=== PATIENT | female | born 1945 | race Caucasian/White ===

== ENCOUNTER → 2016-10-03 | Day surgery (SDC) | payer OTHER ==
[~2016-10-03] VITALS: Ht 162.6 cm; Wt 56.2 kg
[~2016-10-03] MED LIST: ALBU17IN INH; ALBU83IN INH; ASPI1TAB PO; ASPI81TA60 PO; AUGM875T27 PO; AVEL1TAB PO; BACITAB3 PO; DOXY10CA PO; DUONEBS NEB; GERITAB9 PO; GUAI20TA PO; LASI20TA PO; LEVO50TA5 PO; LIDOCAINE 1% SDV INJ 30 ML VIAL As Ordered ONE; LIDOCAINE 1% SDV INJ 30 ML VIAL XX ONE; LR 1,000 ML IV SCH; METO-346 PO; METO25TA74 PO; METO25TAB PO; MIDAZOLAM INJ 2 MG/2 ML VIAL (J2250) As Ordered ONE; MUCI600T34 PO; NICO14DI20 TD; NICO14DI3 TD; PERI8.6T PO; PLAV75TA38 PO; POTA99TA PO; PRAV40TA2 PO; PRED10PA PO; PRED10TA PO; VARE1TA PO; VITA100037 PO; ceFAZolin SOD 1 GM in D5W MINI-BAG PLUS 50 ML IV ONE
--- NOTE | 2016-10-03 16:50 | RO ---
DATE OF PROCEDURE: 10/03/2016 PREOPERATIVE DIAGNOSIS: Palpitations. POSTOPERATIVE DIAGNOSIS: Palpitations. FINDINGS: Palpitations. PROCEDURE: Implantation of Medtronic LINQ implantable loop recorder. SURGEON: Easton Howe MD SENIOR MANAGER MMCOE: None. ANESTHESIA: 1% lidocaine local/monitored anesthetic care. SPECIMENS: None. ESTIMATED BLOOD LOSS: Less than 3 mL. No blood products replaced. No drains. No complications. DESCRIPTION OF PROCEDURE: The patient was prepped and draped over the anterior chest and sternum. Lidocaine 1% was used for local anesthetic. An incision approximately three-quarters of a centimeter was made with a #15 blade through the skin, approximately fourth left interspace, about 1-2 cm lateral to the left parasternal border. Next, the insertion tool guide was placed into the incision and advanced into the subcutaneous fat in a caudal-left lateral direction. The insertion tool was rotated 180 degrees. The implantable loop recorder was then advanced into the subcutaneous fat by advancing it forward using the supplied plunger that came with the insertion tool. The plunger was then removed and then the insertion tool was removed. The initial R waves measured were 0.36 mV. The skin was then approximated using #4-0 Monocryl subcutaneous with the suture protruding through the skin beyond the end of the incision on both sides. Just prior to placing the Monocryl suture, I placed a single #2-0 Vicryl deep stitch. Next, two layers of Dermabond was applied over the incision and the Monocryl was placed under tension to approximate the skin edges. Following two layers of Dermabond, the Monocryl stitch was snipped at the level of the skin at both ends. The implantable loop recorder implanted was a Medtronic Reveal LINQ, model #LNQ11 with serial #[id number]. cc: Rodney Justin MD
[2016-10-03 17:00] VITALS: BP 141/81
== END | disposition home or self-care (01) ==
LOC: M SDC 13:26
PROVIDERS: ATTEND Internal Medicine Cardiovascular Disease
DX: R00.2 Palpitations (principal); R94.31 Abnormal electrocardiogram [ECG] [EKG]; I48.0 Paroxysmal atrial fibrillation; I25.10 Atherosclerotic heart disease of native coronary artery without angina pectoris; F17.210 Nicotine dependence, cigarettes, uncomplicated; E03.9 Hypothyroidism, unspecified; J44.9 Chronic obstructive pulmonary disease, unspecified; E78.5 Hyperlipidemia, unspecified; K76.0 Fatty (change of) liver, not elsewhere classified; I10 Essential (primary) hypertension; K59.00 Constipation, unspecified; M06.9 Rheumatoid arthritis, unspecified; F41.9 Anxiety disorder, unspecified; Z91.09 Other allergy status, other than to drugs and biological substances; Z88.8 Allergy status to other drugs, medicaments and biological substances; Z79.899 Other long term (current) drug therapy; Z79.82 Long term (current) use of aspirin; Z86.711 Personal history of pulmonary embolism; Z95.5 Presence of coronary angioplasty implant and graft
CPT/HCPCS: 33282; C1764; J0690; J2250

== ENCOUNTER 2017-07-21 17:31 | Emergency (ER) | payer OTHER ==
[~2017-07-21] VITALS: Ht 162.6 cm; Wt 56.6 kg
[~2017-07-21 17:31] MED LIST changes: -AUGM875T27 PO; +AUGM875T28 PO; -AVEL1TAB PO; +AVEL1TAB3 PO; +BACITAB PO; -BACITAB3 PO; +DOXY100T2 PO; -DOXY10CA PO; -LIDOCAINE 1% SDV INJ 30 ML VIAL As Ordered ONE; -LIDOCAINE 1% SDV INJ 30 ML VIAL XX ONE; -LR 1,000 ML IV SCH; +METO1TAB32 PO; -METO25TA74 PO; -MIDAZOLAM INJ 2 MG/2 ML VIAL (J2250) As Ordered ONE; -MUCI600T34 PO; +MUCI600T37 PO; +PLAV1TAB2 PO; -PLAV75TA38 PO; -VITA100037 PO; +VITA100067 PO; -ceFAZolin SOD 1 GM in D5W MINI-BAG PLUS 50 ML IV ONE
[2017-07-21] MEDS ORDERED: ATOR1TAB19 PO (17:39)
[2017-07-21] MEDS ORDERED: NS 500 ML IV ONE ×3 (18:45→20:30)
[2017-07-21 18:56] LABS: BASO # 0.1 10^3/uL (0.0-0.2); BASO % 0.8 % (0.0-1.0); EOS % 0.3 % (0.0-3.0); IMMATURE GRANULOCYTE % 0.3 % (0-0); LYMPH # 1.2 10^3/uL (1.5-4.5); LYMPH % 18.9 % (24.0-44.0); MEAN CORPUSCULAR HEMOGLOBIN 31.3 pg (27.0-33.0); MEAN CORPUSCULAR HGB CONC 34.5 g/dl (32.0-36.5); MEAN CORPUSCULAR VOLUME 90.7 fl (80.0-96.0); MONO # 0.8 10^3/uL (0.0-0.8); MONO % 12.3 % (0.0-5.0); NEUTROPHILS # 4.4 10^3/uL (1.8-7.7); NEUTROPHILS % 67.4 % (36.0-66.0); PLATELET COUNT, AUTOMATED 297 10^3/uL (150-450); RED CELL DISTRIBUTION WIDTH 13.3 % (11.5-14.5); WHITE BLOOD COUNT 6.5 10^3/uL (4.0-10.0)
[2017-07-21 19:08] LABS: CALCIUM LEVEL 8.8 MG/DL (8.8-10.2); CREATININE FOR GFR 1.29 MG/DL (0.55-1.02); FREE T4 0.98 NG/DL (0.76-1.46); GLOMERULAR FILTRATION RATE 43.1 (>39); MAGNESIUM LEVEL 2.4 MG/DL (1.8-2.4); PHOSPHORUS LEVEL 3.3 MG/DL (2.5-4.9); POTASSIUM SERUM 3.9 MEQ/L (3.5-5.1)
[2017-07-21 19:13] LABS: INR 0.89
--- NOTE | 2017-07-21 19:41 | REP ---
Clinical: Near-syncopal episode . Comparison: 04/09/2016 . Technique: PA and lateral. Findings: The mediastinum and cardiac silhouette are normal. The lung villagomez demonstrate stable chronic interstitial changes without acute consolidation, effusion, or pneumothorax. The skeletal structures are intact and normal. Impression: Chronic stable changes. No acute cardiopulmonary process. Signed by Vikas Ruiz MD 07/21/2017 07:32 P
[2017-07-21 21:55] VITALS: BP 146/69
--- NOTE | 2017-07-23 08:36 | ECGEPIP ---
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
== END 2017-07-21 22:11 | disposition home or self-care (01) ==
LOC: M ED 17:31
DX: R55 Syncope and collapse (principal); I25.10 Atherosclerotic heart disease of native coronary artery without angina pectoris; J44.9 Chronic obstructive pulmonary disease, unspecified; N18.9 Chronic kidney disease, unspecified; K57.90 Diverticulosis of intestine, part unspecified, without perforation or abscess without bleeding; F41.9 Anxiety disorder, unspecified; K76.0 Fatty (change of) liver, not elsewhere classified; K44.9 Diaphragmatic hernia without obstruction or gangrene; M43.10 Spondylolisthesis, site unspecified; Z87.891 Personal history of nicotine dependence; Z95.5 Presence of coronary angioplasty implant and graft; Z79.899 Other long term (current) drug therapy; Z79.82 Long term (current) use of aspirin; Z88.8 Allergy status to other drugs, medicaments and biological substances; J30.81 Allergic rhinitis due to animal (cat) (dog) hair and dander

== ENCOUNTER 2018-01-26 14:17 | Emergency (ER) | payer OTHER ==
[2018-01-26 15:21] LABS: BASO % 0.6 % (0.0-1.0); EOS % 0.2 % (0.0-3.0); HEMATOCRIT 37.1 % (36.0-47.0); HEMOGLOBIN 12.3 g/dl (12.0-15.5); IMMATURE GRANULOCYTE % 0.4 % (0-3.0); LYMPH # 1.2 10^3/uL (1.5-4.5); LYMPH % 22.9 % (24.0-44.0); MEAN CORPUSCULAR HEMOGLOBIN 31.5 pg (27.0-33.0); MEAN CORPUSCULAR HGB CONC 33.2 g/dl (32.0-36.5); MEAN CORPUSCULAR VOLUME 94.9 fl (80.0-96.0); MONO # 0.6 10^3/uL (0.0-0.8); MONO % 11.4 % (0.0-5.0); NEUTROPHILS # 3.4 10^3/uL (1.8-7.7); NEUTROPHILS % 64.5 % (36.0-66.0); PLATELET COUNT, AUTOMATED 256 10^3/uL (150-450); RED BLOOD COUNT 3.91 10^6/uL (4.00-5.40); RED CELL DISTRIBUTION WIDTH 14.1 % (11.5-14.5); WHITE BLOOD COUNT 5.3 10^3/uL (4.0-10.0)
[2018-01-26 15:54] LABS: ALT/SGPT 18 U/L (12-78); ANION GAP 5 MEQ/L (8-16); AST/SGOT 17 U/L (7-37); BILIRUBIN,DIRECT 0.1 MG/DL (0.0-0.2); BLOOD UREA NITROGEN 14 MG/DL (7-18); CALCIUM LEVEL 8.6 MG/DL (8.8-10.2); CARBON DIOXIDE LEVEL 31 MEQ/L (21-32); CHLORIDE LEVEL 108 MEQ/L (98-107); CREATININE FOR GFR 1.13 MG/DL (0.55-1.30); GLOMERULAR FILTRATION RATE 50.1 (>39); GLUCOSE, FASTING 130 MG/DL (70-100); SODIUM LEVEL 144 MEQ/L (136-145); TROPONIN I < 0.02 NG/ML (< 0.10)
[2018-01-26 15:59] LABS: BILIRUBIN,TOTAL 0.3 MG/DL (0.2-1.0); CPK CREATINE PHOSPHOKINASE 112 U/L (26-192); FREE T4 0.94 NG/DL (0.76-1.46); TOTAL PROTEIN 7.1 GM/DL (6.4-8.2)
[2018-01-26 16:16] LABS: ALKALINE PHOSPHATASE 66 U/L (45-117)
[2018-01-26 16:20] LABS: ALBUMIN 3.4 GM/DL (3.2-5.2); ALBUMIN/GLOBULIN RATIO 0.92 (1.00-1.93); CK-MB VALUE MASS 1.1 NG/ML (<3.6); MB/CK RELATIVE INDEX 0.98 (< OR =4)
[2018-01-26] MEDS: NS 1,000 ML IV (16:30)
[2018-01-26 16:31] LABS: LIPASE 183 U/L (73-393)
[2018-01-26] MEDS ORDERED: ISOVUE-370 76% 100ML VIAL (Q9967) As Ordered (16:37)
[2018-01-26 17:06] LABS: KETONE, URINE AUTO RFX NEGATIVE (NEGATIVE); RBC, URINE AUTO RFX 8 /HPF (0-3); SPECIFIC GRAVITY UR AUTO RFX 1.005 (1.002-1.035); SQUAM EPITHELIAL CELL UR AURFX 0 /HPF (0-6)
[2018-01-26 17:44] LABS: LEUKOCYTE ESTERASE UR AUTO RFX 3+ (NEGATIVE); NITRITE, URINE AUTO RFX POSITIVE (NEGATIVE); WBC, URINE AUTO RFX 141 /HPF (0-3)
[2018-01-26] MEDS: CIPROFLOXACIN 500 MG TAB PO (18:36)
== END 2018-01-26 18:42 | disposition home or self-care (01) ==
LOC: M ED 14:17
DX: R55 Syncope and collapse (principal); N39.0 Urinary tract infection, site not specified; I10 Essential (primary) hypertension; J44.9 Chronic obstructive pulmonary disease, unspecified; I25.10 Atherosclerotic heart disease of native coronary artery without angina pectoris; E78.5 Hyperlipidemia, unspecified; Z95.5 Presence of coronary angioplasty implant and graft; Z79.899 Other long term (current) drug therapy; Z79.82 Long term (current) use of aspirin; Z88.8 Allergy status to other drugs, medicaments and biological substances
CPT/HCPCS: Q9967

== ENCOUNTER 2018-03-23 15:50 | Emergency (ER) | payer OTHER ==
[2018-03-23 16:49] LABS: BASO % 0.7 % (0.0-1.0); EOS % 0.3 % (0.0-3.0); HEMATOCRIT 41.8 % (36.0-47.0); HEMOGLOBIN 14.2 g/dl (12.0-15.5); IMMATURE GRANULOCYTE % 0.3 % (0-3.0); LYMPH # 1.1 10^3/uL (1.5-4.5); LYMPH % 18.9 % (24.0-44.0); MEAN CORPUSCULAR HEMOGLOBIN 31.2 pg (27.0-33.0); MEAN CORPUSCULAR VOLUME 91.9 fl (80.0-96.0); MONO # 0.6 10^3/uL (0.0-0.8); MONO % 10.2 % (0.0-5.0); NEUTROPHILS % 69.6 % (36.0-66.0); PLATELET COUNT, AUTOMATED 269 10^3/uL (150-450); RED BLOOD COUNT 4.55 10^6/uL (4.00-5.40); RED CELL DISTRIBUTION WIDTH 13.2 % (11.5-14.5); WHITE BLOOD COUNT 5.8 10^3/uL (4.0-10.0)
[2018-03-23 16:50] LABS: CARBOXYHEMOGLOBIN 8.7 % (0.0-1.5)
[2018-03-23 16:53] LABS: KETONE, URINE AUTO RFX TRACE mg/dL (NEGATIVE); LEUKOCYTE ESTERASE UR AUTO RFX NEGATIVE (NEGATIVE); MUCUS, URINE RFX SMALL (NEGATIVE); NITRITE, URINE AUTO RFX NEGATIVE (NEGATIVE); RBC, URINE AUTO RFX 3 /HPF (0-3); SPECIFIC GRAVITY UR AUTO RFX 1.011 (1.002-1.035); SQUAM EPITHELIAL CELL UR AURFX 2 /HPF (0-6); WBC, URINE AUTO RFX 2 /HPF (0-3)
[2018-03-23] MEDS: NS 500 ML IV (16:55)
[2018-03-23 17:11] LABS: AMMONIA < 10 uMOL/L (<32)
[2018-03-23 17:15] LABS: ALBUMIN 3.7 GM/DL (3.2-5.2); ALBUMIN/GLOBULIN RATIO 0.93 (1.00-1.93); ALKALINE PHOSPHATASE 76 U/L (45-117); ALT/SGPT 19 U/L (12-78); AST/SGOT 18 U/L (7-37); BILIRUBIN,DIRECT 0.2 MG/DL (0.0-0.2); BILIRUBIN,TOTAL 0.6 MG/DL (0.2-1.0); BLOOD UREA NITROGEN 11 MG/DL (7-18); CALCIUM LEVEL 8.8 MG/DL (8.8-10.2); CARBON DIOXIDE LEVEL 33 MEQ/L (21-32); CHLORIDE LEVEL 100 MEQ/L (98-107); CPK CREATINE PHOSPHOKINASE 61 U/L (26-192); CREATININE FOR GFR 1.07 MG/DL (0.55-1.30); GLOMERULAR FILTRATION RATE 53.4 (>39); GLUCOSE, FASTING 116 MG/DL (70-100); TOTAL PROTEIN 7.7 GM/DL (6.4-8.2)
[2018-03-23 17:15] LABS: LACTIC ACID SEPSIS PROTOCOL 1.7 MMOL/L (0.4-2.0)
[2018-03-23 17:18] LABS: CK-MB VALUE MASS < 1.0 NG/ML (<3.6); MB/CK RELATIVE INDEX 1.63 (< OR =4); TROPONIN I < 0.02 NG/ML (< 0.10)
[2018-03-23 17:21] LABS: ANION GAP 8 MEQ/L (8-16); SODIUM LEVEL 141 MEQ/L (136-145)
[2018-03-23 17:23] LABS: POTASSIUM SERUM 2.5 MEQ/L (3.5-5.1)
[2018-03-23 17:33] LABS: MAGNESIUM LEVEL 2.4 MG/DL (1.8-2.4)
[2018-03-23] MEDS: KCL 10MEQ/100ML SWI (KRUN) 10 MEQ in APPROPRIATE DILUENT 1 EA IV (18:05)
[2018-03-23] MEDS: POTASSIUM CHLORIDE 10 MEQ SR TABLET PO (18:05)
== END 2018-03-23 19:56 | disposition home or self-care (01) ==
LOC: M ED 15:50
DX: R53.1 Weakness (principal); E87.6 Hypokalemia; I25.10 Atherosclerotic heart disease of native coronary artery without angina pectoris; I12.9 Hypertensive chronic kidney disease with stage 1 through stage 4 chronic kidney disease, or unspecified chronic kidney disease; E78.9 Disorder of lipoprotein metabolism, unspecified; N18.9 Chronic kidney disease, unspecified; I25.2 Old myocardial infarction; Z86.711 Personal history of pulmonary embolism; F41.9 Anxiety disorder, unspecified; F32.9 Major depressive disorder, single episode, unspecified; K52.9 Noninfective gastroenteritis and colitis, unspecified; K57.92 Diverticulitis of intestine, part unspecified, without perforation or abscess without bleeding; Z95.1 Presence of aortocoronary bypass graft; F17.200 Nicotine dependence, unspecified, uncomplicated; Z88.8 Allergy status to other drugs, medicaments and biological substances; J30.81 Allergic rhinitis due to animal (cat) (dog) hair and dander; Z79.899 Other long term (current) drug therapy; Z79.82 Long term (current) use of aspirin
CPT/HCPCS: 71045

== ENCOUNTER → 2018-06-06 | Outpatient (CLI) | payer OTHER | LOC: M ADAMS 15:02 | DX: R05 Cough (principal) | CPT/HCPCS: 71046 ==

== ENCOUNTER 2018-06-10 11:21 | Inpatient (IN) | payer OTHER ==
[2018-06-10 12:44] LABS: BASO % 0.6 % (0.0-1.0); EOS % 0.6 % (0.0-3.0); HEMATOCRIT 34.5 % (36.0-47.0); HEMOGLOBIN 11.9 g/dl (12.0-15.5); IMMATURE GRANULOCYTE % 0.2 % (0-3.0); LYMPH # 0.9 10^3/uL (1.5-4.5); LYMPH % 15.6 % (24.0-44.0); MEAN CORPUSCULAR HEMOGLOBIN 30.3 pg (27.0-33.0); MEAN CORPUSCULAR HGB CONC 34.5 g/dl (32.0-36.5); MEAN CORPUSCULAR VOLUME 87.8 fl (80.0-96.0); MONO # 0.6 10^3/uL (0.0-0.8); MONO % 11.6 % (0.0-5.0); NEUTROPHILS # 3.9 10^3/uL (1.8-7.7); NEUTROPHILS % 71.4 % (36.0-66.0); PLATELET COUNT, AUTOMATED 297 10^3/uL (150-450); RED BLOOD COUNT 3.93 10^6/uL (4.00-5.40); RED CELL DISTRIBUTION WIDTH 13.4 % (11.5-14.5); WHITE BLOOD COUNT 5.4 10^3/uL (4.0-10.0)
[2018-06-10 12:55] LABS: INR 1.04; PARTIAL THROMBOPLASTIN TIME 26.1 SECONDS (25.4-37.6); PROTHROMBIN TIME 13.7 SECONDS (12.1-14.4)
[2018-06-10 13:09] LABS: LACTIC ACID SEPSIS PROTOCOL 1.6 MMOL/L (0.4-2.0)
[2018-06-10 13:32] LABS: ALBUMIN 3.1 GM/DL (3.2-5.2); ALBUMIN/GLOBULIN RATIO 0.82 (1.00-1.93); ALKALINE PHOSPHATASE 64 U/L (45-117); ALT/SGPT 14 U/L (12-78); AMYLASE 34 U/L (25-115); ANION GAP 10 MEQ/L (8-16); AST/SGOT 39 U/L (7-37); BILIRUBIN,DIRECT 0.2 MG/DL (0.0-0.2); BILIRUBIN,TOTAL 0.5 MG/DL (0.2-1.0); BLOOD UREA NITROGEN 9 MG/DL (7-18); CALCIUM LEVEL 8.4 MG/DL (8.8-10.2); CARBON DIOXIDE LEVEL 38 MEQ/L (21-32); CHLORIDE LEVEL 92 MEQ/L (98-107); GLOMERULAR FILTRATION RATE 57.7 (>39); GLUCOSE, FASTING 100 MG/DL (70-100); LIPASE 137 U/L (73-393); POTASSIUM SERUM 1.9 MEQ/L (3.5-5.1); SODIUM LEVEL 140 MEQ/L (136-145); TOTAL PROTEIN 6.9 GM/DL (6.4-8.2)
[2018-06-10 13:50] LABS: MAGNESIUM LEVEL 2.3 MG/DL (1.8-2.4)
[2018-06-10] MEDS: NS 1,000 ML IV ×2 (14:01→18:48)
[2018-06-10] MEDS: KCL 10MEQ/100ML SWI (KRUN) 10 MEQ in APPROPRIATE DILUENT 1 EA IV (14:11)
[2018-06-10] MEDS: POTASSIUM CHLORIDE 10 MEQ SR TABLET PO ×2 (14:11→21:32)
[2018-06-10 14:19] LABS: AMORPHOUS SEDIMENT RFX SMALL (NEGATIVE); KETONE, URINE AUTO RFX NEGATIVE (NEGATIVE); LEUKOCYTE ESTERASE UR AUTO RFX NEGATIVE (NEGATIVE); NITRITE, URINE AUTO RFX NEGATIVE (NEGATIVE); RBC, URINE AUTO RFX 4 /HPF (0-3); SPECIFIC GRAVITY UR AUTO RFX 1.004 (1.002-1.035); SQUAM EPITHELIAL CELL UR AURFX 2 /HPF (0-6); WBC, URINE AUTO RFX 1 /HPF (0-3)
[2018-06-10] MEDS ORDERED: ONDANSETRON 4MG/2ML VIAL (J2405) IV (15:30)
[2018-06-10 18:49] LABS: ANION GAP 8 MEQ/L (8-16); BLOOD UREA NITROGEN 6 MG/DL (7-18); CALCIUM LEVEL 7.9 MG/DL (8.8-10.2); CARBON DIOXIDE LEVEL 38 MEQ/L (21-32); CHLORIDE LEVEL 100 MEQ/L (98-107); CREATININE FOR GFR 0.83 MG/DL (0.55-1.30); GLOMERULAR FILTRATION RATE > 60.0 (>39); GLUCOSE, FASTING 83 MG/DL (70-100); POTASSIUM SERUM 2.1 MEQ/L (3.5-5.1); SODIUM LEVEL 146 MEQ/L (136-145)
[2018-06-10] MEDS: LACTOBACILLUS ACIDOPHILUS CAP (BACID) PO (18:49)
[2018-06-10] MEDS: ENOXAPARIN 40 MG/0.4 ML SYRINGE (J1650) SC (18:49)
[2018-06-10] MEDS: hydrALAZINE INJ 20 MG/ML VIAL IV (18:55)
[2018-06-10] MEDS: KCL 40MEQ IN D5/0.45NS 1000ML 1,000 ML IV (19:53)
[2018-06-10] MEDS: ALBUTEROL SULFATE 2.5 MG/0.5 ML INH NEB SOLN INH (21:54)
[2018-06-11 00:50] LABS: ANION GAP 8 MEQ/L (8-16); BLOOD UREA NITROGEN 6 MG/DL (7-18); CALCIUM LEVEL 7.5 MG/DL (8.8-10.2); CARBON DIOXIDE LEVEL 36 MEQ/L (21-32); CHLORIDE LEVEL 99 MEQ/L (98-107); CREATININE FOR GFR 0.79 MG/DL (0.55-1.30); GLOMERULAR FILTRATION RATE > 60.0 (>39); GLUCOSE, FASTING 124 MG/DL (70-100); POTASSIUM SERUM 2.1 MEQ/L (3.5-5.1); SODIUM LEVEL 143 MEQ/L (136-145)
[2018-06-11] MEDS: POTASSIUM CHLORIDE 10 MEQ SR TABLET PO ×4 (01:44→16:25)
[2018-06-11] MEDS: hydrALAZINE INJ 20 MG/ML VIAL IV ×2 (01:44→18:13)
[2018-06-11] MEDS: KCL 10MEQ/100ML SWI (KRUN) 10 MEQ in APPROPRIATE DILUENT 1 EA IV ×7 (02:25→13:32)
[2018-06-11] MEDS: ALBUTEROL SULFATE 2.5 MG/0.5 ML INH NEB SOLN INH (03:16)
[2018-06-11 05:40] LABS: BASO % 0.8 % (0.0-1.0); EOS % 0.4 % (0.0-3.0); HEMOGLOBIN 12.1 g/dl (12.0-15.5); IMMATURE GRANULOCYTE % 0.4 % (0-3.0); LYMPH # 0.9 10^3/uL (1.5-4.5); LYMPH % 17.5 % (24.0-44.0); MEAN CORPUSCULAR HEMOGLOBIN 29.7 pg (27.0-33.0); MEAN CORPUSCULAR HGB CONC 33.6 g/dl (32.0-36.5); MEAN CORPUSCULAR VOLUME 88.2 fl (80.0-96.0); MONO # 0.6 10^3/uL (0.0-0.8); MONO % 12.2 % (0.0-5.0); NEUTROPHILS # 3.5 10^3/uL (1.8-7.7); NEUTROPHILS % 68.7 % (36.0-66.0); PLATELET COUNT, AUTOMATED 289 10^3/uL (150-450); RED BLOOD COUNT 4.08 10^6/uL (4.00-5.40); RED CELL DISTRIBUTION WIDTH 13.6 % (11.5-14.5)
[2018-06-11 06:13] LABS: ALBUMIN 2.9 GM/DL (3.2-5.2); ALBUMIN/GLOBULIN RATIO 0.69 (1.00-1.93); ALKALINE PHOSPHATASE 58 U/L (45-117); ALT/SGPT 19 U/L (12-78); ANION GAP 7 MEQ/L (8-16); AST/SGOT 55 U/L (7-37); BILIRUBIN,TOTAL 0.6 MG/DL (0.2-1.0); BLOOD UREA NITROGEN 4 MG/DL (7-18); CALCIUM LEVEL 8.1 MG/DL (8.8-10.2); CARBON DIOXIDE LEVEL 35 MEQ/L (21-32); CHLORIDE LEVEL 102 MEQ/L (98-107); CREATININE FOR GFR 0.74 MG/DL (0.55-1.30); GLOMERULAR FILTRATION RATE > 60.0 (>39); GLUCOSE, FASTING 99 MG/DL (70-100); MAGNESIUM LEVEL 1.9 MG/DL (1.8-2.4); POTASSIUM SERUM 2.4 MEQ/L (3.5-5.1); SODIUM LEVEL 144 MEQ/L (136-145); TOTAL PROTEIN 7.1 GM/DL (6.4-8.2)
[2018-06-11] MEDS ORDERED: KCL 10MEQ/100ML SWI (KRUN) 10 MEQ in APPROPRIATE DILUENT 1 EA IV ×2 (08:00→11:00)
[2018-06-11] MEDS: LACTOBACILLUS ACIDOPHILUS CAP (BACID) PO ×2 (08:50→16:25)
[2018-06-11] MEDS: ENOXAPARIN 40 MG/0.4 ML SYRINGE (J1650) SC (08:50)
[2018-06-11] MEDS: ASPIRIN 81 MG ENTERIC TAB PO (08:50)
[2018-06-11] MEDS: KCL 40MEQ IN D5/0.45NS 1000ML 1,000 ML IV ×2 (08:51→21:58)
[2018-06-11 13:16] LABS: ANION GAP 8 MEQ/L (8-16); BLOOD UREA NITROGEN 5 MG/DL (7-18); CALCIUM LEVEL 7.9 MG/DL (8.8-10.2); CARBON DIOXIDE LEVEL 32 MEQ/L (21-32); CHLORIDE LEVEL 103 MEQ/L (98-107); CREATININE FOR GFR 0.82 MG/DL (0.55-1.30); GLOMERULAR FILTRATION RATE > 60.0 (>39); GLUCOSE, FASTING 145 MG/DL (70-100); POTASSIUM SERUM 2.6 MEQ/L (3.5-5.1); SODIUM LEVEL 143 MEQ/L (136-145)
[2018-06-11 20:44] LABS: ANION GAP 6 MEQ/L (8-16); BLOOD UREA NITROGEN 7 MG/DL (7-18); CALCIUM LEVEL 7.6 MG/DL (8.8-10.2); CARBON DIOXIDE LEVEL 29 MEQ/L (21-32); CHLORIDE LEVEL 107 MEQ/L (98-107); CREATININE FOR GFR 0.83 MG/DL (0.55-1.30); GLOMERULAR FILTRATION RATE > 60.0 (>39); GLUCOSE, FASTING 104 MG/DL (70-100); POTASSIUM SERUM 3.3 MEQ/L (3.5-5.1); SODIUM LEVEL 142 MEQ/L (136-145)
[2018-06-11] MEDS: ACETAMINOPHEN TAB 650MG DOSE (2X325MG) PO (22:14)
[2018-06-12] MEDS: hydrALAZINE INJ 20 MG/ML VIAL IV (00:55)
[2018-06-12 05:59] LABS: BASO % 0.9 % (0.0-1.0); EOS # 0.1 10^3/uL (0.0-0.50); EOS % 2.3 % (0.0-3.0); HEMOGLOBIN 11.8 g/dl (12.0-15.5); IMMATURE GRANULOCYTE % 0.2 % (0-3.0); LYMPH # 1.1 10^3/uL (1.5-4.5); LYMPH % 22.6 % (24.0-44.0); MEAN CORPUSCULAR HEMOGLOBIN 30.3 pg (27.0-33.0); MEAN CORPUSCULAR HGB CONC 33.7 g/dl (32.0-36.5); MEAN CORPUSCULAR VOLUME 89.7 fl (80.0-96.0); MONO # 0.5 10^3/uL (0.0-0.8); MONO % 11.1 % (0.0-5.0); NEUTROPHILS % 62.9 % (36.0-66.0); PLATELET COUNT, AUTOMATED 282 10^3/uL (150-450); RED CELL DISTRIBUTION WIDTH 14.3 % (11.5-14.5); WHITE BLOOD COUNT 4.7 10^3/uL (4.0-10.0)
[2018-06-12 06:21] LABS: ALBUMIN 2.5 GM/DL (3.2-5.2); ALBUMIN/GLOBULIN RATIO 0.64 (1.00-1.93); ALKALINE PHOSPHATASE 58 U/L (45-117); ALT/SGPT 18 U/L (12-78); ANION GAP 7 MEQ/L (8-16); AST/SGOT 61 U/L (7-37); BILIRUBIN,TOTAL 0.5 MG/DL (0.2-1.0); BLOOD UREA NITROGEN 4 MG/DL (7-18); CALCIUM LEVEL 7.9 MG/DL (8.8-10.2); CARBON DIOXIDE LEVEL 29 MEQ/L (21-32); CHLORIDE LEVEL 110 MEQ/L (98-107); CREATININE FOR GFR 0.67 MG/DL (0.55-1.30); GLOMERULAR FILTRATION RATE > 60.0 (>39); GLUCOSE, FASTING 87 MG/DL (70-100); MAGNESIUM LEVEL 1.9 MG/DL (1.8-2.4); SODIUM LEVEL 146 MEQ/L (136-145); TOTAL PROTEIN 6.4 GM/DL (6.4-8.2)
[2018-06-12] MEDS: ASPIRIN 81 MG ENTERIC TAB PO (08:47)
[2018-06-12] MEDS: AZITHROMYCIN 250 MG TAB PO (08:47)
[2018-06-12] MEDS: LACTOBACILLUS ACIDOPHILUS CAP (BACID) PO (08:47)
[2018-06-12] MEDS: POTASSIUM CHLORIDE 10 MEQ SR TABLET PO (08:48)
[2018-06-12] MEDS: ENOXAPARIN 40 MG/0.4 ML SYRINGE (J1650) SC (08:48)
[2018-06-12] MEDS: ALBUTEROL SULFATE 2.5 MG/0.5 ML INH NEB SOLN INH (12:44)
[2018-06-12 13:40] LABS: ANION GAP 6 MEQ/L (8-16); BLOOD UREA NITROGEN 5 MG/DL (7-18); CALCIUM LEVEL 8.6 MG/DL (8.8-10.2); CARBON DIOXIDE LEVEL 32 MEQ/L (21-32); CHLORIDE LEVEL 104 MEQ/L (98-107); CREATININE FOR GFR 0.77 MG/DL (0.55-1.30); GLOMERULAR FILTRATION RATE > 60.0 (>39); GLUCOSE, FASTING 98 MG/DL (70-100); POTASSIUM SERUM 3.4 MEQ/L (3.5-5.1); SODIUM LEVEL 142 MEQ/L (136-145)
[2018-06-12] MEDS: FLUDROCORTISONE ACETATE 0.1 MG TAB PO (15:20)
== END 2018-06-12 15:35 | disposition home or self-care (01) | DRG 372 ==
LOC: M ED 11:21 → M ED INP 15:09 → M PCU 18:12
DX: A04.0 Enteropathogenic Escherichia coli infection (principal); I45.2 Bifascicular block; J44.9 Chronic obstructive pulmonary disease, unspecified; I10 Essential (primary) hypertension; I25.10 Atherosclerotic heart disease of native coronary artery without angina pectoris; E78.5 Hyperlipidemia, unspecified; E87.6 Hypokalemia; F17.200 Nicotine dependence, unspecified, uncomplicated; Z79.82 Long term (current) use of aspirin; Z79.899 Other long term (current) drug therapy; Z88.8 Allergy status to other drugs, medicaments and biological substances; Z86.711 Personal history of pulmonary embolism

== ENCOUNTER 2018-07-02 18:42 | Inpatient (IN) | payer OTHER ==
[2018-07-02 19:14] LABS: BASO % 0.2 % (0.0-1.0); HEMATOCRIT 38.6 % (36.0-47.0); HEMOGLOBIN 13.2 g/dl (12.0-15.5); IMMATURE GRANULOCYTE % 0.5 % (0-3.0); LYMPH # 0.4 10^3/uL (1.5-4.5); LYMPH % 2.3 % (24.0-44.0); MEAN CORPUSCULAR HEMOGLOBIN 30.3 pg (27.0-33.0); MEAN CORPUSCULAR HGB CONC 34.2 g/dl (32.0-36.5); MEAN CORPUSCULAR VOLUME 88.7 fl (80.0-96.0); MONO # 0.2 10^3/uL (0.0-0.8); MONO % 1.1 % (0.0-5.0); NEUTROPHILS # 17.8 10^3/uL (1.8-7.7); NEUTROPHILS % 95.9 % (36.0-66.0); PLATELET COUNT, AUTOMATED 223 10^3/uL (150-450); RED BLOOD COUNT 4.35 10^6/uL (4.00-5.40); RED CELL DISTRIBUTION WIDTH 14.2 % (11.5-14.5); WHITE BLOOD COUNT 18.6 10^3/uL (4.0-10.0)
[2018-07-02] MEDS: ACETAMINOPHEN TAB 650MG DOSE (2X325MG) PO (19:45)
[2018-07-02] MEDS: NS 1,000 ML IV (19:45)
[2018-07-02 19:46] LABS: ALBUMIN 3.2 GM/DL (3.2-5.2); ALBUMIN/GLOBULIN RATIO 0.78 (1.00-1.93); ALKALINE PHOSPHATASE 85 U/L (45-117); ALT/SGPT 12 U/L (12-78); ANION GAP 11 MEQ/L (8-16); AST/SGOT 18 U/L (7-37); BILIRUBIN,DIRECT 0.4 MG/DL (0.0-0.2); BILIRUBIN,TOTAL 1.2 MG/DL (0.2-1.0); BLOOD UREA NITROGEN 24 MG/DL (7-18); CALCIUM LEVEL 8.8 MG/DL (8.8-10.2); CARBON DIOXIDE LEVEL 23 MEQ/L (21-32); CHLORIDE LEVEL 99 MEQ/L (98-107); CK-MB VALUE MASS < 1.0 NG/ML (<3.6); CPK CREATINE PHOSPHOKINASE 126 U/L (26-192); CREATININE FOR GFR 1.55 MG/DL (0.55-1.30); GLOMERULAR FILTRATION RATE 34.8 (>39); GLUCOSE, FASTING 175 MG/DL (70-100); MB/CK RELATIVE INDEX 0.79 (< OR =4); NT-PRO BNP 686 PG/ML (<125); POTASSIUM SERUM 2.9 MEQ/L (3.5-5.1); SODIUM LEVEL 133 MEQ/L (136-145); TOTAL PROTEIN 7.3 GM/DL (6.4-8.2); TROPONIN I < 0.02 NG/ML (< 0.10)
[2018-07-02 19:54] LABS: LIPASE 107 U/L (73-393)
[2018-07-02] MEDS: NS 500 ML IV (20:30)
[2018-07-02 20:32] LABS: LACTIC ACID SEPSIS PROTOCOL 2.2 MMOL/L (0.4-2.0)
[2018-07-02 20:42] LABS: KETONE, URINE AUTO RFX NEGATIVE (NEGATIVE); MUCUS, URINE RFX SMALL (NEGATIVE); RBC, URINE AUTO RFX 12 /HPF (0-3); SPECIFIC GRAVITY UR AUTO RFX 1.009 (1.002-1.035); SQUAM EPITHELIAL CELL UR AURFX 0 /HPF (0-6)
[2018-07-02 20:46] LABS: LEUKOCYTE ESTERASE UR AUTO RFX 3+ (NEGATIVE); NITRITE, URINE AUTO RFX POSITIVE (NEGATIVE); WBC, URINE AUTO RFX TNTC /HPF (0-3)
[2018-07-02] MEDS: cefTRIAXone SOD 1 GM in D5W MINI-BAG PLUS 50 ML IV (22:15)
[2018-07-02] MEDS ORDERED: BISACODYL 10 MG SUPP PR (23:45)
[2018-07-03 00:31] LABS: MAGNESIUM LEVEL 1.7 MG/DL (1.8-2.4)
[2018-07-03] MEDS ORDERED: MAG SULF 1GM/100ML (MAG RUN) 1 GM in APPROPRIATE DILUENT 1 EA IV (01:15)
[2018-07-03] MEDS: DOCUSATE SODIUM 100 MG CAP PO ×3 (02:01→21:41)
[2018-07-03] MEDS: NS 1,000 ML IV (02:01)
[2018-07-03] MEDS: POTASSIUM CHLORIDE 10 MEQ SR TABLET PO (02:02)
[2018-07-03] MEDS: ACETAMINOPHEN TAB 650MG DOSE (2X325MG) PO ×4 (02:02→21:43)
[2018-07-03] MEDS: MAG SULF 1GM/100ML (MAG RUN) 1 GM in APPROPRIATE DILUENT 1 EA IV (02:41)
[2018-07-03] MEDS: FLUDROCORTISONE ACETATE 0.1 MG TAB PO ×3 (02:58→21:41)
[2018-07-03 06:13] LABS: HEMATOCRIT 32.8 % (36.0-47.0); MEAN CORPUSCULAR HEMOGLOBIN 30.4 pg (27.0-33.0); MEAN CORPUSCULAR HGB CONC 32.9 g/dl (32.0-36.5); MEAN CORPUSCULAR VOLUME 92.4 fl (80.0-96.0); PLATELET COUNT, AUTOMATED 193 10^3/uL (150-450); RED BLOOD COUNT 3.55 10^6/uL (4.00-5.40); RED CELL DISTRIBUTION WIDTH 14.3 % (11.5-14.5); WHITE BLOOD COUNT 20.1 10^3/uL (4.0-10.0)
[2018-07-03 06:18] LABS: HEMOGLOBIN 10.8 g/dl (12.0-15.5)
[2018-07-03 06:31] LABS: ANION GAP 9 MEQ/L (8-16); BLOOD UREA NITROGEN 26 MG/DL (7-18); CALCIUM LEVEL 8.3 MG/DL (8.8-10.2); CARBON DIOXIDE LEVEL 23 MEQ/L (21-32); CHLORIDE LEVEL 105 MEQ/L (98-107); GLOMERULAR FILTRATION RATE 33.5 (>39); GLUCOSE, FASTING 182 MG/DL (70-100); MAGNESIUM LEVEL 2.8 MG/DL (1.8-2.4); POTASSIUM SERUM 4.1 MEQ/L (3.5-5.1); SODIUM LEVEL 137 MEQ/L (136-145)
[2018-07-03] MEDS: ASPIRIN 81 MG ENTERIC TAB PO ×2 (08:25→21:41)
[2018-07-03] MEDS: ENOXAPARIN 30 MG/0.3 ML SYR (J1650) SC (08:26)
[2018-07-03] MEDS: KCL 20MEQ in NS 1000ML 1,000 ML IV ×2 (12:03→21:42)
[2018-07-03] MEDS: IPRATROPIUM 0.5MG/ALBUTEROL 2.5MG INH SOL UD 3ML (DUONEB)(J7620) NEB (17:36)
[2018-07-03] MEDS ORDERED: cefTRIAXone SOD 1 GM in D5W MINI-BAG PLUS 50 ML IV (21:00)
[2018-07-03] MEDS: cefTRIAXone SOD 2 GM in D5W MINI-BAG PLUS 50 ML IV (21:41)
[2018-07-04] MEDS: IPRATROPIUM 0.5MG/ALBUTEROL 2.5MG INH SOL UD 3ML (DUONEB)(J7620) NEB ×3 (03:11→22:25)
[2018-07-04 05:59] LABS: HEMATOCRIT 32.9 % (36.0-47.0); HEMOGLOBIN 10.5 g/dl (12.0-15.5); MEAN CORPUSCULAR HEMOGLOBIN 30.1 pg (27.0-33.0); MEAN CORPUSCULAR HGB CONC 31.9 g/dl (32.0-36.5); MEAN CORPUSCULAR VOLUME 94.3 fl (80.0-96.0); PLATELET COUNT, AUTOMATED 215 10^3/uL (150-450); RED BLOOD COUNT 3.49 10^6/uL (4.00-5.40); RED CELL DISTRIBUTION WIDTH 14.9 % (11.5-14.5); WHITE BLOOD COUNT 17.6 10^3/uL (4.0-10.0)
[2018-07-04 06:23] LABS: ANION GAP 7 MEQ/L (8-16); BLOOD UREA NITROGEN 21 MG/DL (7-18); CALCIUM LEVEL 8.2 MG/DL (8.8-10.2); CARBON DIOXIDE LEVEL 22 MEQ/L (21-32); CHLORIDE LEVEL 115 MEQ/L (98-107); CREATININE FOR GFR 1.23 MG/DL (0.55-1.30); GLOMERULAR FILTRATION RATE 45.4 (>39); GLUCOSE, FASTING 117 MG/DL (70-100); POTASSIUM SERUM 3.9 MEQ/L (3.5-5.1); SODIUM LEVEL 144 MEQ/L (136-145)
[2018-07-04] MEDS: ASPIRIN 81 MG ENTERIC TAB PO ×2 (07:52→20:35)
[2018-07-04] MEDS: FLUDROCORTISONE ACETATE 0.1 MG TAB PO ×2 (07:52→20:34)
[2018-07-04] MEDS: DOCUSATE SODIUM 100 MG CAP PO ×2 (07:52→20:35)
[2018-07-04] MEDS: ENOXAPARIN 30 MG/0.3 ML SYR (J1650) SC (07:53)
[2018-07-04] MEDS: KCL 20MEQ in NS 1000ML 1,000 ML IV ×2 (07:54→17:18)
[2018-07-04] MEDS: ACETAMINOPHEN TAB 650MG DOSE (2X325MG) PO ×3 (07:59→17:20)
[2018-07-04] MEDS: cefTRIAXone SOD 2 GM in D5W MINI-BAG PLUS 50 ML IV (20:35)
[2018-07-05] MEDS: IPRATROPIUM 0.5MG/ALBUTEROL 2.5MG INH SOL UD 3ML (DUONEB)(J7620) NEB ×2 (03:38→20:13)
[2018-07-05 05:57] LABS: HEMATOCRIT 31.2 % (36.0-47.0); MEAN CORPUSCULAR HEMOGLOBIN 29.2 pg (27.0-33.0); MEAN CORPUSCULAR HGB CONC 32.1 g/dl (32.0-36.5); MEAN CORPUSCULAR VOLUME 91.2 fl (80.0-96.0); PLATELET COUNT, AUTOMATED 208 10^3/uL (150-450); RED BLOOD COUNT 3.42 10^6/uL (4.00-5.40); WHITE BLOOD COUNT 9.8 10^3/uL (4.0-10.0)
[2018-07-05 06:30] LABS: ANION GAP 8 MEQ/L (8-16); BLOOD UREA NITROGEN 10 MG/DL (7-18); CALCIUM LEVEL 7.8 MG/DL (8.8-10.2); CARBON DIOXIDE LEVEL 24 MEQ/L (21-32); CHLORIDE LEVEL 109 MEQ/L (98-107); CREATININE FOR GFR 0.91 MG/DL (0.55-1.30); GLOMERULAR FILTRATION RATE > 60.0 (>39); GLUCOSE, FASTING 79 MG/DL (70-100); SODIUM LEVEL 141 MEQ/L (136-145)
[2018-07-05] MEDS: POTASSIUM CHLORIDE 10 MEQ SR TABLET PO ×3 (06:50→21:51)
[2018-07-05] MEDS: ACETAMINOPHEN TAB 650MG DOSE (2X325MG) PO ×4 (06:51→21:52)
[2018-07-05] MEDS: ASPIRIN 81 MG ENTERIC TAB PO ×2 (07:46→21:51)
[2018-07-05] MEDS: DOCUSATE SODIUM 100 MG CAP PO ×2 (07:46→21:50)
[2018-07-05] MEDS: FLUDROCORTISONE ACETATE 0.1 MG TAB PO ×2 (07:47→21:51)
[2018-07-05] MEDS: ENOXAPARIN 30 MG/0.3 ML SYR (J1650) SC (07:47)
[2018-07-05 11:28] LABS: BEDSIDE GLUCOSE 97 MG/DL (83-110)
[2018-07-05 16:31] LABS: BEDSIDE GLUCOSE 87 MG/DL (83-110)
[2018-07-05 20:44] LABS: BEDSIDE GLUCOSE 108 MG/DL (83-110)
[2018-07-05] MEDS: CLOTRIMAZOLE 10 MG TROCHE PO (21:51)
[2018-07-05] MEDS: cefTRIAXone SOD 2 GM in D5W MINI-BAG PLUS 50 ML IV (21:53)
[2018-07-06] MEDS: IPRATROPIUM 0.5MG/ALBUTEROL 2.5MG INH SOL UD 3ML (DUONEB)(J7620) NEB ×2 (02:45→17:19)
[2018-07-06] MEDS: CLOTRIMAZOLE 10 MG TROCHE PO ×5 (05:31→21:28)
[2018-07-06 06:20] LABS: HEMATOCRIT 31.7 % (36.0-47.0); HEMOGLOBIN 10.1 g/dl (12.0-15.5); MEAN CORPUSCULAR HEMOGLOBIN 29.4 pg (27.0-33.0); MEAN CORPUSCULAR HGB CONC 31.9 g/dl (32.0-36.5); MEAN CORPUSCULAR VOLUME 92.2 fl (80.0-96.0); PLATELET COUNT, AUTOMATED 205 10^3/uL (150-450); RED BLOOD COUNT 3.44 10^6/uL (4.00-5.40); WHITE BLOOD COUNT 5.5 10^3/uL (4.0-10.0)
[2018-07-06 06:42] LABS: ANION GAP 6 MEQ/L (8-16); BLOOD UREA NITROGEN 10 MG/DL (7-18); CALCIUM LEVEL 8.3 MG/DL (8.8-10.2); CARBON DIOXIDE LEVEL 25 MEQ/L (21-32); CHLORIDE LEVEL 110 MEQ/L (98-107); CREATININE FOR GFR 0.82 MG/DL (0.55-1.30); GLOMERULAR FILTRATION RATE > 60.0 (>39); GLUCOSE, FASTING 68 MG/DL (70-100); MAGNESIUM LEVEL 1.8 MG/DL (1.8-2.4); POTASSIUM SERUM 3.2 MEQ/L (3.5-5.1); SODIUM LEVEL 141 MEQ/L (136-145)
[2018-07-06] MEDS: DOCUSATE SODIUM 100 MG CAP PO ×2 (07:51→21:27)
[2018-07-06] MEDS: ACETAMINOPHEN TAB 650MG DOSE (2X325MG) PO ×2 (09:07→21:29)
[2018-07-06] MEDS: POTASSIUM CHLORIDE 10 MEQ SR TABLET PO ×2 (09:08→21:28)
[2018-07-06] MEDS: ASPIRIN 81 MG ENTERIC TAB PO ×2 (09:08→21:27)
[2018-07-06] MEDS: ENOXAPARIN 30 MG/0.3 ML SYR (J1650) SC (09:09)
[2018-07-06] MEDS: FLUDROCORTISONE ACETATE 0.1 MG TAB PO ×2 (11:26→21:27)
[2018-07-06] MEDS: SPIRONOLACTONE 25 MG TAB PO (17:08)
[2018-07-06] MEDS: cefTRIAXone SOD 2 GM in D5W MINI-BAG PLUS 50 ML IV (21:28)
[2018-07-07] MEDS: CLOTRIMAZOLE 10 MG TROCHE PO ×5 (05:35→21:01)
[2018-07-07 06:00] LABS: HEMATOCRIT 32.2 % (36.0-47.0); HEMOGLOBIN 10.5 g/dl (12.0-15.5); MEAN CORPUSCULAR HEMOGLOBIN 29.5 pg (27.0-33.0); MEAN CORPUSCULAR HGB CONC 32.6 g/dl (32.0-36.5); MEAN CORPUSCULAR VOLUME 90.4 fl (80.0-96.0); PLATELET COUNT, AUTOMATED 224 10^3/uL (150-450); RED BLOOD COUNT 3.56 10^6/uL (4.00-5.40); RED CELL DISTRIBUTION WIDTH 14.6 % (11.5-14.5); WHITE BLOOD COUNT 4.2 10^3/uL (4.0-10.0)
[2018-07-07 06:20] LABS: ANION GAP 6 MEQ/L (8-16); BLOOD UREA NITROGEN 10 MG/DL (7-18); CALCIUM LEVEL 8.4 MG/DL (8.8-10.2); CARBON DIOXIDE LEVEL 30 MEQ/L (21-32); CHLORIDE LEVEL 105 MEQ/L (98-107); CREATININE FOR GFR 0.84 MG/DL (0.55-1.30); GLOMERULAR FILTRATION RATE > 60.0 (>39); GLUCOSE, FASTING 77 MG/DL (70-100); MAGNESIUM LEVEL 1.7 MG/DL (1.8-2.4); POTASSIUM SERUM 3.4 MEQ/L (3.5-5.1); SODIUM LEVEL 141 MEQ/L (136-145)
[2018-07-07] MEDS: IPRATROPIUM 0.5MG/ALBUTEROL 2.5MG INH SOL UD 3ML (DUONEB)(J7620) NEB ×2 (08:17→22:20)
[2018-07-07] MEDS: SPIRONOLACTONE 25 MG TAB PO ×2 (08:56→17:50)
[2018-07-07] MEDS: POTASSIUM CHLORIDE 10 MEQ SR TABLET PO ×2 (08:56→21:01)
[2018-07-07] MEDS: FLUDROCORTISONE ACETATE 0.1 MG TAB PO (08:56)
[2018-07-07] MEDS: ENOXAPARIN 30 MG/0.3 ML SYR (J1650) SC (08:56)
[2018-07-07] MEDS: DOCUSATE SODIUM 100 MG CAP PO ×2 (08:56→21:00)
[2018-07-07] MEDS: ASPIRIN 81 MG ENTERIC TAB PO ×2 (08:56→21:00)
[2018-07-07] MEDS: MAGNESIUM OXIDE 400 MG TAB (MAG-OX) PO (18:36)
[2018-07-07] MEDS: cefTRIAXone SOD 2 GM in D5W MINI-BAG PLUS 50 ML IV (21:01)
[2018-07-07] MEDS: ACETAMINOPHEN TAB 650MG DOSE (2X325MG) PO (21:02)
[2018-07-08] MEDS: CLOTRIMAZOLE 10 MG TROCHE PO ×4 (05:29→17:00)
[2018-07-08] MEDS: IPRATROPIUM 0.5MG/ALBUTEROL 2.5MG INH SOL UD 3ML (DUONEB)(J7620) NEB (05:38)
[2018-07-08 06:08] LABS: HEMATOCRIT 32.8 % (36.0-47.0); HEMOGLOBIN 10.8 g/dl (12.0-15.5); MEAN CORPUSCULAR HEMOGLOBIN 29.3 pg (27.0-33.0); MEAN CORPUSCULAR HGB CONC 32.9 g/dl (32.0-36.5); MEAN CORPUSCULAR VOLUME 89.1 fl (80.0-96.0); PLATELET COUNT, AUTOMATED 270 10^3/uL (150-450); RED BLOOD COUNT 3.68 10^6/uL (4.00-5.40); RED CELL DISTRIBUTION WIDTH 14.4 % (11.5-14.5); WHITE BLOOD COUNT 4.4 10^3/uL (4.0-10.0)
[2018-07-08 06:36] LABS: ANION GAP 4 MEQ/L (8-16); BLOOD UREA NITROGEN 11 MG/DL (7-18); CALCIUM LEVEL 8.6 MG/DL (8.8-10.2); CARBON DIOXIDE LEVEL 32 MEQ/L (21-32); CHLORIDE LEVEL 104 MEQ/L (98-107); CREATININE FOR GFR 0.94 MG/DL (0.55-1.30); GLOMERULAR FILTRATION RATE > 60.0 (>39); GLUCOSE, FASTING 72 MG/DL (70-100); MAGNESIUM LEVEL 1.9 MG/DL (1.8-2.4); NT-PRO BNP 2193 PG/ML (<125); POTASSIUM SERUM 4.1 MEQ/L (3.5-5.1); SODIUM LEVEL 140 MEQ/L (136-145)
[2018-07-08] MEDS: FLUDROCORTISONE ACETATE 0.1 MG TAB PO (08:12)
[2018-07-08] MEDS: ENOXAPARIN 30 MG/0.3 ML SYR (J1650) SC (08:13)
[2018-07-08] MEDS: DOCUSATE SODIUM 100 MG CAP PO (08:13)
[2018-07-08] MEDS: SPIRONOLACTONE 25 MG TAB PO ×2 (08:13→17:00)
[2018-07-08] MEDS: MAGNESIUM OXIDE 400 MG TAB (MAG-OX) PO (08:13)
[2018-07-08] MEDS: ASPIRIN 81 MG ENTERIC TAB PO (08:13)
[2018-07-08] MEDS: POTASSIUM CHLORIDE 10 MEQ SR TABLET PO (08:13)
[2018-07-08] MEDS: CEFDINIR 300 MG CAP (OMNICEF) PO (12:12)
== END 2018-07-08 17:45 | disposition home or self-care (01) | DRG 872 ==
LOC: M MSPAV 07-03 01:25 → M ED 18:42 → M ED INP 23:31
DX: A41.51 Sepsis due to Escherichia coli [E. coli] (principal); E87.1 Hypo-osmolality and hyponatremia; N17.9 Acute kidney failure, unspecified; E87.2 Acidosis; N39.0 Urinary tract infection, site not specified; I50.32 Chronic diastolic (congestive) heart failure; B37.0 Candidal stomatitis; J20.9 Acute bronchitis, unspecified; B97.89 Other viral agents as the cause of diseases classified elsewhere; Z79.899 Other long term (current) drug therapy; Z79.82 Long term (current) use of aspirin; Z88.8 Allergy status to other drugs, medicaments and biological substances; J44.1 Chronic obstructive pulmonary disease with (acute) exacerbation; F17.200 Nicotine dependence, unspecified, uncomplicated; I25.10 Atherosclerotic heart disease of native coronary artery without angina pectoris; Z95.2 Presence of prosthetic heart valve; E78.5 Hyperlipidemia, unspecified; E87.6 Hypokalemia; N18.3 Chronic kidney disease, stage 3 (moderate); E83.42 Hypomagnesemia; E86.0 Dehydration; N20.0 Calculus of kidney; I71.4 Abdominal aortic aneurysm, without rupture; K76.0 Fatty (change of) liver, not elsewhere classified

== ENCOUNTER → 2018-07-22 | Outpatient (REF) | payer OTHER ==
[2018-07-22 13:25] LABS: AMORPHOUS SEDIMENT SMALL (NEGATIVE); APPEARANCE, URINE HAZY (CLEAR); BACTERIA, URINE AUTO 1+ (NEGATIVE); BILIRUBIN, URINE AUTO NEGATIVE (NEGATIVE); BLOOD, URINE BLOOD NEGATIVE (NEGATIVE); COLOR, URINE YELLOW (YELLOW); GLUCOSE, URINE (UA) AUTO NEGATIVE (NEGATIVE); KETONE, URINE AUTO TRACE mg/dL (NEGATIVE); LEUKOCYTE ESTERASE, URINE AUTO NEGATIVE (NEGATIVE); MUCUS, URINE SMALL (NEGATIVE); NITRITE, URINE AUTO NEGATIVE (NEGATIVE); PROTEIN, URINE AUTO NEGATIVE (NEGATIVE); RBC, URINE AUTO 0 /HPF (0-3); SPECIFIC GRAVITY URINE AUTO 1.015 (1.002-1.035); SQUAMOUS EPITHELIAL CELL UR AU 5 /HPF (0-6); UROBILINOGEN, URINE AUTO 0.2 mg/dL (0.0-2.0); WBC, URINE AUTO 5 /HPF (0-3)
[2018-07-22 13:34] LABS: HEMATOCRIT 43.6 % (36.0-47.0); HEMOGLOBIN 13.8 g/dl (12.0-15.5); MEAN CORPUSCULAR HEMOGLOBIN 30.3 pg (27.0-33.0); MEAN CORPUSCULAR HGB CONC 31.7 g/dl (32.0-36.5); MEAN CORPUSCULAR VOLUME 95.6 fl (80.0-96.0); PLATELET COUNT, AUTOMATED 398 10^3/uL (150-450); RED BLOOD COUNT 4.56 10^6/uL (4.00-5.40); RED CELL DISTRIBUTION WIDTH 15.1 % (11.5-14.5)
[2018-07-22 14:07] LABS: ALBUMIN 3.6 GM/DL (3.2-5.2); ALBUMIN/GLOBULIN RATIO 0.84 (1.00-1.93); ALKALINE PHOSPHATASE 92 U/L (45-117); ALT/SGPT 16 U/L (12-78); ANION GAP 7 MEQ/L (8-16); AST/SGOT 17 U/L (7-37); BILIRUBIN,TOTAL 0.4 MG/DL (0.2-1.0); BLOOD UREA NITROGEN 35 MG/DL (7-18); CALCIUM LEVEL 9.5 MG/DL (8.8-10.2); CARBON DIOXIDE LEVEL 24 MEQ/L (21-32); CHLORIDE LEVEL 102 MEQ/L (98-107); CREATININE FOR GFR 1.91 MG/DL (0.55-1.30); GLOMERULAR FILTRATION RATE 27.3 (>39); GLUCOSE, FASTING 122 MG/DL (70-100); MAGNESIUM LEVEL 2.6 MG/DL (1.8-2.4); POTASSIUM SERUM 6.4 MEQ/L (3.5-5.1); SODIUM LEVEL 133 MEQ/L (136-145); TOTAL PROTEIN 7.9 GM/DL (6.4-8.2)
== END ==
LOC: M SFHCADAM 09:26
DX: N10 Acute pyelonephritis (principal)
CPT/HCPCS: 83735

== ENCOUNTER → 2018-07-23 | Outpatient (REF) | payer OTHER ==
[2018-07-23 14:28] LABS: ANION GAP 3 MEQ/L (8-16); BLOOD UREA NITROGEN 40 MG/DL (7-18); CALCIUM LEVEL 9.6 MG/DL (8.8-10.2); CARBON DIOXIDE LEVEL 27 MEQ/L (21-32); CHLORIDE LEVEL 105 MEQ/L (98-107); CREATININE FOR GFR 1.73 MG/DL (0.55-1.30); GLOMERULAR FILTRATION RATE 30.7 (>39); GLUCOSE, FASTING 77 MG/DL (70-100); SODIUM LEVEL 135 MEQ/L (136-145)
[2018-07-23 14:29] LABS: POTASSIUM SERUM 6.3 MEQ/L (3.5-5.1)
== END ==
LOC: M SFHCADAM 09:33
DX: N17.9 Acute kidney failure, unspecified (principal); E87.5 Hyperkalemia; J43.1 Panlobular emphysema
CPT/HCPCS: 80048

== ENCOUNTER → 2018-07-26 | Outpatient (REF) | payer OTHER ==
[2018-07-26 20:10] LABS: ANION GAP 7 MEQ/L (8-16); BLOOD UREA NITROGEN 37 MG/DL (7-18); CALCIUM LEVEL 8.8 MG/DL (8.8-10.2); CARBON DIOXIDE LEVEL 28 MEQ/L (21-32); CHLORIDE LEVEL 104 MEQ/L (98-107); CREATININE FOR GFR 1.28 MG/DL (0.55-1.30); GLOMERULAR FILTRATION RATE 43.4 (>39); GLUCOSE, FASTING 121 MG/DL (70-100); MAGNESIUM LEVEL 2.7 MG/DL (1.8-2.4); SODIUM LEVEL 139 MEQ/L (136-145)
== END ==
LOC: M SFHCADAM 13:47
DX: E87.5 Hyperkalemia (principal); I12.9 Hypertensive chronic kidney disease with stage 1 through stage 4 chronic kidney disease, or unspecified chronic kidney disease
CPT/HCPCS: 83735

== ENCOUNTER → 2018-08-07 | Outpatient (REF) | payer OTHER ==
[~2018-08-07] MED LIST changes: +ALDA25TA2 PO; +AMOX500C PO; +ATOR1TAB19; +ATOR1TAB19 PO; +CEFD300CAP PO; +CIPR-249 PO; +FLUD0.1T PO; +FURO20TA2; +FURO20TA2 PO; +IBUPOTC PO; +K-TA1TAB PO; +KLOR10TA76 PO; +MAG400TA PO; +METO1TAB32; +MUCI600T31 PO; +SENN8.6T9 PO
[2018-08-07 13:23] LABS: HEMATOCRIT 38.2 % (36.0-47.0); HEMOGLOBIN 12.2 g/dl (12.0-15.5); MEAN CORPUSCULAR HEMOGLOBIN 29.9 pg (27.0-33.0); MEAN CORPUSCULAR HGB CONC 31.9 g/dl (32.0-36.5); MEAN CORPUSCULAR VOLUME 93.6 fl (80.0-96.0); PLATELET COUNT, AUTOMATED 270 10^3/uL (150-450); RED BLOOD COUNT 4.08 10^6/uL (4.00-5.40); WHITE BLOOD COUNT 5.4 10^3/uL (4.0-10.0)
[2018-08-07 14:05] LABS: CALCIUM LEVEL 8.6 MG/DL (8.8-10.2); CREATININE FOR GFR 1.18 MG/DL (0.55-1.30); FREE T4 0.9 NG/DL (0.76-1.46); GLOMERULAR FILTRATION RATE 47.7 (>39); MAGNESIUM LEVEL 2.5 MG/DL (1.8-2.4); POTASSIUM SERUM 4.8 MEQ/L (3.5-5.1); THYROID STIMULATING HORMONE 4.6 uIU/ML (0.358-3.740)
== END ==
LOC: M SFHCADAM 09:58
PROVIDERS: ATTEND Family Medicine
DX: E03.9 Hypothyroidism, unspecified (principal); E83.40 Disorders of magnesium metabolism, unspecified; E87.5 Hyperkalemia; I12.9 Hypertensive chronic kidney disease with stage 1 through stage 4 chronic kidney disease, or unspecified chronic kidney disease
CPT/HCPCS: 80048; 83735; 84439; 84443; 85027; G0463

== ENCOUNTER → 2018-09-18 | Outpatient (REF) | payer MEDICARE ==
[~2018-09-18] MED LIST changes: -LASI20TA PO; +LASI20TA3 PO
[2018-09-18 12:57] LABS: HEMATOCRIT 40.1 % (36.0-47.0); HEMOGLOBIN 12.8 g/dl (12.0-15.5); MEAN CORPUSCULAR HEMOGLOBIN 29.4 pg (27.0-33.0); MEAN CORPUSCULAR HGB CONC 31.9 g/dl (32.0-36.5); PLATELET COUNT, AUTOMATED 320 10^3/uL (150-450); RED BLOOD COUNT 4.36 10^6/uL (4.00-5.40); WHITE BLOOD COUNT 5.2 10^3/uL (4.0-10.0)
[2018-09-18 13:33] LABS: ALBUMIN 3.4 GM/DL (3.2-5.2); BILIRUBIN,TOTAL 0.4 MG/DL (0.2-1.0); CALCIUM LEVEL 8.5 MG/DL (8.8-10.2); CREATININE FOR GFR 1.08 MG/DL (0.55-1.30); FREE T4 0.99 NG/DL (0.76-1.46); GLOMERULAR FILTRATION RATE 52.7 (>39); MAGNESIUM LEVEL 2.3 MG/DL (1.8-2.4); POTASSIUM SERUM 2.4 MEQ/L (3.5-5.1); THYROID STIMULATING HORMONE 3.74 uIU/ML (0.358-3.740); TOTAL PROTEIN 7.3 GM/DL (6.4-8.2)
== END ==
LOC: M SFHCADAM 09:58
PROVIDERS: ATTEND Family Medicine
DX: I12.9 Hypertensive chronic kidney disease with stage 1 through stage 4 chronic kidney disease, or unspecified chronic kidney disease (principal); K75.81 Nonalcoholic steatohepatitis (NASH); E03.9 Hypothyroidism, unspecified; I50.9 Heart failure, unspecified; N18.3 Chronic kidney disease, stage 3 (moderate)

== ENCOUNTER → 2018-10-02 | Outpatient (REF) | payer MEDICARE ==
[2018-10-02 15:59] LABS: CALCIUM LEVEL 8.3 MG/DL (8.8-10.2); GLOMERULAR FILTRATION RATE 57.5 (>39); POTASSIUM SERUM 2.3 MEQ/L (3.5-5.1)
== END ==
LOC: M SFHCADAM 13:36
PROVIDERS: ATTEND Family Medicine
DX: I10 Essential (primary) hypertension (principal)
CPT/HCPCS: 80048; G0463

== ENCOUNTER → 2018-10-10 | Outpatient (REF) | payer MEDICARE ==
[2018-10-10 14:03] LABS: BLOOD UREA NITROGEN 10 MG/DL (7-18); CALCIUM LEVEL 8.6 MG/DL (8.8-10.2); CARBON DIOXIDE LEVEL 30 MEQ/L (21-32); CHLORIDE LEVEL 99 MEQ/L (98-107); CREATININE FOR GFR 0.95 MG/DL (0.55-1.30); GLOMERULAR FILTRATION RATE > 60.0 (>39); GLUCOSE, FASTING 109 MG/DL (70-100); POTASSIUM SERUM 3.3 MEQ/L (3.5-5.1); SODIUM LEVEL 138 MEQ/L (136-145)
== END ==
LOC: M SFHCADAM 10:07
PROVIDERS: ATTEND Family Medicine
DX: E87.6 Hypokalemia (principal)

== ENCOUNTER → 2018-10-24 | Outpatient (REF) | payer MEDICARE ==
[2018-10-24 13:18] LABS: CALCIUM LEVEL 9.2 MG/DL (8.8-10.2); CREATININE FOR GFR 1.14 MG/DL (0.55-1.30); GLOMERULAR FILTRATION RATE 49.5 (>39); MAGNESIUM LEVEL 2.4 MG/DL (1.8-2.4); POTASSIUM SERUM 5.9 MEQ/L (3.5-5.1)
== END ==
LOC: M SFHCADAM 10:01
PROVIDERS: ATTEND Family Medicine
DX: E87.6 Hypokalemia (principal)

== ENCOUNTER → 2018-11-06 | Outpatient (REF) | payer MEDICARE ==
[2018-11-06 13:00] LABS: CALCIUM LEVEL 9.1 MG/DL (8.8-10.2); CREATININE FOR GFR 1.05 MG/DL (0.55-1.30); GLOMERULAR FILTRATION RATE 54.4 (>39); POTASSIUM SERUM 5.2 MEQ/L (3.5-5.1)
== END ==
LOC: M LABDRWAD 12:12
PROVIDERS: ATTEND Internal Medicine Cardiovascular Disease
DX: E87.6 Hypokalemia (principal)

== ENCOUNTER 2019-02-19 13:23 | Emergency (ER) | payer MEDICARE ==
[~2019-02-19] VITALS: Ht 165.1 cm; Wt 52.2 kg
[~2019-02-19 13:23] MED LIST changes: -ASPI1TAB PO; +ASPI81TA26 PO; +METO1TAB63 PO; -METO25TAB PO; +PRED-351 PO; -PRED10TA PO; +SENN1TAB36 PO; -SENN8.6T9 PO
[2019-02-19] MEDS ORDERED: MIDO2.5T PO (13:43)
--- NOTE | 2019-02-19 14:59 | REP ---
Clinical: Altered mental status . Comparison: 06/10/2018, 07/02/2018 . Technique: PA and lateral. Findings: The mediastinum and cardiac silhouette are normal. The lung villagomez are clear and without acute consolidation, effusion, or pneumothorax. The skeletal structures are intact and normal. Impression: 1. No acute cardiopulmonary process. Electronically Signed by Vikas Ruiz MD 02/19/2019 02:50 P
[2019-02-19 15:08] LABS: VENOUS BASE EXCESS 3.9 (-2.0-2.0); VENOUS HCO3 30.3 MEQ/L (23.0-27.0); VENOUS O2 SATURATION 62.2 % (60.0-80.0); VENOUS PARTIAL PRESSURE CO2 52.5 mmHg (38.0-50.0); VENOUS PARTIAL PRESSURE O2 31.6 mmHg (30.0-50.0); VENOUS PH 7.379 UNITS (7.330-7.430); VENOUS STANDARD HCO3 27.1 MEQ/L; VENOUS TOTAL CO2 31.9 MEQ/L (24.0-28.0)
[2019-02-19 15:14] LABS: BASO # 0.1 10^3/uL (0.0-0.2); BASO % 1.1 % (0.0-1.0); EOS % 0.4 % (0.0-3.0); HEMATOCRIT 41.5 % (36.0-47.0); HEMOGLOBIN 13.4 g/dl (12.0-15.5); LYMPH # 1.1 10^3/uL (1.5-4.5); LYMPH % 19.7 % (24.0-44.0); MEAN CORPUSCULAR HEMOGLOBIN 30.3 pg (27.0-33.0); MEAN CORPUSCULAR HGB CONC 32.3 g/dl (32.0-36.5); MEAN CORPUSCULAR VOLUME 93.9 fl (80.0-96.0); MONO # 0.6 10^3/uL (0.0-0.8); MONO % 10.2 % (0.0-5.0); NEUTROPHILS # 3.7 10^3/uL (1.8-7.7); NEUTROPHILS % 68.2 % (36.0-66.0); PLATELET COUNT, AUTOMATED 224 10^3/uL (150-450); RED BLOOD COUNT 4.42 10^6/uL (4.00-5.40); WHITE BLOOD COUNT 5.4 10^3/uL (4.0-10.0)
[2019-02-19] MEDS ORDERED: POTASSIUM CHL PWD 20 MEQ PACKET PO ONE (15:15)
[2019-02-19 15:39] LABS: ALBUMIN 3.5 GM/DL (3.2-5.2); ALT/SGPT 13 U/L (12-78); BILIRUBIN,DIRECT 0.1 MG/DL (0.0-0.2); BILIRUBIN,TOTAL 0.4 MG/DL (0.2-1.0); CK-MB VALUE MASS < 1.0 NG/ML (<3.6); CPK CREATINE PHOSPHOKINASE 64 U/L (26-192); MB/CK RELATIVE INDEX 1.56 (< OR =4); TOTAL PROTEIN 7.6 GM/DL (6.4-8.2); TROPONIN I < 0.02 NG/ML (< 0.10)
[2019-02-19] MEDS ORDERED: NS 1,000 ML IV ONE (16:00)
[2019-02-19 20:01] VITALS: BP 168/100
--- NOTE | 2019-02-19 21:45 | ECGEPIP ---
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
== END 2019-02-19 20:28 | disposition home or self-care (01) ==
LOC: M ED 17:54
DX: I95.1 Orthostatic hypotension (principal); E87.6 Hypokalemia; I10 Essential (primary) hypertension; I44.4 Left anterior fascicular block; I25.2 Old myocardial infarction; J44.9 Chronic obstructive pulmonary disease, unspecified; K57.30 Diverticulosis of large intestine without perforation or abscess without bleeding; Z86.718 Personal history of other venous thrombosis and embolism; Z86.711 Personal history of pulmonary embolism; K44.9 Diaphragmatic hernia without obstruction or gangrene; J30.81 Allergic rhinitis due to animal (cat) (dog) hair and dander; J30.89 Other allergic rhinitis; Z95.5 Presence of coronary angioplasty implant and graft; Z95.818 Presence of other cardiac implants and grafts; Z72.0 Tobacco use; Z79.82 Long term (current) use of aspirin; Z79.899 Other long term (current) drug therapy; Z88.8 Allergy status to other drugs, medicaments and biological substances

== ENCOUNTER → 2019-04-14 | Outpatient (REF) | payer MEDICARE ==
[~2019-04-14] MED LIST changes: +MIDO2.5T PO
[2019-04-14 20:23] LABS: CALCIUM LEVEL 8.8 MG/DL (8.8-10.2); CREATININE FOR GFR 1.34 MG/DL (0.55-1.30); POTASSIUM SERUM 3.9 MEQ/L (3.5-5.1)
== END ==
LOC: M LABDRWAD 19:31
PROVIDERS: ATTEND Internal Medicine Cardiovascular Disease
DX: E87.6 Hypokalemia (principal)

== ENCOUNTER → 2019-05-06 | Outpatient (CLI) | payer MEDICARE ==
--- NOTE | 2019-05-06 11:58 | REP ---
CERVICAL SPINE SERIES: Eight views. HISTORY: Right cervical radiculopathy. FINDINGS: Lateral views done in flexion/extension show no subluxation or instability. The swimmer's lateral view shows no malalignment of the cervical thoracic junction although C7 and even C6 are less than optimally visualized in the lateral projection. There is degenerative disc disease at C4-5 with narrowing. AP, and open-mouth odontoid views show osteoarthritic facet hypertrophy in the mid cervical spine bilaterally. The patient is edentulous. Oblique images demonstrate uncovertebral spurring producing neural foraminal encroachment on the left at C4-5 and on the right at C4-5 and to some degree at C3-4. No bony destructive lesion is seen. A right cervical rib is noted. IMPRESSION: Degenerative disc disease at C4-5. Bilateral neural foraminal encroachment as above from uncovertebral spurring. Facet osteoarthritis. Right cervical rib. No acute bony abnormality. Electronically Signed by Jose Mejía MD 05/06/2019 01:05 P
== END ==
LOC: M ADAMS 09:14
PROVIDERS: ATTEND Family Medicine
DX: M50.321 Other cervical disc degeneration at C4-C5 level (principal); M54.12 Radiculopathy, cervical region; I12.9 Hypertensive chronic kidney disease with stage 1 through stage 4 chronic kidney disease, or unspecified chronic kidney disease
CPT/HCPCS: 72050; 80053; 80061; 83735; 84439; 84443; 85027; G0463

== ENCOUNTER → 2019-05-06 | Outpatient (REF) | payer MEDICARE ==
[~2019-05-06] MED LIST changes: +ALBU83IN NEB; +ATOR40TA75 PO; +CLOP75TA2 PO; +LEVA750T7 PO; +POTA10CA32 PO; +PRED20TA PO; +SYNT25TA PO
[2019-05-06 13:24] LABS: HEMATOCRIT 40.9 % (36.0-47.0); HEMOGLOBIN 13.2 g/dl (12.0-15.5); MEAN CORPUSCULAR HEMOGLOBIN 29.9 pg (27.0-33.0); MEAN CORPUSCULAR HGB CONC 32.3 g/dl (32.0-36.5); MEAN CORPUSCULAR VOLUME 92.5 fl (80.0-96.0); PLATELET COUNT, AUTOMATED 249 10^3/uL (150-450); RED BLOOD COUNT 4.42 10^6/uL (4.00-5.40); WHITE BLOOD COUNT 5.6 10^3/uL (4.0-10.0)
[2019-05-06 13:56] LABS: ALBUMIN 3.5 GM/DL (3.2-5.2); BILIRUBIN,TOTAL 0.3 MG/DL (0.2-1.0); CALCIUM LEVEL 9.2 MG/DL (8.8-10.2); CHOLESTEROL RISK RATIO 2.597 (<5); CREATININE FOR GFR 1.31 MG/DL (0.55-1.30); FREE T4 0.96 NG/DL (0.76-1.46); GLOMERULAR FILTRATION RATE 42.1 (>39); MAGNESIUM LEVEL 2.7 MG/DL (1.8-2.4); POTASSIUM SERUM 5.2 MEQ/L (3.5-5.1); THYROID STIMULATING HORMONE 6.09 uIU/ML (0.358-3.740); TOTAL PROTEIN 7.5 GM/DL (6.4-8.2)
== END ==
LOC: M SFHCADAM 09:10
PROVIDERS: ATTEND Family Medicine
DX: I12.9 Hypertensive chronic kidney disease with stage 1 through stage 4 chronic kidney disease, or unspecified chronic kidney disease (principal); E03.9 Hypothyroidism, unspecified; K75.81 Nonalcoholic steatohepatitis (NASH); E87.6 Hypokalemia

== ENCOUNTER 2019-06-02 05:48 | Emergency (ER) | payer MEDICARE ==
[~2019-06-02] VITALS: Ht 165.1 cm; Wt 55.8 kg
[~2019-06-02 05:48] MED LIST changes: -ALBU83IN NEB; -ATOR40TA75 PO; -CLOP75TA2 PO; -LEVA750T7 PO; -POTA10CA32 PO; -PRED20TA PO; -SYNT25TA PO
[2019-06-02 06:30] LABS: BASO # 0.1 10^3/uL (0.0-0.2); BASO % 1.4 % (0.0-1.0); EOS # 0.1 10^3/uL (0.0-0.5); EOS % 3.4 % (0.0-3.0); HEMATOCRIT 39.3 % (36.0-47.0); HEMOGLOBIN 12.6 g/dl (12.0-15.5); LYMPH % 24.6 % (24.0-44.0); MEAN CORPUSCULAR HEMOGLOBIN 30.2 pg (27.0-33.0); MEAN CORPUSCULAR HGB CONC 32.1 g/dl (32.0-36.5); MEAN CORPUSCULAR VOLUME 94.2 fl (80.0-96.0); MONO # 0.5 10^3/uL (0.0-0.8); MONO % 11.4 % (0.0-5.0); NEUTROPHILS # 2.4 10^3/uL (1.5-8.5); PLATELET COUNT, AUTOMATED 215 10^3/uL (150-450); RED BLOOD COUNT 4.17 10^6/uL (4.00-5.40); WHITE BLOOD COUNT 4.1 10^3/uL (4.0-10.0)
[2019-06-02 06:59] LABS: BLOOD UREA NITROGEN 21 MG/DL (7-18); CALCIUM LEVEL 8.5 MG/DL (8.8-10.2); CARBON DIOXIDE LEVEL 29 MEQ/L (21-32); CHLORIDE LEVEL 106 MEQ/L (98-107); CK-MB VALUE MASS 1.2 NG/ML (<3.6); CPK CREATINE PHOSPHOKINASE 105 U/L (26-192); CREATININE FOR GFR 1.11 MG/DL (0.55-1.30); ETHYL ALCOHOL (ETHANOL) < 0.003 % (0.000-0.010); GLUCOSE, FASTING 82 MG/DL (70-100); MB/CK RELATIVE INDEX 1.14 (< OR =4); POTASSIUM SERUM 4.4 MEQ/L (3.5-5.1); SODIUM LEVEL 140 MEQ/L (136-145); TROPONIN I 0.03 NG/ML (< 0.10)
[2019-06-02] MEDS: NITROGLYCERIN 0.4 MG SUBL TABLET SL PRN ×2 (07:14→07:21)
[2019-06-02 07:21] VITALS: BP 138/65
[2019-06-02] MEDS ORDERED: ISOVUE-370 76% 100ML VIAL (Q9967) As Ordered ONE (07:39)
--- NOTE | 2019-06-02 08:54 | REP ---
CT of the abdomen and pelvis with IV contrast, without bowel contrast: The patient has chest pain and history of abdominal aortic aneurysm. Comparison is 07/02/2018. There is an infrarenal abdominal aortic aneurysm measuring up to 3.1 cm in diameter. This is unchanged. There is no periaortic hematoma. There is calcified atheroma throughout the abdominal aorta. 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 It measured 1.6 cm in diameter on the comparison study. There is calcified atheroma throughout the iliac arteries. On the comparison study there were bilateral nonobstructive renal calculi. These are obscured by the IV contrast on the current study. There is no hydronephrosis or perinephric stranding. The renal cortices are unremarkable. The adrenals are unremarkable. The hepatic parenchyma is homogeneous. There is a cholecystectomy. The pancreas and spleen are unremarkable. The bowel and mesentery are unremarkable. Pelvis: There is a hysterectomy. The vaginal cuff and adnexa are unremarkable. The bladder is unremarkable. The pelvic bowel loops are unremarkable. There is no ascites or adenopathy. There is bilateral L5 spondylolysis with grade 1 spondylolisthesis. This is unchanged. Impression: There is an infrarenal abdominal aortic aneurysm measuring 3.1 cm in diameter, unchanged from the prior study. There is no periaortic hematoma. 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 This was 1.6 cm previously. The bilateral renal calculi identified previously are obscured by the IV contrast of the study. There is no hydronephrosis. There is bilateral L5 spondylolysis and grade 1 spondylolisthesis. This is unchanged. Hysterectomy, cholecystectomy. Electronically Signed by Valente Anguiano MD 06/02/2019 08:46 A
--- NOTE | 2019-06-02 09:19 | REP ---
CT of the chest with IV contrast: The patient has a history of chest pain and abdominal aortic aneurysm. Comparison is the chest CT dated 04/10/2016. There is no aneurysm of the thoracic aorta. The ascending aorta is not dilated measuring 31 mm in diameter. There is no periaortic or mediastinal hematoma. There is no thoracic aortic dissection. There are no emboli in the pulmonary trunk or central pulmonary arteries. There are no emboli in the pulmonary lobe or segment branches. There are no infiltrates. There are no pleural effusions. There are no masses or nodules. The main pulmonary artery measures 28 mm transverse diameter and 30 mm AP diameter. This is borderline for pulmonary hypertension. There is no mediastinal, hilar or axillary lymphadenopathy. Cardiac size is normal. There is no pericardial effusion. Impression: There is no thoracic aortic aneurysm or dissection. No periaortic hematoma per There are no pulmonary emboli. The main pulmonary artery diameter is borderline for pulmonary hypertension. Otherwise, negative CT of the chest. Electronically Signed by Valente Anguiano MD 06/02/2019 09:10 A
--- NOTE | 2019-06-02 09:25 | REP ---
Portable chest, 06:23 a.m., single AP view with the patient upright: Comparison is 02/19/2019. The lung villagomez are hyperinflated, as previously, but otherwise clear, unchanged. Cardiac size is normal. The gerson, mediastinum, and skeletal structures are unremarkable. Impression: No acute cardiopulmonary findings. Hyperinflation, unchanged. Electronically Signed by Valente Anguiano MD 06/02/2019 09:16 A
--- NOTE | 2019-06-02 10:47 | ED PDOC ---
Post-Departure Follow-Up dr bruno faxed formal report of ct abd/p for fu Cassia Adams MD Jun 02, 2019 10:47
[2019-06-02 12:48] LABS: CK-MB VALUE MASS 30.6 NG/ML (<3.6); MB/CK RELATIVE INDEX 10.66 (< OR =4); TROPONIN I 5.37 NG/ML (< 0.10)
[2019-06-02] MEDS ORDERED: HEPARIN DRIP 25,000 UNITS in IV 1 EA IV SCH (13:01)
[2019-06-02] MEDS ORDERED: CLOPIDOGREL 300 MG TAB (PLAVIX) PO STA (13:04)
[2019-06-02] MEDS ORDERED: HEPARIN SOD (PORCINE) 5000 UNITS/ML VIAL IV ONE (13:15)
[2019-06-02 13:44] LABS: INR 1.09; PARTIAL THROMBOPLASTIN TIME 24.5 SECONDS (25.0-38.4); PROTHROMBIN TIME 13.8 SECONDS (11.8-14.0)
[2019-06-02 16:00] VITALS: BP 188/86
--- NOTE | 2019-06-03 00:33 | ECGEPIP ---
[facility] - ED Test Date: 2019-06-02 Pat Name: KEVIN MARIN Department: Room: - Gender: Female Rn Clinical Review: ia : 1945 Requested By: DWAINE Terry Order Number: [id number] Reading MD: Easton Tineo Measurements Intervals [place] Rate: 62 P: 52 ND: 144 QRS: -34 QRSD: 90 T: -38 QT: 422 QTc: 431 Interpretive Statements SINUS RHYTHM Left axis deviation Nonspecific T wave abnormality Similar to tracing done 02-19-19 Electronically Signed on 06-03-2019 0:32:42 EDT by Easton Tineo
--- NOTE | 2019-06-03 00:40 | ECGEPIP ---
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
== END 2019-06-02 16:30 | disposition short-term general hospital (02) ==
LOC: M ED 05:48
DX: I21.4 Non-ST elevation (NSTEMI) myocardial infarction (principal); R00.1 Bradycardia, unspecified; R06.02 Shortness of breath; I25.10 Atherosclerotic heart disease of native coronary artery without angina pectoris; J44.9 Chronic obstructive pulmonary disease, unspecified; N18.3 Chronic kidney disease, stage 3 (moderate); I95.1 Orthostatic hypotension; I71.4 Abdominal aortic aneurysm, without rupture; Z98.61 Coronary angioplasty status; Z86.711 Personal history of pulmonary embolism; F17.200 Nicotine dependence, unspecified, uncomplicated; Z79.82 Long term (current) use of aspirin; Z79.899 Other long term (current) drug therapy; Z88.8 Allergy status to other drugs, medicaments and biological substances; J30.89 Other allergic rhinitis
CPT/HCPCS: 71045; 71275; 74177; 80048; 82375; 82550; 82553; 84484; 85025; 85610; 85730; 93005; 93041; 94760; 99285; G0480; Q9967

== ENCOUNTER → 2019-06-06 | Outpatient (CLI) | payer MEDICARE ==
[~2019-06-06] MED LIST changes: +ALBU83IN NEB; +ATOR40TA75 PO; +CLOP75TA2 PO; +LEVA750T7 PO; +POTA10CA32 PO; +PRED20TA PO; +SYNT25TA PO
--- NOTE | 2019-06-06 09:51 | REP ---
Abdominal aortic sonography: History: Abdominal aortic aneurysm without rupture. Comparison CT study of the abdomen is from June 02, 2019. This showed a 3.3 cm infrarenal abdominal aortic aneurysm. There was a 1.8 cm right common iliac artery aneurysm as well. Sonographic findings: The abdominal aorta measures 2.8 x 2.7 cm in AP by transverse dimension respectively at the diaphragmatic hiatus. At the level of the main renal arteries these dimensions are 2.0 x 1.9 cm. The mid aorta dimensions are 1.6 x 2.2 cm. The distal aorta in its aneurysmal segment measures 3.0 cm AP by ultrasound by transverse dimension of 3.2 cm. A 5.1 cm length of aorta is dilated. There is mural thrombus along the anterior wall of the aneurysmal segment. The right and left common iliac arteries measure 1.0 and 0.8 cm in AP dimension respectively. The right common iliac artery aneurysm seen by CT is not observed sonographically, likely obscured by bowel gas. Impression: Infrarenal abdominal aortic aneurysm. Sonographic dimensions today 3.0 x 3.2 cm AP by transverse. Electronically Signed by Jose Mejía MD 06/06/2019 11:24 A
== END ==
LOC: M RAD 08:13
PROVIDERS: ATTEND Family Medicine
DX: I71.4 Abdominal aortic aneurysm, without rupture (principal); F17.218 Nicotine dependence, cigarettes, with other nicotine-induced disorders
CPT/HCPCS: 76706; 90682; 99406; 99496; G0008; G0463

== ENCOUNTER 2019-06-26 08:58 | Emergency (ER) | payer MEDICARE ==
[~2019-06-26] VITALS: Ht 162.6 cm; Wt 57.0 kg
[~2019-06-26 08:58] MED LIST changes: -ALBU83IN NEB; -ATOR40TA75 PO; -CLOP75TA2 PO; -LEVA750T7 PO; -POTA10CA32 PO; -PRED20TA PO; -SYNT25TA PO
[2019-06-26] MEDS ORDERED: methylPREDNISolone INJ 125 MG/2 ML VIAL (J2930) IV ONE (09:15)
[2019-06-26] MEDS ORDERED: POTA10CA32 PO (09:25)
[2019-06-26] MEDS ORDERED: ATOR40TA75 PO (09:26)
[2019-06-26] MEDS ORDERED: FLUD0.1T PO (09:26)
[2019-06-26] MEDS ORDERED: CLOP75TA2 PO (09:26)
[2019-06-26] MEDS ORDERED: SYNT25TA PO (09:26)
[2019-06-26 09:31] LABS: BASO % 0.4 % (0.0-1.0); EOS # 0.1 10^3/uL (0.0-0.5); EOS % 0.8 % (0.0-3.0); HEMATOCRIT 30.8 % (36.0-47.0); LYMPH # 1.1 10^3/uL (1.5-5.0); LYMPH % 14.7 % (24.0-44.0); MEAN CORPUSCULAR HEMOGLOBIN 29.9 pg (27.0-33.0); MEAN CORPUSCULAR HGB CONC 32.5 g/dl (32.0-36.5); MEAN CORPUSCULAR VOLUME 92.2 fl (80.0-96.0); MONO # 0.8 10^3/uL (0.0-0.8); MONO % 10.6 % (0.0-5.0); NEUTROPHILS # 5.2 10^3/uL (1.5-8.5); NEUTROPHILS % 73.1 % (36.0-66.0); PLATELET COUNT, AUTOMATED 268 10^3/uL (150-450); RED BLOOD COUNT 3.34 10^6/uL (4.00-5.40); WHITE BLOOD COUNT 7.1 10^3/uL (4.0-10.0)
[2019-06-26 09:44] LABS: INR 1.1; PROTHROMBIN TIME 13.9 SECONDS (11.8-14.0)
--- NOTE | 2019-06-26 09:52 | REP ---
Portable chest x-ray: Single view. History: Chest pain. Comparison chest x-ray: June 02, 2019. Findings: Oxygen delivery tubing and monitoring electrodes are seen. Coronary artery stent material is visible over the right heart. Lungs are hyperinflated but free of infiltrate. Pleural angles are sharp. Pulmonary vasculature is not increased. No bony abnormality. Impression: Hyperinflation. No focal infiltrate. Changes consistent with COPD. Electronically Signed by Jose Mejía MD 06/26/2019 11:25 A
[2019-06-26] MEDS: IPRATROPIUM 0.5MG/ALBUTEROL 2.5MG INH SOL UD 3ML (DUONEB)(J7620) NEB SCH ×3 (09:55→11:12)
[2019-06-26 10:06] LABS: ALBUMIN 2.8 GM/DL (3.2-5.2); ALT/SGPT 10 U/L (12-78); BILIRUBIN,DIRECT 0.1 MG/DL (0.0-0.2); BILIRUBIN,TOTAL 0.4 MG/DL (0.2-1.0); BLOOD UREA NITROGEN 16 MG/DL (7-18); CALCIUM LEVEL 8.4 MG/DL (8.8-10.2); CARBON DIOXIDE LEVEL 29 MEQ/L (21-32); CHLORIDE LEVEL 105 MEQ/L (98-107); CK-MB VALUE MASS < 1.0 NG/ML (<3.6); CPK CREATINE PHOSPHOKINASE 64 U/L (26-192); GLOMERULAR FILTRATION RATE 51.5 (>39); GLUCOSE, FASTING 122 MG/DL (70-100); LIPASE 107 U/L (73-393); MB/CK RELATIVE INDEX 1.56 (< OR =4); NT-PRO BNP 3239 PG/ML (<450); POTASSIUM SERUM 2.9 MEQ/L (3.5-5.1); SODIUM LEVEL 140 MEQ/L (136-145); TOTAL PROTEIN 6.2 GM/DL (6.4-8.2); TROPONIN I 0.02 NG/ML (< 0.10)
[2019-06-26] MEDS ORDERED: ISOVUE-370 76% 100ML VIAL (Q9967) As Ordered ONE (10:43)
--- NOTE | 2019-06-26 11:18 | REP ---
Clinical: Pleuritic chest pain. Technique: Axial contrast enhanced images from the thoracic inlet to the upper abdomen using 100 ml Isovue 370 intravenous contrast material with multiplanar re-formations. Findings: Satisfactory enhancement of the pulmonary vasculature is achieved and no filling defects are identified to suggest pulmonary embolus. Atherosclerotic changes to the coronary arteries and thoracic aorta noted without aortic aneurysm or dissection. No cardiomegaly or pericardial effusion. Chronic COPD and emphysematous changes are appreciated. There is an ill-defined area of atelectasis/infiltrate involving the medial right upper lobe as well as minimal right basilar atelectasis. Subtle reactive right hilar adenopathy is also identified. No effusion. No pneumothorax. Impression: 1. No evidence for pulmonary embolus. 2. Small ill-defined area of atelectasis/infiltrate involving the medial right upper lobe with mild reactive right hilar adenopathy and trace right basilar atelectasis. Short-term follow-up in 3-6 months recommended to evaluate for resolution Electronically Signed by Vikas Ruiz MD 06/26/2019 11:09 A
[2019-06-26] MEDS ORDERED: cefTRIAXone SOD 2 GM in D5W MINI-BAG PLUS 50 ML IV ONE (11:30)
[2019-06-26] MEDS ORDERED: HALOPERIDOL 5 MG/ML VIAL (J1630) IM STA (12:43)
[2019-06-26] MEDS ORDERED: LEVA750T7 PO (13:31)
[2019-06-26] MEDS ORDERED: PRED20TA PO (13:32)
[2019-06-26] MEDS ORDERED: ALBU83IN NEB (13:35)
[2019-06-26 13:50] VITALS: BP 120/57
--- NOTE | 2019-06-26 21:38 | ECGEPIP ---
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
--- NOTE | 2019-07-02 10:42 | ED PDOC ---
Post-Departure Follow-Up radiology report faxed to Bertha Begum MD Jul 02, 2019 10:42
== END 2019-06-26 13:55 | disposition left against medical advice (07) ==
LOC: EDBD 08:58 → M ED 08:58
DX: J44.1 Chronic obstructive pulmonary disease with (acute) exacerbation (principal); J18.9 Pneumonia, unspecified organism; I45.19 Other right bundle-branch block; Z53.21 Procedure and treatment not carried out due to patient leaving prior to being seen by health care provider; I25.2 Old myocardial infarction; F41.9 Anxiety disorder, unspecified; N18.3 Chronic kidney disease, stage 3 (moderate); Z95.5 Presence of coronary angioplasty implant and graft; F17.200 Nicotine dependence, unspecified, uncomplicated; J30.89 Other allergic rhinitis; Z86.711 Personal history of pulmonary embolism; Z86.79 Personal history of other diseases of the circulatory system; Z79.82 Long term (current) use of aspirin; Z79.899 Other long term (current) drug therapy; Z88.8 Allergy status to other drugs, medicaments and biological substances
CPT/HCPCS: 36600; 71045; 71275; 80048; 80076; 82550; 82553; 82803; 83605; 83690; 83880; 84443; 84484; 85025; 85610; 87040; 87077; 87186; 87205; 93005; 93041; 94640; 96374; 96375; 99284; J0696; J2930; Q9967

== ENCOUNTER → 2019-09-02 | Outpatient (REF) | payer MEDICARE ==
[~2019-09-02] MED LIST changes: +ALBU83IN NEB; +ATOR40TA75 PO; +CLOP75TA2 PO; +LEVA750T7 PO; +POTA10CA32 PO; +PRED20TA PO; +SYNT25TA PO
[2019-09-02 18:33] LABS: ALBUMIN 3.6 GM/DL (3.2-5.2); BILIRUBIN,TOTAL 0.4 MG/DL (0.2-1.0); CREATININE FOR GFR 1.35 MG/DL (0.55-1.30); GLOMERULAR FILTRATION RATE 40.6 (>39); POTASSIUM SERUM 4.7 MEQ/L (3.5-5.1); TOTAL PROTEIN 7.3 GM/DL (6.4-8.2)
[2019-09-02 18:38] LABS: BASO % 0.8 % (0.0-1.0); EOS # 0.1 10^3/uL (0.0-0.5); EOS % 1.9 % (0.0-3.0); HEMATOCRIT 39.4 % (36.0-47.0); LYMPH # 1.4 10^3/uL (1.5-5.0); LYMPH % 27.4 % (24.0-44.0); MEAN CORPUSCULAR HEMOGLOBIN 29.8 pg (27.0-33.0); MEAN CORPUSCULAR HGB CONC 30.5 g/dl (32.0-36.5); MEAN CORPUSCULAR VOLUME 97.8 fl (80.0-96.0); MONO # 0.4 10^3/uL (0.0-0.8); MONO % 8.5 % (0.0-5.0); NEUTROPHILS # 3.2 10^3/uL (1.5-8.5); NEUTROPHILS % 61.2 % (36.0-66.0); PLATELET COUNT, AUTOMATED 237 10^3/uL (150-450); RED BLOOD COUNT 4.03 10^6/uL (4.00-5.40); WHITE BLOOD COUNT 5.2 10^3/uL (4.0-10.0)
== END ==
LOC: M LAB REF 17:36
PROVIDERS: ATTEND Nurse Practitioner Family
DX: J18.9 Pneumonia, unspecified organism (principal)

== ENCOUNTER → 2019-09-02 | Outpatient (CLI) | payer MEDICARE ==
--- NOTE | 2019-09-02 20:01 | REP ---
Clinical: COPD. Technique: PA and lateral views of the chest. Comparison: 06/26/2019. Findings: The mediastinum and cardiac silhouette are within normal limits and stable. Lung villagomez demonstrate chronic changes related to COPD. Very subtle right pleural reaction cannot be excluded. No consolidation. No significant effusion. No pneumothorax. Skeletal structures are intact. Impression: Evidence for COPD and possible small right pleural reaction. Electronically Signed by Vikas Ruiz MD 09/02/2019 07:53 P
== END ==
LOC: M ADAMS 13:03
PROVIDERS: ATTEND Nurse Practitioner Family
DX: J44.1 Chronic obstructive pulmonary disease with (acute) exacerbation (principal); J18.9 Pneumonia, unspecified organism

== ENCOUNTER → 2019-09-17 | Outpatient (CLI) | payer MEDICARE ==
--- NOTE | 2019-09-18 02:07 | REP ---
Clinical: Neck pain. Technique: AP, lateral, flexion/extension, bilateral oblique, swimmers, and open-mouth views of the cervical spine. Comparison: 05/06/2019. Findings: Stable age-related osteopenia and degenerative changes are appreciated. There is endplate sclerosis and disc space narrowing at C4-5 along with subtle anterior early spurring at C5-6 and C6-7. Alignment and lordosis maintained. No acute fracture / compression injury or subluxation. Oblique views demonstrate patent neural foramen. Open mouth view demonstrates normal C1-C2 articulation and odontoid process. Impression: Age-related osteopenia and mild degenerative changes. Electronically Signed by Vikas Ruiz MD 09/18/2019 01:58 A
== END ==
LOC: M ADAMS 11:53
PROVIDERS: ATTEND Family Medicine
DX: M50.321 Other cervical disc degeneration at C4-C5 level (principal); M85.88 Other specified disorders of bone density and structure, other site

== ENCOUNTER → 2019-10-01 | Outpatient (REF) | payer MEDICARE ==
[2019-10-01 16:19] LABS: BASO % 0.8 % (0.0-1.0); EOS # 0.1 10^3/uL (0.0-0.5); EOS % 2.7 % (0.0-3.0); HEMATOCRIT 38.5 % (36.0-47.0); HEMOGLOBIN 11.9 g/dl (12.0-15.5); LYMPH # 1.1 10^3/uL (1.5-5.0); LYMPH % 29.2 % (24.0-44.0); MEAN CORPUSCULAR HEMOGLOBIN 29.8 pg (27.0-33.0); MEAN CORPUSCULAR HGB CONC 30.9 g/dl (32.0-36.5); MEAN CORPUSCULAR VOLUME 96.3 fl (80.0-96.0); MONO # 0.4 10^3/uL (0.0-0.8); MONO % 11.4 % (0.0-5.0); NEUTROPHILS # 2.1 10^3/uL (1.5-8.5); NEUTROPHILS % 55.6 % (36.0-66.0); PLATELET COUNT, AUTOMATED 241 10^3/uL (150-450); WHITE BLOOD COUNT 3.7 10^3/uL (4.0-10.0)
[2019-10-01 16:36] LABS: ALBUMIN 3.4 GM/DL (3.2-5.2); BILIRUBIN,TOTAL 0.4 MG/DL (0.2-1.0); CALCIUM LEVEL 8.6 MG/DL (8.8-10.2); CREATININE FOR GFR 1.29 MG/DL (0.55-1.30); FREE T4 0.94 NG/DL (0.76-1.46); GLOMERULAR FILTRATION RATE 42.8 (>39); MAGNESIUM LEVEL 2.3 MG/DL (1.8-2.4); POTASSIUM SERUM 4.5 MEQ/L (3.5-5.1); THYROID STIMULATING HORMONE 4.76 uIU/ML (0.358-3.740); TOTAL PROTEIN 7.1 GM/DL (6.4-8.2)
== END ==
LOC: M SFHCADAM 13:37
PROVIDERS: ATTEND Family Medicine
DX: R59.0 Localized enlarged lymph nodes (principal); I11.9 Hypertensive heart disease without heart failure; E03.9 Hypothyroidism, unspecified; E83.40 Disorders of magnesium metabolism, unspecified

== ENCOUNTER 2019-10-12 13:59 | Emergency (ER) | payer MEDICARE ==
[~2019-10-12] VITALS: Ht 160 cm; Wt 56.3 kg
[2019-10-12 14:43] LABS: BASO % 0.9 % (0.0-1.0); EOS % 0.4 % (0.0-3.0); HEMATOCRIT 35.1 % (36.0-47.0); HEMOGLOBIN 11.2 g/dl (12.0-15.5); LYMPH # 1.1 10^3/uL (1.5-5.0); LYMPH % 23.5 % (24.0-44.0); MEAN CORPUSCULAR HGB CONC 31.9 g/dl (32.0-36.5); MEAN CORPUSCULAR VOLUME 94.1 fl (80.0-96.0); MONO # 0.6 10^3/uL (0.0-0.8); MONO % 12.1 % (0.0-5.0); NEUTROPHILS # 2.9 10^3/uL (1.5-8.5); NEUTROPHILS % 62.9 % (36.0-66.0); PLATELET COUNT, AUTOMATED 219 10^3/uL (150-450); RED BLOOD COUNT 3.73 10^6/uL (4.00-5.40); WHITE BLOOD COUNT 4.6 10^3/uL (4.0-10.0)
[2019-10-12] MEDS ORDERED: METO1TAB32 PO (14:44)
[2019-10-12] MEDS ORDERED: NITR0.4S14 SL (14:44)
[2019-10-12 14:53] LABS: PROTHROMBIN TIME 12.9 SECONDS (11.8-14.0)
--- NOTE | 2019-10-12 14:59 | REP ---
Clinical: Chest pain. Comparison: 09/02/2019. Findings: Mediastinum and cardiac silhouette are within normal limits and stable. Advanced COPD/emphysematous disease noted. No acute consolidation, effusion, or pneumothorax. Skeletal structures stable. Impression: COPD/emphysematous disease. No focal consolidation or effusion. Electronically Signed by Vikas Ruiz MD 10/12/2019 02:50 P
[2019-10-12] MEDS ORDERED: IPRATROPIUM 0.5MG/ALBUTEROL 2.5MG INH SOL UD 3ML (DUONEB)(J7620) NEB ONE (15:00)
[2019-10-12 15:08] LABS: ALBUMIN 3.3 GM/DL (3.2-5.2); ALT/SGPT 15 U/L (12-78); BILIRUBIN,DIRECT 0.1 MG/DL (0.0-0.2); BILIRUBIN,TOTAL 0.3 MG/DL (0.2-1.0); CK-MB VALUE MASS < 1.0 NG/ML (<3.6); CPK CREATINE PHOSPHOKINASE 92 U/L (26-192); LIPASE 204 U/L (73-393); MB/CK RELATIVE INDEX 1.09 (< OR =4); TOTAL PROTEIN 6.9 GM/DL (6.4-8.2); TROPONIN I < 0.02 NG/ML (< 0.10)
[2019-10-12 15:46] LABS: D-DIMER QUANT 2024.89 ng/ml (<500)
[2019-10-12] MEDS ORDERED: ALBU83IN INH (16:09)
[2019-10-12] MEDS ORDERED: FURO20TA2 PO (16:09)
[2019-10-12] MEDS ORDERED: FLON1SPR NARES (16:09)
[2019-10-12] MEDS ORDERED: ISOVUE-370 76% 100ML VIAL (Q9967) As Ordered ONE (16:29)
--- NOTE | 2019-10-12 16:59 | REP ---
Clinical: Shortness of breath and tachycardia with elevated D-dimer levels. Comparison: 06/26/2019 . Technique: Axial contrast enhanced images from the thoracic inlet to the upper abdomen using 100 ml Isovue 370 intravenous contrast material with multiplanar re-formations. Findings: Satisfactory enhancement of the pulmonary vasculature is achieved and no filling defects are identified to suggest pulmonary embolus. Further evaluation of the mediastinum demonstrates normal thoracic aorta, heart and pericardium. The bilateral lung villagomez demonstrate advanced emphysematous changes and scattered scarring along with mild bronchiectasis. No consolidation, pleural effusion or pneumothorax. No significant adenopathy noted. Surrounding musculoskeletal structures intact Impression: No evidence for pulmonary embolus. Advanced emphysematous changes. No acute mediastinal or pleural parenchymal process. Electronically Signed by Vikas Ruiz MD 10/12/2019 04:49 P
[2019-10-12 17:57] LABS: CK-MB VALUE MASS 1.5 NG/ML (<3.6); CPK CREATINE PHOSPHOKINASE 112 U/L (26-192); MB/CK RELATIVE INDEX 1.34 (< OR =4); TROPONIN I < 0.02 NG/ML (< 0.10)
[2019-10-12] MEDS ORDERED: MUCI600T31 PO (18:33)
[2019-10-12] MEDS ORDERED: TESS100C PO (18:33)
[2019-10-12 18:45] VITALS: O2SAT 97
[2019-10-12 18:50] VITALS: BP 132/87
--- NOTE | 2019-10-13 08:30 | ECGEPIP ---
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
--- NOTE | 2019-10-13 08:31 | ECGEPIP ---
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
--- NOTE | 2019-10-13 08:32 | ECGEPIP ---
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
== END 2019-10-12 18:50 | disposition home or self-care (01) ==
LOC: M ED 13:59 → CANBEDREQ 15:30 → M ED 18:50
DX: J44.9 Chronic obstructive pulmonary disease, unspecified (principal); I44.4 Left anterior fascicular block; R06.02 Shortness of breath; I48.91 Unspecified atrial fibrillation; I50.9 Heart failure, unspecified; I25.2 Old myocardial infarction; I10 Essential (primary) hypertension; E78.5 Hyperlipidemia, unspecified; E03.9 Hypothyroidism, unspecified; Z86.73 Personal history of transient ischemic attack (TIA), and cerebral infarction without residual deficits; Z86.711 Personal history of pulmonary embolism; Z86.718 Personal history of other venous thrombosis and embolism; Z95.5 Presence of coronary angioplasty implant and graft; Z95.818 Presence of other cardiac implants and grafts; F17.200 Nicotine dependence, unspecified, uncomplicated; Z79.82 Long term (current) use of aspirin; Z79.899 Other long term (current) drug therapy; J30.81 Allergic rhinitis due to animal (cat) (dog) hair and dander; Z88.8 Allergy status to other drugs, medicaments and biological substances
CPT/HCPCS: 36415; 71045; 71275; 80047; 80076; 82550; 82553; 83690; 84484; 85025; 85379; 85610; 93005; 93041; 94640; 94760; 99285; Q9967

== ENCOUNTER 2020-02-23 10:39 | Emergency (ER) | payer MEDICARE ==
[~2020-02-23] VITALS: Ht 160 cm; Wt 55.5 kg
[~2020-02-23 10:39] MED LIST changes: +FLON1SPR NARES; +NITR0.4S14 SL; +TESS100C PO
--- NOTE | 2020-02-23 11:15 | REP ---
Portable chest x-ray: Single view. History: Chest pain. Comparison chest x-ray October 12, 2019. Findings: The lungs are hyperinflated consistent with some degree of COPD. Heart is not enlarged. Pulmonary vasculature is not increased. No infiltrate is seen. There is mild linear plate-like atelectasis in the right base. Impression: Hyperinflation consistent with COPD. Mild linear plate-like atelectasis right base. No infiltrate seen. Heart size is normal. Electronically Signed by Jose Mejía MD 02/23/2020 11:07 A
[2020-02-23] MEDS ORDERED: GERITAB9 PO (11:17)
[2020-02-23 11:24] LABS: BASO # 0.1 10^3/uL (0.0-0.2); BASO % 1.1 % (0.0-1.0); EOS # 0.1 10^3/uL (0.0-0.5); EOS % 1.5 % (0.0-3.0); HEMOGLOBIN 12.1 g/dl (12.0-15.5); LYMPH # 0.9 10^3/uL (1.5-5.0); MEAN CORPUSCULAR HEMOGLOBIN 30.1 pg (27.0-33.0); MEAN CORPUSCULAR HGB CONC 31.8 g/dl (32.0-36.5); MEAN CORPUSCULAR VOLUME 94.5 fl (80.0-96.0); MONO # 0.5 10^3/uL (0.0-0.8); MONO % 9.9 % (0.0-5.0); NEUTROPHILS # 3.1 10^3/uL (1.5-8.5); NEUTROPHILS % 67.3 % (36.0-66.0); PLATELET COUNT, AUTOMATED 243 10^3/uL (150-450); RED BLOOD COUNT 4.02 10^6/uL (4.00-5.40); WHITE BLOOD COUNT 4.5 10^3/uL (4.0-10.0)
[2020-02-23 11:34] LABS: INR 0.99; PROTHROMBIN TIME 12.8 SECONDS (11.8-14.0)
[2020-02-23 11:35] LABS: PARTIAL THROMBOPLASTIN TIME 25.8 SECONDS (25.0-38.4)
[2020-02-23 12:00] LABS: ALBUMIN 3.4 GM/DL (3.2-5.2); ALT/SGPT 18 U/L (12-78); BILIRUBIN,DIRECT 0.2 MG/DL (0.0-0.2); BILIRUBIN,TOTAL 0.4 MG/DL (0.2-1.0); BLOOD UREA NITROGEN 28 MG/DL (7-18); CALCIUM LEVEL 8.7 MG/DL (8.8-10.2); CARBON DIOXIDE LEVEL 27 MEQ/L (21-32); CHLORIDE LEVEL 106 MEQ/L (98-107); CK-MB VALUE MASS 1.9 NG/ML (<3.6); CPK CREATINE PHOSPHOKINASE 87 U/L (26-192); CREATININE FOR GFR 1.17 MG/DL (0.55-1.30); GLOMERULAR FILTRATION RATE 47.9 (>39); GLUCOSE, FASTING 96 MG/DL (70-100); LIPASE 221 U/L (73-393); MB/CK RELATIVE INDEX 2.18 (< OR =4); NT-PRO BNP 178 PG/ML (<450); POTASSIUM SERUM 4.5 MEQ/L (3.5-5.1); SODIUM LEVEL 138 MEQ/L (136-145); TOTAL PROTEIN 7.2 GM/DL (6.4-8.2); TROPONIN I < 0.02 NG/ML (< 0.10)
[2020-02-23 15:04] VITALS: BP 168/71
--- NOTE | 2020-02-23 16:53 | ECGEPIP ---
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
[2020-03-06] MEDS ORDERED: MOXI1TAB PO (15:42)
[2020-03-06] MEDS ORDERED: PROAAER10 INH (15:42)
== END 2020-02-23 15:17 | disposition home or self-care (01) ==
LOC: M ED 10:39
DX: R00.2 Palpitations (principal); I44.4 Left anterior fascicular block; I25.10 Atherosclerotic heart disease of native coronary artery without angina pectoris; J44.9 Chronic obstructive pulmonary disease, unspecified; E78.5 Hyperlipidemia, unspecified; Z86.711 Personal history of pulmonary embolism; N18.9 Chronic kidney disease, unspecified; I95.1 Orthostatic hypotension; I71.4 Abdominal aortic aneurysm, without rupture; J30.81 Allergic rhinitis due to animal (cat) (dog) hair and dander; Z95.5 Presence of coronary angioplasty implant and graft; Z72.0 Tobacco use; Z79.82 Long term (current) use of aspirin; Z79.899 Other long term (current) drug therapy; Z88.8 Allergy status to other drugs, medicaments and biological substances

== ENCOUNTER → 2020-05-25 | Outpatient (CLI) | payer MEDICARE ==
[~2020-05-25] MED LIST changes: +MOXI1TAB PO; +PROAAER10 INH
--- NOTE | 2020-06-02 13:37 | REP ---
ULTRASOUND ABDOMINAL AORTA HISTORY: Aneurysm. TECHNIQUE: Real-time sonographic evaluation of the abdominal aorta is performed and compared to prior study of 06/06/2019. FINDINGS: AP diameter of the proximal abdominal aorta is 2.9 cm, at the level of the renal artery is 2.2 cm, and mid aspect 2.0 cm. There is mild aneurysmal dilatation of the distal abdominal aorta 3.4 x 3.5 cm maximally extending for length of 5.8 cm. Prior maximum AP diameter was 3.0 cm. The common iliac arteries are mildly ectatic both measuring 1.3 cm in AP dimension. There is moderate partially calcified plaque seen diffusely in the distal abdominal aorta. IMPRESSION: Mild aneurysmal dilatation of the distal abdominal aorta 3.3 x 3.5 cm. Mild ectasia common iliac arteries both measuring 1.3 cm in AP dimension. MTDD
== END ==
LOC: M RAD 08:13
PROVIDERS: ATTEND Physician Assistant
DX: I71.4 Abdominal aortic aneurysm, without rupture (principal); I72.3 Aneurysm of iliac artery

== ENCOUNTER → 2020-07-02 | Outpatient (REF) | payer MEDICARE ==
[2020-07-02 19:09] LABS: HEMATOCRIT 37.2 % (36.0-47.0); HEMOGLOBIN 11.5 g/dl (12.0-15.5); MEAN CORPUSCULAR HEMOGLOBIN 29.9 pg (27.0-33.0); MEAN CORPUSCULAR HGB CONC 30.9 g/dl (32.0-36.5); MEAN CORPUSCULAR VOLUME 96.9 fl (80.0-96.0); PLATELET COUNT, AUTOMATED 255 10^3/uL (150-450); RED BLOOD COUNT 3.84 10^6/uL (4.00-5.40); WHITE BLOOD COUNT 5.3 10^3/uL (4.0-10.0)
[2020-07-02 19:47] LABS: ALBUMIN 3.4 GM/DL (3.2-5.2); BILIRUBIN,TOTAL 0.2 MG/DL (0.2-1.0); CALCIUM LEVEL 8.8 MG/DL (8.8-10.2); CHOLESTEROL RISK RATIO 1.691 (<5); CREATININE FOR GFR 1.22 MG/DL (0.55-1.30); FREE T4 0.86 NG/DL (0.76-1.46); GLOMERULAR FILTRATION RATE 45.6 (>39); POTASSIUM SERUM 5.2 MEQ/L (3.5-5.1); THYROID STIMULATING HORMONE 3.63 uIU/ML (0.358-3.740); TOTAL PROTEIN 6.9 GM/DL (6.4-8.2)
== END ==
LOC: M SFHCADAM 15:40
PROVIDERS: ATTEND Family Medicine
DX: I11.9 Hypertensive heart disease without heart failure (principal); I71.4 Abdominal aortic aneurysm, without rupture; E03.9 Hypothyroidism, unspecified
CPT/HCPCS: 80053; 80061; 84439; 84443; 85027; G0463

== ENCOUNTER 2020-09-30 12:51 | Inpatient (IN) | payer MEDICARE ==
[~2020-09-30] VITALS: Ht 162.6 cm; Wt 56.5 kg
[2020-09-30] MEDS ORDERED: PROAAER10 INH (14:37)
[2020-09-30 14:51] LABS: BASO % 0.6 % (0.0-1.0); EOS % 0.6 % (0.0-3.0); HEMATOCRIT 36.7 % (36.0-47.0); HEMOGLOBIN 11.9 g/dl (12.0-15.5); LYMPH # 0.7 10^3/uL (1.5-5.0); LYMPH % 9.9 % (24.0-44.0); MEAN CORPUSCULAR HGB CONC 32.4 g/dl (32.0-36.5); MEAN CORPUSCULAR VOLUME 95.6 fl (80.0-96.0); MONO # 0.5 10^3/uL (0.0-0.8); MONO % 7.4 % (0.0-5.0); NEUTROPHILS # 5.5 10^3/uL (1.5-8.5); NEUTROPHILS % 81.1 % (36.0-66.0); PLATELET COUNT, AUTOMATED 233 10^3/uL (150-450); RED BLOOD COUNT 3.84 10^6/uL (4.00-5.40); WHITE BLOOD COUNT 6.8 10^3/uL (4.0-10.0)
--- NOTE | 2020-09-30 15:04 | REP ---
INDICATION: syncope. COMPARISON: 03/06/2020. TECHNIQUE: SINGLE PORTABLE AP VIEW OF THE CHEST WAS PERFORMED. FINDINGS: Bilateral fibrotic changes are stable. No superimposed acute infiltrate is visualized. The heart is normal in size. The mediastinal silhouette is unchanged. IMPRESSION: NO ACUTE PULMONARY DISEASE.Stable chronic changes. <Electronically signed by Valente Carrero > 09/30/20 [id number]
[2020-09-30 15:17] LABS: RSV AMPLIFICATION NEGATIVE (NEGATIVE)
[2020-09-30 15:21] LABS: ALBUMIN 3.5 GM/DL (3.2-5.2); ALT/SGPT 19 U/L (12-78); BILIRUBIN,DIRECT 0.2 MG/DL (0.0-0.2); BILIRUBIN,TOTAL 0.5 MG/DL (0.2-1.0); BLOOD UREA NITROGEN 30 MG/DL (7-18); CALCIUM LEVEL 9.3 MG/DL (8.8-10.2); CARBON DIOXIDE LEVEL 29 MEQ/L (21-32); CHLORIDE LEVEL 105 MEQ/L (98-107); CK-MB VALUE MASS 4.7 NG/ML (<3.6); CPK CREATINE PHOSPHOKINASE 310 U/L (26-192); CREATININE FOR GFR 1.52 MG/DL (0.55-1.30); FREE T4 1.12 NG/DL (0.76-1.46); GLOMERULAR FILTRATION RATE 35.3 (>39); GLUCOSE, FASTING 113 MG/DL (70-100); MAGNESIUM LEVEL 2.5 MG/DL (1.8-2.4); MB/CK RELATIVE INDEX 1.52 (< OR =4); PHOSPHORUS LEVEL 3.6 MG/DL (2.5-4.9); POTASSIUM SERUM 4.1 MEQ/L (3.5-5.1); SODIUM LEVEL 140 MEQ/L (136-145); TOTAL PROTEIN 6.8 GM/DL (6.4-8.2); TROPONIN I < 0.02 NG/ML (< 0.10)
[2020-09-30] MEDS ORDERED: NS 500 ML IV ONE (15:45)
[2020-09-30] MEDS ORDERED: ALBUTEROL SULFATE 2.5 MG/0.5 ML INH NEB SOLN INH PRN (16:30)
[2020-09-30] MEDS ORDERED: NITROGLYCERIN 0.4 MG SUBL TABLET SL PRN (16:30)
[2020-09-30] MEDS ORDERED: ACETAMINOPHEN TAB 650MG DOSE (2X325MG) PO PRN (16:30)
--- OUTSIDE RECORDS SUMMARY | 2020-09-30 16:38 | CCD ---
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 Role Phone Julia Gilmore Unavailable PROBLEMS Type Condition ICD9-CM Code QJO83-[id number] Code Onset Dates Condition S tatus SNOMED Code Notes Problem Other seasonal allergic rhinitis J30.2 Active 744148301 Problem Personal history of pulmonary embolism Z86.711 A ctive 686310045 Problem Chronic cough R05 Active 11740198 Problem Mold contact confirmed Z77.120 Active 267253625 Problem Personal history of noncompliance with medical treatment Z91.19 Active 6979753 Problem CAD (coronary artery disease) I25.10 Active 53 882390 Problem Tear of right supraspinatus tendon, initial encounter S46.811A Active 578485812 Problem Spondylolisthesis, lumbar region M43.16 Active 487176406961844 Problem Orthostatic hypotension I95.1 Active 93408486 Problem Anxiety associated with depression F41.8 Activ e 769694685 Problem Panlobular emphysema J43.1 Active 2444792 Problem Cigarette nicotine dependence without complication F17.210 Active 17536178 Problem ROPER (nonalcoholic steatohepatitis) K75.81 Acti ve 405562791 Problem Other chronic pain G89.29 Active 45594495 Problem Pharyngeal dysphagia R13.13 Active 38112931806 105 Problem AAA (abdominal aortic aneurysm) without rupture I7 1.4 Active 06655650 Problem Esophageal dysphagia R13.10 Active 81454504 Problem Kidney stones N20.0 Active 46258626 Problem Cigarette nicotine dependence with other nicotin e-induced disorder F17.218 Active 06080578 Problem 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 Active 46800375 Problem DDD (degenerative disc disease), lumbosacral M51.37 Active 05894411 Problem Subclinical hypothyroidism E03.9 Active 32204 002 Problem Iliac artery aneurysm I72.3 Active 54012077 Problem Lumbosacral spondylosis without myelopathy M47.817 Active 69194821 Problem Medicare annual wellness visit, subsequent Z00.00 Active 510936564 Problem Stage 3 chronic kidney disease due to benign hypertension I12.9 Active 873961712059724 Problem History of tobacco use Z87.891 Active 588565282 9103 Problem Dyslipidemia E78.5 Active 813975593 Problem Hypertensive heart disease without heart failure I 11.9 Active 77643908 Problem History of non-ST elevation myocardial infarction (NSTEMI) I25.2 Active 824225734 Problem Abdominal aortic aneurysm (AAA) 3.0 cm t o 5.0 cm in diameter in female I71.4 Active 933898727308068 ALLERGIES Allergen (clinical drug ingredient) Drug/Non Drug Allergy do cumented on EMR Reaction Allergy Type Onset Date Status lansoprazole Lansoprazole(NDC Code:[address]-92) Unknown Drug All ergy Active levothyroxine GI--pt stopped after rechallenge Non Drug Al lergy Active fluoxetine dizziness Non Drug Allergy Active esomeprazole Nexium(NDC Code:[address]-89) Unknown Drug Allergy Active Buspar forgetfulness Non Drug Allergy Activ e ENCOUNTERS from 1945 to 2020-07-06 Encounter Location Date Provider Diagnosis [facility] [address] [place] [address] Jun, Reg gwendolyn Mnado IMMUNIZATIONS Vaccine Route Administration Date Status Influenza (18 yrs & older) Flublok IM Intramuscular Jun 06, 2019 Administered Influenza (18 yrs & older) Flublok IM Intramuscular Jun 20, 2018 Administered Influenza (High Dose 65 & up) IM Intramuscular Jun 17, 2015 A dministered Pneumococcal Adult 0.5mL (Pneumovax 23) IM Intramuscular January 02, 2019 Administered Pneumococcal 0.5mL (Prevnar 13) Unknown November 29, 2017 Administered Pneumococcal 0.5mL (Prevnar 13) Unknown Apr 12, 2016 Administered Influenza (6mo & up) Fluzone IM Intramuscular May 18, 2014 Ad ministered SOCIAL HISTORY Tobacco Use: Social History Observation Description Date Details (start date - stop date) Current Smoker Sex Assigned At : Social History Observation Description Sex Assigned At Unknown Audit Question Answer Notes Total Score: 0 Interpretation: Alcohol Education Drug and Alcohol Question Answer Notes Total Score: 0 Interpretation: No problems reported Alcohol Screening: Question Answer Notes Did you have a drink containing alcohol in the past year? No Points 0 Interpretation Negative Tobacco Use: Question Answer Notes Are you a: current smoker How many cigarettes a day do you smoke? - Are you interested in quitting? Thinking about quitting REASON FOR REFERRAL No Information VITAL SIGNS No information MEDICATIONS Medication SIG (Take, Route, Frequency, Duration) Start Date En d Date Status Plavix 75 MG 1 tablet Orally Once a day for 30 day(s) May, Active Aspirin EC 81 MG 1 tablet Orally bid Acti ve Albuterol Sulfate (2.5 MG/3ML) 0.083% 3 ml as needed I nhalation four times daily as needed for 30 days Apr, Active Nitrostat 0.4 MG as directed Sublingual place 1 tab uncder tongue q 5 minuties as needed for chest pain May, Active Fluticasone Propionate 50 MCG/ACT 1 spray in each nost ril Nasally Once a day for 30 day(s) Aug, Active Ventolin HFA 108 (90 Base) MCG/ACT 2 puffs as needed I nhalation four times daily as needed for 30 days Apr, Active Colace 100 MG 1 capsule as needed Orally Once a day for 30 day (s) May, Active Metoprolol Succinate ER 25 MG TAKE ONE HALF TABLET BY MOUTH EVERY DAY Oral for 90 Active Lipitor 40 MG 1 tablet Orally Once a day for 30 day(s) May, Active Furosemide 20 MG TAKE ONE TABLET BY MOUTH EVERY OTHER DAY Oral for 90 Active Potassium Chloride ER 10 MEQ 1 tablets with food Orally daily 2018 Active PROCEDURES No Information RESULTS No Results REASON FOR VISIT allbuterol refill MEDICAL (GENERAL) HISTORY Type Description Date Medical History hemorrhoids Medical History diverticulosis 12/29 colonoscopy with [facility] Medical History pulmonary embolism, in 1990s Medical History COPD Medical History tobacco abuse, started smoking at 16 yo Medical History Lumbar Spondylolisthesis L5 on S1, MRI [address] fatty liver CT A & P 04/05 Medical History Hiatal hernia Medical History CAD: Cardiac cath 07/09 - ent to prox circumflex, drug eluting, nl EF; [facility]St at [facility] 05/14, normal perfusion, nl EF; 06/14 [facility]STSEMI with cath [facility]: [facility] x2 Pl branch RCA and PDA Medical History CKD 3, baseline SCr 1.1 - 1.3 Medical History anxiety Medical History was on thyroid replacement o n the past, "made me sick" so stopped taking; TSH subclinical/sl elev 03/13 with nl Free T4; failed rechallenge with levothyroxn 2018, pt stopped taking it Medical History admitted severe hypokalemia, prob from enteropathogenic e coli 06/13 Medical History orthostatic hypotension, see s [facility]/Antecol, on Flurinef and Midodrine Medical History AAA 32 mm (CT abd /pelvis 06/14); stable on US 05/16 Medical History lumbar spondyloisthesis L5 [address] 06/13; MRI 08/13: grade 2 spondylolisthesis, DDD with L3-4 disc to left Medical History noncompliance with meds, repeated proble m Medical History recurrent hypokalemia Medical History NSTSEMI 06/14--s/p cath [facility]: [facility]ES x2 Pl branch RCA and PDA, EF "low normal" (not specified) Medical History right common iliac artery aneurysm CT Medical History hyperlipidemia--was rx parav astatin after [facility] 2012, pt stopped in 2013 Surgical History cholecystectomy 07/17/2008 Surgical History Cardiac cath with [facility] circumflex 06/2013 Surgical History colonoscopy ([facility]) 2004 Surgical History cardiac cath [facility]: ULISSES x2 Posterolateral branch RCA and PDA 06/14 Hospitalization History [facility] sob, increase HR 05/18/15 Hospitalization History [facility] - A Fib 03/20/16 Hospitalization History [facility] COPD 03/2016 Hospitalization History [facility] 06/20 Hospitalization History urinary tract infection 06/[address] [facility] [place] 06/02/19 Goals Section No Information Health Concerns No Information MEDICAL EQUIPMENT No Information MENTAL STATUS No Information FUNCTIONAL STATUS No Information ASSESSMENTS No Information PLAN OF TREATMENT Medication Medication Name Sig Start Date Stop Date Albuterol Sulfate (2.5 MG/3ML) 0.083% 3 ml as needed I nhalation four times daily as needed for 30 days Apr, Insurance Providers Payer Name Payer Address Payer Phone Insured Name Patient Relati onship to Insured Coverage Start Date Coverage End Date AgentPiggy PLANS [address] [address] [facility] [id number] KEVIN MARIN
--- OUTSIDE RECORDS SUMMARY | 2020-09-30 16:38 | CCD ---
Author Author [facility] Address Unknown Phone Unavailable Care Team Providers Care Reuse Technician Name Role Phone SEARS, A CHATA DO Unavailable Unavailable SEARS, A CHATA DO Unavailable Unavailable SEARS, A CHATA DO Unavailable Unavailable SEARS, A CHATA DO Unavailable Unavailable SEARS, A CHATA DO Unavailable Unavailable SEARS, A CHATA DO Unavailable Unavailable SEARS, A CHATA DO Unavailable Unavailable SEARS, A CHATA DO Unavailable Unavailable SEARS, A CHATA DO Unavailable Unavailable SEARS, A CHATA DO Unavailable Unavailable SEARS, A CHATA DO Unavailable Unavailable SEARS, A CHATA DO Unavailable Unavailable SEARS, A CHATA DO Unavailable Unavailable SEARS, A CHATA DO Unavailable Unavailable SEARS, A CHATA DO Unavailable Unavailable SEARS, A CHATA DO Unavailable Unavailable SEARS, A CHATA DO Unavailable Unavailable SEARS, A CHATA DO Unavailable Unavailable SEARS, A CHATA DO Unavailable Unavailable SEARS, A CHATA DO Unavailable Unavailable SEARS, A CHATA DO Unavailable Unavailable SEARS, A CHATA DO Unavailable Unavailable SEARS, A CHATA DO Unavailable Unavailable SEARS, A CHATA DO Unavailable Unavailable SEARS, A CHATA DO Unavailable Unavailable SEARS, A CHATA DO Unavailable Unavailable SEARS, A CHATA DO Unavailable Unavailable SEARS, A CHATA DO Unavailable Unavailable SEARS, A CHATA DO Unavailable Unavailable SEARS, A CHATA DO Unavailable Unavailable SEARS, A CHATA DO Unavailable Unavailable SEARS, A CHATA DO Unavailable Unavailable SEARS, A CHATA DO Unavailable Unavailable SEARS, A CHATA DO Unavailable Unavailable SEARS, A CHATA DO Unavailable Unavailable SEARS, A CHATA DO Unavailable Unavailable SEARS, A CHATA DO Unavailable Unavailable SEARS, A CHATA DO Unavailable Unavailable SEARS, A CHATA DO Unavailable Unavailable SEARS, A CHATA DO Unavailable Unavailable SEARS, A CHATA DO Unavailable Unavailable SEARS, A CHATA DO Unavailable Unavailable SEARS, A CHATA DO Unavailable Unavailable SEARS, A CHATA DO Unavailable Unavailable SEARS, A CHATA DO Unavailable Unavailable SEARS, A CHATA DO Unavailable Unavailable RING, K VIMAL PA Unavailable Unavailable RING, K VIMAL PA Unavailable Unavailable RING, K VIMAL PA Unavailable Unavailable RING, K VIMAL PA Unavailable Unavailable RING, K VIMAL PA Unavailable Unavailable RING, K VIMAL PA Unavailable Unavailable RING, K VIMAL PA Unavailable Unavailable RING, K VIMAL PA Unavailable Unavailable RING, K VIMAL PA Unavailable Unavailable RING, K VIMAL PA Unavailable Unavailable RING, K VIMAL PA Unavailable Unavailable RING, K VIMAL PA Unavailable Unavailable RING, K VIMAL PA Unavailable Unavailable RING, K VIMAL PA Unavailable Unavailable RING, K VIMAL PA Unavailable Unavailable RING, K VIMAL PA Unavailable Unavailable RING, K VIMAL PA Unavailable Unavailable RING, K VIMAL PA Unavailable Unavailable RING, K VIMAL PA Unavailable Unavailable RING, K VIMAL PA Unavailable Unavailable RING, K VIMAL PA Unavailable Unavailable VIRI DAILEY MD Unavailable Unavailable VIRI DAILEY MD Unavailable Unavailable VIRI DAILEY MD Unavailable Unavailable VIRI DAILEY MD Unavailable Unavailable VIRI DAILEY MD Unavailable Unavailable VIRI DAILEY MD Unavailable Unavailable VIRI DAILEY MD Unavailable Unavailable VIRI DAILEY MD Unavailable Unavailable ASIMVIRI MD Unavailable Unavailable ASIMVIRI MD Unavailable Unavailable ASIMVIRI MD Unavailable Unavailable ASIMVIRI MD Unavailable Unavailable VIRI DAILEY MD Unavailable Unavailable VIRI DAILEY MD Unavailable Unavailable VIIR DAILEY MD Unavailable Unavailable VIRI DAILEY MD Unavailable Unavailable VIRI DAILEY MD Unavailable Unavailable VIRI DAILEY MD Unavailable Unavailable VIRI DAILEY MD Unavailable Unavailable VIRI DAILEY MD Unavailable Unavailable VIRI DAILEY MD Unavailable Unavailable VIRI DAILEY MD Unavailable Unavailable VIRI DAILEY MD Unavailable Unavailable VIRI DAILEY MD Unavailable Unavailable VIRI DAILEY MD Unavailable Unavailable VIRI DAILEY MD Unavailable Unavailable ASIMVIRI MD Unavailable Unavailable ASIMVIRI MD Unavailable Unavailable ASIM, MEREDITH MD Unavailable Unavailable ASIM, MEREDITH MD Unavailable Unavailable ASIM, MEREDITH MD Unavailable Unavailable ASIM, MEREDITH MD Unavailable Unavailable ASIM, MEREDITH MD Unavailable Unavailable ASIM, MEREDITH MD Unavailable Unavailable ASIM, MEREDITH MD Unavailable Unavailable ASIM, MEREDITH MD Unavailable Unavailable ASIM, MEREDITH MD Unavailable Unavailable ASIM, MEREDITH MD Unavailable Unavailable ASIM, MEREDITH MD Unavailable Unavailable ASIM, MEREDITH MD Unavailable Unavailable ASIM, MEREDITH MD Unavailable Unavailable ASIM, MEREDITH MD Unavailable Unavailable ASIM, MEREDITH MD Unavailable Unavailable ASIM, MEREDITH MD Unavailable Unavailable ASIM, MEREDITH MD Unavailable Unavailable ASIM, MEREDITH MD Unavailable Unavailable ASIM, MEREDITH MD Unavailable Unavailable ASIM, MEREDITH MD Unavailable Unavailable ASIM, MEREDITH MD Unavailable Unavailable ASIM, MEREDITH MD Unavailable Unavailable ASIM, MEREDITH MD Unavailable Unavailable ASIM, MEREDITH MD Unavailable Unavailable ASIM, MEREDITH MD Unavailable Unavailable ASIM, MEREDITH MD Unavailable Unavailable Anand, Salome LOG SORTER Unavailable Unavailable Anand, Salome LOG SORTER Unavailable Unavailable Anand, Salome LOG SORTER Unavailable Unavailable Anand, Salome LOG SORTER Unavailable Unavailable Anand, Salome LOG SORTER Unavailable Unavailable Anand, Salome LOG SORTER Unavailable Unavailable Anand, Salome LOG SORTER Unavailable Unavailable Anand, Salome LOG SORTER Unavailable Unavailable Anand, Salome LOG SORTER Unavailable Unavailable Anand, Salome LOG SORTER Unavailable Unavailable Anand, Salome LOG SORTER Unavailable Unavailable Lim, Gertrudis April PA Unavailable Unavailable Lim, Gertrudis April PA Unavailable Unavailable Lim, Gertrudis April PA Unavailable Unavailable Lim, Gertrudis April PA Unavailable Unavailable Lim, Gertrudis April PA Unavailable Unavailable Lim, Gertrudis April PA Unavailable Unavailable Lim, Gertrudis April PA Unavailable Unavailable Lim, Gertrudis April PA Unavailable Unavailable Lim, Gertrudis April PA Unavailable Unavailable Lim, Gertrudis April PA Unavailable Unavailable Re-disclosure Warning The records that you are about to access may contain information from federally-assisted alcohol or drug abuse programs. If such information is present, then the following federally mandated warning applies: This information has been disclosed to you from records protected by federal confidentiality rules (42 CFR part 2). The federal rules prohibit you from making any further disclosure of this information unless further disclosure is expressly permitted by the written consent of the person to whom it pertains or as otherwise permitted by 42 CFR part 2. A general authorization for the release of medical or other information is NOT sufficient for this purpose. The Federal rules restrict any use of the information to criminally investigate or prosecute any alcohol or drug abuse patient.The records that you are about to access may contain highly sensitive health information, the redisclosure of which is protected by Article 27-F of the [facility] Public Health law. If you continue you may have access to information: Regarding HIV / AIDS; Provided by facilities licensed or operated by the [facility] Office of Mental Health; or Provided by the [facility] Office for People With Developmental Disabilities. If such information is present, then the following [facility] mandated warning applies: This information has been disclosed to you from confidential records which are protected by state law. State law prohibits you from making any further disclosure of this information without the specific written consent of the person to whom it pertains, or as otherwise permitted by law. Any unauthorized further disclosure in violation of state law may result in a fine or halfway sentence or both. A general authorization for the release of medical or other information is NOT sufficient authorization for further disc losure. Allergies and Adverse Reactions Type Description Substance Reaction Status Data Source(s ) Drug allergy Nexium Esomeprazole Unknown Active eCW1 ([facility]) Drug allergy Lansoprazole lansoprazole Unknown Active eCW1 ([facility]) Buspar Buspar Buspar forgetfulness Active eCW1 ([facility]) fluoxetine fluoxetine Fluoxetine 20 MG Oral Capsule dizziness Active eCW1 ([facility]) levothyroxine levothyroxine levothyroxine GI--pt stopped after rech allenge Active eCW1 ([facility]) Buspar Buspar Buspar forgetfulness Active eCW1 ([facility]) fluoxetine fluoxetine fluoxetine dizziness Active eCW1 ([facility]) levothyroxine levothyroxine levothyroxine GI--pt stopped after rech allenge Active eCW1 ([facility]) Family History Family Member Name Family Member Gender Family Member Status Date o f Status Description Data Source(s) Unknown Unknown Problem MEDENT ([facility]) Unknown Unknown Problem MEDENT ([facility]) Unknown Female Problem MEDENT ([facility]) Unknown Female Problem MEDENT ([facility]) Encounters Encounter Providers Location Date Indications Data Source(s ) Outpatient Attender: VIRI KU.MARI 0 12:00:00 AM EST - 07/28/2020 11:45:07 AM EST [facility] Unknown [address] [address] [address] 07/08/2020 12:00:00 AM EST eCW1 ([facility]) Unknown [address] [address] [address] 07/06/2020 12:00:00 AM EST eCW1 ([facility]) Outpatient [address] [facility] [address] [address] 07/02/2020 12:00:00 AM EST eCW1 ([facility]) Outpatient Attender: April diaz 05/02/2020 08:45:00 AM EDT MEDENT ([facility]) Unknown [address] [facility] [address] [address] 03/09/2020 12:00:00 AM EDT eCW1 ([facility]) Outpatient Attender: VIRI KU.MARI 03/03/2020 12:00:00 AM EDT [facility] Outpatient Attender: VIRI GRESHAM.GVR 02/02/2020 12:00:00 AM EDT [facility] [address] [facility] [facility] [place] [id number] 12/02/2019 12:00:00 AM EDT eCW1 ([facility]) Unknown [address] [facility] [place] [id number] 12/01/2019 12:00:00 AM EDT eCW1 ([facility]) Unknown [address] [facility] [place] [address] 11/27/2019 12:00:00 AM EDT eCW1 ([facility]) [facility] [address] [facility] [place] [address] 11/26/2019 12:00:00 AM EDT eCW1 ([facility]) Outpatient Referrer: CHATA OTT DO 10/21/2019 09:55:00 AM EST [facility] [place] [address] [place] [address], [place] [address] 10/13/2019 12:00:00 AM EST eCW1 ([facility]) Outpatient Attender: VIMAL Rider [facility] 10/12/2019 11:45:00 AM EST MEDENT ([facility]) Outpatient Referrer: CHATA OTT DO 09/22/2019 01:38:00 PM EST [facility] [place] [address] [place] [address] [place] [address] 09/17/2019 12:00:00 AM EST eCW1 ([facility]) [facility] [address] [place] [address], [place] [address] 09/17/2019 12:00:00 AM EST eCW1 ([facility]) [address] [place] [address] 09/10/2019 12:00:00 AM EST eCW1 ([facility]) Outpatient Attender: Salome Rider [facility] 09/02/2019 10:30:00 AM EST MEDENT ([facility]) Outpatient Attender: VIRI DAILEY MD [email or web address] 08/13/2019 12:00:00 AM EST [facility] Medications Medication Brand Name Start Date Product Form Dose Route Admi nistrative Instructions Pharmacy Instructions Status Indications Reaction Description Data Source(s) clopidogrel 75 MG Oral Tablet clopidogrel (PLAVIX) 75 MG tablet clopidogrel (PLAVIX) 75 MG tablet 07/28/2020 12:00:00 AM EST 75 mg Oral active Take 1 tablet (75 mg total) by mouth daily [facility] Levothyroxine Sodium 0.025 MG Oral Table t levothyroxine (SYNTHROID, LEVOTHROID) 25 MCG tablet levothyroxine (SYNTHROID, LEVOTHROID) 25 MCG tablet 12:00:00 AM EST 12.5 ug Oral active Take 12 .5 mcg by mouth daily [facility] 2.5 mg /3 mL (0.083 %) 07/07/2020 12:00:00 AM EST solu tion for nebulization 300 INHALE 1 VIAL VIA NEBULIZER FOUR TIMES A DAY NEEDED INHALE 1 VIAL VIA NEBULIZER FOUR TIMES A DAY NEEDED SOLD: 07/08/2020 [facility] 2.5 mg /3 mL (0.083 %) 07/07/2020 12:00:00 AM EST solu tion for nebulization 300 INHALE 1 VIAL VIA NEBULIZER FOUR TIMES A DAY NEEDED INHALE 1 VIAL VIA NEBULIZER FOUR TIMES A DAY NEEDED SOLD: 09/08/2020 [facility] 25 mg 05/12/2020 12:00:00 AM EDT tablet extended release 24 hr 45 TAKE ONE- HALF TABLET BY MOUTH EVERY DAY TAKE ONE-HALF TABLET BY MOUTH EVERY DAY SOLD: 05/14/2020 [facility] 25 mg 05/12/2020 12:00:00 AM EDT tablet extended release 24 hr 45 TAKE ONE- HALF TABLET BY MOUTH EVERY DAY TAKE ONE-HALF TABLET BY MOUTH EVERY DAY SOLD: 07/26/2020 [facility] 90 mcg/actuation 05/03/2020 12:00:00 AM EDT HFA aerosol inha ler 18 INHALE 2 PUFFS BY MOUTH EVERY 6 HOURS NEEDED FOR COUGH AND WHEEZE INHALE 2 PUFFS BY MOUTH EVERY 6 HOURS NEEDED FOR COUGH AND WHEEZE SOLD: 05/03/2020 [facility] 60 ACTUAT Albuterol 0.09 MG/ACTUAT Metered Dose Inhaler Albu terol Sulfate HFA 05/02/2020 12:00:00 AM EDT RESPIRATORY active MEDENT ([facility]) 75 mg 04/03/2020 12:00:00 AM EDT tablet 90 TAKE ONE TABLET BY MOUTH EVERY DAY AT NIGHT TAKE ONE TABLET BY MOUTH EVERY DAY AT NIGHT SOLD: 04/05/2020 [facility] 75 mg 04/03/2020 12:00:00 AM EDT tablet 90 TAKE ONE TABLET BY MOUTH EVERY DAY AT NIGHT TAKE ONE TABLET BY MOUTH EVERY DAY AT NIGHT SOLD: 08/23/2020 [facility] 40 mg 04/03/2020 12:00:00 AM EDT tablet 90 TAKE ONE TABLET BY MOUTH EVERY DAY TAKE ONE TABLET BY MOUTH EVERY DAY SOLD: 04/05/2020 [facility] atorvastatin 40 MG Oral Tablet ATORVASTATIN CALCIUM 04/03/2020 1 2:00:00 AM EDT tablet 90 TAKE ONE TABLET BY MOUTH EVERY D AY TAKE ONE TABLET BY MOUTH EVERY DAY SOLD: 07/26/2020 [facility] atorvastatin 40 MG Oral Tablet atorvastatin (LIPITOR) 40 MG tablet atorvastatin (LIPITOR) 40 MG tablet 03/29/2020 12:00:00 AM EDT aborted TAKE ONE TABLET BY MOUTH EVERY DAY [facility] clopidogrel 75 MG Oral Tablet clopidogrel (PLAVIX) 75 MG tablet clopidogrel (PLAVIX) 75 MG tablet 03/29/2020 12:00:00 AM EDT aborted TAKE ONE TABLET BY MOUTH EVERY DAY AT NIGHT [facility] doxycycline hyclate 100 MG Oral Capsule DOXYCYCLINE HYCLATE 03/06/2020 12:00:00 AM EDT capsule 20 TAKE ONE CAPSULE BY MOUTH TW ICE A DAY FOR 10 DAYS TAKE ONE CAPSULE BY MOUTH TWICE A DAY FOR 10 DAYS SOLD: 03/07/2020 [facility] 90 mcg/actuation 03/06/2020 12:00:00 AM EDT HFA aerosol inha ler 8 INHALE TWO PUFFS BY MOUTH EVERY 4 TO 6 HOURS NEEDED FOR WHEEZING INHALE TWO PUFFS BY MOUTH EVERY 4 TO 6 HOURS NEEDED FOR WHEEZING SOLD: 03/07/2020 [facility] Furosemide 20 MG Oral Tablet furosemide (LASIX) 20 MG tablet furosemide (LASIX) 20 MG tablet 03/03/2020 12:00:00 AM EDT 20 mg Oral active Chronic diastolic heart failure Take 1 tablet (20 mg total) by mouth every other day [facility] Chronic diastolic heart failure 20 mg 02/03/2020 12:00:00 AM EDT tablet 45 TAKE ONE TABLET BY MOUTH EVERY OTHER DAY TAKE ONE TABLET BY MOUTH EVERY OTHER DAY SOLD: 04/21/2020 [facility] 20 mg 02/03/2020 12:00:00 AM EDT tablet 45 TAKE ONE TABLET BY MOUTH EVERY OTHER DAY TAKE ONE TABLET BY MOUTH EVERY OTHER DAY SOLD: 02/11/2020 [facility] 20 mg 02/03/2020 12:00:00 AM EDT tablet 45 TAKE ONE TABLET BY MOUTH EVERY OTHER DAY TAKE ONE TABLET BY MOUTH EVERY OTHER DAY SOLD: 07/08/2020 [facility] benzonatate 100 MG Oral Capsule BENZONATATE 12/02/2019 12:00:00 AM EDT capsule 100 TAKE ONE CAPSULE BY MOUTH FOUR TIMES A D AY NEEDED TAKE ONE CAPSULE BY MOUTH FOUR TIMES A DAY NEEDED SOLD: 12/03/2019 [facility] benzonatate 100 MG Oral Capsule BENZONATATE 12/02/2019 12:00:00 AM EDT capsule 100 TAKE ONE CAPSULE BY MOUTH FOUR TIMES A D AY NEEDED TAKE ONE CAPSULE BY MOUTH FOUR TIMES A DAY NEEDED SOLD: 02/11/2020 [facility] benzonatate 100 MG Oral Capsule [Tessalon Perles] Graciela aman Perles 100 MG Tessalon Perles 100 MG 12/02/2019 12:00:00 AM EDT active 1 capsule as needed eCW1 ([facility]) benzonatate 100 MG Oral Capsule [Tessalon Perles] Graciela aman Perles 100 MG Tessalon Perles 100 MG 12/02/2019 12:00:00 AM EDT 1.0 {capsule_as_nee ded} active Tessalon Perles 100 MG eCW1 ([facility]) 24 HR metoprolol succinate 25 MG Extende d Release Oral Tablet metoprolol succinate (TOPROL-XL) 25 MG 24 hr tablet metoprolol succinate (TOPROL-XL) 25 MG 24 hr tablet 11/26/2019 12:00:00 AM EDT 12.5 mg Oral acti ve Take 0.5 tablets (12.5 mg total) by mouth daily [facility] 600 mg 11/26/2019 12:00:00 AM EDT tablet extended release 12hr 20 TAKE ONE TABLET BY MOUTH EVERY 12 HOURS NEEDED FOR 10 DAYS TAKE ONE TABLET BY MOUTH EVERY 12 HOURS NEEDED FOR 10 DAYS SOLD: 11/26/2019 [facility] 875-125 mg 11/26/2019 12:00:00 AM EDT tablet 20 TAKE ONE TABLET BY MOUTH EVERY 12 HOURS FOR 10 DAYS TAKE ONE TABLET BY MOUTH EVERY 12 HOURS FOR 10 DAYS SOLD: 11/26/2019 [facility] 25 mg 11/06/2019 12:00:00 AM EDT tablet extended release 24 hr 15 TAKE ONE- HALF TABLET BY MOUTH EVERY DAY TAKE ONE-HALF TABLET BY MOUTH EVERY DAY SOLD: 11/26/2019 [facility] 25 mg 11/06/2019 12:00:00 AM EDT tablet extended release 24 hr 15 TAKE ONE- HALF TABLET BY MOUTH EVERY DAY TAKE ONE-HALF TABLET BY MOUTH EVERY DAY SOLD: 04/05/2020 [facility] 25 mg 11/06/2019 12:00:00 AM EDT tablet extended release 24 hr 15 TAKE ONE- HALF TABLET BY MOUTH EVERY DAY TAKE ONE-HALF TABLET BY MOUTH EVERY DAY SOLD: 11/11/2019 [facility] benzonatate 100 MG Oral Capsule BENZONATATE 10/13/2019 12:00:00 AM EST capsule 30 TAKE ONE CAPSULE BY MOUTH THREE TIMES A DAY FOR COUGH TAKE ONE CAPSULE BY MOUTH THREE TIMES A DAY FOR COUGH SOLD: 10/14/2019 [facility] 25 mcg 09/17/2019 12:00:00 AM EST tablet 30 TAKE ONE TABLET BY MOUTH EVERY DAY TAKE ONE TABLET BY MOUTH EVERY DAY SOLD: 09/08/2020 [facility] 25 mcg 09/17/2019 12:00:00 AM EST tablet 30 TAKE ONE TABLET BY MOUTH EVERY DAY TAKE ONE TABLET BY MOUTH EVERY DAY SOLD: 10/14/2019 [facility] 25 mcg 09/17/2019 12:00:00 AM EST tablet 30 TAKE ONE TABLET BY MOUTH EVERY DAY TAKE ONE TABLET BY MOUTH EVERY DAY SOLD: 09/29/2019 [facility] 25 mcg 09/17/2019 12:00:00 AM EST tablet 30 TAKE ONE TABLET BY MOUTH EVERY DAY TAKE ONE TABLET BY MOUTH EVERY DAY SOLD: 07/26/2020 [facility] Fluticasone Propionate 50 MCG/ACT Fluticasone Propionate 50 MCG/ACT 09/10/2019 12:00:00 AM EST 1.0 {spray_in_each_nostril} acti ve Fluticasone Propionate 50 MCG/ACT eCW1 ([facility]) Fluticasone Propionate 50 MCG/ACT UNK 09/10/2019 12:00:00 AM EST active 1 spray in each nostril eCW1 ([facility]) 50 mcg/actuation 09/10/2019 12:00:00 AM EST spray,suspension 16 SPRAY ONE SPRAY IN EACH NOSTRIL EVERY DAY SPRAY ONE SPRAY IN EACH NOSTRIL EVERY DAY SOLD: 11/26/2019 [facility] Fluticasone Propionate 50 MCG/ACT Fluticasone Propionate 50 MCG/ACT 09/10/2019 12:00:00 AM EST 1.0 {spray_in_each_nostril} acti ve Fluticasone Propionate 50 MCG/ACT eCW1 ([facility]) 50 mcg/actuation 09/10/2019 12:00:00 AM EST spray,suspension 16 SPRAY ONE SPRAY IN EACH NOSTRIL EVERY DAY SPRAY ONE SPRAY IN EACH NOSTRIL EVERY DAY SOLD: 09/10/2019 [facility] 10 mg 09/10/2019 12:00:00 AM EST raeann 50 DISSOLVE 1 RAEANN IN MOUTH/THROAT 5 TIMES A DAY FOR 10 DAYS DISSOLVE 1 RAEANN IN MOUTH/THROAT 5 TIME S A DAY FOR 10 DAYS SOLD: 09/10/2019 [facility] Fluticasone Propionate 50 MCG/ACT Fluticasone Propionate 50 MCG/ACT 09/10/2019 12:00:00 AM EST active 1 spray in each nostril eCW1 ([facility]) Clotrimazole 10 MG UNK 09/10/2019 12:00:00 AM EST active 1 raeann eCW1 ([facility]) Clotrimazole 10 MG Oral Lozenge Clotrimazole 10 MG 09/10/2019 12:00 :00 AM EST 1.0 {raeann} active Clotrimazole 10 MG eCW1 ([facility]) Fluticasone Propionate 50 MCG/ACT Fluticasone Propionate 50 MCG/ACT 09/10/2019 12:00:00 AM EST 1.0 {spray_in_each_nostril} acti ve Fluticasone Propionate 50 MCG/ACT eCW1 ([facility]) Clotrimazole 10 MG Oral Lozenge Clotrimazole 10 MG 09/10/2019 12:00 :00 AM EST active 1 raeann eCW1 ([facility]) Fluticasone Propionate 50 MCG/ACT Fluticasone Propionate 50 MCG/ACT 09/10/2019 12:00:00 AM EST 1.0 {spray_in_each_nostril} acti ve Fluticasone Propionate 50 MCG/ACT eCW1 ([facility]) 875-125 mg 09/02/2019 12:00:00 AM EST tablet 20 TAKE ONE TABLET BY MOUTH TWICE A DAY FOR 10 DAYS TAKE ONE TABLET BY MOUTH TWICE A DAY FOR 10 DAYS SOLD: 09/02/2019 [facility] 100 mg 09/02/2019 12:00:00 AM EST capsule 20 TAKE ONE CAPSULE BY MOUTH TWICE A DAY FOR 10 DAYS TAKE ONE CAPSULE BY MOUTH TWICE A DAY FOR 10 DAYS SOLD : 09/02/2019 [facility] Doxycycline Monohydrate 100 MG Oral Capsule Doxycycline [place] hydrate 09/02/2019 12:00:00 AM EST ORAL completed MEDENT ([facility]) Amoxicillin 875 MG / Clavulanate 125 MG Oral Tablet Am oxicillin/Clavulanate Potassium 09/02/2019 12:00:00 AM EST ORAL completed MEDENT ([facility]) 40 mg 08/22/2019 12:00:00 AM EST tablet 90 TAKE ONE TABLET BY MOUTH EVERY DAY TAKE ONE TABLET BY MOUTH EVERY DAY SOLD: 08/29/2019 [facility] 75 mg 08/22/2019 12:00:00 AM EST tablet 90 TAKE ONE TABLET BY MOUTH EVERY DAY AT NIGHT TAKE ONE TABLET BY MOUTH EVERY DAY AT NIGHT SOLD: 01/30/2020 [facility] 40 mg 08/22/2019 12:00:00 AM EST tablet 90 TAKE ONE TABLET BY MOUTH EVERY DAY TAKE ONE TABLET BY MOUTH EVERY DAY SOLD: 10/28/2019 [facility] 75 mg 08/22/2019 12:00:00 AM EST tablet 90 TAKE ONE TABLET BY MOUTH EVERY DAY AT NIGHT TAKE ONE TABLET BY MOUTH EVERY DAY AT NIGHT SOLD: 10/28/2019 [facility] 40 mg 08/22/2019 12:00:00 AM EST tablet 90 TAKE ONE TABLET BY MOUTH EVERY DAY TAKE ONE TABLET BY MOUTH EVERY DAY SOLD: 01/30/2020 [facility] 75 mg 08/22/2019 12:00:00 AM EST tablet 90 TAKE ONE TABLET BY MOUTH EVERY DAY AT NIGHT TAKE ONE TABLET BY MOUTH EVERY DAY AT NIGHT SOLD: 08/29/2019 [facility] 25 mg 08/07/2019 12:00:00 AM EST tablet extended release 24 hr 15 TAKE ONE- HALF TABLET BY MOUTH EVERY DAY TAKE ONE-HALF TABLET BY MOUTH EVERY DAY SOLD: 09/29/2019 [facility] 25 mg 08/07/2019 12:00:00 AM EST tablet extended release 24 hr 15 TAKE ONE- HALF TABLET BY MOUTH EVERY DAY TAKE ONE-HALF TABLET BY MOUTH EVERY DAY SOLD: 08/13/2019 [facility] 25 mg 08/07/2019 12:00:00 AM EST tablet extended release 24 hr 15 TAKE ONE- HALF TABLET BY MOUTH EVERY DAY TAKE ONE-HALF TABLET BY MOUTH EVERY DAY SOLD: 08/29/2019 [facility] 40 mg 08/01/2019 12:00:00 AM EST tablet 30 TAKE ONE TABLET BY MOUTH EVERY DAY TAKE ONE TABLET BY MOUTH EVERY DAY SOLD: 08/01/2019 [facility] 75 mg 08/01/2019 12:00:00 AM EST tablet 30 TAKE ONE TABLET BY MOUTH EVERY DAY TAKE ONE TABLET BY MOUTH EVERY DAY SOLD: 08/01/2019 [facility] 20 mg 07/02/2019 12:00:00 AM EST tablet 30 TAKE ONE TABLET BY MOUTH EVERY OTHER DAY TAKE ONE TABLET BY MOUTH EVERY OTHER DAY SOLD: 08/13/2019 [facility] 20 mg 07/02/2019 12:00:00 AM EST tablet 30 TAKE ONE TABLET BY MOUTH EVERY OTHER DAY TAKE ONE TABLET BY MOUTH EVERY OTHER DAY SOLD: 08/29/2019 [facility] 25 mcg 06/06/2019 12:00:00 AM EDT tablet 30 TAKE ONE TABLET BY MOUTH EVERY DAY TAKE ONE TABLET BY MOUTH EVERY DAY SOLD: 04/05/2020 [facility] 90 mcg/actuation 04/29/2019 12:00:00 AM EDT HFA aerosol inha ler 18 INHALE TWO PUFFS BY MOUTH FOUR TIMES A DAY NEEDED INHALE TWO PUFFS BY MOUTH FOUR TIMES A DAY NEEDED SOLD: 12/03/2019 [facility] Drugs 2.5 mg /3 mL (0.083 %) 04/29/2019 12:00:00 AM EDT solu tion for nebulization 300 INHALE THE CONTENTS OF ONE VIAL VIA NEBU LIZER FOUR TIMES A DAY NEEDED INHALE THE CONTENTS OF ONE VIAL VIA NEBULIZER FOUR TIMES A DAY NEEDED SOLD: 09/29/2019 [facility] 2.5 mg /3 mL (0.083 %) 04/29/2019 12:00:00 AM EDT solu tion for nebulization 300 INHALE THE CONTENTS OF ONE VIAL VIA NEBU LIZER FOUR TIMES A DAY NEEDED INHALE THE CONTENTS OF ONE VIAL VIA NEBULIZER FOUR TIMES A DAY NEEDED SOLD: 12/03/2019 [facility] 2.5 mg /3 mL (0.083 %) 04/29/2019 12:00:00 AM EDT solu tion for nebulization 300 INHALE THE CONTENTS OF ONE VIAL VIA NEBU LIZER FOUR TIMES A DAY NEEDED INHALE THE CONTENTS OF ONE VIAL VIA NEBULIZER FOUR TIMES A DAY NEEDED SOLD: 04/05/2020 [facility] Insurance Providers Payer name Policy type / Coverage type Policy ID Covered constitution party ID Covered constitution party's relationship to dalal Policy Dalal Plan Information WELLCARE [id number] SP [id number] WELLCARE O [id number] S [id number] WELLCARE MEDICARE [id number] 24 [id number] WELLCARE MEDICARE [id number] Ana Rosa 08 [id number] WELLCARE [id number] SP [id number] [facility] [id number] Ana Rosa 08 [id number] WELLCARE [id number] SP [id number] MEDICARE COMPLETE [id number] SP [id number] [facility] [id number] ANS-Medicare Part B [id number] ANSI-Medicare Part B [id number] ANS-Medicare Part B [id number] ANS-Medicare Part B [id number] ANS-Medicare Part B [id number] ANSI-Health Maintenance Organization ( O) [id number] ANSI-Medicare Part B [id number] ANSI-Medicare Part B [id number] ANSI-Health Maintenance Organization ( O) [id number] ANSI-Medicare Part B [id number] ANSI-Health Maintenance Organization ( O) [id number] ANSI-Health Maintenance Organization ( O) [id number] ANSI-Medicare Part B [id number] TODAYS OPTIONS [id number] SP [id number] Today's Option Medicare Commercial [id number] Self [id number] View and Chew Health Plans(To) Commercial [id number] Self [id number] Today's Option Medicare Commercial [id number] Self [id number] ANSI-Health Maintenance Organization (HM O) [id number] ANSI-Medicare Part B [id number] ANSI-Medicare Part B [id number] ANSI-Health Maintenance Organization ( O) [id number] ANSI-Health Maintenance Organization ( O) [id number] ANSI-Medicare Part B [id number] [facility]-Health Maintenance Organization ( O) [id number] ANSI-Medicare Part B [id number] ANSI-Medicare Part B [id number] ANSI-Health Maintenance Organization ( O) [id number] ANSI-Health Maintenance Organization ( O) [id number] ANSI-Medicare Part B [id number] ANSI-Medicare Part B [id number] ANSI-Health Maintenance Organization ( O) [id number] TODAYS OPTIONS [id number] [place] [id number] ANSI-Medicare Part B [id number] Today's Options Medicare Commercial [id number] Self [id number] WELLCARE [id number] SP [id number] Wellcare MCR - To Ppo Commercial [id number] Self [id number] Today's Options Ppo Commercial [id number] Self [id number] [facility] [place] Part B [id number] Self [id number] Medicare (Part B) Medicare Primary [id number] Self [id number] ANSI-Medicare Part B [id number] ANSI-Medicare Part B [id number] ANSI-Medicare Part B [id number] ANSI-Medicare Part B [id number] ANSI-Medicare Part B [id number] ANSI-Medicare Part B [id number] ANSI-Medicare Part B [id number] ANSI-Medicare Part B [id number] ANSI-Medicare Part B [id number] ANSI-Medicare Part B [id number] ANSI-Medicare Part B [id number] Today's Options Ppo Commercial [id number] Self [id number] [facility] Part B [id number] Self [id number] Medicare (Part B) Medicare Primary [id number] Self [id number] ANSI-Medicare Part B [id number] ANSI-Medicare Part B [id number] ANSI-Medicare Part B [id number] ANSI-Medicare Part B [id number] ANSI-Medicare Part B [id number] ANSI-Medicare Part B [id number] ANSI-Medicare Part B [id number] Today's Options Ppo Commercial [id number] Self [id number] [facility] Part B [id number] Self [id number] Medicare (Part B) Medicare Primary [id number] Self [id number] ANSI-Medicare Part B [id number] ANSI-Medicare Part B [id number] ANSI-Medicare Part B [id number] Today's Options Ppo Commercial [id number] Self [id number] [facility] [employer] Part B [id number] Self [id number] Medicare (Part B) Medicare Primary [id number] Self [id number] Today's Options Ppo Commercial [id number] Self [id number] [facility] [place] Part B [id number] Self [id number] Medicare (Part B) Medicare Primary [id number] Self [id number] MEDICARE [id number] SP [id number] A Today's Options Ppo Commercial [id number] Self [id number] [facility] [place] Part B [id number] Self [id number] Medicare (Part B) Medicare Primary [id number] Self [id number] Today's Options Ppo Commercial [id number] Self [id number] [facility] [place] Part B [id number] Self [id number] Medicare (Part B) Medicare Primary [id number] Self [id number] Today's Options Ppo Commercial Self [facility] Med[place] Part B Self Medicare (Part B) Medicare Primary Self TODAYS OPTIONS [id number] SP [id number] Todays Options Commercial Self TODAYS OPTIONS/COLOMBIAN O [id number] S [id number] SELF PAY 2 UNAVAILABLE 1 UNAVAILA BLE TODAYS OPT MEDICARE 11 [id number] 1 [id number] MEDICARE 4 [id number] 1 [id number] A MEDICARE 4 [id number] 1 [id number] A [id number] Problems, Conditions, and Diagnoses Code Display Name Description Problem Type Effective Dates Data Source(s) Z00.00 [id number] Medicare annual wellness visit, subsequen t Problem 12/02/2019 12:00:00 AM EDT eCW1 ([facility]) Z00.00 [id number] Medicare annual wellness visit, subsequen t Problem 12/02/2019 12:00:00 AM EDT eCW1 ([facility]) I72.3 [id number] Iliac artery aneurysm Problem 09/17/2019 12: 00:00 AM EST eCW1 ([facility]) I72.3 [id number] Iliac artery aneurysm Problem 09/17/2019 12: 00:00 AM EST eCW1 ([facility]) Z91.14 Patient's other noncompliance with medic ation regimen Patient's other noncompliance with medic Diagnosis 07/28/2020 08:35:46 AM [facility] I71.4 Abdominal aortic aneurysm, without ruptu re Abdominal aortic aneurysm, without ruptu Diagnosis 07/28/2020 08:35:46 AM [facility] F41.8 Other specified anxiety disorders Other specifie d anxiety disorders Diagnosis 07/28/2020 08:35:46 AM [facility] I10 Essential (primary) hypertension Essential (primary) h ypertension Diagnosis 07/28/2020 08:35:46 AM [facility] E03.9 Hypothyroidism, unspecified Hypothyroidism, unspecifie d Diagnosis 07/28/2020 08:35:46 AM [facility] M19.90 Unspecified osteoarthritis, unspecified site Unspecified osteoarthritis, unspecified Diagnosis 07/28/2020 08:35:46 AM [facility] J44.9 Chronic obstructive pulmonary disease, u nspecified Chronic obstructive pulmonary disease, u Diagnosis 07/28/2020 08:35:46 AM [facility] Z72.0 Tobacco use Tobacco use Diagnosis 07/28/2020 08:35:46 AM [facility] 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 Atherosclerotic heart disease of [place] Diagnosis 07/28/2020 08:35:46 AM [facility] I48.0 Paroxysmal atrial fibrillation Paroxysmal atrial fibri llation Diagnosis 07/28/2020 08:35:46 AM [facility] E78.5 Hyperlipidemia, unspecified Hyperlipidemia, unspecifie d Diagnosis 07/28/2020 08:35:46 AM [facility] E87.6 Hypokalemia Hypokalemia Diagnosis 08/13/2019 11:37:54 AM [facility] I95.1 Orthostatic hypotension Orthostatic hypotension Diagno sis 08/13/2019 11:37:54 AM EST [facility] N18.3 Chronic kidney disease, stage 3 (moderat e) Chronic kidney disease, stage 3 (moderat Diagnosis 08/13/2019 11:37:54 AM EST [facility] I26.99 Other pulmonary embolism without acute c or pulmonale Other pulmonary embolism without acute c Diagnosis 08/13/2019 11:37:54 AM EST [facility] Surgeries/Procedures Procedure Description Date Indications Data Source(s) ECG ROUTINE ECG W/LEAST 12 LDS W/I&R 05/02/2020 12:00: 00 AM EDT MEDENT ([facility], [facility]) Annual wellness visit, includes a person alized prevention plan of service (pps), subsequent visit 12/02/2019 12:00:00 AM EDT eCW1 ([facility]) Office Visit, Est Pt., Level 4 PC 12/02/2019 12:00:00 AM EDT eCW1 ([facility]) Office Visit, Est Pt., Level 2 FC 12/02/2019 12:00:00 AM EDT eCW1 ([facility]) ECG ROUTINE ECG W/LEAST 12 LDS W/I&R 10/12/2019 12:00: 00 AM EST MEDENT ([facility], [facility]) Results ID Date Data Source LIPID PANEL (CARDIAC RISK) 07/02/2020 12:00:00 AM EST eCW1 ( [facility]) Name Value Range Interpretation Code Description Data Ayde rce(s) Supporting Document(s) Triglyceride [Mass/volume] in Serum or Plasma by calculation 77 <150 TRIGLYCERIDES LEVEL eCW1 ([facility]) Cholesterol in LDL [Mass/volume] in Serum or Plasma by calculation 41 <100 LDL CHOLESTEROL eCW1 ([facility]) Cholesterol in HDL [Moles/volume] in Serum or Plasma 81 >40 HDL CHOLESTEROL eCW1 ([facility]) Cholesterol [Moles/volume] in Serum or Plasma 137 <200 CHOLESTEROL LEVEL eCW1 ([facility]) 56 NON-HDL-C eCW1 ([facility]) 1.691 <5 CHOLESTEROL RISK RATIO eCW1 ([facility]) ID Date Data Source FREE T4 & TSH PANEL 07/02/2020 12:00:00 AM EST eCW1 ([facility]) Name Value Range Interpretation Code Description Data Ayde rce(s) Supporting Document(s) 3.630 0.358-3.740 THYROID STIMULATING HORM ONE eCW1 ([facility]) 0.86 0.76-1.46 FREE T4 eCW1 ([facility]) ID Date Data Source Comprehensive Metabolic Profile (CMP) 07/02/2020 12:00:00 AM EST eCW1 ([facility]) Name Value Range Interpretation Code Description Data Ayde rce(s) Supporting Document(s) 89 70-100 GLUCOSE, FASTING eCW1 ([facility]) 22 7-18 BLOOD UREA NITROGEN eCW1 ([facility]) 140 136-145 SODIUM LEVEL eCW1 ([facility]) 45.6 >39 GLOMERULAR FILTRATION RATE eCW 1 ([facility]) 1.22 0.55-1.30 CREATININE FOR GFR eCW1 ([facility]) 8.8 8.8-10.2 CALCIUM LEVEL eCW1 ([facility]) 109 98-107 CHLORIDE LEVEL eCW1 ([facility]) 27 21-32 CARBON DIOXIDE LEVEL eCW1 ([facility]) 18 7-37 AST/SGOT eCW1 ([facility]) 5.2 3.5-5.1 POTASSIUM SERUM eCW1 ([facility]) 6.9 6.4-8.2 TOTAL PROTEIN eCW1 ([facility]) 0.2 0.2-1.0 BILIRUBIN,TOTAL eCW1 ([facility]) 15 12-78 ALT/SGPT eCW1 ([facility]) 71 45-117 ALKALINE PHOSPHATASE eCW1 ([facility]) 3.4 3.2-5.2 ALBUMIN eCW1 ([facility]) 1.0 1.2-2.2 ALBUMIN/GLOBULIN RATIO eCW1 ([facility]) ID Date Data Source CBC - Complete Blood Count 07/02/2020 12:00:00 AM EST eCW1 ( [facility]) Name Value Range Interpretation Code Description Data Ayde rce(s) Supporting Document(s) 5.3 4.0-10.0 eCW1 ([facility]) 3.84 4.00-5.40 eCW1 ([facility]) 11.5 12.0-15.5 eCW1 ([facility]) 30.9 32.0-36.5 eCW1 ([facility]) 96.9 80.0-96.0 eCW1 ([facility]) 37.2 36.0-47.0 eCW1 ([facility]) 29.9 27.0-33.0 eCW1 ([facility]) 255 150-450 eCW1 ([facility]) 14.1 11.5-14.5 eCW1 ([facility]) ID Date Data Source [id number] 09/02/2019 01:23:00 PM EST MEDENT ([facility], [facility]) Name Value Range Interpretation Code Description Data Ayde rce(s) Supporting Document(s) Glucose, Fasting 98 mg/dL 70-100 MEDENT ([facility], [facility]) Blood Urea Nitrogen 16 mg/dL 7-18 MEDENT ([facility], [facility]) Creatinine For GFR 1.35 mg/dL 0.55-1.30 MEDENT ([facility], [facility]) Glomerular Filtration Rate 40.6 MED ENT ([facility], [facility]) <content>Units are mL/min/1.73 m2</content>
<content></content>
<content>Chronic Kidney Disease Staging per NKF:</content>
<content></content>
<content>Stage I & II GFR >=60 Normal to Mildly Decreased</content>
<content>Stage III GFR 30- 59 Moderately Decreased</content>
<content>Stage IV GFR 15-29 Severely Decreased</content>
<content>Stage V GFR <15 Very Little GFR Left</content>
<content>ESRD GFR <15 on TERMITE RENEWAL INSPECTOR</content>
<content></content> Sodium Level 141 meq/L 136-145 MEDENT ([facility], [facility]) Potassium Serum 4.7 meq/L 3.5-5.1 MEDENT ([facility], [facility]) Chloride Level 108 meq/L 98-107 MEDENT ([facility], [facility]) Carbon Dioxide Level 25 meq/L 21-32 [facility]) Ast/Sgot 21 U/L 7-37 MEDENT ([facility], [facility]) Anion Gap 8 meq/L 8-16 MEDENT ([facility], [facility]) Calcium Level 9.0 mg/dL 8.8-10.2 MEDENT ([facility], [facility]) Alkaline Phosphatase 86 U/L 45-117 [facility] ( [facility]) Alt/SGPT 14 U/L 12-78 MEDENT ([facility], [facility]) Total Protein 7.3 GM/DL 6.4-8.2 MEDENT ([facility], [facility]) Albumin 3.6 GM/DL 3.2-5.2 MEDENT ([facility], [facility]) Bilirubin,Total 0.4 mg/dL 0.2-1.0 MEDENT ([facility], [facility]) Albumin/Globulin Ratio 0.97 1.00-1.93 MEDENT ([facility], [facility]) ID Date Data Source [id number] 09/02/2019 01:23:00 PM EST MEDENT ([facility], [facility]) Name Value Range Interpretation Code Description Data Ayde rce(s) Supporting Document(s) Red Blood Count 4.03 10 4.00-5.40 MEDENT ([facility], [facility]) White Blood Count 5.2 10 4.0-10.0 MEDENT ([facility]) Hemoglobin 12.0 g/dL 12.0-15.5 MEDENT ([facility], [facility]) Hematocrit 39.4 % 36.0-47.0 MEDENT ([facility], [facility]) Mean Corpuscular Volume 97.8 fl 80.0-96.0 M EDENT ([facility], [facility]) Mean Corpuscular Hemoglobin 29.8 pg 27.0-33.0 MEDENT ([facility], [facility]) Mean Corpuscular HGB Conc 30.5 g/dL 32.0-36.5 MEDENT ([facility], [facility]) Red Cell Distribution Width 15.5 % 11.5-14.5 MEDENT ([facility], [facility]) Platelet Count, Automated 237 10 150-450 MEDENT ([facility], [facility]) Neutrophils % 61.2 % 36.0-66.0 MEDENT ([facility], [facility]) Lymph % 27.4 % 24.0-44.0 MEDENT ([facility] Care, [facility]) Eos % 1.9 % 0.0-3.0 MEDENT ([place] [facility], [facility]) [place] % 8.5 % 0.0-5.0 MEDENT ([facility] gent Care, [facility]) Baso % 0.8 % 0.0-1.0 MEDENT ([facility] Care, [facility]) Immature Granulocyte % 0.2 % 0-3.0 MEDENT ([facility], [facility]) Neutrophils # 3.2 10 1.5-8.5 MEDENT ([facility], [facility]) Nucleated Red Blood Cell % 0.0 % 0-0 MED ENT ([place] [facility], [facility]) Lymph # 1.4 10 1.5-5.0 MEDENT ([facility] [facility], [facility]) [place] # 0.4 10 0.0-0.8 MEDENT ([place] [facility], [facility]) Eos # 0.1 10 0.0-0.5 MEDENT ([facility] gent Care, [facility]) Baso # 0.0 10 0.0-0.2 MEDENT ([facility]) Procedure Social History Code Duration Value Status Description Data Source(s ) Alcohol intake 07/28/2020 12:00:00 AM EST Not Currently completed [facility] Cigarette pack-years 07/28/2020 12:00:00 AM EST UNK completed [facility] Cigarettes smoked current (pack per day) - Reported 07/28/20 20 12:00:00 AM EST UNK completed [facility] Smoking 07/28/2020 12:00:00 AM EST Current every day smoker co mpleted Current every day smoker [facility] Smoking 07/02/2020 12:00:00 AM EST Current Smoker completed Curre nt Smoker eCW1 ([facility]) Smoking 07/02/2020 12:00:00 AM EST Current Smoker completed Curre nt Smoker eCW1 ([facility]) Smoking 07/02/2020 12:00:00 AM EST Current Smoker completed Curre nt Smoker eCW1 ([facility]) Smoking 12/02/2019 12:00:00 AM EDT Current Smoker completed Curre nt Smoker eCW1 ([facility]) Vital Signs ID Date Data Source UNK Name Value Range Interpretation Code Description Data Source(s) Diastolic blood pressure 88 mm[Hg] 88 mm[Hg] eCW1 ([facility]) Systolic blood pressure 148 mm[Hg] 148 mm[Hg] e CW1 ([facility]) Body temperature 97.1 [degF] 97.1 [degF] eCW1 ( [facility]) Respiratory rate 22 /min 22 /min eCW1 ([facility]) Heart rate 108 /min 108 /min eCW1 ([facility]) Body mass index (BMI) [Ratio] 21.63 kg/m2 21.63 kg/m2 [facility] ([facility]) Body height 64 [in_i] 64 [in_i] [facility] ([facility]) Body weight 126 [lb_av] 126 [lb_av] W1 ([facility]) Body weight 56.020 kg 56.020 kg MEDENT ([facility] [place] body weight 120 [lb_av] 120 [lb_av] MEDEN T ([facility]) Body mass index (BMI) [Ratio] 21.2 kg/m2 21.2 k g/m2 MEDENT ([facility]) Body weight 123.50 [lb_av] 123.50 [lb_av] MEDEN T ([facility]) Body height 64 [in_i] 64 [in_i] MEDENT ([facility]) 5'4" Diastolic blood pressure 80 mm[Hg] 80 mm[facility]Hg[facility] Systolic blood pressure 132 mm[Hg] 132 mm[Hg] M EDENT ([facility]) Systolic blood pressure 134 mm[Hg] 134 [facility]Hg[facility] Body mass index (BMI) [Ratio] 20.6 kg/m2 20.6 k g/m2 [facility] Body height 64 [in_i] 64 [in_i] MEDENT ([facility]) 5'4" Body weight 120.00 [lb_av] 120.00 [lb_av] MEDEN T ([facility], [facility]) Body temperature 97.7 [degF] 97.7 [degF] [facility] Oxygen saturation in Arterial blood by [facility]ulse oximetry 97 % 97 % [facility] Respiratory [facility] 16 /min 16 /min [facility] Heart [facility] 96 /min 96 /min [facility]) [facility]astolic blood pressure 92 mm[Hg] 92 mm[Hg] MEDENT ([facility], [facility]) Diastolic blood pressure 70 mm[Hg] 70 mm[Hg] eCW1 ([facility]) Systolic blood pressure 122 mm[Hg] 122 mm[Hg] e CW1 ([facility]) Body temperature 96.5 [degF] 96.5 [degF] eCW1 ( [facility]) Respiratory rate 22 /min 22 /min eCW1 ([facility]) Heart rate 115 /min 115 /min eCW1 ([facility]) Body mass index (BMI) [Ratio] 21.20 kg/m2 21.20 kg/m2 eCW1 ([facility]) Body height 64 [in_us] 64 [in_us] eCW1 ([facility]) Body weight Measured 123.5 [lb_av] 123.5 [lb_av ] eCW1 ([facility]) Body mass index (BMI) [Ratio] 20.6 kg/m2 20.6 k g/m2 MEDENT ([facility], [facility]) Body height 64 [in_i] 64 [in_i] MEDENT ([facility], [facility]) 5'4" Body weight 120.00 [lb_av] 120.00 [lb_av] MEDEN T ([place] [facility], [facility]) Body temperature 97.9 [degF] 97.9 [degF] MEDENT ([place] [facility], [facility]) Oxygen saturation in Arterial blood by Pulse oximetry 93 % 93 % MEDENT ([place] [facility], [facility]) Respiratory rate 22 /min 22 /min MEDENT ( [place] [facility], [facility]) Heart rate 95 /min 95 /min MEDENT ([facility], [facility]) Diastolic blood pressure 90 mm[Hg] 90 mm[Hg] MEDENT ([place] [facility], [facility]) Systolic blood pressure 140 mm[Hg] 140 mm[Hg] M EDENT ([place] [facility], [facility]) Diastolic blood pressure 74 mm[Hg] 74 mm[Hg] eCW1 ([facility]) Systolic blood pressure 138 mm[Hg] 138 mm[Hg] e CW1 ([facility]) Body temperature 98.8 [degF] 98.8 [degF] eCW1 ( [facility]) Respiratory rate 24 /min 24 /min eCW1 ([facility]) Heart rate 98 /min 98 /min eCW1 ([facility]) Body mass index (BMI) [Ratio] 20.25 kg/m2 20.25 kg/m2 eCW1 ([facility]) Body height 64 [in_us] 64 [in_us] eCW1 ([facility]) Body weight Measured 118 [lb_av] 118 [lb_av] eC W1 ([facility]) Respiratory rate 16 /min 16 /min MEDENT ( [facility], [facility]) Heart rate 80 /min 80 /min MEDENT ([facility], [facility]) Diastolic blood pressure 80 mm[Hg] 80 mm[Hg] MEDENT ([facility], [facility]) Systolic blood pressure 137 mm[Hg] 137 mm[Hg] M EDENT ([facility], [facility]) Body mass index (BMI) [Ratio] 20.6 kg/m2 20.6 k g/m2 MEDENT ([facility], [facility]) Body height 64 [in_i] 64 [in_i] MEDENT ([facility], [facility]) 5'4" Body weight 120.00 [lb_av] 120.00 [lb_av] MEDEN T ([facility], [facility]) Body temperature 98.7 [degF] 98.7 [degF] MEDENT ([facility], [facility]) Oxygen saturation in Arterial blood by Pulse oximetry 97 % 97 % [facility] Patient Treatment Plan of Care Planned Activity Planned Date Details Description Data Source (s) clopidogrel 75 MG Oral Tablet 07/28/2020 12:00:00 AM EST [facility] Levothyroxine Sodium 0.025 MG Oral Tablet 07/24/2020 12:00:00 AM ES T [facility] atorvastatin 40 MG Oral Tablet 03/29/2020 12:00:00 AM EDT [facility] clopidogrel 75 MG Oral Tablet 03/29/2020 12:00:00 AM EDT [facility] Furosemide 20 MG Oral Tablet 03/03/2020 12:00:00 AM EDT [facility] benzonatate 100 MG Oral Capsule [Tessalon Perles] 12/02/2019 12: 00:00 AM EDT eCW1 ([facility]) benzonatate 100 MG Oral Capsule [Tessalon Perles] 12/02/2019 12: 00:00 AM EDT eCW1 ([facility]) 24 HR metoprolol succinate 25 MG Extended Release Oral Tablet 11/26/2019 12:00:00 AM EDT [facility] Fluticasone Propionate 50 MCG/ACT 09/10/2019 12:00:00 AM EST eCW1 ([facility]) Clotrimazole 10 MG 09/10/2019 12:00:00 AM EST eCW1 ([facility])
--- OUTSIDE RECORDS SUMMARY | 2020-09-30 16:38 | CCD ---
Author Author [facility] Organization [facility] Address Unknown Phone Unavailable Care Team Providers Care [facility] Specialist Name Role Phone Garcia Gilmore Unavailable PROBLEMS Type Condition ICD9-CM Code [id number] Code Onset Dates Condition S tatus SNOMED Code Notes Problem Other seasonal allergic rhinitis J30.2 Active 137167690 Problem Personal history of pulmonary embolism Z86.711 A ctive 657519967 Problem Chronic cough R05 Active 39322299 Problem Mold contact confirmed Z77.120 Active 816116288 Problem Personal history of noncompliance with medical treatment Z91.19 Active 1769835 Problem CAD (coronary artery disease) I25.10 Active 53 686775 Problem Tear of right supraspinatus tendon, initial encounter S46.811A Active 063107904 Problem Spondylolisthesis, lumbar region M43.16 Active 329494211993169 Problem Orthostatic hypotension I95.1 Active 86167462 Problem Anxiety associated with depression F41.8 Activ e 953947989 Problem Panlobular emphysema J43.1 Active 5790673 Problem Cigarette nicotine dependence without complication F17.210 Active 02037564 Problem ROPER (nonalcoholic steatohepatitis) K75.81 Acti ve 336887067 Problem Other chronic pain G89.29 Active 40787533 Problem Pharyngeal dysphagia R13.13 Active 41270939520 105 Problem AAA (abdominal aortic aneurysm) without rupture I7 1.4 Active 49466610 Problem Esophageal dysphagia R13.10 Active 18524883 Problem Kidney stones N20.0 Active 92546350 Problem Cigarette nicotine dependence with other nicotin e-induced disorder F17.218 Active 85521342 Problem 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 Active 50664750 Problem DDD (degenerative disc disease), lumbosacral M51.37 Active 94972881 Problem Subclinical hypothyroidism E03.9 Active 59450 002 Problem Iliac artery aneurysm I72.3 Active 61110957 Problem Lumbosacral spondylosis without myelopathy M47.817 Active 44719526 Problem Medicare annual wellness visit, subsequent Z00.00 Active 595958435 Problem Stage 3 chronic kidney disease due to benign hypertension I12.9 Active 546886748368422 Problem History of tobacco use Z87.891 Active 522591399 9103 Problem Dyslipidemia E78.5 Active 382532867 Problem Hypertensive heart disease without heart failure I 11.9 Active 35898006 Problem History of non-ST elevation myocardial infarction (NSTEMI) I25.2 Active 997879400 Problem Abdominal aortic aneurysm (AAA) 3.0 cm t o 5.0 cm in diameter in female I71.4 Active 039197141947250 ALLERGIES Allergen (clinical drug ingredient) Drug/Non Drug Allergy do cumented on EMR Reaction Allergy Type Onset Date Status lansoprazole Lansoprazole(NDC Code:[address]-73) Unknown Drug All ergy Active levothyroxine GI--pt stopped after rechallenge Non Drug Al lergy Active fluoxetine dizziness Non Drug Allergy Active esomeprazole Nexium(NDC Code:[address]-29) Unknown Drug Allergy Active Buspar forgetfulness Non Drug Allergy Activ e ENCOUNTERS from 1943 to 2020-07-14 Encounter Location Date Provider Diagnosis [facility] [address] [place] [address] Jun, Garrison Gilmore Panlobular emphysema J43.1 ; CAD (coronary artery disease) I25.10 ; Anxiety associated with depression F41.8 ; Hypertensive heart disease without heart failure I11.9 ; Stage 3 chronic kidney disease due to benign hypertension I12.9 ; Cigarette nicotine dependence without complication F17.210 ; Hilar lymphadenopathy R59.0 ; Abdominal aortic aneurysm (AAA) 3.0 cm to 5.0 cm in diameter in female I71.4 ; Adhesive capsulitis of right shoulder M75.01 ; Adhesive capsulitis of left shoulder M75.02 and Subclinical hypothyroidism E03.9 IMMUNIZATIONS Vaccine Route Administration Date Status Influenza [...] many cigarettes a day do you smoke? 11-20 Are you interested in quitting? Thinking about quitting REASON FOR REFERRAL No Information VITAL SIGNS Weight 126 lbs Jun, Height 64 in Jun, BMI 21.63 kg/m2 Jun, Heart Rate 108 /min Jun, Respiratory Rate 22 /min Jun, Temperature 97.1 degrees Fahrenheit Jun, Oximetry 95 Jun, Blood pressure systolic 148 mm Hg Jun, Blood pressure diastolic 88 mm Hg Jun, MEDICATIONS Medication SIG (Take, Route, Frequency, Duration) Notes Start Da te End Date Status Plavix 75 MG 1 tablet Orally Once a day for 30 day(s) 2018 Active Aspirin EC 81 MG 1 tablet Orally bid Active Albuterol Sulfate (2.5 MG/3ML) 0.083% 3 ml [...] MEQ 1 tablets with food Orally daily Aug, Active PROCEDURES No Information RESULTS REASON FOR VISIT [phone] month MEDICAL (GENERAL) HISTORY Type Description Date Medical History hemorrhoids Medical History diverticulosis 12/29 colonoscopy with [facility] Medical History pulmonary embolism, in Medical History COPD Medical History tobacco abuse, started smoking at 16 yo Medical History Lumbar Spondylolisthesis L5 on S1, MRI [address] fatty liver CT A & P 04/05 Medical History Hiatal hernia Medical History CAD: Cardiac cath 07/09 - st ent to prox circumflex, drug eluting, nl EF; NSt at [facility] 05/14, normal perfusion, nl EF; 06/14 [facility]STSE[facility] with cath [facility]: ULISSES x2 Pl branch RCA and PDA [...] 06/13 Medical History orthostatic hypotension, see s [facility], on Flurinef and Midodrine Medical History AAA [...] colonoscopy ([facility]) 2004 Surgical History cardiac cath [facility]: ULISSES x2 Posterolateral branch RCA and PDA 06/14 Hospitalization History [facility] sob, increase HR 05/18/15 Hospitalization History [facility] - A Fib 03/20/16 Hospitalization History [facility] COPD 03/2016 Hospitalization [facility] 06/20 Hospitalization History urinary tract infection 06/[address] [address] [facility] [place] [facility] Goals Section No Information Health Concerns No Information MEDICAL EQUIPMENT No Information MENTAL STATUS No Information FUNCTIONAL STATUS No Information ASSESSMENTS Encounter Date Diagnosis Assessment Notes Treatment Notes Treatm ent Clinical Notes Jun, Panlobular emphysema (ICD-10 - J43.1) Jun, CAD (coronary artery disease) (ICD-10 - I25.10) Jun, Anxiety associated with depression (ICD-10 - F41 .8) Jun, Hypertensive heart disease without heart failure (ICD-10 - I11.9) Per JNC 8 guidelines, goal BP < 140/90 (150/90 if age >60), is meeting goal on current regimen. Advised heart-healthy diet, sodium restriction Jun, Stage 3 chronic kidney disea se due to benign hypertension (ICD-10 - I12.9) avoid NSAIDs, other nephrotoxic drugs; monitor with periodic lab work; adjust meds for GFR Jun, Cigarette nicotine dependenc e without complication (ICD-10 - F17.210) Jun, Hilar lymphadenopathy (ICD-10 - R59.0) has CT angio 10/16, no parenchymalmassor abnl adenopathy; CT 03/15 was stable Jun, Abdominal aortic aneurysm (A AA) 3.0 cm to 5.0 cm in diameter in female (ICD-10 - I71.4) Jun, Adhesive capsulitis of right shoulder (ICD-10 - M75.01) advised ortho referral, she declined, prefers to see her chiro Jun, Adhesive capsulitis of left shoulder (ICD-10 - M 75.02) advised ortho referral, she declined, prefers to see her chiro Jun, Subclinical hypothyroidism (ICD-10 - E03.9) PLAN OF TREATMENT Medication Medication Name Sig Start Date Stop Date Albuterol Sulfate (2.5 MG/3ML) 0.083% 3 ml as needed I nhalation four times daily as needed for 30 days Apr, Treatment Notes Assessment Notes Clinical Notes Hypertensive heart disease without heart failure Per JNC 8 guidelines, goal BP < 140/90 (150/90 if age >60), is meeting goal on current regimen. Advised heart- healthy diet, sodium restriction Stage 3 chronic kidney disease due to benign hypertension avoid NSAIDs, other nephrotoxic drugs; monitor with periodic lab work; adjust meds for GFR Hilar lymphadenopathy has CT angio 10/16, no parenchymalmassor abnl adenopathy; CT 03/15 was stable Adhesive capsulitis of right shoulder ad vised ortho referral, she declined, prefers to see her chiro Adhesive capsulitis of left shoulder adv ised ortho referral, she declined, prefers to see her chiro Next Appt Details 6 Months MAW Reason: Insurance Providers Payer Name Payer Address Payer Phone Insured Name Patient Relati onship to Insured Coverage Start Date Coverage End Date [facility] [employer] [address] [address] [facility] [phone] KEVIN MARIN self
--- OUTSIDE RECORDS SUMMARY | 2020-09-30 16:38 | CCD ---
Author Author [facility] Organization [facility] Address Unknown Phone Unavailable Care Team Providers Care Meeting Manager Name Role Phone Garcia Gilmore Unavailable PROBLEMS Type Condition ICD9-CM Code [id number] Code Onset Dates Condition S tatus SNOMED Code Notes Problem Other seasonal allergic rhinitis J30.2 Active 114932572 Problem Personal history of pulmonary embolism Z86.711 A ctive 810220765 Problem Chronic cough R05 Active 56119069 Problem Mold contact confirmed Z77.120 Active 012724113 Problem Personal history of noncompliance with medical treatment Z91.19 Active 5762057 Problem CAD (coronary artery disease) I25.10 Active 53 444127 Problem Tear of right supraspinatus tendon, initial encounter S46.811A Active 411493165 Problem Spondylolisthesis, lumbar region M43.16 Active 109859697598678 Problem Orthostatic hypotension I95.1 Active 32535114 Problem Anxiety associated with depression F41.8 Activ e 086424821 Problem Panlobular emphysema J43.1 Active 8259106 Problem Cigarette nicotine dependence without complication F17.210 Active 15001268 Problem ROPER (nonalcoholic steatohepatitis) K75.81 Acti ve 020379696 Problem Other chronic pain G89.29 Active 44213969 Problem Pharyngeal dysphagia R13.13 Active 55015860080 105 Problem AAA (abdominal aortic aneurysm) without rupture I7 1.4 Active 78480413 Problem Esophageal dysphagia R13.10 Active 30998152 Problem Kidney stones N20.0 Active 89705498 Problem Cigarette nicotine dependence with other nicotin e-induced disorder F17.218 Active 85370920 Problem 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 Active 94646676 Problem DDD (degenerative disc disease), lumbosacral M51.37 Active 05657635 Problem Subclinical hypothyroidism E03.9 Active 33171 002 Problem Iliac artery aneurysm I72.3 Active 37376146 Problem Lumbosacral spondylosis without myelopathy M47.817 Active 33140696 Problem Medicare annual wellness visit, subsequent Z00.00 Active 730621293 Problem Stage 3 chronic kidney disease due to benign hypertension I12.9 Active 165365202330886 Problem History of tobacco use Z87.891 Active 036258541 9103 Problem Dyslipidemia E78.5 Active 611623333 Problem Hypertensive heart disease without heart failure I 11.9 Active 03184477 Problem History of non-ST elevation myocardial infarction (NSTEMI) I25.2 Active 583226541 Problem Abdominal aortic aneurysm (AAA) 3.0 cm t o 5.0 cm in diameter in female I71.4 Active 203361731152953 ALLERGIES Allergen (clinical drug ingredient) Drug/Non Drug Allergy do cumented on EMR Reaction Allergy Type Onset Date Status lansoprazole Lansoprazole(NDC Code:[address]-14) Unknown Drug All ergy Active levothyroxine GI--pt stopped after rechallenge Non Drug Al lergy Active fluoxetine dizziness Non Drug Allergy Active esomeprazole Nexium(NDC Code:[address]-86) Unknown Drug Allergy Active Buspar forgetfulness Non Drug Allergy Activ e ENCOUNTERS from 1943 to 2020-07-08 Encounter Location Date Provider Diagnosis [facility] [address] [place] [address] Jun, Garrison Gilmore IMMUNIZATIONS Vaccine Route Administration Date Status Influenza [...] Information RESULTS No Results REASON FOR VISIT call back MEDICAL (GENERAL) HISTORY Type Description Date Medical History hemorrhoids Medical History diverticulosis 12/29 colonoscopy with [facility] Medical History pulmonary embolism, in 1990s Medical History COPD Medical History tobacco abuse, started smoking at 16 yo Medical History Lumbar Spondylolisthesis L5 on S1, MRI [address] fatty liver CT A & P 04/05 Medical History Hiatal hernia Medical History CAD: Cardiac cath 07/09 - ent to prox circumflex, drug eluting, nl EF; NSt at [facility] 05/14, normal perfusion, nl EF; 06/14 NSTSEMI [...] 06/13 Medical History orthostatic hypotension, see [facility], on Flurinef and Midodrine Medical History AAA [...] colonoscopy ([facility]) 2004 Surgical History cardiac cath [facility]: ULISSES x2 Posterolateral branch RCA and PDA 06/14 Hospitalization History [facility] sob, increase HR 05/18/15 Hospitalization History [facility] - A Fib 03/20/16 Hospitalization History [facility] COPD 03/2016 Hospitalization History [facility] 06/20 Hospitalization History urinary tract infection 06/[address] [facility] [place] 06/02/19 Goals Section No Information Health Concerns [...] Insured Coverage Start Date Coverage End Date [employer] PLANS [address] [address] [facility] [address] [phone] KEVIN MARIN
--- NOTE | 2020-09-30 16:39 | HPEPDOC ---
General Date of Admission 09/30/20 Date of Service: Sep 30, 2020 Chief Complaint The patient is a 75-year-old female admitted with a reason for visit of Syncope. Source: Patient Exam Limitations: No limitations Timing/Duration: 4-6 hours, 24 hours Severity: Mild Associated Symptoms: Syncope History of Present Illness Patient is 75 years old female with past history of coronary artery diseases, status post stent placement in May 2020, diverticulitis, pulmonary emboli in s, COPD, smoking abuse presented to the hospital with history of syncope. Patient stated that today she developed palpitations with lightheadedness and she developed mechanical fall from the chair. She denied any seizure-like activities. In ER patient was found to have positive orthostatic vital signs, labs pertinent for creatinine 1.5. Chest x-ray negative for acute pulmonary diseases Home Medications Scheduled Aspirin (Aspirin EC) 81 Mg Tab, 81 MG PO DAILY, (Reported) Atorvastatin Calcium (Atorvastatin Calcium) 40 Mg Tablet, 40 MG PO DAILY, (Reported) Clopidogrel Bisulfate (Clopidogrel) 75 Mg Tablet, 75 MG PO DAILY, (Reported) Furosemide (Furosemide) 20 Mg Tablet, 20 MG PO DAILY, (Reported) Levothyroxine Sodium (Synthroid) 25 Mcg Tablet, 25 MCG PO DAILY, (Reported) Metoprolol Succinate (Metoprolol Succinate) 25 Mg Tab.er.24h, 12.5 TAB PO DAILY, (Reported) Multivit-Min36/Iron/Folic Acid (Geritol Complete Tablet) 1 Each Tablet, 1 TAB PO DAILY, (Reported) Scheduled PRN Albuterol Sulf (Albuterol Sulfate) 2.5 Mg/3 Ml Vial.neb, 2.5 MG INH Q4H PRN for SHORTNESS OF BREATH, (Reported) Albuterol Sulfate (Proair Hfa) 8.5 Gm Hfa.aer.ad, 2 PUFF INH QID PRN for SHORTNESS OF BREATH, (Reported) Nitroglycerin (Nitroglycerin) 0.4 Mg Tab.subl, 0.4 MG SL Q5MP PRN for CHEST PAIN, (Reported) Allergies Coded Allergies: Birds (Verified Allergy, Unknown, 03/06/20) Cat Dander (Verified Allergy, Unknown, shortness of breath, 03/06/20) shortness of breath lansoprazole (Verified Allergy, Unknown, 03/06/20) cortisone (Verified Adverse Reaction, Unknown, SORE TONGUE, GENERAL ILL FEELING, 03/06/20) STEROIDS Past Medical History Medical History PULMONARY EMBOLISM, IN 1990S COPD TOBACCO ABUSE, STARTED SMOKING AT 16 YO LUMBAR SPONDYLOLISTHESIS L5 ON S1, MRI 06/15/[address] A & P 04/05 HIATAL HERNIA CAD: CARDIAC CATH 07/09 CKD 3, BASELINE SCR 1.1 - 1.3 ANXIETY WAS ON THYROID REPLACEMENT ON THE PAST, "MADE ME SICK" SO STOPPED TAKING; TSH SUBCLINICAL/SL ELEV 03/13 WITH NL FREE T4; FAILED RECHALLENGE WITH LEVOTHYROXN 2018, PT STOPPED TAKING IT ADMITTED SEVERE HYPOKALEMIA, PROB FROM ENTEROPATHOGENIC E COLI 06/13 ORTHOSTATIC HYPOTENSION, SEES CANNY/ANTECOL, ON FLURINEF AND MIDODRINE AAA 32 MM (CT ABD /PELVIS 06/14); STABLE ON US 05/16 LUMBAR SPONDYLOISTHESIS L5 [address] 06/13; MRI 08/13: GRADE 2 SPONDYLOLISTHESIS, DDD WITH L3-4 DISC TO LEFT NONCOMPLIANCE WITH MEDS, REPEATED PROBLEM RECURRENT HYPOKALEMIa RIGHT COMMON ILIAC ARTERY ANEURYSM CT 06/14 HYPERLIPIDEMIA--WAS RX PARAVASTATIN AFTER ULISSES 2012, PT STOPPED IN 2013 Surgical History CHOLECYSTECTOMY 07/17/2008 CARDIAC CATH WITH ULISSES CIRCUMFLEX 06/2013 COLONOSCOPY ([facility]) 2004 CARDIAC CATH [facility]: ULISSES X2 POSTEROLATERAL BRANCH RCA AND PDA 06/14 Family History I personally reviewed family history and found not pertinent Social History * Smoker: current smoker Alcohol: Denies Drugs: denies A-FIB/CHADSVASC A-FIB History Current/History of A-Fib/PAF?: No Current PO Anticoag Therapy: No Review of Systems Constitutional: Denies: Chills Eyes: Denies: Pain ENT: Denies: Head Aches Skin: Denies: Rash Pulmonary: Denies: Dyspnea Cardiovascular: Denies: Chest Pain Gastrointestinal: Denies: Nausea Genitourinary: Denies: Dysuria Hematologic: Denies: Bruising Endocrine: Denies: Polydipsia Musculoskeletal: Denies: Neck Pain Neurological: Denies: Weakness Psych: Reports: Mood Normal Physical Examination General Exam: Positive: Alert, Cooperative Eye Exam: Positive: PERRLA ENT Exam: Positive: Atraumatic Neck Exam: Positive: Supple; Negative: JVD Chest Exam: Positive: Clear to auscultation Heart Exam: Positive: Rate Normal Telemetry: Positive: No significant arrhythmia Abdomen Exam: Positive: Normal bowel sounds Extremity Exam: Negative: Clubbing Skin Exam: Positive: Nl turgor and temperature Neuro Exam: Positive: Strength at 5/5 X4 ext Psych Exam: Positive: Mental status NL Vital Signs Vital Signs Date Time Temp Pulse Resp B/P (MAP) Pulse Ox O2 Delivery O2 Flow Rate FiO2 09/30/20 15:30 71 159/101 (120) 96 09/30/20 13:03 22 Room Air 09/30/20 12:55 96.3 Laboratory Data Labs 24H Laboratory Tests 2 09/30/20 13:33: Bedside Glucose (Misc Panel) 108 09/30/20 14:23: Coronavirus (COVID-19)(PCR) NEGATIVE, Influenza Type A (RT-PCR) NEGATIVE, Influenza Type B (RT-PCR) NEGATIVE, Respiratory Syncytial Virus (PCR) NEGATIVE 09/30/20 14:36: Immature Granulocyte % (Auto) 0.4, Neutrophils (%) (Auto) 81.1H, Lymphocytes (%) (Auto) 9.9L, Monocytes (%) (Auto) 7.4H, Eosinophils (%) (Auto) 0.6, Basophils (% ) (Auto) 0.6, Neutrophils # (Auto) 5.5, Lymphocytes # (Auto) 0.7L, Monocytes # (Auto) 0.5, Eosinophils # (Auto) 0.0, Basophils # (Auto) 0.0, Nucleated Red Blood Cells % (auto) 0.0, Anion Gap 6L, Glomerular Filtration Rate 35.3L, Calcium Level 9.3, Phosphorus Level 3.6, Magnesium Level 2.5H, Total Bilirubin 0.5, Direct Bilirubin 0.2, Aspartate Amino Transf (AST/SGOT) 23, Alanine Aminotransferase (ALT/SGPT) 19, Alkaline Phosphatase 63, Total Creatine Kinase 310H, Creatine Kinase MB 4.7H, Creatine Kinase MB Relative Index 1.52, Troponin I < 0.02, Total Protein 6.8, Albumin 3.5, Albumin/Globulin Ratio 1.1L, Thyroid Stimulating Hormone (TSH) 4.020H, Free Thyroxine 1.12 CBC/BMP Laboratory Tests 09/30/20 14:36 Assessment/Plan Patient is 75 years old female with past history of coronary artery diseases, status post stent placement in May 2020, diverticulitis, pulmonary emboli in 90s, COPD, smoking abuse presented to the hospital with history of syncope. Patient stated that today she developed palpitations with lightheadedness and she developed mechanical fall from the chair. She denied any seizure-like activities. In ER patient was found to have positive orthostatic vital signs, labs pertinent for creatinine 1.5. Chest x-ray negative for acute pulmonary diseases Problems (1) Syncope Status: Acute Problem Text: Patient had orthostatic vital signs positive in ER Continue IV fluid There is concern for atrial fibrillation, patient had palpitations before lightheadedness Telemetry Echo Patient will need Holter monitor in the outpatient settings (2) CAD (coronary artery disease) Status: Chronic Problem Text: Continue home cardioprotective medications EKG was done and showed no any acute ischemic changes (3) HTN (hypertension) Status: Chronic Problem Text: Blood pressures under control (4) Hyperlipidemia Status: Chronic Problem Text: Continue statin (5) Nicotine abuse Status: Chronic Problem Text: Nicotine patch offered (6) COPD (chronic obstructive pulmonary disease) Status: Chronic Problem Text: Continue home inhalers (7) HAKEEM (acute kidney injury) Status: Acute Problem Text: Prerenal Secondary to dehydration IV fluid Continue to monitor Plan / VTE VTE Prophylaxis Ordered?: Yes MALDONADO KAUFFMAN DO Sep 30, 2020 16:39
[2020-09-30 17:40] VITALS: BP 135/95
[2020-09-30] MEDS: NS 1,000 ML IV SCH ×2 (17:49→23:05)
--- NOTE | 2020-09-30 21:03 | ECGEPIP ---
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
[2020-09-30 22:00] VITALS: BP 133/94
[2020-10-01 06:00] VITALS: BP 136/84
[2020-10-01] MEDS ORDERED: LEVOTHYROXINE 25MCG TABLET (0.025MG) PO SCH (06:00)
[2020-10-01 06:23] LABS: HEMATOCRIT 35.9 % (36.0-47.0); HEMOGLOBIN 11.5 g/dl (12.0-15.5); MEAN CORPUSCULAR VOLUME 96.8 fl (80.0-96.0); PLATELET COUNT, AUTOMATED 210 10^3/uL (150-450); RED BLOOD COUNT 3.71 10^6/uL (4.00-5.40); WHITE BLOOD COUNT 4.6 10^3/uL (4.0-10.0)
[2020-10-01 06:52] LABS: ALBUMIN 2.9 GM/DL (3.2-5.2); BILIRUBIN,TOTAL 0.6 MG/DL (0.2-1.0); CALCIUM LEVEL 8.5 MG/DL (8.8-10.2); CREATININE FOR GFR 1.16 MG/DL (0.55-1.30); GLOMERULAR FILTRATION RATE 48.2 (>39); MAGNESIUM LEVEL 2.2 MG/DL (1.8-2.4); POTASSIUM SERUM 4.2 MEQ/L (3.5-5.1); TOTAL PROTEIN 6.6 GM/DL (6.4-8.2)
[2020-10-01] MEDS ORDERED: ATORVASTATIN 20 MG TAB PO SCH (09:00)
[2020-10-01] MEDS ORDERED: ENOXAPARIN 30MG/0.3ML SYRINGE (J1650 PER 10MG) SC SCH (09:00)
[2020-10-01] MEDS ORDERED: ASPIRIN 81 MG ENTERIC TAB PO SCH (09:00)
[2020-10-01] MEDS ORDERED: METOPROLOL TART 12.5 MG PER 1/2 TAB PO SCH (09:00)
[2020-10-01] MEDS ORDERED: ENOXAPARIN 40MG/0.4ML SYRINGE (J1650 PER 10MG) SC SCH (09:00)
[2020-10-01] MEDS ORDERED: CLOPIDOGREL 75 MG TAB PO SCH (09:00)
[2020-10-01 09:49] VITALS: BP 138/81
[2020-10-01] MEDS ORDERED: MECL-86 PO (13:05)
[2020-10-01] MEDS ORDERED: MECLIZINE 25 MG TABLET PO ONE (13:15)
--- NOTE | 2020-10-01 13:59 | DS.PDOC ---
Discharge Summary General Date of Admission Sep 30, 2020 at 16:21 Date of Discharge 10/01/20 Discharge Summary PROCEDURES PERFORMED DURING STAY: [None]. ADMITTING DIAGNOSES: Syncope CAD (coronary artery disease) HTN (hypertension) Hyperlipidemia Nicotine abuse COPD (chronic obstructive pulmonary disease) HAKEEM (acute kidney injury) DISCHARGE DIAGNOSES: Syncope CAD (coronary artery disease) HTN (hypertension) Hyperlipidemia Nicotine abuse COPD (chronic obstructive pulmonary disease) HAKEEM (acute kidney injury) COMPLICATIONS/CHIEF COMPLAINT: Syncope. HISTORY OF PRESENT ILLNESS: Patient is 75 years old female with past history of coronary artery diseases, status post stent placement in May 2020, diverticulitis, pulmonary emboli in , COPD, smoking abuse presented to the hospital with history of syncope. Patient stated that today she developed palpitations with lightheadedness and she developed mechanical fall from the chair. She denied any seizure-like activities. In ER patient was found to have positive orthostatic vital signs, labs pertinent for creatinine 1.5. Chest x-ray negative for acute pulmonary diseases HOSPITAL COURSE: During hospital stay following issues addressed (1) Syncope Patient had orthostatic vital signs positive in ER Patient received IV fluid There is concern for atrial fibrillation, patient had palpitations before lightheadedness Telemetry negative for atrial fibrillation for 24 hours Patient will need Holter monitor in the outpatient settings (2) CAD (coronary artery disease) Continue home cardioprotective medications EKG was done and showed no any acute ischemic changes (3) HTN (hypertension) Blood pressures under control (4) Hyperlipidemia Continue statin (5) Nicotine abuse Nicotine patch offered (6) COPD (chronic obstructive pulmonary disease) Continue home inhalers (7) HAKEEM (acute kidney injury) Prerenal Secondary to dehydration IV fluid Continue to monitor DISCHARGE MEDICATIONS: Please see below. ALLERGIES: Please see below. PHYSICAL EXAMINATION ON DISCHARGE: VITAL SIGNS: Please see below. General Exam: Positive: Alert, Cooperative Eye Exam: Positive: PERRLA ENT Exam: Positive: Atraumatic Neck Exam: Positive: Supple; Negative: JVD Chest Exam: Positive: Clear to auscultation Heart Exam: Positive: Rate Normal Telemetry: Positive: No significant arrhythmia Abdomen Exam: Positive: Normal bowel sounds Extremity Exam: Negative: Clubbing Skin Exam: Positive: Nl turgor and temperature Neuro Exam: Positive: Strength at 5/5 X4 ext Psych Exam: Positive: Mental status NL LABORATORY DATA: Please see below. PROGNOSIS: Fair ACTIVITY: [As tolerated]. DIET: Cardiac ITEMS TO FOLLOWUP ON ON OUTPATIENT: Follow-up with product marketing programs manager in the outpatient settings. Patient will need Holter monitor for 30 days DISCHARGE CONDITION: [Stable]. TIME SPENT ON DISCHARGE: Greater than 30minutes. Vital Signs/I&Os Vital Signs Date Time Temp Pulse Resp B/P (MAP) Pulse Ox O2 Delivery O2 Flow Rate FiO2 10/01/20 09:49 100 138/81 10/01/20 09:00 2.0 10/01/20 06:00 97.5 18 98 Room Air I&O- Last 24 Hours up to 6 AM 10/01/20 06:00 Intake Total 2510 ml Output Total 450 ml Balance 2060 ml Laboratory Data Labs 24H Laboratory Tests 2 09/30/20 14:23: Coronavirus (COVID-19)(PCR) NEGATIVE, Influenza Type A (RT-PCR) NEGATIVE, Influenza Type B (RT-PCR) NEGATIVE, Respiratory Syncytial Virus (PCR) NEGATIVE 09/30/20 14:36: Immature Granulocyte % (Auto) 0.4, Neutrophils (%) (Auto) 81.1H, Lymphocytes (%) (Auto) 9.9L, Monocytes (%) (Auto) 7.4H, Eosinophils (%) (Auto) 0.6, Basophils (%) (Auto) 0.6, Neutrophils # (Auto) 5.5, Lymphocytes # (Auto) 0.7L, Monocytes # (Auto) 0.5, Eosinophils # (Auto) 0.0, Basophils # (Auto) 0.0, Nucleated Red Blood Cells % (auto) 0.0, Anion Gap 6L, Glomerular Filtration Rate 35.3L, Calcium Level 9.3, Phosphorus Level 3.6, Magnesium Level 2.5H, Total Bilirubin 0.5, Direct Bilirubin 0.2, Aspartate Amino Transf (AST/SGOT) 23, Alanine Aminotransferase (ALT/SGPT) 19, Alkaline Phosphatase 63, Total Creatine Kinase 310H, Creatine Kinase MB 4.7H, Creatine Kinase MB Relative Index 1.52, Troponin I < 0.02, Total Protein 6.8, Albumin 3.5, Albumin/Globulin Ratio 1.1L, Thyroid Stimulating Hormone (TSH) 4.020H, Free Thyroxine 1.12 09/30/20 17:02: Carboxyhemoglobin 2.9H 10/01/20 05:47: Nucleated Red Blood Cells % (auto) 0.0, Anion Gap 6L, Glomerular Filtration Rate 48.2, Calcium Level 8.5L, Magnesium Level 2.2, Total Bilirubin 0.6, Aspartate Amino Transf (AST/SGOT) 26, Alanine Aminotransferase (ALT/SGPT) 18, Alkaline Phosphatase 57, Total Protein 6.6, Albumin 2.9L, Albumin/Globulin Ratio 0.8L CBC/BMP Laboratory Tests 09/30/20 14:36 10/01/20 05:47 Discharge Medications Scheduled Aspirin (Aspirin EC) 81 Mg Tab, 81 MG PO DAILY, (Reported) Atorvastatin Calcium (Atorvastatin Calcium) 40 Mg Tablet, 40 MG PO DAILY, (Reported) Clopidogrel Bisulfate (Clopidogrel) 75 Mg Tablet, 75 MG PO DAILY, (Reported) Furosemide (Furosemide) 20 Mg Tablet, 20 MG PO DAILY, (Reported) Levothyroxine Sodium (Synthroid) 25 Mcg Tablet, 25 MCG PO DAILY, (Reported) Metoprolol Succinate (Metoprolol Succinate) 25 Mg Tab.er.24h, 12.5 TAB PO DAILY, (Reported) Multivit-Min36/Iron/Folic Acid (Geritol Complete Tablet) 1 Each Tablet, 1 TAB PO DAILY, (Reported) Scheduled PRN Albuterol Sulf (Albuterol Sulfate) 2.5 Mg/3 Ml Vial.neb, 2.5 MG INH Q4H PRN for SHORTNESS OF BREATH, (Reported) Albuterol Sulfate (Proair Hfa) 8.5 Gm Hfa.aer.ad, 2 PUFF INH QID PRN for SHORTNESS OF BREATH, (Reported) Meclizine HCl (Meclizine HCl) 25 Mg Tablet, 25 MG PO TIDP PRN for dizziness Nitroglycerin (Nitroglycerin) 0.4 Mg Tab.subl, 0.4 MG SL Q5MP PRN for CHEST PAIN, (Reported) Allergies Coded Allergies: Birds (Verified Allergy, Unknown, 03/06/20) Cat Dander (Verified Allergy, Unknown, shortness of breath, 03/06/20) shortness of breath lansoprazole (Verified Allergy, Unknown, 03/06/20) cortisone (Verified Adverse Reaction, Unknown, SORE TONGUE, GENERAL ILL F EELING, 03/06/20) STEROIDS MALDONADO KAUFFMAN DO Oct 01, 2020 13:59
[2020-10-01] MEDS ORDERED: MECLIZINE 25 MG TABLET PO SCH (21:00)
== END 2020-10-01 17:35 | disposition home or self-care (01) | DRG 312 ==
LOC: EDBD 12:51 → M ED 12:51 → M ED INP 16:21 → M MSPAV 17:40
PROVIDERS: ADMIT Internal Medicine; ATTEND Internal Medicine
DX: R55 Syncope and collapse (principal); N17.9 Acute kidney failure, unspecified; I95.1 Orthostatic hypotension; I12.9 Hypertensive chronic kidney disease with stage 1 through stage 4 chronic kidney disease, or unspecified chronic kidney disease; E78.5 Hyperlipidemia, unspecified; F17.200 Nicotine dependence, unspecified, uncomplicated; J44.9 Chronic obstructive pulmonary disease, unspecified; E86.0 Dehydration; Z79.82 Long term (current) use of aspirin; Z79.899 Other long term (current) drug therapy; J30.81 Allergic rhinitis due to animal (cat) (dog) hair and dander; Z88.8 Allergy status to other drugs, medicaments and biological substances; Z86.711 Personal history of pulmonary embolism; N18.30 Chronic kidney disease, stage 3 unspecified; K44.9 Diaphragmatic hernia without obstruction or gangrene; Z95.2 Presence of prosthetic heart valve; I25.10 Atherosclerotic heart disease of native coronary artery without angina pectoris; I71.4 Abdominal aortic aneurysm, without rupture; Z91.14 Patient's other noncompliance with medication regimen

== ENCOUNTER 2020-10-05 18:16 | Emergency (ER) | payer MEDICARE ==
[~2020-10-05] VITALS: Ht 162.6 cm; Wt 59.1 kg
[~2020-10-05 18:16] MED LIST changes: -MAG400TA PO; +MAGN400T35 PO; +MECL-86 PO
[2020-10-05 19:13] LABS: BASO % 0.9 % (0.0-1.0); EOS # 0.1 10^3/uL (0.0-0.5); LYMPH % 22.8 % (24.0-44.0); MEAN CORPUSCULAR HGB CONC 32.5 g/dl (32.0-36.5); MEAN CORPUSCULAR VOLUME 95.2 fl (80.0-96.0); MONO # 0.5 10^3/uL (0.0-0.8); MONO % 11.9 % (0.0-5.0); NEUTROPHILS # 2.8 10^3/uL (1.5-8.5); NEUTROPHILS % 62.2 % (36.0-66.0); PLATELET COUNT, AUTOMATED 216 10^3/uL (150-450); WHITE BLOOD COUNT 4.5 10^3/uL (4.0-10.0)
--- NOTE | 2020-10-05 19:21 | REP ---
INDICATION: DYSPNEA/COUGH. COMPARISON: 09/30/2020. TECHNIQUE: SINGLE PORTABLE AP VIEW OF THE CHEST WAS PERFORMED. FINDINGS: There are stable bibasilar fibrotic changes. There is no definite superimposed acute infiltrate. The heart is upper limits of normal in size. The mediastinal silhouette is unchanged. IMPRESSION: NO ACUTE PULMONARY DISEASE.Stable chronic changes. <Electronically signed by Valente Carrero > 10/05/201917
[2020-10-05] MEDS ORDERED: dexameTHASONE 20MG/5ML VIAL (J1100 PER 1MG) IV ONE (19:30)
[2020-10-05 19:47] LABS: ALBUMIN 3.7 GM/DL (3.2-5.2); ALT/SGPT 23 U/L (12-78); BILIRUBIN,DIRECT 0.1 MG/DL (0.0-0.2); BILIRUBIN,TOTAL 0.5 MG/DL (0.2-1.0); BLOOD UREA NITROGEN 25 MG/DL (7-18); CALCIUM LEVEL 8.9 MG/DL (8.8-10.2); CARBON DIOXIDE LEVEL 26 MEQ/L (21-32); CHLORIDE LEVEL 106 MEQ/L (98-107); CK-MB VALUE MASS 5.5 NG/ML (<3.6); CPK CREATINE PHOSPHOKINASE 183 U/L (26-192); GLOMERULAR FILTRATION RATE 42.3 (>39); GLUCOSE, FASTING 99 MG/DL (70-100); MB/CK RELATIVE INDEX 3.01 (< OR =4); SODIUM LEVEL 142 MEQ/L (136-145); TOTAL PROTEIN 7.9 GM/DL (6.4-8.2); TROPONIN I < 0.02 NG/ML (< 0.10)
[2020-10-05] MEDS: COMBIVENT RESPIMAT 100-20MCG INHALER 4GM INH SCH ×3 (19:50→20:45)
--- NOTE | 2020-10-05 20:18 | ECGEPIP ---
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
--- OUTSIDE RECORDS SUMMARY | 2020-10-05 21:08 | CCD ---
Author Author [facility] Address Unknown Phone Unavailable Care Team Providers Care Licensing Engineer Name Role Phone SEARS, A CHATA DO [...] ASIM, MEREDITH MD Unavailable Unavailable Anand, Salome X RAY TECH Unavailable Unavailable Anand, Salome X RAY TECH Unavailable Unavailable Anand, Salome X RAY TECH Unavailable Unavailable Anand, Salome X RAY TECH Unavailable Unavailable Anand, Salome X RAY TECH Unavailable Unavailable Anand, Salome X RAY TECH Unavailable Unavailable Anand, Salome X RAY TECH Unavailable Unavailable Anand, Salome X RAY TECH Unavailable Unavailable Anand, Salome X RAY TECH Unavailable Unavailable Anand, Salome X RAY TECH Unavailable Unavailable Anand, Salome X RAY TECH Unavailable Unavailable Lim, Gertrudis April PA Unavailable [...] is protected by Article 27-F of the [facility] Public Health law. If you continue you may have access to information: Regarding HIV / AIDS; Provided by facilities licensed or operated by the [facility] Office of Mental Health; or Provided by the [facility] Office for People With Developmental Disabilities. If such information is present, then the following [facility] mandated warning applies: This information has [...] law may result in a fine or mcfp sentence or both. A general authorization for the release of medical or other information is NOT sufficient authorization for further disc losure. Allergies and Adverse Reactions Type Description Substance Reaction Status Data Source(s ) Drug allergy Nexium Esomeprazole Unknown Active [facility]1 [facility]) Drug allergy Lansoprazole lansoprazole Unknown Active eCW1 ([facility]) Buspar Buspar Buspar forgetfulness Active eCW1 ([facility]) fluoxetine fluoxetine Fluoxetine 20 MG Oral Capsule dizziness Active eCW1 ([facility]) levothyroxine levothyroxine levothyroxine GI--pt stopped after rech allenge Active eCW1 ([facility]) Buspar Buspar Buspar forgetfulness Active eCW1 ([facility]) fluoxetine fluoxetine fluoxetine dizziness Active eCW1 ([facility]) levothyroxine levothyroxine levothyroxine GI--pt stopped after rech allenge Active eCW1 ([facility]) Family History Family Member Name Family Member Gender Family Member Status Date o f Status Description Data Source(s) Unknown Unknown Problem MEDENT ([facility]) Unknown Unknown Problem MEDENT ([facility]) Unknown Female Problem MEDENT ([facility]) Unknown Female Problem MEDENT ([facility]) Encounters Encounter Providers Location Date Indications Data Source(s ) Outpatient Attender: VIRI KU.MARI 0 12:00:00 AM EST - 07/28/2020 11:45:07 AM EST [facility] Unknown [address] [facility] [address] [address] 07/08/2020 12:00:00 AM EST eCW1 ([facility]) Unknown [address] [facility] [place] [address] 07/06/2020 12:00:00 AM EST eCW1 ([facility]) Outpatient [address] [facility] [address] [address] 07/02/2020 12:00:00 AM EST eCW1 ([facility]) Outpatient Attender: April diaz 05/02/2020 08:45:00 AM EDT MEDENT ([facility]) Unknown [address] [facility] [place] [address] 03/09/2020 12:00:00 AM EDT eCW1 ([facility]) Outpatient Attender: VIRI KU.MARI 03/03/2020 12:00:00 AM EDT [facility] Outpatient Attender: VIRI GRESHAM.GVR 02/02/2020 12:00:00 AM EDT [facility] [address] [facility] [place] [address] 12/02/2019 12:00:00 AM EDT eCW1 ([facility]) Unknown [address] [facility] [place] [address] 12/01/2019 12:00:00 AM EDT eCW1 ([facility]) Unknown [address] [facility] [place] [address] 11/27/2019 12:00:00 AM EDT eCW1 ([facility]) [facility] [place] [address] [facility] [place] [address] 11/26/2019 12:00:00 AM EDT eCW1 ([facility]) Outpatient Referrer: CHATA OTT DO 10/21/2019 09:55:00 AM EST [facility] [place] [address] [place] [address], [place] [address] 10/13/2019 12:00:00 AM EST eCW1 ([facility]) Outpatient Attender: VIMAL Rider [facility] 10/12/2019 11:45:00 AM EST MEDENT ([facility]) Outpatient Referrer: CHATA OTT DO 09/22/2019 01:38:00 PM EST [facility] [place] [address] [place] [address] [address] 09/17/2019 12:00:00 AM EST eCW1 ([facility]) [address] [address] 09/17/2019 12:00:00 AM EST eCW1 ([facility]) [address] [address] 09/10/2019 12:00:00 AM EST eCW1 ([facility]) Outpatient Attender: Salome Rider [facility] 09/02/2019 10:30:00 AM EST MEDENT ([facility]) Outpatient Attender: VIRI DAILEY MD SJP.MARI-SJP.MARI 08/13/2019 12:00:00 AM EST [facility] Medications Medication Brand Name Start Date Product Form Dose Route Admi nistrative Instructions Pharmacy Instructions Status Indications Reaction Description Data Source(s) Meclizine Hydrochloride 25 MG Oral Tablet MECLIZINE HCL 10/04/2020 12:00:00 AM EST tablet 30 TAKE ONE TABLET BY MOUTH THREE TIMES A DAY NEEDED FOR DIZZINESS TAKE ONE TABLET BY MOUTH THREE TIMES A DAY NEEDED F OR DIZZINESS SOLD: 10/04/2020 [facility] clopidogrel 75 MG Oral Tablet clopidogrel (PLAVIX) 75 MG tablet clopidogrel (PLAVIX) 75 MG tablet 07/28/2020 12:00:00 AM EST 75 mg Oral active Take 1 tablet (75 mg total) by mouth daily [facility] Levothyroxine Sodium 0.025 MG Oral Table t levothyroxine (SYNTHROID, LEVOTHROID) 25 MCG tablet levothyroxine (SYNTHROID, LEVOTHROID) 25 MCG tablet 12:00:00 AM EST 12.5 ug Oral active Take 12 .5 mcg by mouth daily [facility] 2.5 mg /3 mL (0.083 %) [...] 05/02/2020 12:00:00 AM EDT RESPIRATORY active MEDENT ([facility]) 75 mg 04/03/2020 12:00:00 AM EDT tablet [...] TABLET BY MOUTH EVERY DAY SOLD: 07/26/2020 [facility] atorvastatin 40 MG Oral Tablet atorvastatin (LIPITOR) 40 MG tablet atorvastatin (LIPITOR) 40 MG tablet 03/29/2020 12:00:00 AM EDT aborted TAKE ONE TABLET BY MOUTH EVERY DAY [facility] clopidogrel 75 MG Oral Tablet clopidogrel (PLAVIX) 75 MG tablet clopidogrel (PLAVIX) 75 MG tablet 03/29/2020 12:00:00 AM EDT aborted TAKE ONE TABLET BY MOUTH EVERY DAY AT NIGHT [facility] doxycycline hyclate 100 MG Oral Capsule [...] mg total) by mouth every other day [facility] Chronic diastolic heart failure 20 mg [...] EDT active 1 capsule as needed eCW1 ([facility]) benzonatate 100 MG Oral Capsule [Tessalon Perles] Graciela aman Perles 100 MG Tessalon Perles 100 MG 12/02/2019 12:00:00 AM EDT 1.0 {capsule_as_nee ded} active Tessalon Perles 100 MG eCW1 ([facility]) 24 HR metoprolol succinate 25 MG Extende d Release Oral Tablet metoprolol succinate (TOPROL-XL) 25 MG 24 hr tablet metoprolol succinate (TOPROL-XL) 25 MG 24 hr tablet 11/26/2019 12:00:00 AM EDT 12.5 mg Oral acti ve Take 0.5 tablets (12.5 mg total) by mouth daily [facility] 600 mg 11/26/2019 12:00:00 AM EDT [...] acti ve Fluticasone Propionate 50 MCG/ACT eCW1 ([facility]) Fluticasone Propionate 50 MCG/ACT UNK 09/10/2019 12:00:00 AM EST active 1 spray in each nostril eCW1 ([facility]) 50 mcg/actuation 09/10/2019 12:00:00 AM EST spray,suspension 16 SPRAY ONE SPRAY IN EACH NOSTRIL EVERY DAY SPRAY ONE SPRAY IN EACH NOSTRIL EVERY DAY SOLD: 11/26/2019 [facility] Fluticasone Propionate 50 MCG/ACT Fluticasone Propionate 50 MCG/ACT 09/10/2019 12:00:00 AM EST 1.0 {spray_in_each_nostril} acti ve Fluticasone Propionate 50 MCG/ACT eCW1 ([facility]) 50 mcg/actuation 09/10/2019 12:00:00 AM EST spray,suspension 16 SPRAY ONE SPRAY IN EACH NOSTRIL EVERY DAY SPRAY ONE SPRAY IN EACH NOSTRIL EVERY DAY SOLD: 09/10/2019 [facility] 10 mg 09/10/2019 12:00:00 AM EST raeann 50 DISSOLVE 1 RAEANN IN MOUTH/THROAT 5 TIMES A DAY FOR 10 DAYS DISSOLVE 1 RAEANN IN MOUTH/THROAT 5 TIME S A DAY FOR 10 DAYS SOLD: 09/10/2019 [facility] Fluticasone Propionate 50 MCG/ACT Fluticasone Propionate 50 MCG/ACT 09/10/2019 12:00:00 AM EST active 1 spray in each nostril eCW1 ([facility]) Clotrimazole 10 MG UNK 09/10/2019 12:00:00 AM EST active 1 raeann eCW1 ([facility]) Clotrimazole 10 MG Oral Lozenge Clotrimazole 10 MG 09/10/2019 12:00 :00 AM EST 1.0 {raeann} active Clotrimazole 10 MG eCW1 ([facility]) Fluticasone Propionate 50 MCG/ACT Fluticasone Propionate 50 MCG/ACT 09/10/2019 12:00:00 AM EST 1.0 {spray_in_each_nostril} acti ve Fluticasone Propionate 50 MCG/ACT eCW1 ([facility]) Clotrimazole 10 MG Oral Lozenge Clotrimazole 10 MG 09/10/2019 12:00 :00 AM EST active 1 raeann eCW1 ([facility]) Fluticasone Propionate 50 MCG/ACT Fluticasone Propionate 50 MCG/ACT 09/10/2019 12:00:00 AM EST 1.0 {spray_in_each_nostril} acti ve Fluticasone Propionate 50 MCG/ACT eCW1 ([facility]) 875-125 mg 09/02/2019 12:00:00 AM EST tablet [...] Doxycycline Monohydrate 100 MG Oral Capsule Doxycycline Bradley hydrate 09/02/2019 12:00:00 AM EST ORAL completed MEDENT ([facility] Amoxicillin 875 MG / Clavulanate 125 MG Oral Tablet Am oxicillin/Clavulanate Potassium 09/02/2019 12:00:00 AM EST ORAL completed MEDENT ([facility] 40 mg 08/22/2019 12:00:00 AM EST tablet [...] MOUTH EVERY DAY SOLD: 08/29/2019 [facility] 20 mg 07/02/2019 12:00:00 AM [...] FOUR TIMES A DAY NEEDED SOLD: 04/05/2020 [facility] Insurance Providers Payer name Policy type / Coverage type Policy ID Covered democrat ID Covered democrat's relationship to dalal Policy Dalal Plan Information WELLCARE [id number] SP [id number] WELLCARE O [id number] S [id number] WELLCARE MEDICARE [id number] WELLCARE MEDICARE [id number] Ana Rosa 08 [id number] WELLCARE [id number] SP [id number] WELLCARE MEDICARE [id number] Ana Rosa 08 [id number] WELLCARE [id number] SP [id number] MEDICARE COMPLETE [id number] SP [id number] ANSI-Medicare Part B [id number] ANSI-Medicare Part B [id number] ANSI-Medicare Part B [id number] ANSI-Medicare Part B [id number] ANSI-Medicare Part B [id number] ANSI-Medicare Part B [id number] ANSI-Health Maintenance Organization (HM O) [id number] ANSI-Medicare Part B [id number] ANSI-Medicare Part B [id number] ANSI-Health Maintenance Organization ( O) [id number] ANSI-Medicare Part B [id number] ANSI-Health Maintenance Organization ( O) [id number] ANSI-Health Maintenance Organization ( O) [id number] ANSI-Medicare Part B [id number] TODAYS OPTIONS [id number] SP [id number] Today's Option Medicare Commercial [id number] Self [id number] [facility] Health Plans(To) Commercial [id number] Self [id number] Today's Option Medicare Commercial [id number] Self [id number] ANSI-Health Maintenance Organization ( O) [id number] ANSI-Medicare Part B [id number] ANSI-Medicare Part B [id number] ANSI-Health Maintenance Organization ( O) [id number] [facility]-Health Maintenance Organization ( O) [id number] ANSI-Medicare Part B [id number] [facility]-Health Maintenance Organization ( O) [id number] ANSI-Medicare Part B [id number] ANSI-Medicare Part B [id number] [facility]-Health Maintenance Organization ( O) [id number] ANSI-Health Maintenance Organization ( O) [id number] ANSI-Medicare Part B [id number] ANSI-Medicare Part B [id number] ANSI-Health Maintenance Organization ( O) [id number] TODAYS [place]IONS [id number] SP [id number] ANSI-Medicare Part B [id number] Today's Options Medicare Commercial [id number] Self [id number] WELLCARE [id number] SP [id number] Wellcare MCR - To Ppo Commercial [id number] Self [id number] Today's Options Ppo Commercial [id number] Self [id number] [facility] [employer] Options [facility] Part B [id number] Self [id number] Medicare (Part B) Medicare Primary [id number] Self [id number] ANSI-Medicare Part B [id number] ANSI-Medicare Part B [id number] ANSI-Medicare Part B [id number] ANSI-Medicare Part B [id number] ANSI-Medicare Part B [id number] ANSI-Medicare Part B [id number] ANSI-Medicare Part B [id number] ANSI-Medicare Part B [id number] ANSI-Medicare Part B [id number] ANSI-Medicare Part B [id number] ANSI-Medicare Part B [id number] Today's Options Ppo Commercial [id number] Self [id number] [facility] Options Medigap Part B [id number] Self [id number] Medicare (Part B) Medicare Primary [id number] Self [id number] ANSI-Medicare Part B [id number] ANSI-Medicare Part B [id number] ANSI-Medicare Part B [id number] ANSI-Medicare Part B [id number] ANSI-Medicare Part B [id number] ANSI-Medicare Part B [id number] ANSI-Medicare Part B [id number] Today's Options Ppo Commercial [id number] Self [id number] [facility] [facility] Options [facility] Part B [id number] Self [id number] Medicare (Part B) Medicare Primary [id number] Self [id number] ANSI-Medicare Part B [id number] ANSI-Medicare Part B [id number] ANSI-Medicare Part B [id number] Today's Options Ppo Commercial [id number] Self [id number] [facility] Options Medigap Part B [id number] Self [id number] Medicare (Part B) Medicare Primary [id number] Self [id number] Today's Options Ppo Commercial [id number] Self [id number] [facility] Options Medigap Part B [id number] Self [id number] Medicare (Part B) Medicare Primary [id number] Self [id number] MEDICARE [id number] SP [id number] A Today's Options Ppo Commercial [id number] Self [id number] [facility] Options Medigap Part B [id number] Self [id number] Medicare (Part B) Medicare Primary [id number] Self [id number] Today's Options Ppo Commercial [id number] Self [id number] [facility] Options Medigap Part B [id number] Self [id number] Medicare (Part B) Medicare Primary [id number] Self [id number] Today's Options Ppo Commercial Self [facility] Options Medigap Part B Self Medicare (Part B) Medicare Primary Self TODAYS OPTIONS [id number] SP [id number] Todays Options Commercial Self TODAYS OPTIONS/ZAMBIAN O [id number] S [id number] SELF PAY 2 UNAVAILABLE 1 UNAVAILA BLE TODAYS OPT MEDICARE 11 [id number] 1 [id number] MEDICARE 4 [id number] 1 [id number] A MEDICARE 4 [id number] 1 [id number] A [id number] Problems, Conditions, and Diagnoses Code Display Name Description Problem Type Effective Dates Data Source(s) Z00.00 [id number] Medicare annual wellness visit, subsequen t Problem 12/02/2019 12:00:00 AM EDT eCW1 ([facility]) Z00.00 850991206 Medicare annual wellness visit, subsequen t Problem 12/02/2019 12:00:00 AM EDT eCW1 ([facility]) I72.3 [id number] Iliac artery aneurysm Problem 09/17/2019 12: 00:00 AM EST eCW1 ([facility]) I72.3 [id number] Iliac artery aneurysm Problem 09/17/2019 12: 00:00 AM EST eCW1 ([facility]) Z91.14 Patient's other noncompliance with medic ation regimen Patient's other noncompliance with medic Diagnosis 07/28/2020 08:35:46 AM [facility] I71.4 Abdominal aortic aneurysm, without ruptu re Abdominal aortic aneurysm, without ruptu Diagnosis 07/28/2020 08:35:46 AM [facility] F41.8 Other specified anxiety disorders Other specifie d anxiety disorders Diagnosis 07/28/2020 08:35:46 AM [facility] I10 Essential (primary) hypertension Essential (primary) h ypertension Diagnosis 07/28/2020 08:35:46 AM [facility] E03.9 Hypothyroidism, unspecified Hypothyroidism, unspecifie d Diagnosis 07/28/2020 08:35:46 AM [facility] M19.90 Unspecified osteoarthritis, unspecified site Unspecified osteoarthritis, unspecified Diagnosis 07/28/2020 08:35:46 AM [facility] J44.9 Chronic obstructive pulmonary disease, u nspecified Chronic obstructive pulmonary disease, u Diagnosis 07/28/2020 08:35:46 AM [facility] Z72.0 Tobacco use Tobacco use Diagnosis 07/28/2020 08:35:46 AM [facility] 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 Atherosclerotic heart disease of [place] Diagnosis 07/28/2020 08:35:46 AM [facility] I48.0 Paroxysmal atrial fibrillation Paroxysmal atrial fibri llation Diagnosis 07/28/2020 08:35:46 AM [facility] E78.5 Hyperlipidemia, unspecified Hyperlipidemia, unspecifie d Diagnosis 07/28/2020 08:35:46 AM [facility] E87.6 Hypokalemia Hypokalemia Diagnosis 08/13/2019 11:37:54 AM [facility] I95.1 Orthostatic hypotension Orthostatic hypotension Diagno sis 08/13/2019 11:37:54 AM [facility] N18.3 Chronic kidney disease, stage 3 (moderat e) Chronic kidney disease, stage 3 (moderat Diagnosis 08/13/2019 11:37:54 AM EST [facility] I26.99 Other pulmonary embolism without acute c or pulmonale Other pulmonary embolism without acute c Diagnosis 08/13/2019 11:37:54 AM EST [facility] Surgeries/Procedures Procedure Description Date Indications Data Source(s) ECG ROUTINE ECG W/LEAST 12 LDS W/I&R 05/02/2020 12:00: 00 AM EDT MEDENT ([facility] Annual wellness visit, includes a person alized prevention plan of service (pps), subsequent visit 12/02/2019 12:00:00 AM EDT eCW1 ([facility]) Office Visit, Est Pt., Level 4 PC 12/02/2019 12:00:00 AM EDT eCW1 ([facility]) Office Visit, Est Pt., Level 2 FC 12/02/2019 12:00:00 AM EDT eCW1 ([facility]) ECG ROUTINE ECG W/LEAST 12 LDS W/I&R 10/12/2019 12:00: 00 AM EST MEDENT ([facility] Results ID Date Data Source [id number] 09/30/2020 02:23:00 PM EST [facility] Name Value Range Interpretation Code Description Data Ayde rce(s) Supporting Document(s) SARS coronavirus 2 RNA [Presence] in Res piratory specimen by SCOTTY with probe detection [facility]GAT[facility] This lab was ordered by [facility] a nd reported by [facility]. ID Date Data Source LIPID PANEL (CARDIAC RISK) 07/02/2020 12:00:00 AM EST eCW1 ( [facility]) Name Value Range Interpretation Code Description Data Ayde rce(s) Supporting Document(s) Triglyceride [Mass/volume] in Serum or Plasma by calculation 77 <150 TRIGLYCERIDES LEVEL eCW1 ([facility]) Cholesterol in LDL [Mass/volume] in Serum or Plasma by calculation 41 <100 LDL CHOLESTEROL eCW1 ([facility]) Cholesterol in HDL [Moles/volume] in Serum or Plasma 81 >40 HDL CHOLESTEROL eCW1 ([facility]) Cholesterol [Moles/volume] in Serum or Plasma 137 <200 CHOLESTEROL LEVEL eCW1 ([facility]) 56 NON-HDL-C eCW1 ([facility]) 1.691 <5 CHOLESTEROL RISK RATIO eCW1 ([facility]) ID Date Data Source FREE T4 & TSH PANEL 07/02/2020 12:00:00 AM EST eCW1 ([facility]) Name Value Range Interpretation Code Description Data Ayde rce(s) Supporting Document(s) 3.630 0.358-3.740 THYROID STIMULATING HORM ONE eCW1 ([facility]) 0.86 0.76-1.46 FREE T4 eCW1 ([facility]) ID Date Data Source Comprehensive Metabolic Profile (CMP) 07/02/2020 12:00:00 AM EST eCW1 ([facility]) Name Value Range Interpretation Code Description Data Ayde rce(s) Supporting Document(s) 89 70-100 GLUCOSE, FASTING eCW1 ([facility]) 22 7-18 BLOOD UREA NITROGEN eCW1 ([facility]) 140 136-145 SODIUM LEVEL eCW1 ([facility]) 45.6 >39 GLOMERULAR FILTRATION RATE eCW 1 ([facility]) 1.22 0.55-1.30 CREATININE FOR GFR eCW1 ([facility]) 8.8 8.8-10.2 CALCIUM LEVEL eCW1 ([facility]) 109 98-107 CHLORIDE LEVEL [facility] [facility] 27 21-32 CARBON DIOXIDE LEVEL eCW1 ([facility]) 18 7-37 AST/SGOT eCW1 ([facility]) 5.2 3.5-5.1 POTASSIUM SERUM eCW1 ([facility]) 6.9 6.4-8.2 TOTAL PROTEIN eCW1 ([facility]) 0.2 0.2-1.0 BILIRUBIN,TOTAL eCW1 ([facility]) 15 12-78 ALT/SGPT eCW1 ([facility]) 71 45-117 ALKALINE PHOSPHATASE eCW1 ([facility]) 3.4 3.2-5.2 ALBUMIN eCW1 ([facility]) 1.0 1.2-2.2 ALBUMIN/GLOBULIN RATIO eCW1 ([facility]) ID Date Data Source CBC - Complete Blood Count 07/02/2020 12:00:00 AM EST eCW1 ( [facility]) Name Value Range Interpretation Code Description Data Ayde rce(s) Supporting Document(s) 5.3 4.0-10.0 eCW1 ([facility]) 3.84 4.00-5.40 eCW1 ([facility]) 11.5 12.0-15.5 eCW1 ([facility]) 30.9 32.0-36.5 eCW1 ([facility]) 96.9 80.0-96.0 eCW1 ([facility]) 37.2 36.0-47.0 eCW1 ([facility]) 29.9 27.0-33.0 eCW1 ([facility]) 255 150-450 eCW1 ([facility]) 14.1 11.5-14.5 eCW1 ([facility]) ID Date Data Source [id number] 09/02/2019 01:23:00 PM EST MEDENT ([facility]) Name Value Range Interpretation Code Description Data Ayde rce(s) Supporting Document(s) Glucose, Fasting 98 mg/dL 70-100 MEDENT ([facility], [facility]) Blood Urea Nitrogen 16 mg/dL 7-18 MEDENT ([facility], [facility]) Creatinine For GFR 1.35 mg/dL 0.55-1.30 MEDENT ([facility], [facility]) Glomerular Filtration Rate 40.6 MED ENT ([facility], [facility]) <content>Units are mL/min/1.73 m2</content>
<content></content>
<content>Chronic Kidney Disease Staging per NKF:</content>
<content></content>
<content>Stage I & II GFR >=60 Normal to Mildly Decreased</content>
<content>Stage III GFR 30- 59 Moderately Decreased</content>
<content>Stage IV GFR 15-29 Severely Decreased</content>
<content>Stage V GFR <15 Very Little GFR Left</content>
<content>ESRD GFR <15 on COMPUTER CONSOLE OPERATOR</content>
<content></content> Sodium Level 141 meq/L 136-145 MEDENT ([facility], [facility]) Potassium Serum 4.7 meq/L 3.5-5.1 MEDENT ([facility], [facility]) Chloride Level 108 meq/L 98-107 MEDENT ([facility], [facility] Carbon Dioxide Level 25 meq/L 21-32 MEDENT ([facility], [facility]) Ast/Sgot 21 U/L 7-37 MEDENT ([facility], [facility]) Anion Gap 8 meq/L 8-16 MEDENT ([facility], [facility]) Calcium Level 9.0 mg/dL 8.8-10.2 MEDENT ([facility], [facility]) Alkaline Phosphatase 86 U/L 45-117 MEDENT ([facility], [facility]) Alt/SGPT 14 U/L 12-78 MEDENT ([facility], [facility]) Total Protein 7.3 GM/DL 6.4-8.2 MEDENT ([facility], [facility]) Albumin 3.6 GM/DL 3.2-5.2 MEDENT ([facility], [facility]) Bilirubin,Total 0.4 mg/dL 0.2-1.0 MEDENT ([facility], [facility]) Albumin/Globulin Ratio 0.97 1.00-1.93 MEDENT ([facility], [facility]) ID Date Data Source [id number] 09/02/2019 01:23:00 PM EST MEDENT ([facility], [facility]) Name Value Range Interpretation Code Description Data Ayde rce(s) Supporting Document(s) Red Blood Count 4.03 10 4.00-5.40 MEDENT ([facility], [facility]) White Blood Count 5.2 10 4.0-10.0 MEDENT [facility]) Hemoglobin 12.0 g/dL 12.0-15.5 MEDENT ([facility], [facility]) Hematocrit 39.4 % 36.0-47.0 MEDENT ([facility], [facility]) Mean Corpuscular Volume 97.8 fl 80.0-96.0 M EDENT ([facility], [facility]) Mean Corpuscular Hemoglobin 29.8 pg 27.0-33.0 MEDENT ([facility], [facility]) Mean Corpuscular HGB Conc 30.5 g/dL 32.0-36.5 MEDENT ([facility], [facility]) Red Cell Distribution Width 15.5 % 11.5-14.5 MEDENT ([facility], [facility]) Platelet Count, Automated 237 10 150-450 MEDENT ([facility], [facility]) Neutrophils % 61.2 % 36.0-66.0 MEDENT ([facility], [facility]) Lymph % 27.4 % 24.0-44.0 MEDENT ([facility], [facility]) Eos % 1.9 % 0.0-3.0 MEDENT ([facility], [facility]) Bradley % 8.5 % 0.0-5.0 MEDENT ([facility], [facility]) Baso % 0.8 % 0.0-1.0 MEDENT ([facility], [facility]) Immature Granulocyte % 0.2 % 0-3.0 MEDENT ([facility], [facility]) Neutrophils # 3.2 10 1.5-8.5 MEDENT ([facility], [facility]) Nucleated Red Blood Cell % 0.0 % 0-0 MED ENT ([facility], [facility]) Lymph # 1.4 10 1.5-5.0 MEDENT ([facility], [facility]) Bradley # 0.4 10 0.0-0.8 MEDENT ([facility], [facility]) Eos # 0.1 10 0.0-0.5 MEDENT ([facility], [facility]) Baso # 0.0 10 0.0-0.2 MEDENT ([facility]) Procedure Social History Code Duration Value Status Description Data Source(s ) Alcohol intake 07/28/2020 12:00:00 AM EST Not Currently completed [facility] Cigarette pack-years 07/28/2020 12:00:00 AM EST UNK completed [facility] Cigarettes smoked current (pack per day) - Reported 07/28/20 20 12:00:00 AM EST UNK completed [facility] Smoking 07/28/2020 12:00:00 AM EST Current every day smoker co mpleted Current every day smoker [facility] Smoking 07/02/2020 12:00:00 AM EST Current Smoker completed Curre nt Smoker eCW1 ([facility]) Smoking 07/02/2020 12:00:00 AM EST Current Smoker completed Curre nt Smoker eCW1 ([facility]) Smoking 07/02/2020 12:00:00 AM EST Current Smoker completed Curre nt Smoker eCW1 ([facility]) Smoking 12/02/2019 12:00:00 AM EDT Current Smoker completed Curre nt Smoker eCW1 ([facility]) Vital Signs ID Date Data Source UNK Name Value Range Interpretation Code Description Data Source(s) Diastolic blood pressure 88 mm[Hg] 88 mm[Hg] eCW1 ([facility]) Systolic blood pressure 148 mm[Hg] 148 mm[Hg] e CW1 ([facility]) Body temperature 97.1 [degF] 97.1 [degF] eCW1 ( [facility]) Respiratory rate 22 /min 22 /min eCW1 ([facility]) Heart rate 108 /min 108 /min eCW1 ([facility]) Body mass index (BMI) [Ratio] 21.63 kg/m2 21.63 kg/m2 eCW1 ([facility]) Body height 64 [in_i] 64 [in_i] eCW1 ([facility]) Body weight 126 [lb_av] 126 [lb_av] eCW1 ([facility]) Body weight 56.020 kg 56.020 kg [facility] ([facility], ) [place] body weight 120 [lb_av] 120 [lb_av] MEDEN T ([facility]) Body mass index (BMI) [Ratio] 21.2 kg/m2 21.2 k g/m2 [facility] ([facility]) Body weight 123.50 [lb_av] 123.50 [lb_av] MEDEN T ([facility]) Body height 64 [in_i] 64 [in_i] [facility] ([facility]) 5'4" Diastolic blood pressure 80 mm[Hg] 80 mm[Hg] [facility] ([facility]) Systolic blood pressure 132 mm[Hg] 132 mm[Hg] M EDENT ([facility]) Systolic blood pressure 134 mm[Hg] 134 mm[Hg] [facility], [facility] Body mass index (BMI) [Ratio] 20.6 kg/m2 20.6 k g/m2 [facility] ([facility]) Body height 64 [in_i] 64 [in_i] [facility] ([facility]) 5'4" Body weight 120.00 [lb_av] 120.00 [lb_av] MEDEN T ([facility], [facility] Body temperature 97.7 [degF] 97.7 [degF] [facility] ([facility], [facility]) Oxygen saturation in Arterial blood by Pulse oximetry 97 % 97 % [facility] ([facility], [facility]) Respiratory rate 16 /min 16 /min [facility] ( [facility], [facility]) Heart rate 96 /min 96 /min [facility] ([facility], [facility]) Diastolic blood pressure 92 mm[Hg] 92 mm[Hg] [facility] ([facility], [facility] Diastolic blood pressure 70 mm[Hg] 70 mm[Hg] eCW1 ([facility]) Systolic blood pressure 122 mm[Hg] 122 mm[Hg] e CW1 ([facility]) Body temperature 96.5 [degF] 96.5 [degF] eCW1 ( [facility]) Respiratory rate 22 /min 22 /min eCW1 ([facility]) Heart rate 115 /min 115 /min eCW1 ([facility]) Body mass index (BMI) [Ratio] 21.20 kg/m2 21.20 kg/m2 eCW1 ([facility]) Body height 64 [in_us] 64 [in_us] eCW1 ([facility]) Body weight Measured 123.5 [lb_av] 123.5 [lb_av ] eCW1 ([facility]) Body mass index (BMI) [Ratio] 20.6 kg/m2 20.6 k g/m2 MEDENT ([facility], [facility]) Body height 64 [in_i] 64 [in_i] MEDENT ([facility], [facility] 5'4" Body weight 120.00 [lb_av] 120.00 [lb_av] MEDEN T ([facility], [facility] Body temperature 97.9 [degF] 97.9 [degF] MEDENT ([facility], [facility]) Oxygen saturation in Arterial blood by Pulse oximetry 93 % 93 % MEDENT ([facility], [facility]) Respiratory rate 22 /min 22 /min MEDENT ( [facility], [facility]) Heart rate 95 /min 95 /min MEDENT ([facility], [facility]) Diastolic blood pressure 90 mm[Hg] 90 mm[Hg] MEDENT ([facility], [facility]) Systolic blood pressure 140 mm[Hg] 140 mm[Hg] M EDENT ([facility], [facility]) Diastolic blood pressure 74 mm[Hg] 74 mm[Hg] eCW1 ([facility]) Systolic blood pressure 138 mm[Hg] 138 mm[Hg] e CW1 ([facility]) Body temperature 98.8 [degF] 98.8 [degF] eCW1 ( [facility]) Respiratory rate 24 /min 24 /min eCW1 ([facility]) Heart rate 98 /min 98 /min eCW1 ([facility]) Body mass index (BMI) [Ratio] 20.25 kg/m2 20.25 kg/m2 eCW1 ([facility]) Body height 64 [in_us] 64 [in_us] eCW1 ([facility]) Body weight Measured 118 [lb_av] 118 [lb_av] eC W1 ([facility]) Respiratory rate 16 /min 16 /min MEDENT ( [facility], [facility] Heart rate 80 /min 80 /min MEDENT ([facility], [facility]) Diastolic blood pressure 80 mm[Hg] 80 mm[Hg] MEDENT ([facility], [facility]) Systolic blood pressure 137 mm[Hg] 137 mm[Hg] M EDENT ([facility], [facility]) Body mass index (BMI) [Ratio] 20.6 kg/m2 20.6 k g/m2 MEDENT ([facility], [facility]) Body height 64 [in_i] 64 [in_i] MEDENT ([facility], [facility]) 5'4" Body weight 120.00 [lb_av] 120.00 [lb_av] MEDEN T ([facility], [facility]) Body temperature 98.7 [degF] 98.7 [degF] MEDENT ([facility], [facility]) Oxygen saturation in Arterial blood by Pulse oximetry 97 % 97 % [facility] ([facility]) Patient Treatment Plan of Care Planned Activity Planned Date Details Description Data Source (s) clopidogrel 75 MG Oral Tablet 07/28/2020 12:00:00 AM EST [facility] Levothyroxine Sodium 0.025 MG Oral Tablet 07/24/2020 12:00:00 AM ES T [facility] atorvastatin 40 MG Oral Tablet 03/29/2020 12:00:00 AM EDT [facility] clopidogrel 75 MG Oral Tablet 03/29/2020 12:00:00 AM EDT [facility] Furosemide 20 MG Oral Tablet 03/03/2020 12:00:00 AM EDT [facility] benzonatate 100 MG Oral Capsule [Tessalon Perles] 12/02/2019 12: 00:00 AM EDT eCW1 ([facility]) benzonatate 100 MG Oral Capsule [Tessalon Perles] 12/02/2019 12: 00:00 AM EDT eCW1 ([facility]) 24 HR metoprolol succinate 25 MG Extended Release Oral Tablet 11/26/2019 12:00:00 AM EDT [facility] Fluticasone Propionate 50 MCG/ACT 09/10/2019 12:00:00 AM EST eCW1 ([facility]) Clotrimazole 10 MG 09/10/2019 12:00:00 AM EST eCW1 ([facility])
--- NOTE | 2020-10-06 00:17 | REPVR ---
PROCEDURE INFORMATION: Exam: CT Head Without Contrast Exam date and time: 10/05/2020 10:36 PM Age: 75 years old Clinical indication: Altered mental status/memory loss; Confusion or disorientation TECHNIQUE: Imaging protocol: Computed tomography of the head without contrast. Radiation optimization: All CT scans at this facility use at least one of these dose optimization techniques: automated exposure control; mA and/or kV adjustment per patient size (includes targeted exams where dose is matched to clinical indication); or iterative reconstruction. COMPARISON: CT Head without contrast 03/23/2018 4:16 PM FINDINGS: Brain: There is no evidence of intracranial bleed. There is patchy low density in the periventricular white matter that has progressed since 2018 and probably the result of chronic ischemic changes and small vessel disease. However if there is concern of a new area of ischemia an MRI scan which would be more sensitive should be performed. Cerebral ventricles: Normal-appearing ventricles. Bones/joints: There is no evidence of fracture. Paranasal sinuses: Clear appearing paranasal sinuses. Mastoid air cells: Clear appearing mastoid air cells. Orbital cavity: The orbits appear symmetric. Soft tissues: Unremarkable. IMPRESSION: Prominent patchy areas of low density in the periventricular white matter have markedly progressed since 2018. This is probably chronic ischemic change and small vessel disease. However, if there is any concern of developing new ischemic change suggest MRI which would be more sensitive. Electronically signed by: Joaquín Pardo On 10/06/2020 00:16:42 AM
[2020-10-06 01:33] VITALS: BP 157/78
--- NOTE | 2020-10-07 22:25 | ED PDOC ---
Post-Departure Follow-Up ct head faxed to dr friedman for fu Cassia Adams MD Oct 07, 2020 22:25
== END 2020-10-06 01:40 | disposition home or self-care (01) ==
LOC: M ED 18:16
DX: J44.9 Chronic obstructive pulmonary disease, unspecified (principal); R41.0 Disorientation, unspecified; I25.10 Atherosclerotic heart disease of native coronary artery without angina pectoris; I10 Essential (primary) hypertension; E78.5 Hyperlipidemia, unspecified; J30.81 Allergic rhinitis due to animal (cat) (dog) hair and dander; F17.200 Nicotine dependence, unspecified, uncomplicated; Z79.82 Long term (current) use of aspirin; Z79.899 Other long term (current) drug therapy; Z88.8 Allergy status to other drugs, medicaments and biological substances
CPT/HCPCS: 36415; 70450; 71045; 80048; 80076; 81001; 82550; 82553; 82803; 84484; 85025; 87086; 87486; 87581; 87633; 87798; 93005; 93041; 96374; 99285; J1100

== ENCOUNTER → 2020-10-19 | Outpatient (CLI) | payer MEDICARE ==
[2020-10-19 14:00] LABS: BASO % 0.7 % (0.0-1.0); EOS # 0.2 10^3/uL (0.0-0.5); EOS % 3.7 % (0.0-3.0); HEMATOCRIT 38.2 % (36.0-47.0); HEMOGLOBIN 11.9 g/dl (12.0-15.5); LYMPH % 21.6 % (24.0-44.0); MEAN CORPUSCULAR HEMOGLOBIN 30.3 pg (27.0-33.0); MEAN CORPUSCULAR HGB CONC 31.2 g/dl (32.0-36.5); MEAN CORPUSCULAR VOLUME 97.2 fl (80.0-96.0); MONO # 0.3 10^3/uL (0.0-0.8); MONO % 6.8 % (2.0-8.0); NEUTROPHILS # 3.1 10^3/uL (1.5-8.5); PLATELET COUNT, AUTOMATED 292 10^3/uL (150-450); RED BLOOD COUNT 3.93 10^6/uL (4.00-5.40); WHITE BLOOD COUNT 4.6 10^3/uL (4.0-10.0)
[2020-10-19 14:20] LABS: HEMOGLOBIN A1c 5.6 %
[2020-10-19 14:32] LABS: ERYTHROCYTE SEDIMENTATION RATE 54 mm/hr (0-30)
[2020-10-19 14:50] LABS: ALBUMIN 3.4 GM/DL (3.2-5.2); ALT/SGPT 22 U/L (12-78); BILIRUBIN,TOTAL 0.4 MG/DL (0.2-1.0); BLOOD UREA NITROGEN 26 MG/DL (7-18); CALCIUM LEVEL 9.2 MG/DL (8.8-10.2); CARBON DIOXIDE LEVEL 28 MEQ/L (21-32); CHLORIDE LEVEL 106 MEQ/L (98-107); CREATININE FOR GFR 1.24 MG/DL (0.55-1.30); FOLATE > 24.0 NG/ML; GLOMERULAR FILTRATION RATE 44.7 (>39); GLUCOSE, FASTING 90 MG/DL (70-100); POTASSIUM SERUM 4.6 MEQ/L (3.5-5.1); SODIUM LEVEL 140 MEQ/L (136-145); TOTAL PROTEIN 6.9 GM/DL (6.4-8.2); VITAMIN B12 LEVEL 625 PG/ML
[2020-10-22 14:21] LABS: ALBUMIN % 51.6 % (55.8-66.1); ALPHA-1-GLOBULIN % 4.7 % (2.9-4.9); ALPHA-2-GLOBULINS % 16.2 % (7.1-11.8); BETA-1-GLOBULINS % 5.9 % (4.7-7.2)
[2020-10-22 14:22] LABS: ALBUMIN 3.56 GM/DL (3.29-5.55); ALPHA-1-GLOBULINS 0.32 GM/DL (0.17-0.41); ALPHA-2-GLOBULINS 1.12 GM/DL (0.42-0.99); BETA-1-GLOBULINS 0.41 GM/DL (0.28-0.60); BETA-2-GLOBULINS 0.34 GM/DL (0.19-0.55); BETA-2-GLOBULINS % 4.9 % (3.2-6.5); GAMMA GLOBULIN % 16.7 % (11.1-18.8); GAMMA GLOBULINS 1.15 GM/DL (0.65-1.58)
== END ==
LOC: M LABDRWAD 10:21
PROVIDERS: ATTEND Psychiatry & Neurology Neurology
DX: G31.84 Mild cognitive impairment of uncertain or unknown etiology (principal)

== ENCOUNTER → 2020-11-02 | Outpatient (CLI) | payer MEDICARE ==
[~2020-11-02] MED LIST changes: +COLA1TAB PO
--- NOTE | 2020-11-02 11:25 | REP ---
INDICATION: MEMORY LOSS, WHITE MATTER DISEASE COMPARISON: Comparison study November 29, 2017.. TECHNIQUE: Real-time ultrasound evaluation and duplex Doppler interrogation of the extracranial carotid vasculature is performed. FINDINGS: Antegrade flow is observed in both vertebral arteries. Right carotid: The right common carotid artery shows diffuse intimal thickening but is otherwise unremarkable. There ismild mixed plaquing in the right carotid bulb and proximal ICA on two-dimensional scanning. Color flow and spectral Doppler interrogation are unremarkable on the right. Velocity chart right carotid: Right CCA PSV: 51.5 cm/S Right ICA PSV: 61.8 cm/S Right ICA EDV: 18.2 cm/S Right ECA PSV: 93.1 cm/S Right ICA/CCA ratio: 1.2 Left carotid: The left common carotid artery shows diffuse intimal thickening but is otherwise unremarkable. There is mild mixed plaquing in the left carotid bulb and proximal ICA on two-dimensional scanning. Color flow and spectral Doppler interrogation are unremarkable on the left. Velocity chart left carotid: Left CCA PSV: 69.6 cm/S Left ICA PSV: 62.2 cm/S Left ICA EDV: 18.1 cm/S Left ECA PSV: 72.9 cm/S Left ICA/CCA ratio: 0.89 IMPRESSION: Less than 50% category narrowing in the right internal carotid artery by Doppler velocity criteria. Less than 50% category narrowing in the left ICA by Doppler velocity criteria. Velocities have not increased significantly on either side since prior study. <Electronically signed by Charles Mejía > 11/02/20 [id number]
== END ==
LOC: M RAD 10:27
PROVIDERS: ATTEND Family Medicine
DX: R41.3 Other amnesia (principal); I99.8 Other disorder of circulatory system; R90.82 White matter disease, unspecified; R09.89 Other specified symptoms and signs involving the circulatory and respiratory systems

== ENCOUNTER 2020-11-03 21:03 | Emergency (ER) | payer MEDICARE ==
[~2020-11-03] VITALS: Ht 162.6 cm; Wt 58.6 kg
[~2020-11-03 21:03] MED LIST changes: -COLA1TAB PO
[2020-11-03] MEDS ORDERED: COLA1TAB PO (21:16)
[2020-11-03 21:36] LABS: BASO % 0.7 % (0.0-1.0); EOS # 0.2 10^3/uL (0.0-0.5); EOS % 2.6 % (0.0-3.0); HEMATOCRIT 34.3 % (36.0-47.0); HEMOGLOBIN 11.1 g/dl (12.0-15.5); LYMPH # 1.1 10^3/uL (1.5-5.0); LYMPH % 18.8 % (24.0-44.0); MEAN CORPUSCULAR HEMOGLOBIN 31.3 pg (27.0-33.0); MEAN CORPUSCULAR HGB CONC 32.4 g/dl (32.0-36.5); MEAN CORPUSCULAR VOLUME 96.6 fl (80.0-96.0); MONO # 0.8 10^3/uL (0.0-0.8); MONO % 12.4 % (2.0-8.0); NEUTROPHILS % 65.2 % (36.0-66.0); PLATELET COUNT, AUTOMATED 243 10^3/uL (150-450); RED BLOOD COUNT 3.55 10^6/uL (4.00-5.40); WHITE BLOOD COUNT 6.1 10^3/uL (4.0-10.0)
[2020-11-03] MEDS ORDERED: COMBIVENT RESPIMAT 100-20MCG INHALER 4GM INH ONE (21:40)
[2020-11-03 22:13] LABS: ALBUMIN 3.3 GM/DL (3.2-5.2); ALT/SGPT 22 U/L (12-78); BILIRUBIN,DIRECT 0.1 MG/DL (0.0-0.2); BILIRUBIN,TOTAL 0.3 MG/DL (0.2-1.0); BLOOD UREA NITROGEN 27 MG/DL (7-18); CALCIUM LEVEL 8.5 MG/DL (8.8-10.2); CARBON DIOXIDE LEVEL 29 MEQ/L (21-32); CHLORIDE LEVEL 106 MEQ/L (98-107); CPK CREATINE PHOSPHOKINASE 120 U/L (26-192); CREATININE FOR GFR 1.24 MG/DL (0.55-1.30); FREE T4 0.89 NG/DL (0.76-1.46); GLOMERULAR FILTRATION RATE 44.7 (>39); GLUCOSE, FASTING 92 MG/DL (70-100); LIPASE 257 U/L (73-393); NT-PRO BNP 236 PG/ML (<450); POTASSIUM SERUM 4.6 MEQ/L (3.5-5.1); SODIUM LEVEL 138 MEQ/L (136-145); TOTAL PROTEIN 6.9 GM/DL (6.4-8.2); TROPONIN I < 0.02 NG/ML (< 0.10)
--- NOTE | 2020-11-03 22:21 | REPVR ---
PROCEDURE INFORMATION: Exam: XR Chest Exam date and time: 11/03/2020 9:50 PM Age: 75 years old Clinical indication: Other: Chst pain; Additional info: Chest pain TECHNIQUE: Imaging protocol: XR of the chest Views: 1 view. COMPARISON: 1. [place] PORTABLE CHEST X-RAY 2020-10-05 18:56 2. [place] Chest, 1 view 2020-09-30 14:30 3. CR PORTABLE CHEST X-RAY 2020-03-06 13:09 FINDINGS: Lungs: COPD with bronchial wall thickening, unchanged. Pleural spaces: Unremarkable. No pleural effusion. No pneumothorax. Heart/Mediastinum: Unremarkable. No cardiomegaly. Bones/joints: Unremarkable. IMPRESSION: COPD with bronchial wall thickening, unchanged. Electronically signed by: Easton Ramirez On 11/03/2020 22:22:04 PM
[2020-11-03] MEDS ORDERED: ISOVUE-370 76% 100ML VIAL As Ordered ONE (22:57)
--- NOTE | 2020-11-04 00:01 | REPVR ---
PROCEDURE INFORMATION: Exam: CT Angiography Chest With Contrast Exam date and time: 11/03/2020 10:32 PM Age: 75 years old Clinical indication: Other: Palpitations; Additional info: SOB TECHNIQUE: Imaging protocol: Computed tomographic angiography of the chest with contrast. 3D rendering (Not supervised by radiologist): MIP and/or 3D reconstructed images were created by the technologist. Radiation optimization: All CT scans at this facility use at least one of these dose optimization techniques: automated exposure control; mA and/or kV adjustment per patient size (includes targeted exams where dose is matched to clinical indication); or iterative reconstruction. Contrast material: ISO; Contrast volume: 75 ml; Contrast route: INTRAVENOUS (IV); COMPARISON: 1. CT ANGIO CHEST 2020-03-06 14:[address] ANGIO CHEST 2019-10-12 16:35 FINDINGS: Pulmonary arteries: No filling defects in the pulmonary arteries to suggest pulmonary emboli. Aorta: Unremarkable. No aortic aneurysm. No aortic dissection. 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 Lungs: Interstitial thickening with bronchial wall thickening with hyperexpanded lungs. Pleural spaces: Unremarkable. No pneumothorax. No pleural effusion. Heart: Unremarkable. No cardiomegaly. No pericardial effusion. Lymph nodes: Unremarkable. No enlarged lymph nodes. Bones/joints: Unremarkable. No acute fracture. Soft tissues: Unremarkable. IMPRESSION: 1. 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 2. No filling defects in the pulmonary arteries to suggest pulmonary emboli. Electronically signed by: Easton Ramirez On 11/04/2020 00:02:08 AM
[2020-11-04 03:31] LABS: CK-MB VALUE MASS 2.4 NG/ML (<3.6); CPK CREATINE PHOSPHOKINASE 123 U/L (26-192); MB/CK RELATIVE INDEX 1.95 (< OR =4); TROPONIN I < 0.02 NG/ML (< 0.10)
--- NOTE | 2020-11-04 03:40 | ECGEPIP ---
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
[2020-11-04 04:06] VITALS: O2SAT 91
[2020-11-04 04:15] VITALS: BP 158/74
--- NOTE | 2020-11-04 17:27 | ECGEPIP ---
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
--- NOTE | 2020-11-05 08:10 | ED PDOC ---
Post-Departure Follow-Up dr bruno faxed formal cta chest for Cassia Ruano MD Nov 05, 2020 08:10
== END 2020-11-04 04:54 | disposition home or self-care (01) ==
LOC: M ED 21:03
DX: R06.02 Shortness of breath (principal); R00.2 Palpitations; I44.4 Left anterior fascicular block; I25.10 Atherosclerotic heart disease of native coronary artery without angina pectoris; I25.2 Old myocardial infarction; J44.9 Chronic obstructive pulmonary disease, unspecified; K57.30 Diverticulosis of large intestine without perforation or abscess without bleeding; E78.5 Hyperlipidemia, unspecified; K76.0 Fatty (change of) liver, not elsewhere classified; F41.9 Anxiety disorder, unspecified; I71.4 Abdominal aortic aneurysm, without rupture; M43.16 Spondylolisthesis, lumbar region; J30.81 Allergic rhinitis due to animal (cat) (dog) hair and dander; F17.200 Nicotine dependence, unspecified, uncomplicated; Z86.711 Personal history of pulmonary embolism; Z95.5 Presence of coronary angioplasty implant and graft; Z79.82 Long term (current) use of aspirin; Z79.899 Other long term (current) drug therapy; Z88.8 Allergy status to other drugs, medicaments and biological substances
CPT/HCPCS: 71045; 71275; 80048; 80076; 82550; 82553; 83690; 83880; 84439; 84443; 84484; 85025; 85379; 93005; 93041; 94640; 94760; 99285; Q9967; U0003

== ENCOUNTER 2020-12-15 13:53 | Observation (INO) | payer MEDICARE ==
[~2020-12-15] VITALS: Ht 160 cm; Wt 58.4 kg
[~2020-12-15 13:53] MED LIST changes: +COLA1TAB PO
[2020-12-15 15:30] LABS: BASO % 0.4 % (0.0-1.0); EOS # 0.1 10^3/uL (0.0-0.5); EOS % 0.9 % (0.0-3.0); HEMATOCRIT 38.5 % (36.0-47.0); HEMOGLOBIN 12.6 g/dl (12.0-15.5); LYMPH # 0.9 10^3/uL (1.5-5.0); LYMPH % 9.3 % (24.0-44.0); MEAN CORPUSCULAR HEMOGLOBIN 31.5 pg (27.0-33.0); MEAN CORPUSCULAR HGB CONC 32.7 g/dl (32.0-36.5); MEAN CORPUSCULAR VOLUME 96.3 fl (80.0-96.0); MONO # 0.6 10^3/uL (0.0-0.8); MONO % 6.3 % (2.0-8.0); NEUTROPHILS # 7.6 10^3/uL (1.5-8.5); NEUTROPHILS % 82.7 % (36.0-66.0); PLATELET COUNT, AUTOMATED 274 10^3/uL (150-450); WHITE BLOOD COUNT 9.2 10^3/uL (4.0-10.0)
--- NOTE | 2020-12-15 15:51 | REP ---
INDICATION: syncope ?seizure. COMPARISON: None. TECHNIQUE: Axial CT images with multiplanar reformations. FINDINGS: No acute bleed or acute large vessel territorial infarct. Ventricles, cisterns and sulci are within normal limits. No mass effect or midline shift. No abnormal fluid collections. There are focal hypodensities at the genu of the internal capsule bilaterally consistent with old lacunar infarcts. There is diffuse volume loss and ill-defined hypodensities of chronic microvascular ischemic disease. Paranasal sinuses and mastoid air cells are clear. IMPRESSION: No acute findings. Old infarcts as described. Age-related volume loss and white matter changes. <Electronically signed by Delvin Santos > 12/15/20 [id number]
[2020-12-15 16:01] LABS: BLOOD UREA NITROGEN 30 MG/DL (7-18); CALCIUM LEVEL 9.1 MG/DL (8.8-10.2); CARBON DIOXIDE LEVEL 26 MEQ/L (21-32); CHLORIDE LEVEL 104 MEQ/L (98-107); CK-MB VALUE MASS 1.7 NG/ML (<3.6); CPK CREATINE PHOSPHOKINASE 74 U/L (26-192); CREATININE FOR GFR 1.26 MG/DL (0.55-1.30); FREE T4 1.09 NG/DL (0.76-1.46); GLOMERULAR FILTRATION RATE 43.8 (>39); GLUCOSE, FASTING 108 MG/DL (70-100); MAGNESIUM LEVEL 2.5 MG/DL (1.8-2.4); POTASSIUM SERUM 4.2 MEQ/L (3.5-5.1); SODIUM LEVEL 139 MEQ/L (136-145); TROPONIN I < 0.02 NG/ML (< 0.10)
[2020-12-15] MEDS: NS 1,000 ML IV SCH ×2 (16:18→20:15)
[2020-12-15] MEDS ORDERED: ALBUTEROL 90 MCG/ACT 8GM HFA INHALER INH PRN (18:10)
[2020-12-15] MEDS ORDERED: NITROGLYCERIN 0.4 MG SUBL TABLET SL PRN (18:10)
[2020-12-15] MEDS ORDERED: ALBUTEROL SULFATE 2.5 MG/0.5 ML INH NEB SOLN INH PRN (18:10)
--- NOTE | 2020-12-15 18:35 | HPEPDOC ---
General Date of Admission Dec 15, 2020 Date of Service: Dec 15, 2020 Chief Complaint The patient is a 75-year-old female admitted with a reason for visit of Syncope. Source: Patient, Family History of Present Illness Mrs. Gil is a 75 year old female with CAD s/p 3 stents and current long time smoker who presents to the ED for syncope. Today, she was smoking on the porch and then came to the dinning room. She was not feeling well and sat down on the chair. She felt palpitation and felt lightheaded. Then the daughter watch her pass out on the chair. She was not arousable. She called 911 who instructed her to lay the patient on the floor. Patient tongue was sticking out, but no tongue biting. After 15-20 mins later, patient was awake. She knew her daughter. Patient was taken to the ED. CT head did not demonstrate any acute findings, just demonstrated old infarcts. EKG demonstrated a qTC of 482. When I spoke with the patient, she felt like she had palpitations, but tele demonstrated NSR at 80. She had some lightheadedness when sitting up. She does feel short of breath but this has been chronic due to her COPD and long time smoking. She also has a chronic cough that is sometimes productive. Patient will be placed in observation for syncope. Home Medications Scheduled Aspirin (Aspirin EC) 81 Mg Tab, 81 MG PO DAILY, (Reported) Atorvastatin Calcium (Atorvastatin Calcium) 40 Mg Tablet, 40 MG PO DAILY, (Reported) Clopidogrel Bisulfate (Clopidogrel) 75 Mg Tablet, 75 MG PO DAILY, (Reported) Furosemide (Furosemide) 20 Mg Tablet, 20 MG PO Q2D, (Reported) Levothyroxine Sodium (Synthroid) 25 Mcg Tablet, 25 MCG PO DAILY, (Reported) Metoprolol Succinate (Metoprolol Succinate) 25 Mg Tab.er.24h, 12.5 TAB PO Q2D, (Reported) Multivit-Min36/Iron/Folic Acid (Geritol Complete Tablet) 1 Each Tablet, 1 TAB PO DAILY, (Reported) Sennosides/Docusate Sodium (Colace 2-in-1 Tablet) 1 Each Tablet, 1 TAB PO DAILY, (Reported) Scheduled PRN Albuterol Sulf (Albuterol Sulfate) 2.5 Mg/3 Ml Vial.neb, 2.5 MG INH Q4H PRN for SHORTNESS OF BREATH, (Reported) Albuterol Sulfate (Proair Hfa) 8.5 Gm Hfa.aer.ad, 2 PUFF INH QID PRN for SHORT NESS OF BREATH, (Reported) Nitroglycerin (Nitroglycerin) 0.4 Mg Tab.subl, 0.4 MG SL Q5MP PRN for CHEST PAIN, (Reported) Allergies Coded Allergies: Cat Dander (Verified Allergy, Severe, shortness of breath, 12/15/20) Birds (Verified Allergy, Unknown, 03/06/20) lansoprazole (Verified Allergy, Unknown, 03/06/20) cortisone (Verified Adverse Reaction, Mild, steroids - SORE TONGUE, GENERAL ILL FEELING, 12/15/20) Past Medical History Medical History 1. Hemorrhoids 2. Diverticulosis 3. Pulmonary embolism in 4. COPD 5. Lumbar spondylolisthesis 6. Fatty liver 7. Hital hernia 8. CAD s/p stent 9. Anxiety 10. 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 Cholecystectomy 2. Cardiac cath with stent x3 3. Colonoscopy in 2004 Family History Father: Unknown medical history Mother: History of unknown cancer, history of CVA Social History * Smoker: current smoker Alcohol: Denies Drugs: denies A-FIB/CHADSVASC A-FIB History Current/History of A-Fib/PAF?: No Review of Systems Constitutional: Denies: Chills, Fever Eyes: Denies: Vision change ENT: Denies: Sore Throat Skin: Denies: Rash Pulmonary: Reports: Dyspnea, Cough (sometimes productive) Cardiovascular: Reports: Palpitations, Lt Headedness; Denies: Chest Pain Gastrointestinal: Reports: Constipation; Denies: Abdominal Pain, Diarrhea Genitourinary: Denies: Dysuria Hematologic: Denies: Bruising Neurological: Denies: Numbness Psych: Reports: Anxiety Physical Examination General Exam: Positive: Alert, Cooperative Eye Exam: Positive: EOMI; Negative: Sclera icteric ENT Exam: Positive: Atraumatic Neck Exam: Positive: Supple Chest Exam: Positive: Clear to auscultation Heart Exam: Positive: Rate Normal, Regular Rhythm Abdomen Exam: Positive: Normal bowel sounds, Soft; Negative: Tenderness Extremity Exam: Positive: Edema (very mild pitting) Neuro Exam: Positive: Normal Speech, Strength at 5/5 X4 ext, Cranial Nerves 3- 12 NL Psych Exam: Positive: Mental status NL, Anxiety Vital Signs Vital Signs Date Time Temp Pulse Resp B/P (MAP) Pulse Ox O2 Delivery O2 Flow Rate FiO2 12/15/20 17:53 85 100 12/15/20 16:53 160/69 (99) 12/15/20 15:38 16 Room Air Laboratory Data Labs 24H Laboratory Tests 2 12/15/20 15:18: Immature Granulocyte % (Auto) 0.4, Neutrophils (%) (Auto) 82.7H, Lymphocytes (%) (Auto) 9.3L, Monocytes (%) (Auto) 6.3, Eosinophils (%) (Auto) 0.9, Basophils (%) (Auto) 0.4, Neutrophils # (Auto) 7.6, Lymphocytes # (Auto) 0.9L, Monocytes # (Auto) 0.6, Eosinophils # (Auto) 0.1, Basophils # (Auto) 0.0, Nucleated Red Blood Cells % (auto) 0.0, Anion Gap 9, Glomerular Filtration Rate 43.8, Calcium Level 9.1, Magnesium Level 2.5H, Total Creatine Kinase 74, Creatine Kinase MB 1.7, Creatine Kinase MB Relative Index 2.30, Troponin I < 0.02, Thyroid Stimulating Hormone (TSH) 4.180H, Free Thyroxine 1.09 12/15/20 15:33: Bedside Glucose (Misc Panel) 84 CBC/BMP Laboratory Tests 12/15/20 15:18 Assessment/Plan Mrs. Gil is a 75 year old female with CAD s/p 3 stents and current long time smoker who presents to the ED for syncope. She has cardiac risk factors including CAD s/p 3 stents, hypertension, and smoking history. She will be mon itored overnight and echocardiogram will be ordered. She had a bilateral carotid ultrasound in 11/02/2020 which was negative for stenosis. Plan / VTE VTE Prophylaxis Ordered?: Yes Plan Plan 1. Syncope -Monitor on telemetry -Order echocardiogram -Orthostatic vitals 2. CAD s/p 3 stents -Continue metoprolol succinate, DAPT, and atorvastatin -No active chest pain 3. Palpitations -No tachyarrhythmia seen on telemetry, but patient reports feeling palpitations -Will request ambulatory monitoring of heart rate 4. Hypothyroidism -Continue levothyroxine 5. DVT ppx -Lovenox JEZ DAVISON DO Dec 15, 2020 18:35
[2020-12-15 19:51] LABS: RSV AMPLIFICATION NEGATIVE (NEGATIVE)
[2020-12-15 22:20] VITALS: BP 168/89
[2020-12-15 23:01] VITALS: BP_SYST 164; BP_SYST 178; BP_SYST 183; BP_DIAS 83; BP_DIAS 91; BP_DIAS 95
--- NOTE | 2020-12-15 23:03 | REPVR ---
PROCEDURE INFORMATION: Exam: MRA Head Without Contrast; Arteriography Exam date and time: 12/15/2020 10:29 PM Age: 75 years old Clinical indication: Pain; Headache; Patient HX: Right mca aneurysm; Additional info: Right mca aneyurism TECHNIQUE: Imaging protocol: Magnetic resonance angiography head without contrast. Exam focused on the arteries. COMPARISON: 1. MRA BRAIN W/O CONTRAST 2016-03-20 09:[address] Head without contrast 2020-12-15 15:09 FINDINGS: ANTERIOR CIRCULATION: Right internal carotid artery: Intracranial segment is patent with no significant stenosis. No aneurysm. 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 Right anterior cerebral artery: No occlusion or significant stenosis. No aneurysm. Left internal carotid artery: Intracranial segment is patent with no significant stenosis. No aneurysm. Left middle cerebral artery: No occlusion or significant stenosis. No aneurysm. Left anterior cerebral artery: No occlusion or significant stenosis. No aneurysm. POSTERIOR CIRCULATION: Right vertebral artery: No occlusion or significant stenosis. No aneurysm. Left vertebral artery: No occlusion or significant stenosis. No aneurysm. Basilar artery: No occlusion or significant stenosis. No aneurysm. Right posterior cerebral artery: No occlusion or significant stenosis. No aneurysm. Left posterior cerebral artery: No occlusion or significant stenosis. No aneurysm. Other vasculature: Fenestrated appearing anterior communicating artery. 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 Recommend neurosurgical follow-up. Electronically signed by: Easton Ramirez On 12/15/2020 23:02:58 PM
[2020-12-15 23:26] VITALS: BP 156/89
[2020-12-16] MEDS ORDERED: ONDANSETRON 4 MG ORAL DISINTEGRATING TAB PO PRN (00:05)
[2020-12-16] MEDS: ACETAMINOPHEN 500 MG TAB PO PRN ×2 (00:15→08:27)
[2020-12-16 02:11] VITALS: O2SAT 99
[2020-12-16 06:00] VITALS: BP 138/61
[2020-12-16] MEDS ORDERED: LEVOTHYROXINE 25MCG TABLET (0.025MG) PO SCH (06:00)
[2020-12-16 06:10] LABS: HEMATOCRIT 33.7 % (36.0-47.0); HEMOGLOBIN 10.8 g/dl (12.0-15.5); MEAN CORPUSCULAR HEMOGLOBIN 31.1 pg (27.0-33.0); MEAN CORPUSCULAR VOLUME 97.1 fl (80.0-96.0); PLATELET COUNT, AUTOMATED 245 10^3/uL (150-450); RED BLOOD COUNT 3.47 10^6/uL (4.00-5.40); WHITE BLOOD COUNT 4.2 10^3/uL (4.0-10.0)
[2020-12-16 06:31] LABS: CALCIUM LEVEL 8.9 MG/DL (8.8-10.2); CREATININE FOR GFR 1.16 MG/DL (0.55-1.30); GLOMERULAR FILTRATION RATE 48.2 (>39); POTASSIUM SERUM 4.7 MEQ/L (3.5-5.1)
[2020-12-16 08:30] VITALS: BP_SYST 104; BP_SYST 139; BP_DIAS 58; BP_DIAS 66; BP_DIAS 69
[2020-12-16] MEDS ORDERED: MULTIVITAMINS/MINERALS THERAP 1 TAB PO SCH (09:00)
[2020-12-16] MEDS ORDERED: CLOPIDOGREL 75 MG TAB PO SCH (09:00)
[2020-12-16] MEDS ORDERED: SENOKOT S TAB PO SCH (09:00)
[2020-12-16] MEDS ORDERED: ENOXAPARIN 30MG/0.3ML SYRINGE (J1650 PER 10MG) SC SCH (09:00)
[2020-12-16] MEDS ORDERED: ATORVASTATIN 20 MG TAB PO SCH (09:00)
[2020-12-16] MEDS ORDERED: ASPIRIN 81MG ENTERIC TABLET PO SCH (09:00)
--- NOTE | 2020-12-16 12:56 | ECGEPIP ---
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
[2020-12-16 14:00] VITALS: BP 121/57
--- NOTE | 2020-12-16 14:00 | IPNPDOC ---
Subjective Date Seen The patient was seen on 12/16/20. Subjective Chief Complaint/HPI Mrs. Gil is a 75 year old female with CAD s/p 3 stents and current long time smoker who presents to the ED for syncope. Today, the palpation sensation and dyspnea improved. She worked with physical therapy and recommending at least one more day prior to discharge. Otherwise, I spoke with cardiology, Dr. Justin, who is familiar with the patient. Patient has a known 2mm x 2mm right MCA last seen in 2016 MRI. Ordered for repeat MRI. It is 1mm larger. It is now 3mm x 3mm. I spoke with neurology, Dr. Hernández. Patient does not need to be transferred, but will need outpatient referral to neurosurgery. Objective Physical Examination General Exam: Positive: Alert, Cooperative Eye Exam: Positive: EOMI; Negative: Sclera icteric ENT Exam: Positive: Atraumatic Neck Exam: Positive: Supple Chest Exam: Positive: Clear to auscultation Heart Exam: Positive: Rate Normal, Regular Rhythm Abdomen Exam: Positive: Normal bowel sounds, Soft; Negative: Tenderness Extremity Exam: Positive: Edema (very mild pitting) Neuro Exam: Positive: Normal Speech, Strength at 5/5 X4 ext, Cranial Nerves 3- 12 NL Psych Exam: Positive: Mental status NL, Mood NL Assessment /Plan Assessment Mrs. Gil is a 75 year old female with CAD s/p 3 stents and current long time smoker who presents to the ED for syncope. She has cardiac risk factors including CAD s/p 3 stents, hypertension, and smoking history. She will be monitored overnight and echocardiogram will be ordered. She had a bilateral carotid ultrasound in 11/02/2020 which was negative for stenosis. Otherwise, patient will need outpatient referral to neurosurgery on a right MCA 3mm x 3mm aneurysm Plan/VTE VTE Prophylaxis Ordered?: Yes Plan 1. Syncope -Monitor on telemetry -Order echocardiogram. Pending results -Orthostatic vitals 2. CAD s/p 3 stents -Continue metoprolol succinate, DAPT, and atorvastatin -No active chest pain 3. Palpitations -No tachyarrhythmia seen on telemetry, but patient reports feeling palpitations -Will request ambulatory monitoring of heart rate 4. Hypothyroidism -Continue levothyroxine 5. Right MCA aneurysm -About 5 years ago, aneurysm was 2mm x 2mm. Now 3mm x 3mm. Spoke to neurology, Dr. Hernández. No need for transfer for neurosurgery, but will need outpatient neurosurgery follow up. 6. DVT ppx -Lovenox Disposition: Pending clearance from physical therapy VS, I&O, 24H, [facility] Vital Signs/I&O Vital Signs Date Time Temp Pulse Resp B/P (MAP) Pulse Ox O2 Delivery O2 Flow Rate FiO2 12/16/20 08:30 68 139/66 (90) 74 104/69 (81) 81 104/58 (73) 12/16/20 06:00 98.0 20 99 Nasal Cannula 2.0 I&O- Last 24 Hours up to 6 AM 12/16/20 06:00 Intake Total 1540 ml Output Total 100 ml Balance 1440 ml Laboratory Data 24H LABS Laboratory Tests 2 12/15/20 15:18: Immature Granulocyte % (Auto) 0.4, Neutrophils (%) (Auto) 82.7H, Lymphocytes (%) (Auto) 9.3L, Monocytes (%) (Auto) 6.3, Eosinophils (%) (Auto) 0.9, Basophils (%) (Auto) 0.4, Neutrophils # (Auto) 7.6, Lymphocytes # (Auto) 0.9L, Monocytes # (Auto) 0.6, Eosinophils # (Auto) 0.1, Basophils # (Auto) 0.0, Nucleated Red Blood Cells % (auto) 0.0, Anion Gap 9, Glomerular Filtration Rate 43.8, Calcium Level 9.1, Magnesium Level 2.5H, Total Creatine Kinase 74, Creatine Kinase MB 1.7, Creatine Kinase MB Relative Index 2.30, Troponin I < 0.02, Thyroid Stimulating Hormone (TSH) 4.180H, Free Thyroxine 1.09 12/15/20 15:33: Bedside Glucose (Misc Panel) 84 12/15/20 18:59: Coronavirus (COVID-19)(PCR) NEGATIVE, Influenza Type A (RT-PCR) NEGATIVE, Influenza Type B (RT-PCR) NEGATIVE, Respiratory Syncytial Virus (PCR) NEGATIVE 12/15/20 20:39: Troponin I < 0.02 12/16/20 05:22: Nucleated Red Blood Cells % (auto) 0.0, Anion Gap 4L, Glomerular Filtration Rate 48.2, Calcium Level 8.9 CBC/BMP Laboratory Tests 12/15/20 15:18 12/16/20 05:22 JEZ DAVISON DO Dec 16, 2020 14:00
--- NOTE | 2020-12-16 22:15 | DS.PDOC ---
Discharge Summary General Date of Admission Dec 15, 2020 at 17:51 Date of Discharge Dec 16, 2020 Discharge Summary PROCEDURES PERFORMED DURING STAY: None ADMITTING DIAGNOSES: 1. Syncope 2. CAD s/p 3 stents 3. Palpitations 4. Hypothyroidism DISCHARGE DIAGNOSES: 1. Syncope 2. CAD s/p 3 stents 3. Palpitations 4. Hypothyroidism 5. Right MCA aneurism COMPLICATIONS/CHIEF COMPLAINT: Syncope. HISTORY OF PRESENT ILLNESS: Mrs. Gil is a 75 year old female with CAD s/p 3 stents and current long time smoker who presents to the ED for syncope. Today, she was smoking on the porch and then came to the dinning room. She was not feeling well and sat down on the chair. She felt palpitation and felt lightheade d. Then the daughter watch her pass out on the chair. She was not arousable. She called 911 who instructed her to lay the patient on the floor. Patient tongue was sticking out, but no tongue biting. After 15-20 mins later, patient was awake. She knew her daughter. Patient was taken to the ED. CT head did not demonstrate any acute findings, just demonstrated old infarcts. EKG demonstrated a qTC of 482. When I spoke with the patient, she felt like she had palpitations, but tele demonstrated NSR at 80. She had some lightheadedness when sitting up. She does feel short of breath but this has been chronic due to her COPD and long time smoking. She also has a chronic cough that is sometimes productive. Patient will be placed in observation for syncope. HOSPITAL COURSE: I spoke with cardiology, Dr. Justin, who is familiar with the patient. Patient has a known 2mm x 2mm right MCA [place] [address] Justin recommended that I order repeat MRI. On repeat imaging the size is now 3mm x 3mm. I spoke with neurology, Dr. Hernández. Patient does not need to be transferred, but will need outpatient referral to neurosurgery. Overnight, there was no events on telemetry. Physical therapy recommended patient stay for one or two more days prior to going home as patient was functioning slightly below baseline. Daughter visited patient in the afternoon. She is providing 24/7 care for the patient and felt that she could help patient with physical therapy. I offered home PT, but she declined that this time. If she needed more help, she would reach out to PCP to order home PT. Patient felt better and felt ready for home. She was discharged home with 24/ care from daughter. Of note, I did discuss the aneurism with the daughter. She tells me patient follows with Dr. Rodarte for the aneurism and that Dr. Rodarte is working on referring patient to a specialist DISCHARGE MEDICATIONS: Please see below. ALLERGIES: Please see below. PHYSICAL EXAMINATION ON DISCHARGE: VITAL SIGNS: Please see below. GENERAL: Comfortable, in no apparent distress HEENT: Head normocephalic, atraumatic NECK: Supple CARDIOVASCULAR EXAMINATION: Regular rate and rhythm RESPIRATORY EXAMINATION: Lungs clear to auscultation bilaterally ABDOMINAL EXAMINATION: Soft, non-tender, normal bowel sounds EXTREMITIES: very mild pitting edema bilaterally NEUROLOGICAL EXAMINATION: CN 3-12 grossly intact PSYCHIATRIC EXAMINATION: Normal mood and affect LABORATORY DATA: Please see below. IMAGING: Radiologist Interpretation MRI Brain Superior posterior projecting right MCA 3x3 mm aneurysm is approximately 1 mm larger than prior in 2016. Recommend neurosurgical follow-up. CT Head No acute findings. Old infarcts as described. Age-related volume loss and white matter changes. PROGNOSIS: Good ACTIVITY: As tolerated. DIET: As tolerated DISCHARGE PLAN: Home DISPOSITION: 01 Home, Self-Care. DISCHARGE INSTRUCTIONS: 1. Follow up with Cardiology tomorrow 2. Follow up with PCP in a week 3. Request patient's PCP or neurologist to refer patient to neurosurgery for right MCA aneurism ITEMS TO FOLLOWUP ON ON OUTPATIENT: 1. Right MCA aneurism DISCHARGE CONDITION: Stable. Total time spent on discharge planning, discharge summary, and medication reconciliation: 50 minutes Vital Signs/I&Os Vital Signs Date Time Temp Pulse Resp B/P (MAP) Pulse Ox O2 Delivery O2 Flow Rate FiO2 12/16/20 14:00 98.4 107 18 121/57 (78) 94 Nasal Cannula 2.0 I&O- Last 24 Hours up to 6 AM 12/16/20 06:00 Intake Total 1540 ml Output Total 100 ml Balance 1440 ml Laboratory Data Labs 24H Laboratory Tests 2 12/16/20 05:22: Nucleated Red Blood Cells % (auto) 0.0, Anion Gap 4L, Glomerular Filtration Rate 48.2, Calcium Level 8.9 CBC/BMP Laboratory Tests 12/16/20 05:22 Discharge Medications Scheduled Aspirin (Aspirin EC) 81 Mg Tab, 81 MG PO DAILY, (Reported) Atorvastatin Calcium (Atorvastatin Calcium) 40 Mg Tablet, 40 MG PO DAILY, (Reported) Clopidogrel Bisulfate (Clopidogrel) 75 Mg Tablet, 75 MG PO DAILY, (Reported) Furosemide (Furosemide) 20 Mg Tablet, 20 MG PO Q2D, (Reported) Levothyroxine Sodium (Synthroid) 25 Mcg Tablet, 25 MCG PO DAILY, (Reported) Metoprolol Succinate (Metoprolol Succinate) 25 Mg Tab.er.24h, 12.5 MG PO Q2D, (Reported) Multivit-Min36/Iron/Folic Acid (Geritol Complete Tablet) 1 Each Tablet, 1 TAB PO DAILY, (Reported) Sennosides/Docusate Sodium (Colace 2-in-1 Tablet) 1 Each Tablet, 1 TAB PO DAILY, (Reported) Scheduled PRN Albuterol Sulf (Albuterol Sulfate) 2.5 Mg/3 Ml Vial.neb, 2.5 MG INH Q4H PRN for SHORTNESS OF BREATH, (Reported) Albuterol Sulfate (Proair Hfa) 8.5 Gm Hfa.aer.ad, 2 PUFF INH QID PRN for SHORTNESS OF BREATH, (Reported) Nitroglycerin (Nitroglycerin) 0.4 Mg Tab.subl, 0.4 MG SL Q5MP PRN for CHEST PAIN, (Reported) Allergies Coded Allergies: Cat Dander (Verified Allergy, Severe, shortness of breath, 12/15/20) Birds (Verified Allergy, Unknown, 03/06/20) lansoprazole (Verified Allergy, Unknown, 03/06/20) cortisone (Verified Adverse Reaction, Mild, steroids - SORE TONGUE, GENERAL ILL FEELING, 12/15/20) JEZ DAVISON DO Dec 16, 2020 22:15
[2020-12-17] MEDS ORDERED: METOPROLOL SUCC *XL* 25MG TAB (TopROL *XL*) PO SCH (09:00)
[2020-12-17] MEDS ORDERED: FUROSEMIDE 20 MG TAB PO SCH (09:00)
== END 2020-12-16 17:20 | disposition home or self-care (01) ==
LOC: EDBD 13:53 → M ED 13:53 → EDSEX 13:53 → M ED INP 17:51 → ENRESERV 20:33 → M MSPAV 22:22
PROVIDERS: ADMIT Internal Medicine; ATTEND Internal Medicine
DX: R55 Syncope and collapse (principal); I25.10 Atherosclerotic heart disease of native coronary artery without angina pectoris; Z98.61 Coronary angioplasty status; R00.2 Palpitations; E03.9 Hypothyroidism, unspecified; J44.9 Chronic obstructive pulmonary disease, unspecified; I67.1 Cerebral aneurysm, nonruptured; F17.218 Nicotine dependence, cigarettes, with other nicotine-induced disorders; Z79.82 Long term (current) use of aspirin; Z79.899 Other long term (current) drug therapy; Z88.8 Allergy status to other drugs, medicaments and biological substances
CPT/HCPCS: 36415; 70450; 70544; 80048; 82550; 82553; 83735; 84439; 84443; 84484; 85025; 85027; 87631; 93005; 93041; 94640; 94760; 96360; 96361; 97116; 97161; 99285; G0378; J1650; Q0162

== ENCOUNTER 2021-01-11 22:51 | Emergency (ER) | payer MEDICARE ==
[~2021-01-11] VITALS: Ht 160 cm; Wt 58.0 kg
[2021-01-12 00:52] LABS: VENOUS BASE EXCESS 0.5 (-2.0-2.0); VENOUS HCO3 27.2 MEQ/L (23.0-27.0); VENOUS O2 SATURATION 66.5 % (60.0-80.0); VENOUS PARTIAL PRESSURE CO2 52.6 mmHg (38.0-50.0); VENOUS PARTIAL PRESSURE O2 36.2 mmHg (30.0-50.0); VENOUS PH 7.331 UNITS (7.330-7.430); VENOUS STANDARD HCO3 24.3 MEQ/L; VENOUS TOTAL CO2 28.8 MEQ/L (24.0-28.0)
[2021-01-12 00:55] LABS: BASO % 0.6 % (0.0-1.0); EOS # 0.2 10^3/uL (0.0-0.5); EOS % 3.4 % (0.0-3.0); LYMPH # 1.1 10^3/uL (1.5-5.0); LYMPH % 20.8 % (24.0-44.0); MEAN CORPUSCULAR HGB CONC 32.4 g/dl (32.0-36.5); MEAN CORPUSCULAR VOLUME 95.8 fl (80.0-96.0); MONO # 0.6 10^3/uL (0.0-0.8); MONO % 11.2 % (2.0-8.0); NEUTROPHILS # 3.4 10^3/uL (1.5-8.5); NEUTROPHILS % 63.8 % (36.0-66.0); PLATELET COUNT, AUTOMATED 216 10^3/uL (150-450); RED BLOOD COUNT 3.55 10^6/uL (4.00-5.40); WHITE BLOOD COUNT 5.3 10^3/uL (4.0-10.0)
[2021-01-12] MEDS: COMBIVENT RESPIMAT 100-20MCG INHALER 4GM INH SCH ×3 (00:56→01:29)
[2021-01-12] MEDS ORDERED: methylPREDNISolone 125MG 2ML VIAL IV ONE (01:00)
[2021-01-12 01:06] LABS: ALBUMIN 3.2 GM/DL (3.2-5.2); ALT/SGPT 15 U/L (12-78); BILIRUBIN,DIRECT < 0.1 MG/DL (0.0-0.2); BILIRUBIN,TOTAL 0.3 MG/DL (0.2-1.0); BLOOD UREA NITROGEN 33 MG/DL (7-18); CALCIUM LEVEL 8.1 MG/DL (8.8-10.2); CARBON DIOXIDE LEVEL 28 MEQ/L (21-32); CHLORIDE LEVEL 106 MEQ/L (98-107); CK-MB VALUE MASS 1.3 NG/ML (<3.6); CPK CREATINE PHOSPHOKINASE 58 U/L (26-192); CREATININE FOR GFR 1.22 MG/DL (0.55-1.30); GLOMERULAR FILTRATION RATE 45.5 (>39); GLUCOSE, FASTING 106 MG/DL (70-100); LIPASE 243 U/L (73-393); MB/CK RELATIVE INDEX 2.24 (< OR =4); SODIUM LEVEL 140 MEQ/L (136-145); TOTAL PROTEIN 6.8 GM/DL (6.4-8.2); TROPONIN I < 0.02 NG/ML (< 0.10)
[2021-01-12 01:23] LABS: INR 0.92; PROTHROMBIN TIME 12.6 SECONDS (12.5-14.3)
[2021-01-12 01:24] LABS: PARTIAL THROMBOPLASTIN TIME 25.5 SECONDS (24.2-38.5)
--- NOTE | 2021-01-12 02:21 | REPVR ---
PROCEDURE INFORMATION: Exam: XR Chest Exam date and time: 01/12/21 (1:37am) Age: 75 years old Clinical indication: Cough and SOB TECHNIQUE: Imaging protocol: Portable CXR Views: 1 view COMPARISON: Portable CXR of 11/03/20 FINDINGS: Comparison is made with a portable CXR done on 11/03/20. Stable heart size. Hyperinflated lungs again seen. No focal infiltrates. No definite pleural effusions. No pneumothorax IMPRESSION: No acute chest pathology. COPD changes again seen. A similar appearance was noted 2 months ago. Electronically signed by: Dia Ayala On 01/12/2021 02:20:59 AM
[2021-01-12 04:00] VITALS: BP 152/67
[2021-01-12] MEDS ORDERED: PRED20TA PO (04:07)
--- NOTE | 2021-01-12 05:04 | ECGEPIP ---
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
== END 2021-01-12 04:33 | disposition home or self-care (01) ==
LOC: M ED 22:51
DX: J44.9 Chronic obstructive pulmonary disease, unspecified (principal); I45.19 Other right bundle-branch block; I44.4 Left anterior fascicular block; I25.10 Atherosclerotic heart disease of native coronary artery without angina pectoris; Z98.61 Coronary angioplasty status; F17.200 Nicotine dependence, unspecified, uncomplicated; R06.02 Shortness of breath; E78.5 Hyperlipidemia, unspecified; Z79.82 Long term (current) use of aspirin; Z79.899 Other long term (current) drug therapy; J30.81 Allergic rhinitis due to animal (cat) (dog) hair and dander; Z88.8 Allergy status to other drugs, medicaments and biological substances
CPT/HCPCS: 71045; 80048; 80076; 82550; 82553; 82803; 83690; 84484; 85025; 85610; 85730; 87798; 93005; 93041; 96374; 99285; J2930

== ENCOUNTER → 2021-01-27 | Outpatient (REF) | payer MEDICARE ==
[~2021-01-27] MED LIST changes: +ADV100INH INH; +BENZ-18 PO; +CETI-24 PO; +MED REC COMMENT; +MIRA1POW3 PO; +MIRA3350 PO; +MONT10TA10 PO; +NICO14PA TD; +PRED10TA2 PO; +SENN1TAB41 PO
[2021-01-27 17:47] LABS: HEMOGLOBIN 12.6 g/dl (12.0-15.5); MEAN CORPUSCULAR HEMOGLOBIN 30.5 pg (27.0-33.0); MEAN CORPUSCULAR HGB CONC 31.5 g/dl (32.0-36.5); MEAN CORPUSCULAR VOLUME 96.9 fl (80.0-96.0); PLATELET COUNT, AUTOMATED 328 10^3/uL (150-450); RED BLOOD COUNT 4.13 10^6/uL (4.00-5.40); WHITE BLOOD COUNT 11.1 10^3/uL (4.0-10.0)
[2021-01-27 18:10] LABS: CALCIUM LEVEL 9.3 MG/DL (8.8-10.2); CREATININE FOR GFR 1.46 MG/DL (0.55-1.30); POTASSIUM SERUM 4.7 MEQ/L (3.5-5.1)
== END ==
LOC: M SFHCADAM 14:12
PROVIDERS: ATTEND Family Medicine
DX: N18.31 Chronic kidney disease, stage 3a (principal); Z79.899 Other long term (current) drug therapy
CPT/HCPCS: 80048; 85027; G0463

== ENCOUNTER 2021-01-29 20:49 | Observation (INO) | payer MEDICARE ==
[~2021-01-29] VITALS: Ht 160 cm; Wt 59.2 kg
[~2021-01-29 20:49] MED LIST changes: -ADV100INH INH; -BENZ-18 PO; -CETI-24 PO; -MED REC COMMENT; -MIRA1POW3 PO; -MIRA3350 PO; -MONT10TA10 PO; -NICO14PA TD; -PRED10TA2 PO; -SENN1TAB41 PO
[2021-01-29 22:05] LABS: BASO % 0.2 % (0.0-1.0); EOS # 0.1 10^3/uL (0.0-0.5); EOS % 0.8 % (0.0-3.0); HEMATOCRIT 35.1 % (36.0-47.0); HEMOGLOBIN 11.5 g/dl (12.0-15.5); LYMPH # 1.1 10^3/uL (1.5-5.0); LYMPH % 10.8 % (24.0-44.0); MEAN CORPUSCULAR HEMOGLOBIN 31.3 pg (27.0-33.0); MEAN CORPUSCULAR HGB CONC 32.8 g/dl (32.0-36.5); MEAN CORPUSCULAR VOLUME 95.4 fl (80.0-96.0); MONO # 0.9 10^3/uL (0.0-0.8); MONO % 8.1 % (2.0-8.0); NEUTROPHILS # 8.4 10^3/uL (1.5-8.5); NEUTROPHILS % 79.6 % (36.0-66.0); PLATELET COUNT, AUTOMATED 264 10^3/uL (150-450); RED BLOOD COUNT 3.68 10^6/uL (4.00-5.40); WHITE BLOOD COUNT 10.6 10^3/uL (4.0-10.0)
[2021-01-29 22:35] LABS: ALT/SGPT 20 U/L (12-78); BILIRUBIN,DIRECT 0.1 MG/DL (0.0-0.2); BILIRUBIN,TOTAL 0.6 MG/DL (0.2-1.0); CK-MB VALUE MASS < 1.0 NG/ML (<3.6); CPK CREATINE PHOSPHOKINASE 40 U/L (26-192); LIPASE 372 U/L (73-393); TOTAL PROTEIN 6.4 GM/DL (6.4-8.2); TROPONIN I < 0.02 NG/ML (< 0.10)
[2021-01-29] MEDS ORDERED: NS 1,000 ML IV ONE ×2 (22:40)
--- NOTE | 2021-01-29 23:55 | REPVR ---
PROCEDURE INFORMATION: Exam: CT Abdomen And Pelvis Without Contrast Exam date and time: 01/29/2021 10:48 PM Age: 75 years old Clinical indication: Abdominal pain; Generalized; Additional info: Abd pain, brian, ? constipation TECHNIQUE: Imaging protocol: Computed tomography of the abdomen and pelvis without contrast. Radiation optimization: All CT scans at this facility use at least one of these dose optimization techniques: automated exposure control; mA and/or kV adjustment per patient size (includes targeted exams where dose is matched to clinical indication); or iterative reconstruction. COMPARISON: CT ABD/PEL W/IV CONTRAST ONLY 06/02/2019 7:51 AM FINDINGS: Lung bases are clear. No pleural or pericardial effusion. Within the limits of an unenhanced examination, the liver, spleen, pancreas and adrenals are grossly normal. Gallbladder is surgically absent. Kidneys are grossly normal. There are no focal renal abnormalities, ureterolithiasis or obstructive uropathy. Calcifications in the renal gerson are felt to be vascular. Advanced atherosclerotic changes within the abdominal aorta and aortic branch vessels. Aneurysmal dilatation of the infrarenal abdominal aorta which measures up to 3.2 cm, similar to previous examination. This tapers normally into the bifurcation. Small and large bowel loops are grossly normal. No evidence of enteric obstruction. There is a normal appendix. Pelvic organs are grossly normal. Uterus is not identified and may be atrophic or surgically absent. No significant free fluid in the abdomen or pelvis. Grade 1 anterolisthesis of L5 relative to S1 due to bilateral pars interarticularis defects at L5. Osseous structures are otherwise unremarkable for age. IMPRESSION: Infrarenal abdominal aortic aneurysm measuring up to 3.2 cm, similar to previous examination. Advanced atherosclerotic disease within the abdominal aorta and aortic branch vessels. No other acute intra-abdominal or pelvic process on this unenhanced examination. No evidence of enteric obstruction, appendicitis or diverticulitis. No evidence of obstructive uropathy. Additional nonemergent findings as described above. Electronically signed by: Nj Streeter On 01/29/2021 23:55:00 PM
[2021-01-30 00:49] LABS: RSV AMPLIFICATION NEGATIVE (NEGATIVE)
[2021-01-30] MEDS ORDERED: MOM 30ML SUSPENSION UDC PO PRN (02:15)
[2021-01-30] MEDS ORDERED: BISACODYL 10 MG SUPP PR PRN (02:15)
[2021-01-30] MEDS ORDERED: NS 1,000 ML IV SCH (02:20)
[2021-01-30] MEDS ORDERED: ADV100INH INH (02:23)
[2021-01-30] MEDS ORDERED: CETI-24 PO (02:23)
[2021-01-30] MEDS ORDERED: MONT10TA10 PO (02:23)
[2021-01-30] MEDS ORDERED: MED REC COMMENT (02:28)
[2021-01-30] MEDS ORDERED: IPRATROPIUM 0.5MG/ALBUTEROL 2.5MG INH SOL UD 3ML (DUONEB) NEB PRN (03:00)
[2021-01-30] MEDS ORDERED: NITROGLYCERIN 0.4 MG SUBL TABLET SL PRN (03:20)
[2021-01-30 03:29] LABS: BLOOD UREA NITROGEN 38 MG/DL (7-18); CALCIUM LEVEL 8.5 MG/DL (8.8-10.2); CARBON DIOXIDE LEVEL 24 MEQ/L (21-32); CHLORIDE LEVEL 108 MEQ/L (98-107); CREATININE FOR GFR 1.42 MG/DL (0.55-1.30); GLOMERULAR FILTRATION RATE 38.2 (>39); GLUCOSE, FASTING 93 MG/DL (70-100); MAGNESIUM LEVEL 2.5 MG/DL (1.8-2.4); POTASSIUM SERUM 4.9 MEQ/L (3.5-5.1); SODIUM LEVEL 138 MEQ/L (136-145)
[2021-01-30 03:42] LABS: NT-PRO BNP 487 PG/ML (<450)
[2021-01-30 04:35] VITALS: BP 145/90
--- NOTE | 2021-01-30 04:40 | HPEPDOC ---
General Date of Admission Jan 29, 2021 at 20:50 Date of Service: Jan 30, 2021 Chief Complaint The patient is a 75-year-old female admitted with a reason for visit of Hakeem,Weakness Generalized. Exam Limitations: Hard of hearing Timing/Duration: Day(s) Associated Symptoms: Cough, Shortness of breath, Weakness History of Present Illness Ms. Gil is a 75 year-old elderly female with significant PMH of hard of hearing, allergic rhinitis, CVA, syncope, s/p head trauma, old MO, CAD with cardiac stent, coronary artery stent 06/2013, loop recorder, HLD, HTN, Atrial Fibrillation, chest pain, Orthostatic hypotension, COPD with Bronchitis on supplemental Oxygen 2 L per n/c, thrombophlebitis, Colitis, hx of PE, hypothyroidism, depression with anxiety, RA, and DDD, presents to [facility] ER with increasing weakness, abdominal pain, nausea, vomiting, diarrhea and shortness of breath that worsen over the last several days. Patient is adamant about leaving the facility, however due to her rapid change in Oxygen saturation of 84% on 2 L per N/C which is her standard level of home Oxygen use. She continues to have moderate abdominal pain with generalized weakness. In reviewing patients laboratory results, she has a total WBC 10.6, hemoglobin 11.5, hematocrit 35.1, absolute neutrophil 79.6, BUN/Seri, creatinine 38/1.42, eGFR 38.2, Magnesium 2.5, BNP 487 (mild fluid overload), lipase normal at 372, LFT's normal. CT ABD/PELV: Calcifications at renal gerson, advanced atherosclerotic abdominal aorta and aortic branch vessels. Aneurysmal dilatation of infrarenal abdominal aorta measuring 3.2cm. No obstructive uropathy. Patient will be admitted to Medical-Surgical unit on telemetry with continuous pulse oximeter on supplemental oxygen with ongoing evaluation, IV hydration for dehydration. Home Medications Scheduled Aspirin (Aspirin EC) 81 Mg Tab, 81 MG PO DAILY, (Reported) Atorvastatin Calcium (Atorvastatin Calcium) 40 Mg Tablet, 40 MG PO DAILY, (Reported) Cetirizine HCl (Cetirizine HCl) 10 Mg Tablet, 10 MG PO DAILY, (Reported) Clopidogrel Bisulfate (Clopidogrel) 75 Mg Tablet, 75 MG PO DAILY, (Reported) Furosemide (Furosemide) 20 Mg Tablet, 20 MG PO Q2D, (Reported) Levothyroxine Sodium (Synthroid) 25 Mcg Tablet, 25 MCG PO DAILY, (Reported) Metoprolol Succinate (Metoprolol Succinate) 25 Mg Tab.er.24h, 12.5 MG PO Q2D, (Reported) LAST RX STATES Q 2 DAYS,BUT LAST OFFICE VISIT STATES DAILY. UNABLE TO VERIFY W/PT Montelukast Sodium (Montelukast Sodium) 10 Mg Tablet, 10 MG PO DAILY, (Reported) Multivit-Min36/Iron/Folic Acid (Geritol Complete Tablet) 1 Each Tablet, 1 TAB PO DAILY, (Reported) Salmeterol/Fluticasone (Advair 100-50 Diskus) 1 Each Blst.w.dev, 1 PUFF INH BID, (Reported) Sennosides/Docusate Sodium (Colace 2-in-1 Tablet) 1 Each Tablet, 1 TAB PO DAILY, (Reported) Scheduled PRN Albuterol Sulf (Albuterol Sulfate) 2.5 Mg/3 Ml Vial.neb, 2.5 MG INH Q4H PRN for SHORTNESS OF BREATH, (Reported) Albuterol Sulfate (Proair Hfa) 8.5 Gm Hfa.aer.ad, 2 PUFF INH QID PRN for SHORTNESS OF BREATH, (Reported) Nitroglycerin (Nitroglycerin) 0.4 Mg Tab.subl, 0.4 MG SL Q5MP PRN for CHEST PAIN, (Reported) Miscellaneous Medications [Med Rec Comment] , (Reported) UNABLE TO VERIFY WITH PT. USED EXTERNAL HISTORY AND LAST CLINIC VISIT 01/27/21 Allergies Coded Allergies: Cat Dander (Verified Allergy, Severe, shortness of breath, 12/15/20) Birds (Verified Allergy, Unknown, 03/06/20) lansoprazole (Verified Allergy, Unknown, 03/06/20) cortisone (Verified Adverse Reaction, Mild, steroids - SORE TONGUE, GENERAL ILL FEELING, 12/15/20) Past Medical History Medical History Concussion, TIA, Syncope, old MO, CHF, CAD with stent, Atrial fibrillation, Hypercholesterolemia, chest pain , palpitations, Essential Hypertension, orthostatic hypotension, nicotine dependence down to a pack a day from 2 packs a day, Thrombophlebitis, COPD on supplemental Oxygen 2 L per N/C, Hx of PE, Bronchitis, Pneumonia, chronic constipation, RA, DDD,-Lumbar, CKD 3, Osteoporosis, Hypothyroidism, Fatty liver, Anxiety, Claustrophobia, Depression, Urinary stress incontinence, Diverticulitis, colitis, hemorrhoids Surgical History Colonoscopy, Partial hysterectomy, Right rotator cuff repair, Left carpal tunnel, Cardiac stent 06/2013; Loop recorder, Coronary stent x 1, Full set of dentures, Gallbladder 2007. Family History Significant Family History: Cancer, COPD, Diabetes Social History * Smoker: current smoker, greater than 1 pack/day, cigarettes Alcohol: Denies Drugs: prescription drugs Psychosocial History: Anxiety, Decreased mood A-FIB/CHADSVASC A-FIB History Current/History of A-Fib/PAF?: Yes Current PO Anticoag Therapy: Yes Age/Risk Factor Scoring CHADSVASC: CHADSVASC Response (Comments) Value Age Risk Factor Age >/= 75 years old 2 Gender Risk Factor Female 1 Hx of CHF Yes 1 Hx of HTN Yes 1 Hx of Stroke/TIA/or VTE Yes 2 Hx of Diabetes No 0 Hx of Vascular Disease Yes 1 Total 8 Treatment Treatment ordered: Other (Plavix) Other anticoagulant ordered: Plavix Reason Anticoagulant not given: Current bleeding Review of Systems Constitutional: Reports: Malaise, Weakness, Fatigue, Lethargy Eyes: Denies: Pain, Vision change, Conjunctivae inflammation, Eyelid inf lammation, Redness, Other ENT: Reports: Head Aches Skin: Reports: Itching, Dry Pulmonary: Reports: Dyspnea, Cough Cardiovascular: Reports: Orthopnea, Lt Headedness Gastrointestinal: Reports: Nausea, Vomiting, Abdominal Pain, Diarrhea, Constipation Genitourinary: Denies: Dysuria, Frequency, Incontinence, Hematuria, Retention, Other Symptoms Endocrine: Denies: Polydipsia, Polyphagia, Polyuria, Heat Intolerance, Cold Intolerance, Other Endocrine Sx Musculoskeletal: Reports: Joint Pain Neurological: Reports: Weakness Psych: Reports: Anxiety, Anger Physical Examination General Exam: Positive: Alert, Cooperative, Mild Distress Eye Exam: Positive: PERRLA, Conjunctiva & lids normal, EOMI ENT Exam: Positive: Atraumatic, Pharynx Normal, Tongue Midline Chest Exam: Positive: Diminished, Other (labored breathing) Heart Exam: Positive: Irregular Rhythm, Normal S1, Normal S2 Telemetry: Positive: Atrial fibrillation Abdomen Exam: Positive: BS Hyperactive, Tenderness Extremity Exam: Positive: Clubbing Skin Exam: Positive: Other skin issue (poor skin turgor, dry skin) Neuro Exam: Positive: Cranial Nerves 3-12 NL Psych Exam: Positive: Anxiety, Oriented x 3 Vital Signs Vital Signs Date Time Temp Pulse Resp B/P (MAP) Pulse Ox O2 Delivery O2 Flow Rate FiO2 01/30/21 00:49 87 96 Room Air 01/29/21 23:45 147/71 (96) 01/29/21 20:50 98.0 16 Laboratory Data Labs 24H Laboratory Tests 2 01/29/21 21:51: Immature Granulocyte % (Auto) 0.5, Neutrophils (%) (Auto) 79.6H, Lymphocytes (%) (Auto) 10.8L, Monocytes (%) (Auto) 8.1H, Eosinophils (%) (Auto) 0.8, Basophils (%) (Auto) 0.2, Neutrophils # (Auto) 8.4, Lymphocytes # (Auto) 1.1L, Monocytes # (Auto) 0.9H, Eosinophils # (Auto) 0.1, Basophils # (Auto) 0.0, Nucleated Red Blood Cells % (auto) 0.0, Total Bilirubin 0.6, Direct Bilirubin 0.1, Aspartate Amino Transf (AST/SGOT) 16, Alanine Aminotransferase (ALT/SGPT) 20, Alkaline Phosphatase 59, Total Creatine Kinase 40, Creatine Kinase MB < 1.0, Creatine Kinase MB Relative Index 2.50, Troponin I < 0.02, Total Protein 6.4, Albumin 3.0L, Albumin/Globulin Ratio 0.9L, Lipase 372 01/29/21 21:52: POC Glucose (Misc Panel) 98, POC Sodium (Misc Panel) 136, POC Potassium (Misc Panel) 4.8, POC Chloride (Misc Panel) 104, POC Total CO2 (Misc Panel) 25.0, POC Blood Urea Nitrogen (Misc Panel 35H, POC Ionized Calcium (Misc Panel) 4.6, POC Creatinine (Misc Panel) 1.6H, POC Hematocrit (Misc Panel) 36.0L 01/30/21 00:00: Coronavirus (COVID-19)(PCR) NEGATIVE, Influenza Type A (RT-PCR) NEGATIVE, Influenza Type B (RT-PCR) NEGATIVE, Respiratory Syncytial Virus (PCR) NEGATIVE CBC/BMP Laboratory Tests 01/29/21 21:51 Problems (1) Acute exacerbation of chronic obstructive pulmonary disease Status: Acute Problem Text: Ms. Louise is a 75 year-old elderly female admitted for HAKEEM secondary to Dehydration due to hypovolemia (n/v), constipation, and generalized weakness. Acute exacerbation of COPD with hypoxia-Acute on Chronic Plan Admit Observation Unit on telemetry with continuous pulse oximetry Chest x-ray in AM Re-check AM labs and replenish electrolytes as needed Monitor vital signs Continue home medications: Advair, Duoneb q 6hrs prn sob, wheezing; chest physiotherapy Cehck ABG as needed Goal O2 saturation 89-93% Generalized Weakness secondary to Dehydration with HAKEEM-Acute IVF NS 100 ml/hr x 1L. AM provider will determine if patient needs additional IV fluid resuscitation Fall precautions Check CMP (HOLD diuretic) Abdominal pain with constipation -Acute on Chronic continue home medications: Miralax daily, bisacodyl suppository prn constipation Monitor I&O Hypertensive heart with CHF-chronic monitor blood pressure Cardiac diet with ow salt Daily weight Continue medications: Furosemide 20 mg daily (HOLD) Atrial Fibrillation-chronic Continue taking: Metoprolol succinate 12.5 mg po S/P OLD MO and CVA-Chronic continue home medications: Atorvastatin , CAD with stent and Coronary stent-Chronic Continue taking Plavix 75, ASA 81 mg po daily Chest pain-Chronic continue Nitro SL prn Hypothyroidism-chronic Check TSH Continue taking Levothyroxine 25 mcg daily Seasonal allergies-Chronic continue Singulair daily, cetirizine PPI: not warranted DVT Prophylaxis: SCDS BLE, heparin 5000 IU TID SQ Discharge: Pending on clinical course (2) Constipation Status: Acute (3) Diarrhea Status: Acute (4) HAKEEM (acute kidney injury) Status: Acute (5) Weakness generalized Status: Acute Response to Treatment: Uncompensated Problem Specific Plan: Monitor Clinically (6) Abdominal pain Status: Acute (7) Afib Status: Chronic Problem Specific Plan: Monitor Clinically (8) Nicotine dependence Status: Chronic (9) HTN (hypertension) Status: Chronic Problem Specific Plan: Monitor Clinically, Repeat Labs (10) 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
[2021-01-30] MEDS ORDERED: LEVOTHYROXINE 25MCG TABLET (0.025MG) PO SCH (06:00)
--- NOTE | 2021-01-30 06:28 | ECGEPIP ---
[facility] - ED Test Date: 2021-01-29 Pat Name: KEVIN MARIN Department: Room: - Gender: Female Formal Waiter/Waitress: todd REEDB: 1945 Requested By: DWAINE Terry Order Number: [id number] Reading MD: Cassia Knox Measurements Intervals [place] Rate: 80 P: 69 AR: 142 QRS: -60 QRSD: 74 T: 16 QT: 386 QTc: 445 Interpretive Statements Normal sinus rhythm with sinus arrhythmia Left anterior fascicular block LAD Nonspecific ST T wave changes Delayed R wave progression cw 01/12/[address] T wave changes Electronically Signed on 01-30-2021 6:28:03 EDT by Cassia Knox
[2021-01-30] MEDS: BISACODYL 10 MG SUPP PR SCH ×2 (07:00→08:59)
--- NOTE | 2021-01-30 07:54 | REP ---
INDICATION: Hypoxia acute COMPARISON: 01/12/2021 TECHNIQUE: Portable AP view of the chest FINDINGS: The mediastinum and cardiac silhouette are stable and within normal limits for portable technique. The lung villagomez are clear without acute consolidation, effusion, or pneumothorax. Skeletal structures are intact. IMPRESSION: No acute cardiopulmonary process appreciated. <Electronically signed by Vikas Ruiz > 01/30/21 [id number]
[2021-01-30 08:00] VITALS: BP 178/79
[2021-01-30] MEDS ORDERED: ADVAIR HFA 45/21MCG INHALER INH SCH (08:00)
[2021-01-30 08:04] LABS: BASO % 0.4 % (0.0-1.0); EOS # 0.1 10^3/uL (0.0-0.5); EOS % 1.1 % (0.0-3.0); HEMATOCRIT 34.7 % (36.0-47.0); HEMOGLOBIN 11.1 g/dl (12.0-15.5); LYMPH # 0.9 10^3/uL (1.5-5.0); LYMPH % 11.6 % (24.0-44.0); MEAN CORPUSCULAR HEMOGLOBIN 30.8 pg (27.0-33.0); MEAN CORPUSCULAR VOLUME 96.4 fl (80.0-96.0); MONO # 0.7 10^3/uL (0.0-0.8); MONO % 8.2 % (2.0-8.0); NEUTROPHILS # 6.3 10^3/uL (1.5-8.5); NEUTROPHILS % 78.5 % (36.0-66.0); PLATELET COUNT, AUTOMATED 249 10^3/uL (150-450)
[2021-01-30 08:25] LABS: CALCIUM LEVEL 8.2 MG/DL (8.8-10.2); CREATININE FOR GFR 1.18 MG/DL (0.55-1.30); GLOMERULAR FILTRATION RATE 47.3 (>39); POTASSIUM SERUM 4.9 MEQ/L (3.5-5.1)
[2021-01-30 08:38] VITALS: BP 178/79
[2021-01-30] MEDS ORDERED: ATORVASTATIN 20 MG TAB PO SCH (09:00)
[2021-01-30] MEDS ORDERED: MIRALAX *UNIT DOSE* 17GM PACKET PO SCH (09:00)
[2021-01-30] MEDS ORDERED: FUROSEMIDE 20 MG TAB PO SCH (09:00)
[2021-01-30] MEDS ORDERED: METOPROLOL SUCC *XL* 12.5MG PER 1/2 TAB (TopROL *XL*) PO SCH (09:00)
[2021-01-30] MEDS ORDERED: MONTELUKAST 10 MG TAB PO SCH (09:00)
[2021-01-30] MEDS ORDERED: CETIRIZINE (ZyrTEC) 10 MG TAB PO SCH (09:00)
[2021-01-30] MEDS ORDERED: SENOKOT S TAB PO SCH ×2 (09:00)
[2021-01-30] MEDS ORDERED: CLOPIDOGREL 75 MG TAB PO SCH (09:00)
[2021-01-30] MEDS ORDERED: ASPIRIN 81MG ENTERIC TABLET PO SCH (09:00)
[2021-01-30] MEDS ORDERED: FUROSEMIDE 40MG/4ML VIAL (J1940) IV ONE (10:20)
[2021-01-30] MEDS ORDERED: MIRA3350 PO (10:23)
[2021-01-30] MEDS ORDERED: COLA1TAB PO (10:23)
--- NOTE | 2021-01-30 11:07 | IPNPDOC ---
Subjective Date Seen The patient was seen on 01/30/21. Subjective Chief Complaint/HPI Feels well this morning. Abdominal pain has resolved after 3 bowel movements. Wants to go home. Objective Physical Examination General Exam: Positive: Alert, Cooperative, Mild Distress Eye Exam: Positive: PERRLA, Conjunctiva & lids normal, EOMI ENT Exam: Positive: Atraumatic, Pharynx Normal, Tongue Midline Chest Exam: Positive: Diminished, Other (labored breathing) Heart Exam: Positive: Irregular Rhythm, Normal S1, Normal S2 Telemetry: Positive: Atrial fibrillation Abdomen Exam: Positive: BS Hyperactive, Tenderness Extremity Exam: Positive: Clubbing Skin Exam: Positive: Other skin issue (poor skin turgor, dry skin) Neuro Exam: Positive: Cranial Nerves 3-12 NL Psych Exam: Positive: Anxiety, Oriented x 3 Assessment /Plan Assessment Ms. Gil is a 75 year-old elderly female with significant PMH of hard of hearing, allergic rhinitis, CVA, Palpitations has a loop recorder, old [place], CAD with cardiac stent, HLD, HTN, Atrial Fibrillation, Orthostatic hypotension, COPD with Bronchitis on supplemental Oxygen 2 L per n/c, hx of Pulmonary Embolism, hypothyroidism, depression with anxiety, DDD, presented to [facility] ER with abdominal pain distension , nausea adn constipation for 2 weeks. She started using miralax and senosides-s 2 days ago with no relief. She started feeling weak with poor appetite so came to the ED. In the ED CT abd and pelvis was negative for any acute events. However she was noted to be desaturating to 84% with her usual 2 liters of oxygen so was felt tht she was having a COPD exacerbation . She was admitted for severe constipation and COPD exacerbation. Constipation causing abdominal pain and cramps, distension now resolved after bowel movement. CT abd and pelvis negative for any acute issues. Has diverticulosis and hemorrhoids. resolved after 3 bowel movements. continue senna, colace an miralax at home. COPD with chronic respiratory failure. not in any exacerbation at [facility] time. continue Advair and albuterol Hypertensive heart with CHF-chronic with preserved EF Continue metoprolol, Lasix every other Atrial Fibrillation-chronic Metoprolol succinate 12.5 mg po CKD stage III Baseline creatinine about 1.4 S/P OLD NV and CVA-Chronic continue home medications: Atorvastatin , aspirin, Plavix CAD with drug eluting stent 2012 and 2 stents in 2019 Continue taking Plavix 75, ASA 81 mg po daily As Chest pain-Chronic continue Nitro SL prn Hypothyroidism-chronic Continue taking Levothyroxine 25 mcg daily Hyperlipidemia on statin Seasonal allergies-Chronic continue Singulair daily, cetirizine History of pulmonary embolism in Lumbar spondylolisthesis L5 on S1 Hiatal hernia History of orthostatic hypotension Used to be on Florinef and midodrine but I don't see that in her list anymore Anxiety No issues at this time. 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 Follows with neuro at [facility] Severe progressive white matter changes and CT of head from 2010 Dispo: Home Plan/VTE VTE Prophylaxis Ordered?: Yes Plan IVF: Initiate Diet: Advance Therapy: PT Respiratory: Increase Oxygen Diagnostics: Check Labs, Repeat Labs in AM VS, I&O, 24H, Fishbone Vital Signs/I&O Vital Signs Date Time Temp Pulse Resp B/P (MAP) Pulse Ox O2 Delivery O2 Flow Rate FiO2 01/30/21 08:38 80 178/79 01/30/21 08:00 97.8 20 96 Nasal Cannula 2.0 I&O- Last 24 Hours up to 6 AM 01/30/21 06:00 Intake Total 0 ml Balance 0 ml Laboratory Data 24H LABS Laboratory Tests 2 01/29/21 21:51: Immature Granulocyte % (Auto) 0.5, Neutrophils (%) (Auto) 79.6H, Lymphocytes (%) (Auto) 10.8L, Monocytes (%) (Auto) 8.1H, Eosinophils (%) (Auto) 0.8, Basophils (%) (Auto) 0.2, Neutrophils # (Auto) 8.4, Lymphocytes # (Auto) 1.1L, Monocytes # (Auto) 0.9H, Eosinophils # (Auto) 0.1, Basophils # (Auto) 0.0, Nucleated Red Blood Cells % (auto) 0.0, Anion Gap 6L, Glomerular Filtration Rate 38.2L, Calcium Level 8.5L, Magnesium Level 2.5H, Total Bilirubin 0.6, Direct Bilirubin 0.1, Aspartate Amino Transf (AST/SGOT) 16, Alanine Aminotransferase (ALT/SGPT) 20, Alkaline Phosphatase 59, Total Creatine Kinase 40, Creatine Kinase MB < 1.0, Creatine Kinase MB Relative Index 2.50, Troponin I < 0.02, KG-Epd-W-Type Natriuretic Peptide 487H, Total Protein 6.4, Albumin 3.0L, Albumin/Globulin Ratio 0.9L, Lipase 372 01/29/21 21:52: POC Glucose (Misc Panel) 98, POC Sodium (Misc Panel) 136, POC Potassium (Misc Panel) 4.8, POC Chloride (Misc Panel) 104, POC Total CO2 (Misc Panel) 25.0, POC Blood Urea Nitrogen (Misc Panel 35H, POC Ionized Calcium (Misc Panel) 4.6, POC Creatinine (Misc Panel) 1.6H, POC Hematocrit (Misc Panel) 36.0L 01/30/21 00:00: Coronavirus (COVID-19)(PCR) NEGATIVE, Influenza Type A (RT-PCR) NEGATIVE, Influenza Type B (RT-PCR) NEGATIVE, Respiratory Syncytial Virus (PCR) NEGATIVE 01/30/21 07:49: Immature Granulocyte % (Auto) 0.2, Neutrophils (%) (Auto) 78.5H, Lymphocytes (%) (Auto) 11.6L, Monocytes (%) (Auto) 8.2H, Eosinophils (%) (Auto) 1.1, Basophils (%) (Auto) 0.4, Neutrophils # (Auto) 6.3, Lymphocytes # (Auto) 0.9L, Monocytes # (Auto) 0.7, Eosinophils # (Auto) 0.1, Basophils # (Auto) 0.0, Nucleated Red Blood Cells % (auto) 0.0, Anion Gap 3L, Glomerular Filtration Rate 47.3, Calcium Level 8.2L CBC/BMP Laboratory Tests 01/29/21 21:51 01/30/21 07:49 ELIANA PURCELL MD Jan 30, 2021 11:07
[2021-01-30 12:00] VITALS: BP 133/67
== END 2021-01-30 12:55 | disposition home or self-care (01) ==
LOC: M ED 20:49 → M ED INP 20:50 → ENRESERVDT 01-30 03:21 → ENRESERVTM 01-30 03:21 → M PCU 01-30 04:32
PROVIDERS: ADMIT Family Medicine; ATTEND Family Medicine
DX: K59.00 Constipation, unspecified (principal); J44.1 Chronic obstructive pulmonary disease with (acute) exacerbation; N18.30 Chronic kidney disease, stage 3 unspecified; I12.9 Hypertensive chronic kidney disease with stage 1 through stage 4 chronic kidney disease, or unspecified chronic kidney disease; E03.9 Hypothyroidism, unspecified; I48.91 Unspecified atrial fibrillation; Z86.73 Personal history of transient ischemic attack (TIA), and cerebral infarction without residual deficits; K44.9 Diaphragmatic hernia without obstruction or gangrene; I25.10 Atherosclerotic heart disease of native coronary artery without angina pectoris; Z86.711 Personal history of pulmonary embolism; Z98.61 Coronary angioplasty status; F41.9 Anxiety disorder, unspecified; F32.9 Major depressive disorder, single episode, unspecified; I71.4 Abdominal aortic aneurysm, without rupture
CPT/HCPCS: 36415; 71045; 74176; 80047; 80048; 80076; 82550; 82553; 83690; 83735; 83880; 84484; 85025; 87631; 93005; 93041; 94640; 96374; 96375; 99285; G0378; J1940

== ENCOUNTER 2021-01-31 21:22 | Inpatient (IN) | payer MEDICARE ==
[~2021-01-31] VITALS: Ht 162.6 cm; Wt 66.5 kg
[~2021-01-31 21:22] MED LIST changes: +ADV100INH INH; +CETI-24 PO; +MED REC COMMENT; +MIRA3350 PO; +MONT10TA10 PO
[2021-01-31 22:18] LABS: VENOUS BASE EXCESS 0.6 (-2.0-2.0); VENOUS HCO3 27.2 MEQ/L (23.0-27.0); VENOUS O2 SATURATION 55.2 % (60.0-80.0); VENOUS PARTIAL PRESSURE CO2 52.1 mmHg (38.0-50.0); VENOUS PARTIAL PRESSURE O2 30.2 mmHg (30.0-50.0); VENOUS PH 7.335 UNITS (7.330-7.430); VENOUS STANDARD HCO3 24.2 MEQ/L; VENOUS TOTAL CO2 28.8 MEQ/L (24.0-28.0)
[2021-01-31 22:25] LABS: BASO % 0.4 % (0.0-1.0); EOS # 0.1 10^3/uL (0.0-0.5); EOS % 1.3 % (0.0-3.0); HEMATOCRIT 35.1 % (36.0-47.0); HEMOGLOBIN 11.4 g/dl (12.0-15.5); LYMPH # 1.1 10^3/uL (1.5-5.0); LYMPH % 14.3 % (24.0-44.0); MEAN CORPUSCULAR HEMOGLOBIN 31.2 pg (27.0-33.0); MEAN CORPUSCULAR HGB CONC 32.5 g/dl (32.0-36.5); MEAN CORPUSCULAR VOLUME 96.2 fl (80.0-96.0); MONO # 0.9 10^3/uL (0.0-0.8); MONO % 11.2 % (2.0-8.0); NEUTROPHILS # 5.6 10^3/uL (1.5-8.5); NEUTROPHILS % 72.4 % (36.0-66.0); PLATELET COUNT, AUTOMATED 248 10^3/uL (150-450); RED BLOOD COUNT 3.65 10^6/uL (4.00-5.40); WHITE BLOOD COUNT 7.7 10^3/uL (4.0-10.0)
[2021-01-31 23:01] LABS: ALBUMIN 2.9 GM/DL (3.2-5.2); ALT/SGPT 21 U/L (12-78); BILIRUBIN,DIRECT 0.1 MG/DL (0.0-0.2); BILIRUBIN,TOTAL 0.5 MG/DL (0.2-1.0); BLOOD UREA NITROGEN 40 MG/DL (7-18); CALCIUM LEVEL 8.6 MG/DL (8.8-10.2); CARBON DIOXIDE LEVEL 28 MEQ/L (21-32); CHLORIDE LEVEL 103 MEQ/L (98-107); CK-MB VALUE MASS 1.1 NG/ML (<3.6); CPK CREATINE PHOSPHOKINASE 66 U/L (26-192); CREATININE FOR GFR 1.74 MG/DL (0.55-1.30); GLOMERULAR FILTRATION RATE 30.2 (>39); GLUCOSE, FASTING 99 MG/DL (70-100); MB/CK RELATIVE INDEX 1.67 (< OR =4); SODIUM LEVEL 138 MEQ/L (136-145); TOTAL PROTEIN 6.2 GM/DL (6.4-8.2); TROPONIN I < 0.02 NG/ML (< 0.10)
[2021-01-31 23:06] LABS: RSV AMPLIFICATION NEGATIVE (NEGATIVE)
--- NOTE | 2021-01-31 23:27 | REPVR ---
PROCEDURE INFORMATION: Exam: XR Chest Exam date and time: 01/31/2021 10:57 PM Age: 75 years old Clinical indication: Shortness of breath TECHNIQUE: Imaging protocol: XR of the chest. Views: 1 view. COMPARISON: CR PORTABLE CHEST X-RAY 01/30/2021 6:35 AM FINDINGS: Lungs: Mild pulmonary hyperinflation with increased lucency of lung. No focal infiltrates. Pleural spaces: Unremarkable. No pleural effusion. No pneumothorax. Heart/Mediastinum: Borderline cardiomegaly. Bones/joints: Unremarkable. IMPRESSION: 1. Evidence of some degree of COPD with probable bullous change. 2. Borderline cardiomegaly. 3. Otherwise negative chest. Electronically signed by: Ryan Thomas On 01/31/2021 23:26:46 PM
[2021-01-31] MEDS ORDERED: NS 500 ML IV ONE (23:35)
[2021-02-01] MEDS ORDERED: MOM 30ML SUSPENSION UDC PO PRN (01:00)
[2021-02-01] MEDS ORDERED: SENN1TAB41 PO (01:09)
[2021-02-01] MEDS ORDERED: MUCI600T31 PO (01:09)
[2021-02-01] MEDS ORDERED: MIRA1POW3 PO (01:09)
--- NOTE | 2021-02-01 02:41 | HPEPDOC ---
General Date of Admission 02/01/21 Date of Service: Feb 01, 2021 Chief Complaint The patient is a 75-year-old female admitted with a reason for visit of Gen weakness. Source: Patient, RN/, Old records Associated Symptoms: Malaise, Weakness, Mechanical fall History of Present Illness Ms. Gil is a 75 year-old elderly female with significant PMH of hard of hearing, allergic rhinitis, CVA, syncope, s/p head trauma, old NC, CAD with cardiac stent, coronary artery stent 06/2013, loop recorder, HLD, HTN, Atrial Fibrillation, chest pain, Orthostatic hypotension, COPD with Bronchitis on supplemental Oxygen 2 L per n/c, thrombophlebitis, Colitis, hx of PE, hypothyroidism, depression with anxiety, RA, and DDD, presents to [facility] ER with increasing weakness, abdominal pain, nausea, vomiting, diarrhea and shortness of breath that worsen over the last several days. Patient is adamant about leaving the facility, however due to her rapid change in Oxygen saturation of 84% on 2 L per N/C which is her standard level of home Oxygen use. She continues to have moderate abdominal pain with generalized weakness. She is under the care of Dr. Justin. In reviewing patients laboratory results, she has a total WBC 10.6, hemoglobin 11.5, hematocrit 35.1, absolute neutrophil 79.6, BUN/Seri, creatinine 38/1.42, eGFR 38.2, Magnesium 2.5, BNP 487 (mild fluid overload), lipase normal at 372, LFT's normal. CT ABD/PELV: Calcifications at renal gerson, advanced a therosclerotic abdominal aorta and aortic branch vessels. Aneurysmal dilatation of infrarenal abdominal aorta measuring 3.2cm. No obstructive uropathy. Patient will be admitted to Medical-Surgical unit on telemetry with continuous pulse oximeter on supplemental oxygen with ongoing evaluation, IV hydration for dehydration. Home Medications Scheduled Aspirin (Aspirin EC) 81 Mg Tab, 81 MG PO DAILY, (Reported) Atorvastatin Calcium (Atorvastatin Calcium) 40 Mg Tablet, 40 MG PO DAILY, (Reported) Cetirizine HCl (Cetirizine HCl) 10 Mg Tablet, 10 MG PO DAILY, (Reported) Clopidogrel Bisulfate (Clopidogrel) 75 Mg Tablet, 75 MG PO DAILY, (Reported) Levothyroxine Sodium (Synthroid) 25 Mcg Tablet, 25 MCG PO DAILY, (Reported) Metoprolol Succinate (Metoprolol Succinate) 25 Mg Tab.er.24h, 12.5 MG PO Q2D, (Reported) Montelukast Sodium (Montelukast Sodium) 10 Mg Tablet, 10 MG PO DAILY, (Reported) Multivit-Min36/Iron/Folic Acid (Geritol Complete Tablet) 1 Each Tablet, 1 TAB PO DAILY, (Reported) Polyethylene Glycol 3350 (Miralax) 17 Gm Powd.pack, 17 GM PO DAILY, (Reported) Salmeterol/Fluticasone (Advair 100-50 Diskus) 1 Each Blst.w.dev, 1 PUFF INH BID, (Reported) Sennosides/Docusate Sodium (Senna-S Tablet) 1 Each Tablet, 1 TAB PO BID, (Reported) Scheduled PRN Albuterol Sulf (Albuterol Sulfate) 2.5 Mg/3 Ml Vial.neb, 2.5 MG INH Q4H PRN for SHORTNESS OF BREATH, (Reported) Albuterol Sulfate (Proair Hfa) 8.5 Gm Hfa.aer.ad, 2 PUFF INH QID PRN for SHORTNESS OF BREATH, (Reported) Furosemide (Furosemide) 20 Mg Tablet, 20 MG PO Q2D PRN for EDEMA, (Reported) Guaifenesin (Mucinex) 600 Mg Tab.er.12h, 600 MG PO BID PRN for CONGESTION, (Reported) Nitroglycerin (Nitroglycerin) 0.4 Mg Tab.subl, 0.4 MG SL NITRO PRN for CHEST PAIN, (Reported) Allergies Coded Allergies: Cat Dander (Verified Allergy, Severe, shortness of breath, 12/15/20) Birds (Verified Allergy, Unknown, 03/06/20) lansoprazole (Verified Allergy, Unknown, 03/06/20) cortisone (Verified Adverse Reaction, Mild, steroids - SORE TONGUE, GENE RAL ILL FEELING, 12/15/20) Past Medical History Medical History Right MCA aneurysm, Concussion, TIA, Syncope, old NC, CHF, CAD with stent, Atrial fibrillation, Hypercholesterolemia, chest pain , palpitations, Essential Hypertension, orthostatic hypotension, nicotine dependence down to a pack a day from 2 packs a day, Thrombophlebitis, COPD on supplemental Oxygen 2 L per N/C, Hx of PE, Bronchitis, Pneumonia, chronic constipation, RA, DDD,-Lumbar, CKD 3, Osteoporosis, Hypothyroidism, Fatty liver, Anxiety, Claustrophobia, Depression, Urinary stress incontinence, Diverticulitis, colitis, hemorrhoids Surgical History Colonoscopy, Partial hysterectomy, Right rotator cuff repair, Left carpal tunnel, Cardiac stent 06/2013; Loop recorder, Coronary stent x 1, Full set of dentures, Gallbladder 2007. Family History Significant Family History: Cancer, COPD, Diabetes Social History * Smoker: current smoker, greater than 1 pack/day, cigarettes Drugs: prescription drugs Psychosocial History: Anxiety, Decreased mood A-FIB/CHADSVASC A-FIB History Current/History of A-Fib/PAF?: Yes Current PO Anticoag Therapy: No Age/Risk Factor Scoring CHADSVASC: CHADSVASC Response (Comments) Value Age Risk Factor Age >/= 75 years old 2 Gender Risk Factor Female 1 Hx of CHF Yes 1 Hx of HTN Yes 1 Hx of Stroke/TIA/or VTE Yes 2 Hx of Diabetes No 0 Hx of Vascular Disease Yes 1 Total 8 Treatment Treatment ordered: Other Other anticoagulant ordered: Heparin Review of Systems Constitutional: Reports: Malaise, Weakness, Fatigue, Weight Loss, Lethargy Eyes: Denies: Pain, Vision change, Conjunctivae inflammation, Eyelid inflammation, Redness, Other ENT: Reports: Head Aches Skin: Reports: Dry Pulmonary: Reports: Dyspnea, Cough Cardiovascular: Reports: Palpitations, Lt Headedness Gastrointestinal: Reports: Nausea, Abdominal Pain Genitourinary: Denies: Dysuria, Frequency, Incontinence, Hematuria, Retention, Other Symptoms Endocrine: Denies: Polydipsia, Polyphagia, Polyuria, Heat Intolerance, Cold Intolerance, Other Endocrine Sx Musculoskeletal: Reports: Joint Pain Neurological: Reports: Weakness Psych: Reports: Depression, Other Psych (labile mood) Physical Examination General Exam: Positive: Alert, Cooperative, No Acute Distress, Other (thin) Eye Exam: Positive: PERRLA, Conjunctiva & lids normal ENT Exam: Positive: Atraumatic, Pharynx Normal, Tongue Midline, Nares Patent Neck Exam: Positive: Supple Chest Exam: Positive: Diminished Heart Exam: Positive: Normal S1, Normal S2 Abdomen Exam: Positive: Normal bowel sounds, Soft Neuro Exam: Positive: Cranial Nerves 3-12 NL Psych Exam: Positive: Mood NL, Oriented x 3 Vital Signs Vital Signs Date Time Temp Pulse Resp B/P (MAP) Pulse Ox O2 Delivery O2 Flow Rate FiO2 02/01/21 00:22 90 16 95 Room Air 01/31/21 23:45 156/86 (109) 01/31/21 21:23 97.5 Laboratory Data Labs 24H Laboratory Tests 2 01/31/21 22:02: Anion Gap 7L, Glomerular Filtration Rate 30.2L, Calcium Level 8.6L, Total B ilirubin 0.5, Direct Bilirubin 0.1, Aspartate Amino Transf (AST/SGOT) 17, Alanine Aminotransferase (ALT/SGPT) 21, Alkaline Phosphatase 56, Total Creatine Kinase 66, Creatine Kinase MB 1.1, Creatine Kinase MB Relative Index 1.67, Troponin I < 0.02, Total Protein 6.2L, Albumin 2.9L, Albumin/Globulin Ratio 0.9L, Thyroid Stimulating Hormone (TSH) 2.730 01/31/21 22:03: Immature Granulocyte % (Auto) 0.4, Neutrophils (%) (Auto) 72.4H, Lymphocytes (%) (Auto) 14.3L, Monocytes (%) (Auto) 11.2H, Eosinophils (%) (Auto) 1.3, Basophils (%) (Auto) 0.4, Neutrophils # (Auto) 5.6, Lymphocytes # (Auto) 1.1L, Monocytes # (Auto) 0.9H, Eosinophils # (Auto) 0.1, Basophils # (Auto) 0.0, Nucleated Red Blood Cells % (auto) 0.0 01/31/21 22:14: Blood Gas Bicarbonate Standard 24.2, Venous Blood pH 7.335, Venous Blood Partial Pressure CO2 52.1H, Venous Blood Partial Pressure O2 30.2, Venous Blood Total Carbon Dioxide 28.8H, Venous Blood HCO3 27.2H, Venous Blood Oxygen Saturation 55.2L, Venous Blood Base Excess 0.6 01/31/21 22:15: Coronavirus (COVID-19)(PCR) NEGATIVE, Influenza Type A (RT-PCR) NEGATIVE, Influenza Type B (RT-PCR) NEGATIVE, Respiratory Syncytial Virus (PCR) NEGATIVE 02/01/21 00:08: Urine Color YELLOW, Urine Appearance HAZY, Urine pH 5.0, Urine Specific Stopover 1.015, Urine Protein NEGATIVE, Urine Glucose (UA) NEGATIVE, Urine Ketones NEGATIVE, Urine Blood 1+H, Urine Nitrite NEGATIVE, Urine Bilirubin NEGATIVE, Urine Urobilinogen 0.2, Urine Leukocyte Esterase TRACEH, Urine WBC (Auto) 1, Urine RBC (Auto) 1, Urine Hyaline Casts (Auto) 4, Urine Bacteria (Auto) 1+H, Urine Squamous Epithelial Cells 3, Urine Sperm (Auto) CBC/BMP Laboratory Tests 01/31/21 22:02 01/31/21 22:03 Microbiology Microbiology 02/01/21 Urine Culture, Received Pending Problems (1) Weakness generalized Status: Acute Response to Treatment: Worse Problem Specific Plan: Monitor Clinically, Repeat Labs Problem Text: Ms. Gil is a 75 year-old elderly female admitted for worsening HAKEEM secondary and generalized weakness with s/p fall in home. Exacerbated Generalized Weakness Plan Admit Observation Unit on telemetry with continuous pulse oximetry Chest x-ray in AM Re-check AM labs and replenish electrolytes as needed Monitor vital signs Continue home medications: Advair, Duoneb q 6hrs prn sob, wheezing; chest physiotherapy Check ABG as needed Goal O2 saturation 89-93% IVF NS 100 ml/hr x 1L. AM provider will determine if patient needs additional IV fluid resuscitation Fall precautions Check CMP (HOLD diuretic) S/P Fall at home with Physical deconditioning-Acute on Chronic PT to evaluate gait and home safety Bedrest with activity as tolerated with nurse to assist to increased weakness SW: patient would benefit from LTAC placement or Rehab Right MCA-Acute on Chronic 2mm x 2mm right MCA last seen in 2015 MRI. Per hospital admission note from December 16, 2020.Dr. Justin recommended that I order repeat MRI. On repeat imaging the size is now 3mm x 3mm. Neurology, Dr. Hernández. Patient does not need to be transferred,but will need outpatient referral to neurosurgery Hypertensive heart with CHF-chronic Monitor blood pressure Cardiac diet with low salt Daily weight Continue medications: Furosemide 20 mg daily (HOLD) Atrial Fibrillation-chronic Continue taking: Metoprolol succinate 12.5 mg po S/P OLD NC, CVA and CAD with stent and Coronary stent,-Chronic continue home medications: Atorvastatin Continue taking Plavix 75, ASA 81 mg po daily Chest pain-Chronic Continue Nitro SL prn, on telemetry Hypothyroidism-chronic Continue taking Levothyroxine 25 mcg daily Seasonal allergies-Chronic Continue Singular daily, cetirizine PPI: not warranted DVT Prophylaxis: SCDS BLE, heparin 5000 IU TID SQ Discharge: Pending on clinical course (2) Acute renal failure Status: Acute Response to Treatment: Worse Problem Specific Plan: Monitor Clinically, Repeat Labs (3) Aneurysm of middle cerebral artery Status: Acute Response to Treatment: Progressing (4) Fall in home Status: Acute Response to Treatment: Worse Discussed With: Patient Problem Specific Plan: Monitor Clinically (5) Physical deconditioning Status: Chronic (6) CAD (coronary artery disease) Status: Chronic Problem Specific Plan: Monitor Clinically (7) Severe pulmonary arterial systolic hypertension Status: Chronic Problem Specific Plan: Monitor Clinically (8) HTN (hypertension) Status: Chronic Problem Specific Plan: Monitor Clinically, Repeat Labs (9) Afib Status: Chronic Problem Specific Plan: Monitor Clinically (10) Congestive heart failure with left ventricular diastolic dysfunction Status: Chronic Problem Specific Plan: Monitor Clinically (11) Nicotine dependence Status: Chronic Problem Specific Plan: Monitor Clinically (12) COPD (chronic obstructive pulmonary disease) Status: Chronic (13) Nicotine abuse Status: Chronic Plan / VTE VTE Prophylaxis Ordered?: Yes Plan Activity: Bedrest Therapy: PT, OT, Home Safety Eval Pt and Family Services: Other PFS (LTAC or subacute) Respiratory: Increase Oxygen Diagnostics: Check Labs, Repeat Labs in AM Anticipated Discharge: Sub Acute Rehab, [facility] GATITO ZHAO Feb 01, 2021 00:57
--- NOTE | 2021-02-01 05:41 | ECGEPIP ---
[facility] - ED Test Date: 2021-01-31 Pat Name: KEVIN MARIN Department: Room: - Gender: Female [employer]er [employer]: HC : 1945 Requested By: EASTON Ross Order Number: [id number] Reading MD: Easton Tineo Measurements Intervals [place] Rate: 81 P: 86 NM: 156 QRS: -55 QRSD: 78 T: 34 QT: 390 QTc: 453 Interpretive Statements Normal sinus rhythm Left anterior fascicular block Nonspecific ST-T wave abnormalities Delayed anterior R wave progression Similar to tracing done 01-29-21 but with extensive artifact Electronically Signed on 02-01-2021 5:41:04 EDT by Easton Tineo
[2021-02-01] MEDS ORDERED: IPRATROPIUM 0.5MG/ALBUTEROL 2.5MG INH SOL UD 3ML (DUONEB) NEB PRN (05:50)
[2021-02-01] MEDS: HEPARIN SOD (PORCINE) 5000UNITS/ML 1ML VIAL/SYRINGE SC SCH ×4 (06:00→21:31)
[2021-02-01] MEDS: guaiFENesin ER 600 MG TAB PO SCH ×2 (06:14→21:30)
[2021-02-01 11:24] VITALS: BP 113/65
[2021-02-01] MEDS: DOCUSATE SODIUM 100MG CAPSULE PO SCH ×2 (11:32→21:30)
[2021-02-01] MEDS ORDERED: methylPREDNISolone 125MG 2ML VIAL IV ONE (12:10)
[2021-02-01] MEDS ORDERED: LEVALBUTEROL 1.25 MG/0.5 ML CONCENTRATE NEB INH PRN (12:10)
[2021-02-01 12:35] LABS: BASO % 0.3 % (0.0-1.0); EOS # 0.1 10^3/uL (0.0-0.5); HEMATOCRIT 33.7 % (36.0-47.0); HEMOGLOBIN 10.7 g/dl (12.0-15.5); LYMPH # 0.7 10^3/uL (1.5-5.0); LYMPH % 9.8 % (24.0-44.0); MEAN CORPUSCULAR HEMOGLOBIN 30.7 pg (27.0-33.0); MEAN CORPUSCULAR HGB CONC 31.8 g/dl (32.0-36.5); MEAN CORPUSCULAR VOLUME 96.6 fl (80.0-96.0); MONO # 0.7 10^3/uL (0.0-0.8); MONO % 9.3 % (2.0-8.0); NEUTROPHILS # 5.8 10^3/uL (1.5-8.5); NEUTROPHILS % 79.2 % (36.0-66.0); PLATELET COUNT, AUTOMATED 232 10^3/uL (150-450); RED BLOOD COUNT 3.49 10^6/uL (4.00-5.40); WHITE BLOOD COUNT 7.3 10^3/uL (4.0-10.0)
[2021-02-01 12:55] LABS: ABG BASE EXCESS 1.7 (-2.0-2.0); ABG HCO3 26.5 MEQ/L (22.0-26.0); ABG O2 SATURATION 98.9 % (95.0-99.0); ABG PARTIAL PRESSURE CO2 42.3 mmHg (35.0-45.0); ABG PARTIAL PRESSURE O2 223.3 mmHg (75.0-100.0); ABG STANDARD HCO3 26.1 MEQ/L (22.0-26.0); ABG TOTAL CO2 27.8 MEQ/L (23.0-31.0); ABG pH (ARTERIAL) 7.415 UNITS (7.350-7.450)
[2021-02-01 13:08] LABS: ALBUMIN 2.8 GM/DL (3.2-5.2); ALT/SGPT 18 U/L (12-78); BILIRUBIN,TOTAL 0.8 MG/DL (0.2-1.0); BLOOD UREA NITROGEN 31 MG/DL (7-18); CALCIUM LEVEL 8.5 MG/DL (8.8-10.2); CARBON DIOXIDE LEVEL 29 MEQ/L (21-32); CHLORIDE LEVEL 106 MEQ/L (98-107); CK-MB VALUE MASS 1.6 NG/ML (<3.6); CPK CREATINE PHOSPHOKINASE 101 U/L (26-192); CREATININE FOR GFR 1.26 MG/DL (0.55-1.30); GLOMERULAR FILTRATION RATE 43.8 (>39); GLUCOSE, FASTING 98 MG/DL (70-100); MB/CK RELATIVE INDEX 1.58 (< OR =4); NT-PRO BNP 297 PG/ML (<450); POTASSIUM SERUM 4.2 MEQ/L (3.5-5.1); SODIUM LEVEL 140 MEQ/L (136-145); TROPONIN I < 0.02 NG/ML (< 0.10)
[2021-02-01 14:00] VITALS: BP 115/81
[2021-02-01] MEDS: LEVALBUTEROL 1.25 MG/0.5 ML CONCENTRATE NEB INH SCH ×2 (15:12→20:06)
[2021-02-01] MEDS: methylPREDNISolone 125MG 2ML VIAL IV SCH ×2 (17:45→23:19)
[2021-02-01 21:00] VITALS: O2SAT 97
[2021-02-01] MEDS: ACETAMINOPHEN TAB 650MG DOSE (2X325MG) PO PRN (21:31)
[2021-02-01 22:00] VITALS: BP 125/60
[2021-02-02] MEDS: LEVALBUTEROL 1.25 MG/0.5 ML CONCENTRATE NEB INH SCH ×7 (00:06→23:15)
[2021-02-02 05:57] LABS: ABG HCO3 18.4 MEQ/L (22.0-26.0); ABG O2 SATURATION 96.3 % (95.0-99.0); ABG PARTIAL PRESSURE CO2 32.6 mmHg (35.0-45.0); ABG PARTIAL PRESSURE O2 87.3 mmHg (75.0-100.0); ABG STANDARD HCO3 19.5 MEQ/L (22.0-26.0); ABG TOTAL CO2 19.4 MEQ/L (23.0-31.0)
[2021-02-02 06:00] VITALS: BP 133/61
[2021-02-02] MEDS: HEPARIN SOD (PORCINE) 5000UNITS/ML 1ML VIAL/SYRINGE SC SCH ×3 (06:00→21:15)
[2021-02-02] MEDS: methylPREDNISolone 125MG 2ML VIAL IV SCH ×3 (06:01→17:00)
--- NOTE | 2021-02-02 08:49 | REP ---
INDICATION: sob r/o pe. COMPARISON: 10/29/2008 TECHNIQUE: After the intravenous administration of 5.5 mCi of technetium 99 M MAA a perfusion lung study was performed. After the and elation of 1 mCi of technetium 99 M DTPA aerosol a ventilation lung study was performed. FINDINGS: Once again, there is clumping of the radiotracer in the tracheobronchial system. Once again, there are multiple areas of matching ventilation perfusion defects no definitive ventilation/perfusion mismatch defects can be identified on this limited exam. IMPRESSION: Indeterminate for pulmonary embolism. CT angiography of the chest with attention to the pulmonary arteries is recommended. <Electronically signed by Toño Estrada > 02/02/21 [id number]
[2021-02-02] MEDS: guaiFENesin ER 600 MG TAB PO SCH (08:54)
[2021-02-02] MEDS: DOCUSATE SODIUM 100MG CAPSULE PO SCH ×2 (08:55→21:15)
[2021-02-02] MEDS ORDERED: METOPROLOL SUCC *XL* 12.5MG PER 1/2 TAB (TopROL *XL*) PO SCH (09:00)
[2021-02-02] MEDS ORDERED: ISOVUE-370 76% 100ML VIAL As Ordered ONE (10:01)
--- NOTE | 2021-02-02 10:36 | REP ---
INDICATION: sob r/o ope COMPARISON: Multiple the latest 11/03/2020 TECHNIQUE: CT angiography of the chest attention pulmonary arteries after the intravenous administration of 75 cc Isovue 370 FINDINGS: There is excellent visualization of the pulmonary arterial vasculature. No focal filling defects have developed that would be considered consistent with acute pulmonary emboli. There is no change in the appearance of the thoracic aorta. There is no mediastinal or hilar adenopathy. There are no pleural or pericardial effusions. There is no change in the imaged upper abdomen or imaged osseous structures. Evaluation of the lung villagomez shows no evidence of significant change from the prior exam. The lung villagomez are hyperexpanded. There is cylindrical bronchiectasis which is unchanged. IMPRESSION: There is no evidence of a pulmonary embolism. There is no evidence of acute disease or significant change compared to the prior exam with findings as described above. <Electronically signed by Toño Estrada > 02/02/21 [id number]
[2021-02-02 11:30] VITALS: O2SAT 97
[2021-02-02 14:00] VITALS: BP 118/82
[2021-02-02] MEDS ORDERED: guaiFENesin ER 600 MG TAB PO PRN (14:40)
--- NOTE | 2021-02-02 14:55 | REPVR ---
PROCEDURE INFORMATION: Exam: MRA Head Without Contrast; Arteriography Exam date and time: 02/02/2021 1:28 PM Age: 75 years old Clinical indication: Condition or disease; Aneurysm, cerebral TECHNIQUE: Imaging protocol: Magnetic resonance angiography head without contrast. Exam focused on the arteries. COMPARISON: MRA BRAIN W/O CONTRAST 12/15/2020 9:54 PM FINDINGS: ANTERIOR CIRCULATION: Right internal carotid artery: Intracranial segment is patent with no significant stenosis. No aneurysm. Right middle cerebral artery: There is 2.7 mm laterally projecting right middle cerebral artery trifurcation aneurysm which is stable. No stenosis or occlusion. Right anterior cerebral artery: A1 segment of right anterior cerebral artery is small and A2 segment is therefore predominately supplied from contralateral side via anterior communicating artery. No stenosis or occlusion. Left internal carotid artery: Intracranial segment is patent with no significant stenosis. No aneurysm. Left middle cerebral artery: No occlusion or significant stenosis. No aneurysm. Left anterior cerebral artery: No occlusion or significant stenosis. No aneurysm. POSTERIOR CIRCULATION: Right vertebral artery: No occlusion or significant stenosis. No aneurysm. Left vertebral artery: No occlusion or significant stenosis. No aneurysm. Basilar artery: No occlusion or significant stenosis. No aneurysm. Patent superior cerebellar arteries and anterior inferior cerebellar arteries. Right posterior cerebral artery: No occlusion or significant stenosis. No aneurysm. Left posterior cerebral artery: No occlusion or significant stenosis. No aneurysm. IMPRESSION: Stable small right MCA aneurysm. Electronically signed by: Junie Alanis On 02/02/2021 14:55:24 PM
--- NOTE | 2021-02-02 16:52 | IPN ---
PROGRESS NOTE DATE: 02/02/2021 SUBJECTIVE: The patient still complains of dyspnea at rest. No chest pain, pressure or tightness; slightly improved from yesterday. No cough, fever, chills, nausea, or vomiting. Complains of generalized weakness. Requires assistance with sitting up and standing. Telemetry sinus rhythm. OBJECTIVE: VITAL SIGNS: Temperature 97.8, pulse 86, respiratory rate 18, blood pressure 133/61, 96% on 2 liters nasal cannula. GENERAL: The patient is awake, alert, and oriented to person, place, and time. Answering questions appropriately. No use of respiratory accessory muscles. No tripod positioning. The patient does have conversational dyspnea only able to speak about seven words and has to take her time to breath. HEENT: No JVD, thyromegaly, pallor, icterus, jaundice, or cervical lymphadenopathy. LUNGS: Diminished with bilateral wheezing. Air entry is improved from yesterday. Prolonged expiration. HEART: S1, S2. Sinus rhythm. ABDOMEN: Soft, nontender, and nondistended. EXTREMITIES: No cyanosis, clubbing, or pitting edema. DIAGNOSTIC STUDIES: CBC and metabolic panel have been reviewed. Magnesium is 2.6. Troponin less than 0.02. V/Q scan indeterminate for pulmonary embolus (PE). CT angio recommended. CT angio with no PE. ASSESSMENT AND PLAN: This is a 75-year-old female with history of cerebrovascular accident (CVA), syncope, coronary artery disease (CAD), stent, loop recorder, atrial fibrillation, right middle cerebral artery (MCA) aneurysm, orthostasis, hypertension, chronic kidney disease (CKD) stage III who presents with complaint of malaise and mechanical fall at home and hypoxia with worsening shortness of breath. The patient was found to have acute chronic obstructive pulmonary disease (COPD) exacerbation with significant wheezing. Current issues: 1. COPD exacerbation. 2. Chronic hypoxic respiratory failure on 2 liters of oxygen. 3. Mechanical fall and generalized weakness. 4. Right MCA brain aneurysm. 5. History of CVA. 6. Atrial fibrillation. 7. History of CAD. 8. Allergic rhinitis. 9. Chronic constipation. The patient is resumed back on home dose of aspirin and Plavix. MRI of the brain obtained to further evaluate the patient's aneurysm. Shortness of breath has been evaluated negative for PE being treated for COPD exacerbation with improvement, but still decompensated and will need continued dose of current Solu-Medrol. Acute rehabilitation unit (ARU) has been consulted for recurrent falls. CLAIRE
[2021-02-02] MEDS: ASPIRIN 81MG ENTERIC TABLET PO SCH (16:58)
[2021-02-02] MEDS: MAALOX 30 ML SUSP *UDC PO PRN (16:58)
[2021-02-02] MEDS: MONTELUKAST 10 MG TAB PO SCH (16:58)
[2021-02-02] MEDS: CLOPIDOGREL 75 MG TAB PO SCH (16:58)
[2021-02-02] MEDS: CETIRIZINE (ZyrTEC) 10 MG TAB PO SCH (16:59)
[2021-02-02] MEDS: ATORVASTATIN 20 MG TAB PO SCH (16:59)
[2021-02-02] MEDS: LEVOTHYROXINE 25MCG TABLET (0.025MG) PO SCH (16:59)
[2021-02-02 17:00] VITALS: BP 118/82
[2021-02-02] MEDS: SENOKOT S TAB PO SCH (21:15)
[2021-02-02 22:00] VITALS: BP 121/63
[2021-02-02 23:47] VITALS: O2SAT 97
[2021-02-03] MEDS: methylPREDNISolone 125MG 2ML VIAL IV SCH ×2 (00:43→06:20)
[2021-02-03] MEDS: LEVALBUTEROL 1.25 MG/0.5 ML CONCENTRATE NEB INH SCH ×6 (03:36→23:26)
--- NOTE | 2021-02-03 05:43 | ECGEPIP ---
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
[2021-02-03 06:00] VITALS: BP 125/60
[2021-02-03] MEDS: HEPARIN SOD (PORCINE) 5000UNITS/ML 1ML VIAL/SYRINGE SC SCH ×3 (06:00→21:07)
[2021-02-03] MEDS: LEVOTHYROXINE 25MCG TABLET (0.025MG) PO SCH (06:20)
[2021-02-03] MEDS: ACETAMINOPHEN TAB 650MG DOSE (2X325MG) PO PRN (06:25)
[2021-02-03 08:58] LABS: BASO % 0.1 % (0.0-1.0); HEMATOCRIT 31.2 % (36.0-47.0); LYMPH # 0.2 10^3/uL (1.5-5.0); LYMPH % 1.2 % (24.0-44.0); MEAN CORPUSCULAR HEMOGLOBIN 31.3 pg (27.0-33.0); MEAN CORPUSCULAR HGB CONC 32.1 g/dl (32.0-36.5); MEAN CORPUSCULAR VOLUME 97.5 fl (80.0-96.0); MONO # 0.4 10^3/uL (0.0-0.8); MONO % 1.8 % (2.0-8.0); NEUTROPHILS # 18.8 10^3/uL (1.5-8.5); PLATELET COUNT, AUTOMATED 243 10^3/uL (150-450); WHITE BLOOD COUNT 19.6 10^3/uL (4.0-10.0)
[2021-02-03 09:18] LABS: CALCIUM LEVEL 8.4 MG/DL (8.8-10.2); CREATININE FOR GFR 1.4 MG/DL (0.55-1.30); GLOMERULAR FILTRATION RATE 38.8 (>39); POTASSIUM SERUM 4.7 MEQ/L (3.5-5.1)
[2021-02-03] MEDS: SENOKOT S TAB PO SCH ×2 (09:43→21:07)
[2021-02-03] MEDS: ATORVASTATIN 20 MG TAB PO SCH (09:43)
[2021-02-03] MEDS: ASPIRIN 81MG ENTERIC TABLET PO SCH (09:43)
[2021-02-03] MEDS: CETIRIZINE (ZyrTEC) 10 MG TAB PO SCH (09:44)
[2021-02-03] MEDS: CLOPIDOGREL 75 MG TAB PO SCH (09:44)
[2021-02-03] MEDS: DOCUSATE SODIUM 100MG CAPSULE PO SCH ×2 (09:44→21:07)
[2021-02-03] MEDS: MONTELUKAST 10 MG TAB PO SCH (09:44)
[2021-02-03 12:34] VITALS: O2SAT 94
[2021-02-03 13:06] VITALS: BP_SYST 115; BP_SYST 121; BP_DIAS 57; BP_DIAS 60
[2021-02-03 14:00] VITALS: BP 100/78
--- NOTE | 2021-02-03 16:03 | IPN ---
"PROGRESS NOTE DATE: 02/03/2021 SUBJECTIVE: Patient is still requiring one person assistance. She complains of weakness. Breathing is improved, currently on Solu-Medrol 80 mg intravenous (IV) every 6 hours. Occasional lightheadedness without any dizziness. No syncopal episode.| PHYSICAL EXAMINATION: VITAL SIGNS: Temperature 97.3, pulse 81, respiratory rate 18, blood pressure 125/60, 98% on 2 liters nasal cannula. GENERAL: Patient is awake, alert and oriented to person, place and time, answering questions appropriately. No use of respiratory accessory muscles or conversational dyspnea. ABDOMEN: Soft, nontender, nondistended. Positive bowel sounds all four quadrants. No rebound or guarding. EXTREMITIES: No cyanosis, clubbing or pitting edema. LABORATORY DATA: Laboratory data, imaging studies and microbiology have been reviewed. ASSESSMENT: This is a 75-year-old female with a history of a right middle cerebral artery (MCA) aneurysm who follows with Dr. Justin and Dr. Gilmore as outpatient, referred to neurosurgical services in [place], hard of hearing, allergic rhinitis, cerebrovascular accident (CVA), syncope, head trauma, old myocardial infarction, coronary artery disease (CAD) with stent, loop recorder, hypertension, hyperlipidemia, atrial fibrillation, chronic obstructive pulmonary disease (COPD), orthostatic hypotension, bronchitis, 2 liters of home oxygen with thrombophlebitis and colitis, history of pulmonary embolism (PE) and hypothyroidism, depression with anxiety, rheumatoid arthritis (RA) and degenerative joint disease, admitted due to generalized weakness, mechanical fall at home, was found to have acute COPD exacerbation. CURRENT ISSUES: 1. Acute chronic obstructive pulmonary disease (COPD) exacerbation, currently on IV Solu-Medrol with steroid-induced leukocytosis. The patient's Solu-Medrol will be decreased to IV every 12 hours and transitioned to oral prednisone once she is back to her baseline. 2. Recurrent falls. Physical deconditioning. Physical therapy (PT) and occupational therapy (OT) have been consulted. Possible long-term rehabilitation placement. 3. History of right middle cerebral artery (MCA) aneurysm. Repeat MRI is unchanged. Outpatient followup with neurology. 4. Hypertensive heart disease with congestive heart failure, diastolic dysfunction, chronic. She appears to be euvolemic and continued on her home medications. 5. History of atrial fibrillation in the past, stable. Controlled currently. 6. Abnormal electrocardiogram (EKG) with left anterior fascicular block. 7. History of coronary artery disease (CAD). Resumed on all her home medications. DISPOSITION: Patient will need placement after medically stable. [facility]"
[2021-02-03] MEDS: methylPREDNISolone 40MG 1ML VIAL IV SCH (18:03)
[2021-02-03 22:00] VITALS: BP 138/68
[2021-02-03 22:57] VITALS: O2SAT 94
[2021-02-04] MEDS: LEVALBUTEROL 1.25 MG/0.5 ML CONCENTRATE NEB INH SCH ×6 (03:05→23:19)
[2021-02-04 06:00] VITALS: BP 135/80
[2021-02-04] MEDS: HEPARIN SOD (PORCINE) 5000UNITS/ML 1ML VIAL/SYRINGE SC SCH ×3 (06:06→21:17)
[2021-02-04] MEDS: methylPREDNISolone 40MG 1ML VIAL IV SCH (06:06)
[2021-02-04] MEDS: LEVOTHYROXINE 25MCG TABLET (0.025MG) PO SCH (06:06)
[2021-02-04] MEDS: DOCUSATE SODIUM 100MG CAPSULE PO SCH ×2 (08:28→20:26)
[2021-02-04] MEDS: SENOKOT S TAB PO SCH ×2 (08:28→20:26)
[2021-02-04] MEDS: MONTELUKAST 10 MG TAB PO SCH (08:28)
[2021-02-04] MEDS: CETIRIZINE (ZyrTEC) 10 MG TAB PO SCH (08:28)
[2021-02-04] MEDS: ASPIRIN 81MG ENTERIC TABLET PO SCH (08:28)
[2021-02-04] MEDS: ATORVASTATIN 20 MG TAB PO SCH (08:28)
[2021-02-04] MEDS: CLOPIDOGREL 75 MG TAB PO SCH (08:28)
[2021-02-04 09:13] LABS: BASO % 0.1 % (0.0-1.0); HEMATOCRIT 32.6 % (36.0-47.0); HEMOGLOBIN 10.4 g/dl (12.0-15.5); LYMPH # 0.7 10^3/uL (1.5-5.0); LYMPH % 5.7 % (24.0-44.0); MEAN CORPUSCULAR HEMOGLOBIN 31.4 pg (27.0-33.0); MEAN CORPUSCULAR HGB CONC 31.9 g/dl (32.0-36.5); MEAN CORPUSCULAR VOLUME 98.5 fl (80.0-96.0); MONO # 0.5 10^3/uL (0.0-0.8); NEUTROPHILS # 10.8 10^3/uL (1.5-8.5); NEUTROPHILS % 89.7 % (36.0-66.0); PLATELET COUNT, AUTOMATED 239 10^3/uL (150-450); RED BLOOD COUNT 3.31 10^6/uL (4.00-5.40)
[2021-02-04 09:36] LABS: ERYTHROCYTE SEDIMENTATION RATE 37 mm/hr (0-30)
[2021-02-04 09:44] LABS: CALCIUM LEVEL 8.4 MG/DL (8.8-10.2); CREATININE FOR GFR 1.38 MG/DL (0.55-1.30); GLOMERULAR FILTRATION RATE 39.5 (>39)
[2021-02-04 11:22] LABS: HEMOGLOBIN A1c 5.8 %
[2021-02-04 14:00] VITALS: BP 130/89
--- NOTE | 2021-02-04 14:30 | IPNPDOC ---
Date Seen The patient was seen on 02/04/21. Progress Note SUBJECTIVE: feels better with her breathing ,but still w occasional cough. no fever or chills. c/o weakness still needing assistance w ambulation. OBJECTIVE: PE: VITALS SEE BELOW: GENERAL: Patient is awake, alert and oriented to person, place and time, answering questions appropriately. No use of respiratory accessory muscles or conversational dyspnea. laying at 30 degrees on left side. no distress. LUNGS; diminished no rales. decreased faint wheezes, improved air entry. HEART: s1S2 irregularly irregular not tachycardic ABDOMEN: Soft, nontender, nondistended. Positive bowel sounds all four quadrants. No rebound or guarding. EXTREMITIES: No cyanosis, clubbing or pitting edema. LABORATORY DATA: Laboratory data, imaging studies and microbiology have been reviewed. ASSESSMENT: This is a 75-year-old female with a history of a right middle cerebral artery (MCA) aneurysm who follows with Dr. Justin and Dr. Gilmore as outpatient, referred to neurosurgical services [place], hard of hearing, allergic rhinitis, cerebrovascular accident (CVA), syncope, head trauma, old myocardial infarction, coronary artery disease (CAD) with stent, loop recorder, hypertension, hyperlipidemia, atrial fibrillation, chronic obstructive pulmonary disease (COPD), orthostatic hypotension, bronchitis, 2 liters of home oxygen with thrombophlebitis and colitis, history of pulmonary embolism (PE) and hypothyroidism, depression with anxiety, rheumatoid arthritis (RA) and degenerative joint disease, admitted due to generalized weakness, mechanical fall at home, was found to have acute COPD exacerbation. CURRENT ISSUES: 1. Acute chronic obstructive pulmonary disease (COPD) exacerbation, improved significantly. taper to po prednisone. continue nebs supplemental o2 88-92% saturation. 2. Recurrent falls. Physical deconditioning. Physical therapy (PT) and occupational therapy (OT) have been consulted. Possible long-term rehabilitation placement. 3. History of right middle cerebral artery (MCA) aneurysm. Repeat MRI is unchanged. Outpatient followup with neurology. 4. Hypertensive heart disease with congestive heart failure, diastolic dysfunction, chronic. She appears to be euvolemic and continued on her home medications. 5. History of atrial fibrillation in the past, stable. Controlled currently. 6. Abnormal electrocardiogram (EKG) with left anterior fascicular block. 7. History of coronary artery disease (CAD). Resumed on all her home medications. DISPOSITION: Patient will need placement after medically stable. VS, I&O, 24H, Fishbone Vital Signs/I&O Vital Signs Date Time Temp Pulse Resp B/P (MAP) Pulse Ox O2 Delivery O2 Flow Rate FiO2 02/04/21 09:11 2.0 02/04/21 06:00 97.2 66 20 135/80 (98) 98 Nasal Cannula I&O- Last 24 Hours up to 6 AM 02/04/21 06:00 Intake Total 1182 ml Output Total 450 ml Balance 732 ml Laboratory Data 24H LABS Laboratory Tests 2 02/04/21 08:57: Immature Granulocyte % (Auto) 0.5, Neutrophils (%) (Auto) 89.7H, Lymphocytes (%) (Auto) 5.7L, Monocytes (%) (Auto) 4.0, Eosinophils (%) (Auto) 0.0, Basophils (%) (Auto) 0.1, Neutrophils # (Auto) 10.8H, Lymphocytes # (Auto) 0.7L, Monocytes # (Auto) 0.5, Eosinophils # (Auto) 0.0, Basophils # (Auto) 0.0, Nucleated Red Blood Cells % (auto) 0.0, Erythrocyte Sedimentation Rate 37H, Anion Gap 5L, Glomerular Filtration Rate 39.5, Estimated Mean Plasma Glucose 120H, Hemoglobin A1c 5.8, Calcium Level 8.4L, C-Reactive Protein, Quantitative 0.54H, Procalcitonin 0.05 CBC/BMP Laboratory Tests 02/04/21 08:57 Microbiology Microbiology 02/01/21 Urine Culture - Final, Complete JOHN SAMPSON MD Feb 04, 2021 14:30
[2021-02-04] MEDS: predniSONE 20 MG TAB PO SCH ×2 (16:44→20:26)
[2021-02-04 22:00] VITALS: BP 134/86
[2021-02-05 02:25] VITALS: O2SAT 98
[2021-02-05] MEDS: LEVALBUTEROL 1.25 MG/0.5 ML CONCENTRATE NEB INH SCH ×6 (03:29→23:07)
[2021-02-05] MEDS: LEVOTHYROXINE 25MCG TABLET (0.025MG) PO SCH (05:38)
[2021-02-05] MEDS: HEPARIN SOD (PORCINE) 5000UNITS/ML 1ML VIAL/SYRINGE SC SCH ×3 (05:38→19:54)
[2021-02-05 06:00] VITALS: BP 141/69
[2021-02-05] MEDS ORDERED: MOM 30ML SUSPENSION UDC PO PRN (08:45)
[2021-02-05] MEDS: MIRALAX *UNIT DOSE* 17GM PACKET PO SCH ×2 (08:55→20:02)
[2021-02-05] MEDS: ATORVASTATIN 20 MG TAB PO SCH (08:56)
[2021-02-05] MEDS: SENOKOT S TAB PO SCH ×2 (08:56→20:02)
[2021-02-05] MEDS: ASPIRIN 81MG ENTERIC TABLET PO SCH (08:56)
[2021-02-05] MEDS: CETIRIZINE (ZyrTEC) 10 MG TAB PO SCH (08:57)
[2021-02-05] MEDS: CLOPIDOGREL 75 MG TAB PO SCH (08:57)
[2021-02-05] MEDS: MONTELUKAST 10 MG TAB PO SCH (08:57)
[2021-02-05] MEDS: predniSONE 20 MG TAB PO SCH ×3 (08:58→20:02)
--- NOTE | 2021-02-05 12:38 | IPN ---
PROGRESS NOTE DATE: 02/05/2021 SUBJECTIVE: The patient is requiring two person assistance with standing up and ambulation. She complains of generalized weakness. Denies any cough, fever, or chills. Shortness of breath is improved. [place] worse when she walks from bed to the bathroom. OBJECTIVE: VITAL SIGNS: Temperature 98, pulse 76, respiratory rate 20, blood pressure 141/69, 100% on 2 liters nasal cannula. GENERAL: The patient appears frail, awake, alert, and oriented. Answering questions appropriately. No respiratory distress and able to speak in full sentences. LUNGS: Diminished. Improved air entry. HEART: S1, S2. Irregular. ABDOMEN: Soft, nontender, and nondistended with positive bowel sounds x4 quadrants. No rebound or guarding. EXTREMITIES: No edema. DIAGNOSTIC STUDIES: Laboratory data, imaging studies, and microbiology please see the chart. This has been reviewed. ASSESSMENT: A 75-year-old female with history of right middle cerebral artery (MCA) aneurysm follows with Dr. Justin and Dr. Gilmore as an outpatient. Referred to neurosurgical services in [place]. Cerebrovascular accident (CVA) , syncope, head trauma, coronary artery disease (CAD) stent, myocardial infarction (NH), loop recorder, hypertension, hyperlipidemia, atrial fibrillation (AFib), chronic obstructive pulmonary disease (COPD), orthostatic hypotension on 2 liters home oxygen with thrombophlebitis and colitis, pulmonary embolus (PE), hypothyroidism, depression, anxiety, rheumatoid arthritis, and degenerative joint disease (DJD) admitted due to weakness and mechanical fall found to have acute COPD exacerbation. IMPRESSION: 1. Acute COPD exacerbation, improving well on prednisone. She is hydrating well as well. Titrating oxygen to 88% to 92%. 2. Recurrent falls with fall at home. PT, OT, and acute rehabilitation unit (ARU). Possible retirement rehab placement subacute. ARU consulted. Activity as tolerated. Assisted ambulation. The patient is at increased risk of falls. 3. History of right MCA aneurysm. MRI is unchanged on repeat imaging this admission. Outpatient follow-up with neurosurgical services in [place]. 4. Hypertensive heart disease with congestive heart failure (CHF), diastolic dysfunction, chronically euvolemic. Strict I and O (intake and output), daily weights, and fluid restriction. 5. History of AFib currently controlled. Abnormal EKG with left anterior fascicular block, history of CAD, NH, and stent. The patient has been resumed on all her home medications. Currently on aspirin, Plavix, and Lipitor. CLAIRE
[2021-02-05 14:00] VITALS: BP 129/80
[2021-02-05] MEDS: ACETAMINOPHEN TAB 650MG DOSE (2X325MG) PO PRN (20:07)
[2021-02-05 22:00] VITALS: BP 158/70
[2021-02-06] MEDS: LEVALBUTEROL 1.25 MG/0.5 ML CONCENTRATE NEB INH SCH ×5 (03:37→20:14)
[2021-02-06] MEDS: HEPARIN SOD (PORCINE) 5000UNITS/ML 1ML VIAL/SYRINGE SC SCH ×3 (05:19→21:05)
[2021-02-06] MEDS: LEVOTHYROXINE 25MCG TABLET (0.025MG) PO SCH (05:24)
[2021-02-06 06:00] VITALS: BP 141/77
[2021-02-06] MEDS: MIRALAX *UNIT DOSE* 17GM PACKET PO SCH ×2 (08:01→21:26)
[2021-02-06] MEDS: predniSONE 20 MG TAB PO SCH ×3 (08:02→21:27)
[2021-02-06] MEDS: ASPIRIN 81MG ENTERIC TABLET PO SCH (08:02)
[2021-02-06] MEDS: ATORVASTATIN 20 MG TAB PO SCH (08:03)
[2021-02-06] MEDS: CETIRIZINE (ZyrTEC) 10 MG TAB PO SCH (08:03)
[2021-02-06] MEDS: CLOPIDOGREL 75 MG TAB PO SCH (08:03)
[2021-02-06] MEDS: MONTELUKAST 10 MG TAB PO SCH (08:03)
[2021-02-06] MEDS: SENOKOT S TAB PO SCH ×2 (08:04→21:27)
--- NOTE | 2021-02-06 12:54 | IPN ---
PROGRESS NOTE DATE: 02/06/2021 SUBJECTIVE: The patient denies any shortness of breath, chest pain, pressure or tightness, lightheadedness or dizziness. She denies nausea, vomiting, diarrhea, abdominal pain, complains of generalized weakness, requiring 1-2 person assistance with standing up and ambulating. OBJECTIVE: PHYSICAL EXAMINATION: VITAL SIGNS: Temperature 98.2, pulse 77, respiratory rate 20, blood pressure 141/77, oxygen saturation 98% on 2 liters nasal cannula. GENERAL APPEARANCE: The patient is awake, alert, oriented to herself, place and time, answering questions appropriately. No respiratory distress, use of respiratory accessory muscles. NECK: No JVD or thyromegaly or cervical lymphadenopathy. LUNGS: Diminished but clear to auscultation. No wheezing or rales. HEART: S1, S2 irregular. ABDOMEN: Soft, nontender, nondistended. Positive bowel sounds. EXTREMITIES: No clubbing, cyanosis, or pitting edema. LABORATORY STUDIES: Reviewed. IMAGING: Reviewed. MICROBIOLOGY: Reviewed. See the chart. ASSESSMENT AND PLAN: A 75-year-old with history of right middle cerebral artery aneurysm who follows with Dr. Hawkins, Dr. Gilmore, referred to Neurosurgery in [place], CVA, head trauma, coronary artery disease, stent, M.I., loop recorder, hypertension, hyperlipidemia, chronic atrial fibrillation, chronic obstructive pulmonary disease, orthostatic hypotension, chronic hypoxic respiratory failure, on 2 liters of home oxygen, thrombophlebitis, P.E., hypothyroidism, depression, anxiety, rheumatoid arthritis, admitted due OT mechanical fall, generalized weakness, unable to ambulate independently and perform ADL's, found to have acute COPD exacerbation. IMPRESSION: 1. Acute chronic obstructive pulmonary disease exacerbation resolving. 2. Recurrent falls - mechanical fall at home due to chronic debility. 3. History of P.E. 4. Chronic hypoxic respiratory failure on 2 liters of oxygen. 5. History of right MCA aneurysm. 6. Hypertensive heart disease. 7. Chronic atrial fibrillation. 8. History of coronary artery disease, M.I. and stents. PLAN: 1. The patient is resumed on all her home medications she is doing well on tapered dose of Prednisone. 2. She is currently medically stable for discharge to rehab - The patient requires one to two person assistance at this time. 3. ARU has been consulted. 4. She is resumed on all her home medications including Aspirin, Lipitor, Synthroid, bronchodilators, Acetaminophen as needed and bowel regimen. MTDD
[2021-02-06 14:00] VITALS: BP 128/62
[2021-02-06] MEDS: NS 1,000 ML IV SCH (15:43)
[2021-02-06 19:42] LABS: CALCIUM LEVEL 8.5 MG/DL (8.8-10.2); CREATININE FOR GFR 1.57 MG/DL (0.55-1.30); POTASSIUM SERUM 5.2 MEQ/L (3.5-5.1)
[2021-02-06 22:00] VITALS: BP 106/73
[2021-02-06] MEDS ORDERED: BENZONATATE 100 MG CAP PO PRN (22:35)
[2021-02-07] MEDS: LEVALBUTEROL 1.25 MG/0.5 ML CONCENTRATE NEB INH SCH ×6 (00:15→20:59)
[2021-02-07] MEDS: NS 1,000 ML IV SCH ×3 (00:38→21:56)
[2021-02-07] MEDS: HEPARIN SOD (PORCINE) 5000UNITS/ML 1ML VIAL/SYRINGE SC SCH ×3 (05:03→21:56)
[2021-02-07] MEDS: LEVOTHYROXINE 25MCG TABLET (0.025MG) PO SCH (05:29)
[2021-02-07 06:00] VITALS: BP 123/82
[2021-02-07] MEDS ORDERED: CALCIUM GLUCONATE 1,000 MG in D5W MINI-BAG PLUS 100 ML IV ONE (08:00)
[2021-02-07] MEDS: MONTELUKAST 10 MG TAB PO SCH (08:24)
[2021-02-07] MEDS: ASPIRIN 81MG ENTERIC TABLET PO SCH (08:24)
[2021-02-07] MEDS: CETIRIZINE (ZyrTEC) 10 MG TAB PO SCH (08:24)
[2021-02-07] MEDS: ATORVASTATIN 20 MG TAB PO SCH (08:24)
[2021-02-07] MEDS: SENOKOT S TAB PO SCH ×2 (08:24→21:55)
[2021-02-07] MEDS: predniSONE 20 MG TAB PO SCH ×3 (08:24→21:55)
[2021-02-07] MEDS: MIRALAX *UNIT DOSE* 17GM PACKET PO SCH ×2 (08:24→21:56)
[2021-02-07] MEDS: CLOPIDOGREL 75 MG TAB PO SCH (08:24)
[2021-02-07] MEDS ORDERED: ONDANSETRON 4MG/2ML VIAL IV PRN (08:30)
[2021-02-07 08:57] LABS: HEMATOCRIT 33.7 % (36.0-47.0); HEMOGLOBIN 10.6 g/dl (12.0-15.5); MEAN CORPUSCULAR HGB CONC 31.5 g/dl (32.0-36.5); MEAN CORPUSCULAR VOLUME 98.5 fl (80.0-96.0); PLATELET COUNT, AUTOMATED 266 10^3/uL (150-450); RED BLOOD COUNT 3.42 10^6/uL (4.00-5.40); WHITE BLOOD COUNT 10.2 10^3/uL (4.0-10.0)
[2021-02-07] MEDS ORDERED: SOD POLYSTYRENE SULFONATE SUSP 15 GM/60 ML UD PO ONE (09:00)
[2021-02-07 09:28] LABS: CALCIUM LEVEL 8.2 MG/DL (8.8-10.2); CREATININE FOR GFR 1.37 MG/DL (0.55-1.30); GLOMERULAR FILTRATION RATE 39.8 (>39); POTASSIUM SERUM 5.6 MEQ/L (3.5-5.1)
[2021-02-07 12:06] LABS: CALCIUM LEVEL 8.2 MG/DL (8.8-10.2); CREATININE FOR GFR 1.24 MG/DL (0.55-1.30); GLOMERULAR FILTRATION RATE 44.7 (>39); POTASSIUM SERUM 5.1 MEQ/L (3.5-5.1)
[2021-02-07] MEDS: MAALOX 30 ML SUSP *UDC PO PRN (12:51)
[2021-02-07 14:00] VITALS: BP 124/81
--- NOTE | 2021-02-07 15:30 | IPN ---
PROGRESS NOTE DATE: 02/07/2021 SUBJECTIVE: Patient was seen and examined at the bedside. Chart has been reviewed. She complains of bilateral lower quadrant abdominal discomfort, complains of constipation, not had a bowel movement. Shortness of breath is improved. She says that she is not feeling today without nausea, vomiting, fever, chills, cough or shortness of breath. OBJECTIVE: Vital signs: Temperature 98.1, pulse 76, respiratory rate 20, blood pressure 123/82, 100% on 2 liters nasal cannula. General: Awake, alert, oriented to person, place and time, answering questions appropriately. No conversational dyspnea, able to complete her sentences. No tripod positioning or pursed lips expiration. HEENT: Moist mucous membranes. Neck: No JVD, thyromegaly or cervical lymphadenopathy. Lungs: Diminished, faint expiratory wheezing, air entry is significantly improved with good air movement. No rales noted. Heart: S1 and S2 sinus rhythm. Abdomen: Soft, slight tender bilateral lower quadrants. No CVA tenderness. No suprapubic tenderness. No guarding or rebound. No hepatosplenomegaly. No abdominal bruit. Extremities: No pitting edema. LABORATORY DATA: White count 10.2, hemoglobin 10.6, hematocrit 33.7, platelet count 266. Sodium 132, potassium 5.6, chloride 104, bicarbonate 22, BUN 36, creatinine 1.37, glucose 168. CURRENT MEDICATIONS: 1. Normal saline 100 mL per hour. 2. Zofran. 3. Tessalon Perles. 4. MiraLax. 5. Senokot. 6. Milk of Magnesia. 7. Prednisone. 8. Mucinex. 9. Montelukast. 10. Plavix. 11. Cetirizine. 12. Atorvastatin. 13. Aspirin. 14. Synthroid. 15. Xopenex. 16. Heparin subcu. 17. DuoNeb. 18. Mylanta. 19. Acetaminophen. ASSESSMENT: This is a 75-year-old female with a history of right middle cerebral artery aneurysm follows with Dr. Justin and Dr. Gilmore, referred to neurosurgical services in [place], CVA, head trauma, CAD stent, [place], loop recorder, hypertension, chronic afib, hyperlipidemia, COPD, orthostatic hypotension, chronic hypoxic respiratory failure on 2 liters of home oxygen, thrombophlebitis, PE, hypothyroidism, depression, anxiety, rheumatoid arthritis admitted on 02/01/2021 when she presented with a mechanical fall at home, complained of moderate abdominal pain and generalized weakness. Patient was found to be hypoxic with O2 saturation of 84% on 2 liters nasal cannula and was admitted for acute COPD exacerbation, found to have acute kidney injury with creatinine of 1.42. ACTIVE ISSUES/PLAN: As follows: 1. Acute COPD exacerbation: Patient had been on I.V. Solu-Medrol, Xopenex, nebulizer treatments, supplemental oxygen with significant improvement currently stable on prednisone. May start to taper down if continues to do well, maintain saturations 88-92% oxygen. 2. Chronic hypoxic respiratory failure: On supplemental oxygen to keep oxygen level at 88-92%. Had recent acute exacerbation of COPD on tapering dose of prednisone. 3. Acute kidney injury due to decrease in oral intake: Currently with a creatinine of 1.37. She has a history of chronic kidney disease stage 3 now at baseline creatinine, but with hyperkalemia which she is treated for with Kayexalate and repeat metabolic panel this evening. Patient's baseline creatinine is 1.1-1.3 stage 3 renal failure. 4. Hyperkalemia most likely due to renal failure: Patient has been given Kayexalate, calcium gluconate. 5. Steroid induced hyperglycemia: Currently on sliding scale. 6. Chronic orthostatic hypertension: Previously stable, but with the recurrent falls at home in the past few days. 7. Chronic atrial fibrillation and CVA: On aspirin and Plavix. Not on oral anticoagulation. 8. Hypothyroidism: Stable on Synthroid. 9. Hypertension: On chronic metoprolol for atrial fibrillation used for rate control. 10. Allergic rhinitis: On chronic montelukast. 11. Constipation: On a bowel regimen. 12. Dyslipidemia: On chronic atorvastatin. 13. History of CAD with coronary stent: On chronic aspirin, Lipitor and Plavix, metoprolol. 14. Disposition: Await improvement in patient's hyperkalemia. Patient is not appropriate for acute rehab, but may be changed to subacute rehab once potassium is normal. She will need placement because she lives alone and not appropriate for acute rehab per ARU. CLAIRE
[2021-02-07 19:44] LABS: CALCIUM LEVEL 7.9 MG/DL (8.8-10.2); CREATININE FOR GFR 1.25 MG/DL (0.55-1.30); GLOMERULAR FILTRATION RATE 44.2 (>39); POTASSIUM SERUM 4.9 MEQ/L (3.5-5.1)
[2021-02-07 22:00] VITALS: BP 159/79
[2021-02-08] MEDS: LEVALBUTEROL 1.25 MG/0.5 ML CONCENTRATE NEB INH SCH ×7 (04:00→23:31)
[2021-02-08] MEDS: HEPARIN SOD (PORCINE) 5000UNITS/ML 1ML VIAL/SYRINGE SC SCH ×3 (05:34→21:37)
[2021-02-08] MEDS: LEVOTHYROXINE 25MCG TABLET (0.025MG) PO SCH (05:34)
[2021-02-08 06:00] VITALS: BP 163/77
[2021-02-08 06:10] LABS: HEMATOCRIT 33.2 % (36.0-47.0); HEMOGLOBIN 10.5 g/dl (12.0-15.5); MEAN CORPUSCULAR HEMOGLOBIN 30.9 pg (27.0-33.0); MEAN CORPUSCULAR HGB CONC 31.6 g/dl (32.0-36.5); MEAN CORPUSCULAR VOLUME 97.6 fl (80.0-96.0); PLATELET COUNT, AUTOMATED 252 10^3/uL (150-450); WHITE BLOOD COUNT 8.2 10^3/uL (4.0-10.0)
[2021-02-08 06:26] LABS: CREATININE FOR GFR 1.05 MG/DL (0.55-1.30); GLOMERULAR FILTRATION RATE 54.1 (>39); POTASSIUM SERUM 4.5 MEQ/L (3.5-5.1)
[2021-02-08 06:27] LABS: CALCIUM LEVEL 7.5 MG/DL (8.8-10.2)
[2021-02-08] MEDS: NS 1,000 ML IV SCH (08:30)
[2021-02-08] MEDS: MIRALAX *UNIT DOSE* 17GM PACKET PO SCH ×2 (08:30→21:36)
[2021-02-08] MEDS: SENOKOT S TAB PO SCH ×2 (08:30→21:36)
[2021-02-08] MEDS: predniSONE 20 MG TAB PO SCH ×3 (08:30→21:36)
[2021-02-08] MEDS: CLOPIDOGREL 75 MG TAB PO SCH (08:30)
[2021-02-08] MEDS: ATORVASTATIN 20 MG TAB PO SCH (08:31)
[2021-02-08] MEDS: ASPIRIN 81MG ENTERIC TABLET PO SCH (08:31)
[2021-02-08] MEDS: CETIRIZINE (ZyrTEC) 10 MG TAB PO SCH (08:31)
[2021-02-08] MEDS: NICOTINE 14 MG/24 HR TRANSDERMAL TD SCH (08:31)
[2021-02-08] MEDS: MONTELUKAST 10 MG TAB PO SCH (08:31)
[2021-02-08 09:49] LABS: ALBUMIN 2.9 GM/DL (3.2-5.2); TROPONIN I 0.02 NG/ML (< 0.10)
--- NOTE | 2021-02-08 10:09 | ECGEPIP ---
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
[2021-02-08] MEDS ORDERED: PILL CUTTER 1 EACH XX PRN (10:40)
--- NOTE | 2021-02-08 11:11 | REP ---
INDICATION: chest pain COMPARISON: 01/31/2021 TECHNIQUE: PA and lateral. FINDINGS: The mediastinum and cardiac silhouette are stable. The lung villagomez demonstrate chronic changes. Subtle bibasilar atelectasis and blunting to the costophrenic angles may represent new findings and small pleural reactions.. IMPRESSION: Cannot exclude small pleural reactions and basilar atelectasis as compared to prior examination. <Electronically signed by Vikas uRiz > 02/08/21 [id number]
[2021-02-08] MEDS: SUCRALFATE SUSP 1GM/10ML UD PO SCH ×3 (13:05→21:36)
[2021-02-08] MEDS: FAMOTIDINE 20 MG TAB PO SCH ×2 (13:05→21:36)
[2021-02-08 14:00] VITALS: BP_SYST 133; BP_SYST 143; BP_DIAS 68; BP_DIAS 87
--- NOTE | 2021-02-08 19:27 | IPNPDOC ---
Subjective Date Seen The patient was seen on 02/08/21. Subjective Chief Complaint/HPI Mrs. Gil is a 75 year old female with CAD s/p stent, atrial fibrillation, and right MCA brain aneurysm who is here for generalized weakness, COPD exacerbation, and HAKEEM. This morning, she reported chest pain that felt similar to when she had her last heart attack. Troponin x2 were obtained which are negative. EKG demonstrated sinus rhythm with left fascicular block similar to previous EKG. Ordered for Carafate and famotidine Objective Physical Examination General Exam: Positive: Alert, Cooperative, Other (thin) Eye Exam: Negative: Sclera icteric ENT Exam: Positive: Atraumatic Neck Exam: Positive: Supple Chest Exam: Positive: Diminished Heart Exam: Positive: Rate Normal, Regular Rhythm Abdomen Exam: Positive: Normal bowel sounds, Soft Neuro Exam: Positive: Cranial Nerves 3-12 NL Psych Exam: Positive: Mood NL, Oriented x 3 Assessment /Plan Assessment Mrs. Gil is a 75 year old female with CAD s/p stent, atrial fibrillation, and right MCA brain aneurysm who is here for generalized weakness, COPD exacerbation, and HAKEEM. Her COPD exacerbation resolved and her prednisone is being tapered down. HAKEEM resolved. Patient complained of chest pain similar to her [place], but troponin and EKG were negative. Will order famotidine and Carafate to see if it will help with the chest pain. Plan/VTE VTE Prophylaxis Ordered?: Yes Plan 1. Acute COPD exacerbation -Resolved -Tapering prednisone -Continue with inhalers 2. HAKEEM -Secondary to poor oral intake -Resolved, patient's creatinine now at baseline -Supportive care 3. Hyperkalemia 2/2 HAKEEM -Resolved 4. Steroid induced hyperglycemia -Start steroid taper -Sliding scale insulin 5. Atrial fibrillation -Currently on aspirin and clopidogrel -Continue metoprolol 6. CVA -Continue aspirin and clopidogrel -Continue atorvastatin 7. Hypothyroidism -Continue levothyroxine 8. Hypertension -Continue metoprolol 9. CAD s/p stent -Troponin negative x2 on 02/08/21 -EKG did not demonstrate any new changes -Continue aspirin, clopidogrel, metoprolol, and atorvastatin 10. DVT ppx -Heparin subQ Disposition: Patient may need rehab VS, I&O, 24H, Fishbone Vital Signs/I&O Vital Signs Date Time Temp Pulse Resp B/P (MAP) Pulse Ox O2 Delivery O2 Flow Rate FiO2 02/08/21 14:00 97.5 71 19 133/68 (89) 94 Nasal Cannula 2.0 I&O- Last 24 Hours up to 6 AM 02/08/21 06:00 Intake Total 4150 ml Output Total 300 ml Balance 3850 ml Laboratory Data 24H LABS Laboratory Tests 2 02/08/21 05:32: Nucleated Red Blood Cells % (auto) 0.0, Anion Gap 5L, Glomerular Filtration Rate 54.1, Calcium Level 7.5L 02/08/21 09:04: Troponin I 0.02, Albumin 2.9L 02/08/21 14:43: Troponin I < 0.02 CBC/BMP Laboratory Tests 02/08/21 05:32 Microbiology Microbiology 02/01/21 Urine Culture - Final, Complete JEZ DAVISON DO Feb 08, 2021 19:27
[2021-02-08 22:00] VITALS: BP 146/74
[2021-02-09] MEDS: HEPARIN SOD (PORCINE) 5000UNITS/ML 1ML VIAL/SYRINGE SC SCH ×3 (05:23→22:04)
[2021-02-09] MEDS: LEVOTHYROXINE 25MCG TABLET (0.025MG) PO SCH (05:23)
[2021-02-09 06:00] VITALS: BP 150/80
[2021-02-09 06:03] LABS: HEMOGLOBIN 10.9 g/dl (12.0-15.5); MEAN CORPUSCULAR HEMOGLOBIN 31.2 pg (27.0-33.0); MEAN CORPUSCULAR HGB CONC 32.1 g/dl (32.0-36.5); MEAN CORPUSCULAR VOLUME 97.4 fl (80.0-96.0); PLATELET COUNT, AUTOMATED 257 10^3/uL (150-450); RED BLOOD COUNT 3.49 10^6/uL (4.00-5.40); WHITE BLOOD COUNT 7.2 10^3/uL (4.0-10.0)
[2021-02-09 06:27] LABS: CALCIUM LEVEL 7.4 MG/DL (8.8-10.2); CREATININE FOR GFR 1.03 MG/DL (0.55-1.30); GLOMERULAR FILTRATION RATE 55.3 (>39); POTASSIUM SERUM 4.6 MEQ/L (3.5-5.1)
[2021-02-09] MEDS: LEVALBUTEROL 1.25 MG/0.5 ML CONCENTRATE NEB INH SCH ×5 (08:00→23:50)
[2021-02-09] MEDS: ASPIRIN 81MG ENTERIC TABLET PO SCH (09:27)
[2021-02-09] MEDS: SENOKOT S TAB PO SCH ×2 (09:27→22:03)
[2021-02-09] MEDS: FAMOTIDINE 20 MG TAB PO SCH ×2 (09:28→22:04)
[2021-02-09] MEDS: MONTELUKAST 10 MG TAB PO SCH (09:28)
[2021-02-09] MEDS: NICOTINE 14 MG/24 HR TRANSDERMAL TD SCH (09:28)
[2021-02-09] MEDS: CETIRIZINE (ZyrTEC) 10 MG TAB PO SCH (09:29)
[2021-02-09] MEDS: predniSONE 20 MG TAB PO SCH ×3 (09:29→22:05)
[2021-02-09] MEDS: CLOPIDOGREL 75 MG TAB PO SCH (09:29)
[2021-02-09] MEDS: ATORVASTATIN 20 MG TAB PO SCH (09:29)
[2021-02-09] MEDS: SUCRALFATE SUSP 1GM/10ML UD PO SCH ×4 (09:30→22:02)
[2021-02-09] MEDS: MIRALAX *UNIT DOSE* 17GM PACKET PO SCH ×2 (09:30→22:04)
[2021-02-09 14:00] VITALS: BP 142/74
--- NOTE | 2021-02-09 15:09 | IPNPDOC ---
Subjective Date Seen The patient was seen on 02/09/21. Subjective Chief Complaint/HPI Mrs. Gil is a 75 year old female with CAD s/p stent, atrial fibrillation, and right MCA brain aneurysm who is here for generalized weakness, COPD exacerbation, and HAKEEM. This morning, she was feeling better. Chest pain resolved. Denies any shortness of breath. Objective Physical Examination General Exam: Positive: Alert, Cooperative Eye Exam: Negative: Sclera icteric ENT Exam: Positive: Atraumatic Neck Exam: Positive: Supple Chest Exam: Positive: Diminished Heart Exam: Positive: Rate Normal, Regular Rhythm Abdomen Exam: Positive: Normal bowel sounds, Soft Neuro Exam: Positive: Cranial Nerves 3-12 NL Psych Exam: Positive: Mood NL, Oriented x 3 Assessment /Plan Assessment Mrs. Gil is a 75 year old female with CAD s/p stent, atrial fibrillation, and right MCA brain aneurysm who is here for generalized weakness, COPD exacerbation, and HAKEEM. Her COPD exacerbation resolved and her prednisone is being tapered down. HAKEEM resolved. Patient's ACS work up was negative. Continue famotidine and Carafate. Plan/VTE VTE Prophylaxis Ordered?: Yes Plan 1. Acute COPD exacerbation -Resolved -Tapering prednisone -Continue with inhalers 2. HAKEEM -Secondary to poor oral intake -Resolved, patient's creatinine now at baseline -Supportive care 3. Hyperkalemia 2/2 HAKEEM -Resolved 4. Steroid induced hyperglycemia -Start steroid taper -Sliding scale insulin 5. Atrial fibrillation -Currently on aspirin and clopidogrel -Continue metoprolol 6. CVA -Continue aspirin and clopidogrel -Continue atorvastatin 7. Hypothyroidism -Continue levothyroxine 8. Hypertension -Continue metoprolol 9. CAD s/p stent -Troponin negative x2 on 02/08/21 -EKG did not demonstrate any new changes -Continue aspirin, clopidogrel, metoprolol, and atorvastatin 10. DVT ppx -Heparin subQ Disposition: Pending placement VS, I&O, 24H, Fishbone Vital Signs/I&O Vital Signs Date Time Temp Pulse Resp B/P (MAP) Pulse Ox O2 Delivery O2 Flow Rate FiO2 02/09/21 14:00 97.6 83 18 142/74 (96) 98 Nasal Cannula 2.0 I&O- Last 24 Hours up to 6 AM 02/09/21 05:59 Intake Total 2130 ml Output Total 0 ml Balance 2130 ml Laboratory Data 24H LABS Laboratory Tests 2 02/09/21 05:45: Anion Gap 6L, Glomerular Filtration Rate 55.3, Calcium Level 7.4L 02/09/21 05:51: Nucleated Red Blood Cells % (auto) 0.0 CBC/BMP Laboratory Tests 02/09/21 05:45 02/09/21 05:51 Microbiology Microbiology 02/01/21 Urine Culture - Final, Complete JEZ DAVISON DO Feb 09, 2021 15:09
[2021-02-09 22:00] VITALS: BP 163/82
[2021-02-10 01:52] VITALS: O2SAT 98
[2021-02-10] MEDS: LEVALBUTEROL 1.25 MG/0.5 ML CONCENTRATE NEB INH SCH ×6 (04:12→23:25)
[2021-02-10] MEDS: HEPARIN SOD (PORCINE) 5000UNITS/ML 1ML VIAL/SYRINGE SC SCH ×3 (05:35→21:08)
[2021-02-10] MEDS: LEVOTHYROXINE 25MCG TABLET (0.025MG) PO SCH (05:35)
[2021-02-10] MEDS: ACETAMINOPHEN TAB 650MG DOSE (2X325MG) PO PRN (05:41)
[2021-02-10 06:00] VITALS: BP 142/68
[2021-02-10 06:16] LABS: HEMATOCRIT 34.7 % (36.0-47.0); MEAN CORPUSCULAR HEMOGLOBIN 30.7 pg (27.0-33.0); MEAN CORPUSCULAR HGB CONC 31.7 g/dl (32.0-36.5); MEAN CORPUSCULAR VOLUME 96.9 fl (80.0-96.0); PLATELET COUNT, AUTOMATED 283 10^3/uL (150-450); RED BLOOD COUNT 3.58 10^6/uL (4.00-5.40); WHITE BLOOD COUNT 6.8 10^3/uL (4.0-10.0)
[2021-02-10 06:45] LABS: CALCIUM LEVEL 7.7 MG/DL (8.8-10.2); CREATININE FOR GFR 1.17 MG/DL (0.55-1.30); GLOMERULAR FILTRATION RATE 47.7 (>39); POTASSIUM SERUM 4.2 MEQ/L (3.5-5.1)
[2021-02-10] MEDS: SUCRALFATE SUSP 1GM/10ML UD PO SCH ×4 (09:27→21:08)
[2021-02-10] MEDS: NICOTINE 14 MG/24 HR TRANSDERMAL TD SCH (09:28)
[2021-02-10] MEDS: MIRALAX *UNIT DOSE* 17GM PACKET PO SCH ×2 (09:28→21:08)
[2021-02-10] MEDS: ASPIRIN 81MG ENTERIC TABLET PO SCH (09:29)
[2021-02-10] MEDS: CETIRIZINE (ZyrTEC) 10 MG TAB PO SCH (09:29)
[2021-02-10] MEDS: predniSONE 20 MG TAB PO SCH (09:29)
[2021-02-10] MEDS: MONTELUKAST 10 MG TAB PO SCH (09:29)
[2021-02-10] MEDS: SENOKOT S TAB PO SCH ×2 (09:30→21:08)
[2021-02-10] MEDS: CLOPIDOGREL 75 MG TAB PO SCH (09:30)
[2021-02-10] MEDS: ATORVASTATIN 20 MG TAB PO SCH (09:30)
[2021-02-10] MEDS: FAMOTIDINE 20 MG TAB PO SCH ×2 (09:30→21:08)
[2021-02-10 14:00] VITALS: BP 151/74
--- NOTE | 2021-02-10 18:36 | IPNPDOC ---
Subjective Date Seen The patient was seen on 02/10/21. Subjective Chief Complaint/HPI Mrs. Gil is a 75 year old female with CAD s/p stent, atrial fibrillation, and right MCA brain aneurysm who is here for generalized weakness, COPD exacerbation, and HAKEEM. This morning, she denied any chest pain or dyspnea. Patient is medically stabilized. Will make patient ALC today. Objective Physical Examination General Exam: Positive: Alert, Cooperative Eye Exam: Negative: Sclera icteric ENT Exam: Positive: Atraumatic Neck Exam: Positive: Supple Chest Exam: Positive: Diminished Heart Exam: Positive: Rate Normal, Regular Rhythm Abdomen Exam: Positive: Normal bowel sounds, Soft Neuro Exam: Positive: Cranial Nerves 3-12 NL Psych Exam: Positive: Mood NL, Oriented x 3 Assessment /Plan Assessment Mrs. Gil is a 75 year old female with CAD s/p stent, atrial fibrillation, and right MCA brain aneurysm who is here for generalized weakness, COPD exacerbation, and HAKEEM. Her COPD exacerbation resolved and her prednisone is being tapered down. HAKEEM resolved. Patient's ACS work up was negative. Continue famotidine and Carafate. Plan/VTE VTE Prophylaxis Ordered?: Yes Plan 1. Acute COPD exacerbation -Resolved -Tapering prednisone -Continue with inhalers 2. HAKEEM -Secondary to poor oral intake -Resolved, patient's creatinine now at baseline -Supportive care 3. Hyperkalemia 2/2 HAKEEM -Resolved 4. Steroid induced hyperglycemia -Start steroid taper -Sliding scale insulin 5. Atrial fibrillation -Currently on aspirin and clopidogrel -Continue metoprolol 6. CVA -Continue aspirin and clopidogrel -Continue atorvastatin 7. Hypothyroidism -Continue levothyroxine 8. Hypertension -Continue metoprolol 9. CAD s/p stent -Troponin negative x2 on 02/08/21 -EKG did not demonstrate any new changes -Continue aspirin, clopidogrel, metoprolol, and atorvastatin 10. DVT ppx -Heparin subQ Disposition: Pending placement. Patient made ALC today VS, I&O, 24H, Fishbone Vital Signs/I&O Vital Signs Date Time Temp Pulse Resp B/P (MAP) Pulse Ox O2 Delivery O2 Flow Rate FiO2 02/10/21 14:00 97.4 91 16 151/74 (99) 95 Nasal Cannula 2.0 I&O- Last 24 Hours up to 6 AM 02/10/21 06:00 Intake Total 990 ml Balance 990 ml Laboratory Data 24H LABS Laboratory Tests 2 6/17/21 05:43: Nucleated Red Blood Cells % (auto) 0.0, Anion Gap 7L, Glomerular Filtration Rate 47.7, Calcium Level 7.7L CBC/BMP Laboratory Tests 02/10/21 05:43 Microbiology Microbiology 02/01/21 Urine Culture - Final, Complete JEZ DAVISON DO Feb 10, 2021 18:36
[2021-02-10 22:00] VITALS: BP 162/74
[2021-02-11] MEDS: LEVALBUTEROL 1.25 MG/0.5 ML CONCENTRATE NEB INH SCH ×3 (03:45→12:00)
[2021-02-11] MEDS: HEPARIN SOD (PORCINE) 5000UNITS/ML 1ML VIAL/SYRINGE SC SCH (05:52)
[2021-02-11] MEDS: LEVOTHYROXINE 25MCG TABLET (0.025MG) PO SCH (05:52)
[2021-02-11 05:57] LABS: HEMATOCRIT 33.7 % (36.0-47.0); HEMOGLOBIN 10.9 g/dl (12.0-15.5); MEAN CORPUSCULAR HGB CONC 32.3 g/dl (32.0-36.5); MEAN CORPUSCULAR VOLUME 95.7 fl (80.0-96.0); PLATELET COUNT, AUTOMATED 266 10^3/uL (150-450); RED BLOOD COUNT 3.52 10^6/uL (4.00-5.40); WHITE BLOOD COUNT 8.4 10^3/uL (4.0-10.0)
[2021-02-11 06:00] VITALS: BP 187/77
[2021-02-11 06:19] LABS: CALCIUM LEVEL 7.7 MG/DL (8.8-10.2); CREATININE FOR GFR 1.22 MG/DL (0.55-1.30); GLOMERULAR FILTRATION RATE 45.5 (>39); POTASSIUM SERUM 4.6 MEQ/L (3.5-5.1)
[2021-02-11] MEDS: ATORVASTATIN 20 MG TAB PO SCH (08:15)
[2021-02-11] MEDS: MIRALAX *UNIT DOSE* 17GM PACKET PO SCH (08:15)
[2021-02-11] MEDS: CETIRIZINE (ZyrTEC) 10 MG TAB PO SCH (08:15)
[2021-02-11] MEDS: ASPIRIN 81MG ENTERIC TABLET PO SCH (08:15)
[2021-02-11] MEDS: predniSONE 20 MG TAB PO SCH (08:15)
[2021-02-11] MEDS: CLOPIDOGREL 75 MG TAB PO SCH (08:15)
[2021-02-11] MEDS: SENOKOT S TAB PO SCH (08:15)
[2021-02-11] MEDS: SUCRALFATE SUSP 1GM/10ML UD PO SCH ×2 (08:15→12:24)
[2021-02-11] MEDS: NICOTINE 14 MG/24 HR TRANSDERMAL TD SCH (08:16)
[2021-02-11] MEDS: MONTELUKAST 10 MG TAB PO SCH (08:16)
[2021-02-11] MEDS: FAMOTIDINE 20 MG TAB PO SCH (08:16)
[2021-02-11] MEDS ORDERED: FUROSEMIDE 20 MG TAB PO SCH (09:00)
[2021-02-11] MEDS ORDERED: NICO14PA TD (11:08)
[2021-02-11] MEDS ORDERED: FURO20TA2 PO (11:08)
[2021-02-11] MEDS ORDERED: BENZ-18 PO (11:08)
[2021-02-11] MEDS ORDERED: PRED10TA2 PO (11:08)
--- NOTE | 2021-02-11 22:47 | DS.PDOC ---
Discharge Summary General Date of Admission Feb 01, 2021 at 07:47 Date of Discharge Feb 11, 2021 Discharge Summary PROCEDURES PERFORMED DURING STAY: None ADMITTING DIAGNOSES: 1. COPD exacerbation 2. Chronic hypoxic respiratory failure on 2L of oxygen 3. Mechanical fall and generalized weakness 4. Right MCA brain aneurysm 5. History of CVA 6. Atrial fibrillation 7. History of CAD 8. Allergic rhinitis 9. Chronic constipation DISCHARGE DIAGNOSES: 1. COPD exacerbation 2. Chronic hypoxic respiratory failure on 2L of oxygen 3. Mechanical fall and generalized weakness 4. Right MCA brain aneurysm 5. History of CVA 6. Atrial fibrillation 7. History of CAD 8. Allergic rhinitis 9. Chronic constipation 10. HAKEEM COMPLICATIONS/CHIEF COMPLAINT: Acute Renal Failure, Generalized Weakness. HISTORY OF PRESENT ILLNESS: Copied from admitting provider's H&P " Ms. 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 Patient is adamant about leaving the facility, however due to her rapid change in Oxygen saturation of 84% on 2 L per N/C which is her standard level of home Oxygen use. She continues to have moderate abdominal pain with generalized weakness. She is under the care of Dr. Justin. In reviewing patients laboratory results, she has a total WBC 10.6, hemoglobin 11.5, hematocrit 35.1, absolute neutrophil 79.6, BUN/Seri, creatinine 38/1.42, eGFR 38.2, Magnesium 2.5, BNP 487 (mild fluid overload), lipase normal at 372, LFT's normal. CT ABD/PELV: Calcifications at renal gerson, advanced atherosclerotic abdominal aorta and aortic branch vessels. Aneurysmal dilatation of infrarenal abdominal aorta measuring 3.2cm. No obstructive uropathy. Patient will be admitted to Medical-Surgical unit on telemetry with continuous pulse oximeter on supplemental oxygen with ongoing evaluation, IV hydration for dehydration. " HOSPITAL COURSE: Patient was given steroids to control COPD exacerbation and IVF for HAKEEM. Patient's respiratory status and renal function improved. Physical therapy worked with patient due to her frequent falls and patient would need rehab. Initially, patient was hesitant to going to rehab, but towards the end of her hospitalization, she started to realize that she would need rehab to become physical stronger. This morning, she denied any chest pain or worsening dyspnea. Patient agreed to go to [facility]. DISCHARGE MEDICATIONS: Please see below. ALLERGIES: Please see below. PHYSICAL EXAMINATION ON DISCHARGE: VITAL SIGNS: Please see below. GENERAL: Comfortable, in no apparent distress HEENT: Head normocephalic, atraumatic NECK: Supple CARDIOVASCULAR EXAMINATION: Regular rate and rhythm RESPIRATORY EXAMINATION: Diminished, but clear without wheezes ABDOMINAL EXAMINATION: Soft, non-tender, normal bowel sounds NEUROLOGICAL EXAMINATION: CN 3-12 grossly intact PSYCHIATRIC EXAMINATION: Normal mood and affect LABORATORY DATA: Please see below. IMAGING: Radiologist interpretation MRA Brain Stable small right MCA aneurysm. CTA chest There is no evidence of a pulmonary embolism. There is no evidence of acute disease or significant change compared to the prior exam with findings as described above. PROGNOSIS: Good ACTIVITY: As tolerated. DIET: 2gm sodium DISCHARGE PLAN: [facility] DISPOSITION: [facility] Keep Home. DISCHARGE INSTRUCTIONS: 1. Follow up with PCP within a week 2. Take steroid taper to completion DISCHARGE CONDITION: Stable Total time spent on discharge planning, discharge summary, and medication reconciliation: 45 minutes Vital Signs/I&Os Vital Signs Date Time Temp Pulse Resp B/P (MAP) Pulse Ox O2 Delivery O2 Flow Rate FiO2 02/11/21 09:00 2.0 02/11/21 06:00 96.7 61 16 187/77 (113) 99 Nasal Cannula I&O- Last 24 Hours up to 6 AM 02/11/21 06:00 Intake Total 1755 ml Output Total 200 ml Balance 1555 ml Laboratory Data Labs 24H Laboratory Tests 2 02/11/21 05:28: Nucleated Red Blood Cells % (auto) 0.0, Anion Gap 2L, Glomerular Filtration Rate 45.5, Calcium Level 7.7L 02/11/21 12:22: Coronavirus (COVID-19)(PCR) NEGATIVE CBC/BMP Laboratory Tests 02/11/21 05:28 Microbiology Microbiology 02/01/21 Urine Culture - Final, Complete Discharge Medications Scheduled Aspirin (Aspirin EC) 81 Mg Tab, 81 MG PO DAILY, (Reported) Atorvastatin Calcium (Atorvastatin Calcium) 40 Mg Tablet, 40 MG PO DAILY, (Rep orted) Cetirizine HCl (Cetirizine HCl) 10 Mg Tablet, 10 MG PO DAILY, (Reported) Clopidogrel Bisulfate (Clopidogrel) 75 Mg Tablet, 75 MG PO DAILY, (Reported) Furosemide (Furosemide) 20 Mg Tablet, 20 MG PO DAILY Levothyroxine Sodium (Synthroid) 25 Mcg Tablet, 25 MCG PO DAILY, (Reported) Metoprolol Succinate (Metoprolol Succinate) 25 Mg Tab.er.24h, 12.5 MG PO Q2D, (Reported) Montelukast Sodium (Montelukast Sodium) 10 Mg Tablet, 10 MG PO DAILY, (Reported) Multivit-Min36/Iron/Folic Acid (Geritol Complete Tablet) 1 Each Tablet, 1 TAB PO DAILY, (Reported) Nicotine (Nicotine Patch) 14 Mg Patch.td24, 1 PATCH TD DAILY Polyethylene Glycol 3350 (Miralax) 17 Gm Powd.pack, 17 GM PO DAILY, (Reported) Prednisone (Prednisone) 10 Mg Tablet, 10 MG PO TAPER Take 6tabs for 1day, then 5tabs for 1day, then 4tabs for 1day, then 3tabs for 1day, then 2tabs for 1day, then 1tab for 1day Salmeterol/Fluticasone (Advair 100-50 Diskus) 1 Each Blst.w.dev, 1 PUFF INH BID, (Reported) Sennosides/Docusate Sodium (Senna-S Tablet) 1 Each Tablet, 1 TAB PO BID, (Reported) Scheduled PRN Albuterol Sulf (Albuterol Sulfate) 2.5 Mg/3 Ml Vial.neb, 2.5 MG INH Q4H PRN for SHORTNESS OF BREATH, (Reported) Albuterol Sulfate (Proair Hfa) 8.5 Gm Hfa.aer.ad, 2 PUFF INH QID PRN for SHORTNESS OF BREATH, (Reported) Benzonatate (Benzonatate) 100 Mg Capsule, 100 MG PO Q8HP PRN for COUGH Guaifenesin (Mucinex) 600 Mg Tab.er.12h, 600 MG PO BID PRN for CONGESTION, (Reported) Nitroglycerin (Nitroglycerin) 0.4 Mg Tab.subl, 0.4 MG SL NITRO PRN for CHEST PAIN, (Reported) Allergies Coded Allergies: Cat Dander (Verified Allergy, Severe, shortness of breath, 12/15/20) Birds (Verified Allergy, Unknown, 03/06/20) lansoprazole (Verified Allergy, Unknown, 03/06/20) cortisone (Verified Adverse Reaction, Mild, steroids - SORE TONGUE, GENERAL ILL FEELING, 12/15/20) JEZ DAVISON DO Feb 11, 2021 22:33
== END 2021-02-11 13:56 | DRG 191 ==
LOC: M ED 21:22 → M MSPAV 02-01 01:12 → ENRESERV 02-01 10:26 → M ED 02-01 10:55 → M MSPAV 02-01 11:07 → OBSVTOIN 02-02 07:47
PROVIDERS: ADMIT Family Medicine; ATTEND Internal Medicine
DX: J44.1 Chronic obstructive pulmonary disease with (acute) exacerbation (principal); I13.0 Hypertensive heart and chronic kidney disease with heart failure and stage 1 through stage 4 chronic kidney disease, or unspecified chronic kidney disease; I50.32 Chronic diastolic (congestive) heart failure; I48.20 Chronic atrial fibrillation, unspecified; N17.9 Acute kidney failure, unspecified; J96.11 Chronic respiratory failure with hypoxia; R53.1 Weakness; J30.9 Allergic rhinitis, unspecified; Z86.73 Personal history of transient ischemic attack (TIA), and cerebral infarction without residual deficits; I25.2 Old myocardial infarction; Z95.5 Presence of coronary angioplasty implant and graft; E78.5 Hyperlipidemia, unspecified; R07.89 Other chest pain; I95.1 Orthostatic hypotension; Z99.81 Dependence on supplemental oxygen; I80.9 Phlebitis and thrombophlebitis of unspecified site; Z86.711 Personal history of pulmonary embolism; E03.9 Hypothyroidism, unspecified; F32.9 Major depressive disorder, single episode, unspecified; F41.9 Anxiety disorder, unspecified; M06.9 Rheumatoid arthritis, unspecified; Z79.01 Long term (current) use of anticoagulants; Z79.82 Long term (current) use of aspirin; Z79.899 Other long term (current) drug therapy; Z88.8 Allergy status to other drugs, medicaments and biological substances; Z91.048 Other nonmedicinal substance allergy status; F17.210 Nicotine dependence, cigarettes, uncomplicated; Z20.822 Contact with and (suspected) exposure to COVID-19; I67.1 Cerebral aneurysm, nonruptured; R29.6 Repeated falls; I25.10 Atherosclerotic heart disease of native coronary artery without angina pectoris; I27.20 Pulmonary hypertension, unspecified; K59.09 Other constipation; N18.30 Chronic kidney disease, stage 3 unspecified; E87.5 Hyperkalemia; R73.9 Hyperglycemia, unspecified

== ENCOUNTER 2021-02-15 17:02 | Inpatient (IN) | payer MEDICARE ==
[~2021-02-15] VITALS: Ht 160 cm; Wt 56.8 kg
[~2021-02-15 17:02] MED LIST changes: +BENZ-18 PO; +MIRA1POW3 PO; +NICO14PA TD; +PRED10TA2 PO; +SENN1TAB41 PO
[2021-02-15] MEDS ORDERED: TUMS500C PO (18:12)
[2021-02-15] MEDS ORDERED: VITA200010 PO (18:12)
[2021-02-15] MEDS ORDERED: THERTAB21 PO (18:12)
[2021-02-15] MEDS ORDERED: PRED10TA2 PO (18:12)
[2021-02-15] MEDS ORDERED: APAP325T4 PO (18:12)
[2021-02-15] MEDS ORDERED: ENEMENE PR (18:12)
[2021-02-15] MEDS ORDERED: BISA10SU4 PR (18:12)
[2021-02-15] MEDS ORDERED: MOM30SS PO (18:12)
[2021-02-15] MEDS ORDERED: NICO14DI6 TD (18:12)
[2021-02-15] MEDS ORDERED: TESS100C PO (18:12)
[2021-02-15] MEDS ORDERED: LORA-622 PO (18:12)
[2021-02-15] MEDS ORDERED: FURO40TA2 PO (18:12)
[2021-02-15 20:55] LABS: BASO % 0.2 % (0.0-1.0); HEMATOCRIT 31.2 % (36.0-47.0); HEMOGLOBIN 10.2 g/dl (12.0-15.5); LYMPH # 0.3 10^3/uL (1.5-5.0); MEAN CORPUSCULAR HEMOGLOBIN 31.4 pg (27.0-33.0); MEAN CORPUSCULAR HGB CONC 32.7 g/dl (32.0-36.5); MONO # 0.5 10^3/uL (0.0-0.8); MONO % 4.8 % (2.0-8.0); NEUTROPHILS % 89.5 % (36.0-66.0); PLATELET COUNT, AUTOMATED 229 10^3/uL (150-450); RED BLOOD COUNT 3.25 10^6/uL (4.00-5.40); WHITE BLOOD COUNT 11.2 10^3/uL (4.0-10.0)
[2021-02-15] MEDS: CALCIUM CARBONATE 500 MG CHEW U/D PO SCH (21:00)
--- NOTE | 2021-02-15 21:03 | REPVR ---
PROCEDURE INFORMATION: Exam: CT Head Without Contrast Exam date and time: 02/15/2021 8:54 PM Age: 75 years old Clinical indication: Altered mental status/memory loss; Additional info: AMS TECHNIQUE: Imaging protocol: Computed tomography of the head without contrast. Radiation optimization: All CT scans at this facility use at least one of these dose optimization techniques: automated exposure control; mA and/or kV adjustment per patient size (includes targeted exams where dose is matched to clinical indication); or iterative reconstruction. COMPARISON: 1. CT Head without contrast 12/15/2020 3:09 PM 2. MRA BRAIN W/O CONTRAST 02/02/2021 1:10 PM FINDINGS: Brain: There is moderate age related parenchymal volume loss. White matter changes are demonstrated in the subcortical, centrum semiovale and periventricular white matter consistent with chronic age related small vessel ischemic changes. Mild diffuse cerebellar atrophy. Basal ganglia chronic infarcts demonstrated bilaterally. Cerebral ventricles: The degree of ventricular dilatation is normal for age and/or degree of atrophy present. Paranasal sinuses: Visualized sinuses are unremarkable. No fluid levels. Mastoid air cells: Visualized mastoid air cells are well aerated. Vasculature: Atherosclerotic calcifications are demonstrated in the intracranial carotid arteries bilaterally as well as in the vertebral basilar system. Bones/joints: Unremarkable. No acute fracture. Soft tissues: Unremarkable. IMPRESSION: 1. There is moderate age related parenchymal volume loss. White matter changes are demonstrated in the subcortical, centrum semiovale and periventricular white matter consistent with chronic age related small vessel ischemic changes. 2. The degree of ventricular dilatation is normal for age and/or degree of atrophy present. 3. Mild diffuse cerebellar atrophy. 4. No acute findings. Electronically signed by: Truman Sherman On 02/15/2021 21:03:02 PM
[2021-02-15 21:26] LABS: ALBUMIN 2.6 GM/DL (3.2-5.2); ALT/SGPT 52 U/L (12-78); BILIRUBIN,TOTAL 0.3 MG/DL (0.2-1.0); BLOOD UREA NITROGEN 41 MG/DL (7-18); CALCIUM LEVEL 8.4 MG/DL (8.8-10.2); CARBON DIOXIDE LEVEL 33 MEQ/L (21-32); CHLORIDE LEVEL 100 MEQ/L (98-107); CK-MB VALUE MASS 1.9 NG/ML (<3.6); CPK CREATINE PHOSPHOKINASE 44 U/L (26-192); CREATININE FOR GFR 1.33 MG/DL (0.55-1.30); GLOMERULAR FILTRATION RATE 41.2 (>39); GLUCOSE, FASTING 133 MG/DL (70-100); MAGNESIUM LEVEL 2.3 MG/DL (1.8-2.4); MB/CK RELATIVE INDEX 4.32 (< OR =4); NT-PRO BNP 442 PG/ML (<450); POTASSIUM SERUM 4.4 MEQ/L (3.5-5.1); SODIUM LEVEL 136 MEQ/L (136-145); TOTAL PROTEIN 5.1 GM/DL (6.4-8.2); TROPONIN I < 0.02 NG/ML (< 0.10)
[2021-02-15] MEDS ORDERED: LABETALOL 100MG/20ML VIAL IV STA (21:40)
--- NOTE | 2021-02-15 21:52 | HPEPDOC ---
[facility] Medical History & Physical Date of Admission Feb 15, 2021 Date of Service: Feb 15, 2021 History and Physical CHIEF COMPLAINT: lower extremity edema HISTORY OF PRESENT ILLNESS: 75 yo F with a PMHx of CVA, CAD, HLD, HTN, afib, COPD on 2L per NC, hx of PE, hypothyroidism, was brought to ER with worsening lower extremity edema, shortness of breath and chest discomfort. Patient was recently admitted to [facility] for COPD exacerbation and acute renal failure, with subsequent placement to [facility] home for subacute rehab on February 11. At the time of my exam, patient appears highly somnolent and is unable to provide clear history. Initial troponin was < 0.02. BNP 442. LA 1.1. Ammonia <10. Cr 1.33. CXR did not show acute abnormality. Found to have significant bilateral lower extremity edema and hypertensive urgency. High suspicion for diastolic CHF exacerbation. Given AMS, CT of head was performed which showed no acute abnormality. PAST MEDICAL HISTORY: Right MCA aneurysm TIA ACS, CAD with stenting Diastolic CHF Atrial fibrillation Hypercholesterolemia, Essential Hypertension orthostatic hypotension, nicotine dependence COPD on supplemental Oxygen 2 L per N/C, Hx of PE, Bronchitis RA, DDD,-Lumbar CKD 3 Osteoporosis Hypothyroidism Fatty liver Anxiety Claustrophobia Depression Urinary stress incontinence Diverticulitis hemorrhoids. 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 REVIEW OF SYSTEMS: 10 point ROS completed, relevant findings are noted in HPI. HOME MEDICATIONS: Please see below. PHYSICAL EXAMINATION: VITAL SIGNS: please see below General: NAD, comfortable HEENT: PERRLA, EOMI, sclerae clear Neck: supple, normal ROM, no JVD Respiratory: lungs CTAB, no wheeze, no rales, no crackles CVS: RRR, normal S1, S2, no murmurs Abdo: soft, no masses, no hepatosplenomegaly, BS+, no rebound tenderness Extremities: no edema, pulses 2+ MSK: no joint deformities, normal ROM Neuro: no focal neuro deficits, moving all 4 extremities, CN2-12 intact. Strength 5/5 in all 4 extremities. No nystagmus. Psych: calm, cooperative, AAO x 3 LABORATORY DATA: See below. IMAGING: CXR (02/15/21): FINDINGS: The technique utilized in obtaining the radiograph has magnified the cardiac silhouette and attenuated the interstitial markings. The cardiomediastinal silhouette is within normal limits. There is no significant change in the appearance of the lung villagomez. There is interstitial fibrotic change with basilar predominance which appears stable. No acute patchy parenchymal o pacities or pleural effusions have developed. There is no significant change in appearance of the osseous structures. IMPRESSION: Stable appearing chronic changes CT head wo contrast (02/15/21): 1. There is moderate age related parenchymal volume loss. White matter changes are demonstrated in the subcortical, centrum semiovale and periventricular white matter consistent with chronic age related small vessel ischemic changes. 2. The degree of ventricular dilatation is normal for age and/or degree of atrophy present. 3. Mild diffuse cerebellar atrophy. 4. No acute findings. MICROBIOLOGY: Please see below. ASSESSMENT: 75 yo F with a PMHx of CVA, CAD, HLD, HTN, afib, COPD on 2L per NC, hx of PE, hypothyroidism, was brought to ER with worsening lower extremity edema, shortness of breath and chest discomfort. Given SOB, cough, hypertensive urgency and bilateral lower extremity edema, high suspicion for CHF exacerbation. admitted for IV diuresis. . PLAN: #SOB and chest pain likely 2/2 diastolic CHF exacerbation - reviewed echo from 10/17, showing normal global LV systolic and diastolic function - BNP 400 - will repeat ECHO to re-eval LV function - per report, patient's lasix dose was increased on 02/15/21 to 40 mg daily - will start IV diuresis with lasix 40 mg IV BID - 2G sodium restricted diet - monitor Is and Os. Daily weights. daily weights - wear compression stockings #HAKEEM in setting of fluid overload - Cr 1.33, baseline ~0.9 - on loop diuretics at home - start IV diuresis, check renal US #Hypertensive urgency likely 2/2 fluid overload #Hypertensive encephalopathy - CT head shows chronic small vessel disease, no acute findings. -Continue metoprolol - start IV diuresis with lasix 40 mg IV BID - s/p labetalol 20 mg IV, hydralazine 10 mg IV once - BP improved - obtain renal US #Chronic hypoxic O2 dependent respiratory failure on 2L NC at home #COPD on 2L via NC at home - resume inhalers - c/w 2L via NC, currently at baseline. # Atrial fibrillation -Currently on aspirin and clopidogrel, but not on AC. -Continue metoprolol - I have reviewed primary care records that are available, and I do not find evidence for anticoagulation or reasons for holding it. - I would advise day service to d/w patient's primary medical equipment sales Dr. Justin. # Hx of CVA -Continue aspirin and clopidogrel -Continue atorvastatin # Hypothyroidism -Continue levothyroxine # CAD s/p stent -Troponin negative x2 -EKG did not demonstrate any new changes -Continue aspirin, clopidogrel, metoprolol, and atorvastatin # DVT ppx -Heparin subQ Dispo: pending clinical improvement. Vital Signs Vital Signs Date Time Temp Pulse Resp B/P (MAP) Pulse Ox O2 Delivery O2 Flow Rate FiO2 02/15/21 21:06 189/84 (119) 02/15/21 21:02 82 99 02/15/21 17:24 Nasal Cannula 2.0 02/15/21 17:17 97.8 20 Laboratory Data Labs 24H Laboratory Tests 2 02/15/21 17:53: Troponin I < 0.02 02/15/21 20:47: Troponin I < 0.02, Immature Granulocyte % (Auto) 2.5, Neutrophils (%) (Auto) 89.5H, Lymphocytes (%) (Auto) 3.0L, Monocytes (%) (Auto) 4.8, Eosinophils (%) (Auto) 0.0, Basophils (%) (Auto) 0.2, Neutrophils # (Auto) 10.0H, Lymphocytes # (Auto) 0.3L, Monocytes # (Auto) 0.5, Eosinophils # (Auto) 0.0, Basophils # (Auto) 0.0, Nucleated Red Blood Cells % (auto) 0.0, Anion Gap 3L, Glomerular Filtration Rate 41.2, Lactic Acid Level 1.1, Calcium Level 8.4L, Magnesium Level 2.3, Total Bilirubin 0.3, Aspartate Amino Transf (AST/SGOT) 27, Alanine Aminotransferase (ALT/SGPT) 52, Alkaline Phosphatase 43L, Ammonia < 10, Total Creatine Kinase 44, Creatine Kinase MB 1.9, Creatine Kinase MB Relative Index 4.32H, VH-Hps-B-Type Natriuretic Peptide 442, Total Protein 5.1L, Albumin 2.6L, Albumin/Globulin Ratio 1.0L 02/15/21 20:48: POC pH (Misc Panel) 7.433, POC Base Excess (Misc Panel) 8.0H, POC Saturated Percent O2 (Misc) 98, POC pO2 (Misc Panel) 108.0H, POC pCO2 (Misc Panel) 47.7H, POC HCO3 (Misc Panel) 31.9H, POC Total CO2 (Misc Panel) 33.0H CBC/BMP Laboratory Tests 02/15/21 20:47 Microbiology Microbiology 02/15/21 Blood Culture, Received Pending 02/15/21 Respiratory Virus Panel (PCR) (MARVIN) - Final, Complete Home Medications Scheduled Aspirin (Aspirin EC) 81 Mg Tab, 81 MG PO DAILY Atorvastatin Calcium (Atorvastatin Calcium) 40 Mg Tablet, 40 MG PO DAILY Bacillus Coagulans (Bacid with Lactospore) 1 Each Capsule, 1 CAP PO [facility] Calcium Carbonate (Tums) 200 Mg Tab.chew, 500 MG PO BID Cefdinir (Cefdinir) 300 Mg Capsule, 300 MG PO BID Cholecalciferol (Vitamin D3) (Vitamin D3) 50 Mcg Tablet, 50 MCG PO DAILY TO BE GIVEN AT NOON Clopidogrel Bisulfate (Clopidogrel) 75 Mg Tablet, 75 MG PO DAILY Doxycycline Monohydrate (Doxycycline) 100 Mg Capsule, 100 MG PO BID Furosemide (Furosemide) 40 Mg Tablet, 40 MG PO DAILY Levothyroxine Sodium (Synthroid) 25 Mcg Tablet, 25 MCG PO DAILY Loratadine (Loratadine) 10 Mg Tablet, 10 MG PO DAILY Metoprolol Succinate (Metoprolol Succinate) 25 Mg Tab.er.24h, 12.5 MG PO Q2D Montelukast Sodium (Montelukast Sodium) 10 Mg Tablet, 10 MG PO DAILY Multivit,Calc,Mins/Iron/Folic (Thera-M Tablet) 1 Each Tablet, 1 TAB PO DAILY Nicotine (Nicotine Patch) 14 Mg Patch.td24, 14 MG TD DAILY DECREASE TO 7MG PATCH ON 02/19/21 Polyethylene Glycol 3350 (Miralax) 17 Gm Powd.pack, 17 GM PO DAILY Prednisone (Prednisone) 10 Mg Tablet, 20 MG PO ASDIRECTED RECEIVED 30MG ON 02/15/21, DUE FOR 20MG X 1 DOSE ON 02/16/21 AND 10MG X 1 DOSE ON 02/17/21 THEN STOP Salmeterol/Fluticasone (Advair 100-50 Diskus) 1 Each Blst.w.dev, 1 PUFF INH BID Sennosides/Docusate Sodium (Senna-S Tablet) 1 Each Tablet, 1 TAB PO BID Scheduled PRN Acetaminophen (Acetaminophen) 325 Mg Tablet, 650 MG PO Q4H PRN for PAIN LEVEL 1- 4 Albuterol Sulf (Albuterol Sulfate) 2.5 Mg/3 Ml Vial.neb, 2.5 MG INH Q4H PRN for SHORTNESS OF BREATH Albuterol Sulfate (Proair Hfa) 8.5 Gm Hfa.aer.ad, 2 PUFF INH Q4H PRN for SHORTNESS OF BREATH Benzonatate (Tessalon Perle) 100 Mg Capsule, 100 MG PO Q8H PRN for COUGH FOR 14 DAYS STARTING 02/11/21 Bisacodyl (Bisacodyl) 10 Mg Supp.rect, 10 MG MN DAILY PRN for CONSTIPATION Milk Of Magnesia (Milk of Magnesia) 2,400 Mg/10 Ml Oral.susp, 10 ML PO DAILY PRN for CONSTIPATION Nitroglycerin (Nitroglycerin) 0.4 Mg Tab.subl, 0.4 MG SL NITRO PRN for CHEST PAIN Sodium Phosphate,[place]-Dibasic (Enema) 133 Ml Enema, 1 BJ MN DAILY PRN for CONSTIPATION Allergies Coded Allergies: Cat Dander (Verified Allergy, Severe, shortness of breath, 12/15/20) Birds (Verified Allergy, Unknown, 03/06/20) lansoprazole (Verified Allergy, Unknown, 03/06/20) cortisone (Verified Adverse Reaction, Mild, steroids - SORE TONGUE, GENERAL ILL FEELING, 12/15/20) A-FIB/CHADSVASC A-FIB History Current/History of A-Fib/PAF?: Yes Current PO Anticoag Therapy: No JESS HUTCHISON MD Feb 15, 2021 21:52
[2021-02-15] MEDS ORDERED: MAALOX 30 ML SUSP *UDC PO PRN (21:55)
[2021-02-15] MEDS ORDERED: MOM 30ML SUSPENSION UDC PO PRN (21:55)
[2021-02-15] MEDS ORDERED: FUROSEMIDE 40MG/4ML VIAL (J1940) IV ONE (23:00)
[2021-02-15] MEDS: DOCUSATE SODIUM 100MG CAPSULE PO SCH (23:01)
[2021-02-15] MEDS ORDERED: hydrALAZINE 20MG/ML 1ML VIAL (J0360 PER 20MG) IV STA (23:31)
[2021-02-15] MEDS ORDERED: ALBUTEROL 90 MCG/ACT 8GM HFA INHALER INH PRN (23:35)
[2021-02-15] MEDS ORDERED: BENZONATATE 100 MG CAP PO PRN (23:35)
[2021-02-15] MEDS ORDERED: NITROGLYCERIN 0.4 MG SUBL TABLET SL PRN (23:35)
[2021-02-16 01:10] VITALS: BP 150/70
[2021-02-16] MEDS ORDERED: SLF 3 ML SYR IV PRN (01:20)
[2021-02-16 02:15] LABS: CPK CREATINE PHOSPHOKINASE 49 U/L (26-192); MB/CK RELATIVE INDEX 6.12 (< OR =4)
[2021-02-16] MEDS ORDERED: IPRATROPIUM 0.5MG/ALBUTEROL 2.5MG INH SOL UD 3ML (DUONEB) NEB ONE (02:25)
[2021-02-16] MEDS: ALBUTEROL SULFATE 2.5 MG/0.5 ML INH NEB SOLN INH PRN ×2 (02:29→07:25)
[2021-02-16 02:49] LABS: TROPONIN I < 0.02 NG/ML (< 0.10)
[2021-02-16 04:00] VITALS: BP 129/68
[2021-02-16] MEDS: HEPARIN SOD (PORCINE) 5000UNITS/ML 1ML VIAL/SYRINGE SC SCH ×3 (04:46→21:08)
[2021-02-16] MEDS: LEVOTHYROXINE 25MCG TABLET (0.025MG) PO SCH (04:46)
[2021-02-16] MEDS: SLF 3 ML SYR IV SCH ×3 (04:47→22:00)
[2021-02-16] MEDS ORDERED: LORazepam 2 MG/ML VIAL IV STA (06:38)
[2021-02-16] MEDS: ADVAIR HFA 45/21MCG INHALER INH SCH ×2 (07:26→20:00)
--- NOTE | 2021-02-16 07:58 | REP ---
INDICATION: sob. COMPARISON: Comparison study February 15, 2021. TECHNIQUE: Portable upright AP chest radiograph. FINDINGS: Mild cardiomegaly is observed. Pulmonary vasculature is not increased. There is platelike atelectasis or versus linear fibrosis in the left base unchanged. No esdras pleural effusion or pulmonary edema seen. No focal infiltrate is seen.. IMPRESSION: Platelike atelectasis versus linear fibrosis left base. Mild cardiomegaly. Otherwise no acute disease.. <Electronically signed by Charles Mejía > 02/16/21 [id number]
[2021-02-16 08:00] VITALS: BP 132/76
[2021-02-16] MEDS ORDERED: FUROSEMIDE 40MG/4ML VIAL (J1940) IV SCH (09:00)
[2021-02-16] MEDS ORDERED: predniSONE 20 MG TAB PO ONE (09:00)
--- NOTE | 2021-02-16 09:37 | REP ---
INDICATION: r.o DVT COMPARISON: None. TECHNIQUE: Real time compression and duplex Doppler interrogation of the bilateral lower extremity deep venous system is performed. Compression ultrasound is performed of the bilateral peroneal and posterior tibial veins. FINDINGS: Bilaterally, the common femoral, superficial femoral and popliteal veins are fully compressible with transducer pressure and demonstrate normal spontaneous and phasic flow, without evidence of deep venous thrombosis. There is limited visualization of the bilateral peroneal and posterior tibial veins due to soft tissue edema. IMPRESSION: No evidence of deep venous thrombosis of the bilateral lower extremity femoral popliteal venous system. <Electronically signed by Valente Carrero > 02/16/21 0955
--- NOTE | 2021-02-16 09:39 | REP ---
INDICATION: diminished pulses, please measure QUINCY also COMPARISON: None. TECHNIQUE: Bilateral lower extremity arterial ultrasound with Doppler FINDINGS: All numeric values represent peak systolic velocity in cm/S EC On the right: The ankle brachial index is 0.96. CABIN EQUIPMENT SUPERVISOR: 135 biphasic Profunda: 127 biphasic SFA proximal: 126 biphasic SFA mid: 131 biphasic SFA distal: 144 biphasic Popliteal: 40 biphasic KAIA proximal: 78 biphasic Tibioperoneal trunk: 66 biphasic ENGINEER SOILS proximal: 68 biphasic ENGINEER SOILS distal: 53 biphasic KAIA distal: 37 biphasic On the left: The ankle brachial index is 1.09 CABIN EQUIPMENT SUPERVISOR: 112 biphasic Profunda: 69 biphasic SFA proximal: 76 biphasic SFA mid: 122 biphasic SFA distal: 115 biphasic Popliteal: 69 biphasic KAIA proximal: 69 biphasic Tibioperoneal trunk: 49 biphasic ENGINEER SOILS proximal: 42 biphasic ENGINEER SOILS distal: 38 biphasic KAIA distal: 21 biphasic Mild plaque was seen throughout bilaterally with no evidence of a significant stenosis IMPRESSION: As above <Electronically signed by Toño Estrada > 02/16/21 [id number]
--- NOTE | 2021-02-16 09:42 | REP ---
INDICATION: hypertensive urgency, assess for renal artery stenosis pleas; hypertensive urgency, r/o PATRICIA. COMPARISON: 04/28/2014. TECHNIQUE: Real-time sonographic evaluation of the kidneys is performed. Duplex Doppler evaluation of renal arteries attempted. FINDINGS: Renal cortical echogenicity pattern is normal bilaterally and contours are smooth. There is no evidence of hydronephrosis, cyst, mass, or calculus in either kidney. The right kidney measures 8.7 x 4.0 x 4.1 cm. Left renal dimensions are 10.3 x 5.0 x 4.4 cm. The urinary bladder is unremarkable. The main renal arteries could not be visualized due to overlying bowel gas. The intrarenal arteries could not be adequately interrogated due to bowel gas and patient motion. IMPRESSION: Negative renal ultrasound. The renal arteries could not be visualized due to overlying bowel gas and the intrarenal arteries could not be interrogated due to bowel gas and patient motion. <Electronically signed by Valente Carrero > 02/16/21 0938
[2021-02-16 09:49] LABS: ABG BASE EXCESS 9.1 (-2.0-2.0); ABG HCO3 33.9 MEQ/L (22.0-26.0); ABG O2 SATURATION 96.1 % (95.0-99.0); ABG PARTIAL PRESSURE CO2 47.3 mmHg (35.0-45.0); ABG PARTIAL PRESSURE O2 82.1 mmHg (75.0-100.0); ABG STANDARD HCO3 32.9 MEQ/L (22.0-26.0); ABG TOTAL CO2 35.3 MEQ/L (23.0-31.0); ABG pH (ARTERIAL) 7.473 UNITS (7.350-7.450)
[2021-02-16 11:24] LABS: BASO % 0.2 % (0.0-1.0); EOS # 0.1 10^3/uL (0.0-0.5); EOS % 1.3 % (0.0-3.0); HEMATOCRIT 33.3 % (36.0-47.0); HEMOGLOBIN 10.6 g/dl (12.0-15.5); LYMPH % 10.2 % (24.0-44.0); MEAN CORPUSCULAR HEMOGLOBIN 30.6 pg (27.0-33.0); MEAN CORPUSCULAR HGB CONC 31.8 g/dl (32.0-36.5); MEAN CORPUSCULAR VOLUME 96.2 fl (80.0-96.0); MONO # 0.9 10^3/uL (0.0-0.8); MONO % 9.1 % (2.0-8.0); NEUTROPHILS # 7.9 10^3/uL (1.5-8.5); NEUTROPHILS % 76.9 % (36.0-66.0); PLATELET COUNT, AUTOMATED 224 10^3/uL (150-450); RED BLOOD COUNT 3.46 10^6/uL (4.00-5.40); WHITE BLOOD COUNT 10.2 10^3/uL (4.0-10.0)
--- NOTE | 2021-02-16 11:33 | IPN ---
PROGRESS NOTE DATE: 02/16/2021 SUBJECTIVE: This morning the patient was given Ativan 0.5 due to increased agitation. The patient is lethargic this morning, not answering questions, unable to provide review of systems. OBJECTIVE: VITAL SIGNS: Temperature 96.7, pulse 65 sinus rhythm, respiratory rate 24, blood pressure 129/68, 97% on 2 liters nasal cannula. GENERAL: Generally the patient is lethargic, unable to answer questions. She currently has a nebulizer on. No use of respiratory accessory muscles. Dry mucous membranes. No JVD. No thyromegaly or cervical lymphadenopathy. LUNGS: Diminished, no rales, no wheezing. Coarse breath sounds. Fine crackles. HEART: S1, S2, sinus rhythm. ABDOMEN: Soft, nontender, nondistended. EXTREMITIES: Swollen dorsum of the feet with 1+ edema. LABORATORY DATA: CBC, metabolic panel, liver function tests. BNP was 442, troponin less than 0.02, ammonia less than 10. Creatinine 1.33 IMAGING STUDIES: 1. CT head: No acute abnormality. 2. Chest x-ray: Linear fibrosis and atelectasis, no acute disease, mild cardiomegaly. ASSESSMENT AND PLAN: This is a 75-year-old female with a history of COPD on 2 liters home oxygen dependent with chronic hypoxic respiratory failure, diastolic heart failure, chronic atrial fibrillation, chronic orthostatic hypotension, history of pulmonary embolism, indeterminate on CT chest on 02/02/2021, bronchitis, chronic kidney disease stage III, hypothyroidism, depression, urine incontinence, TIA, right MCA aneurysm, coronary artery disease with stenting, hypercholesterolemia, nicotine dependence, rheumatoid arthritis, degenerative disk disease of the lumbar spine and osteoporosis, hypothyroidism, and fatty liver admitted due to increasing lower extremity edema. Patient was somnolent on admission. Ammonia was 33. Chest x-ray has no abnormality but with lower extremity edema and hypertensive urgency with systolic blood pressure increasing to 205/98. The patient was admitted for possible CHF exacerbation. IMPRESSION: 1. Hypertensive urgency, currently stable at 129/68. The patient was given IV Lasix twice a day yesterday. Due to increased agitation she was given one dose of Ativan this morning, 0.5, now with acute encephalopathy. 2. Acute encephalopathy secondary to Ativan this morning, rule out acute respiratory acidosis due to increased risk of CO2 retention with history of COPD, home oxygen dependent. 3. Shortness of breath presumed to be CHF diastolic dysfunction exacerbation but BNP is low and chest x-ray had no pulmonary edema. The patient does have lower extremity edema but we are also concerned about pulmonary embolism and since she has not been on any anticoagulant, she was started on subcu Heparin last evening but we will check a VQ scan today. She had an indeterminate GUNNAR study on 02/02/2021. Continue with DVT prophylaxis, Plavix and Aspirin. 4. History of CVA. Repeat CT of the head is negative for acute intracranial abnormality. She is currently on Aspirin and Plavix. 5. Nicotine dependence on nicotine patch. 6. Hypertension on metoprolol 12.5 every 2 days. 7. Atrial fibrillation, chronic. Not on anticoagulation, only on Aspirin and Plavix. 8. Chronic kidney disease stage III. Baseline creatinine 1.2 to 1.3.
[2021-02-16 11:59] LABS: BLOOD UREA NITROGEN 35 MG/DL (7-18); CALCIUM LEVEL 8.1 MG/DL (8.8-10.2); CARBON DIOXIDE LEVEL 34 MEQ/L (21-32); CHLORIDE LEVEL 97 MEQ/L (98-107); CK-MB VALUE MASS 2.5 NG/ML (<3.6); CPK CREATINE PHOSPHOKINASE 48 U/L (26-192); CREATININE FOR GFR 1.24 MG/DL (0.55-1.30); GLOMERULAR FILTRATION RATE 44.7 (>39); GLUCOSE, FASTING 75 MG/DL (70-100); MB/CK RELATIVE INDEX 5.21 (< OR =4); NT-PRO BNP 409 PG/ML (<450); POTASSIUM SERUM 3.8 MEQ/L (3.5-5.1); SODIUM LEVEL 136 MEQ/L (136-145); TROPONIN I < 0.02 NG/ML (< 0.10)
[2021-02-16] MEDS: NICOTINE 14 MG/24 HR TRANSDERMAL TD SCH (13:14)
[2021-02-16] MEDS: ASPIRIN 81MG ENTERIC TABLET PO SCH (13:15)
[2021-02-16] MEDS: METOPROLOL SUCC *XL* 12.5MG PER 1/2 TAB (TopROL *XL*) PO SCH (13:15)
[2021-02-16] MEDS: MULTIVITAMINS/MINERALS THERAP 1 TAB PO SCH (13:16)
[2021-02-16] MEDS: FUROSEMIDE 40 MG TAB PO SCH (13:16)
[2021-02-16] MEDS: CLOPIDOGREL 75 MG TAB PO SCH (13:16)
[2021-02-16] MEDS: ATORVASTATIN 20 MG TAB PO SCH (13:16)
[2021-02-16] MEDS: LORATADINE 10 MG TAB PO SCH (13:17)
[2021-02-16] MEDS: DOCUSATE SODIUM 100MG CAPSULE PO SCH ×2 (13:17→21:07)
[2021-02-16] MEDS: MONTELUKAST 10 MG TAB PO SCH (13:17)
[2021-02-16] MEDS: CALCIUM CARBONATE 500 MG CHEW U/D PO SCH ×2 (13:17→21:07)
[2021-02-16] MEDS: MIRALAX *UNIT DOSE* 17GM PACKET PO SCH (13:18)
--- NOTE | 2021-02-16 15:27 | REP ---
INDICATION: sob r/o pe. COMPARISON: 02/02/2021. TECHNIQUE/RADIOTRACER AND DOSE: Following the intravenous administration of 5.5 mCi technetium 99 M tagged MAA and the inhalation of 1.0 mCi technetium 99 M DTPA aerosol, multiple images of the lungs are obtained in various projections. FINDINGS: Once again there is extensive clumping of radiotracer centrally in the airways. There are multiple bilateral perfusion defects unchanged when compared to the prior study. Corresponding ventilation defects are generally similar in size or larger than the perfusion defects. IMPRESSION: Essentially no change compared to the prior study of 02/02/2021. The study is indeterminate for pulmonary embolism. CT angiography of the chest is recommended. <Electronically signed by Valente Carrero > 02/16/21 [id number]
[2021-02-16 22:00] VITALS: BP 114/71
--- NOTE | 2021-02-17 05:58 | ECGEPIP ---
[facility] - ED Test Date: 2021-02-15 Pat Name: KEVIN MARIN Department: Room: - Gender: Female Quality Reviewer: : 1945 Requested By: Dontrell Em Order Number: [id number] Reading MD: Dontrell Granados Measurements Intervals [place] Rate: 88 P: 78 ME: 134 QRS: -63 QRSD: 76 T: 70 QT: 360 QTc: 435 Interpretive Statements Normal sinus rhythm Left anterior fascicular block INCOMPLETE RIGHT BUNDLE BRANCH BLOCK SIMILAR TO PRIOR ON SAME DATE Electronically Signed on 02-17-2021 5:58:13 EDT by Dontrell Granados
[2021-02-17 06:00] VITALS: BP 143/99
[2021-02-17] MEDS: SLF 3 ML SYR IV SCH ×3 (06:00→22:49)
[2021-02-17] MEDS: LEVOTHYROXINE 25MCG TABLET (0.025MG) PO SCH (06:11)
[2021-02-17] MEDS: ADVAIR HFA 45/21MCG INHALER INH SCH ×2 (07:39→20:20)
[2021-02-17] MEDS: MIRALAX *UNIT DOSE* 17GM PACKET PO SCH (09:00)
[2021-02-17] MEDS ORDERED: predniSONE 10 MG TAB PO ONE (09:00)
[2021-02-17] MEDS: MULTIVITAMINS/MINERALS THERAP 1 TAB PO SCH (09:28)
[2021-02-17] MEDS: ATORVASTATIN 20 MG TAB PO SCH (09:28)
[2021-02-17] MEDS: CALCIUM CARBONATE 500 MG CHEW U/D PO SCH ×2 (09:28→22:49)
[2021-02-17] MEDS: FUROSEMIDE 40 MG TAB PO SCH (09:28)
[2021-02-17] MEDS: DOCUSATE SODIUM 100MG CAPSULE PO SCH ×2 (09:28→22:49)
[2021-02-17] MEDS: MONTELUKAST 10 MG TAB PO SCH (09:28)
[2021-02-17] MEDS: CLOPIDOGREL 75 MG TAB PO SCH (09:28)
[2021-02-17] MEDS: ASPIRIN 81MG ENTERIC TABLET PO SCH (09:28)
[2021-02-17] MEDS: LORATADINE 10 MG TAB PO SCH (09:29)
[2021-02-17] MEDS: NICOTINE 14 MG/24 HR TRANSDERMAL TD SCH (09:29)
--- NOTE | 2021-02-17 10:25 | REP ---
INDICATION: SOB. COMPARISON: Comparison exam is from February 16, 2021. TECHNIQUE: Portable upright AP chest radiograph. FINDINGS: There increased markings in the left lung base. Previous study show platelike atelectasis here. Today's study shows a larger area of increased density consistent with developing infiltrate. There is minimal platelike atelectasis in the right base. Oxygen delivery tubing is seen. Heart is not enlarged. Pulmonary vasculature is not increased.. IMPRESSION: Increased density in the left base consistent with developing infiltrate. More prominent than on prior study.. <Electronically signed by Charles Mejía > 02/17/21 1021
--- NOTE | 2021-02-17 11:28 | IPNPDOC ---
Date Seen The patient was seen on 02/17/21. Progress Note SUBJECTIVE: c/o fatigue slight cough scant white sputum no fever or chills no chest pain pressure tightness lightheadedness or dizziness OBJECTIVE: VITAL SIGNS: See below GENERAL: Generally the patient is lethargic, unable to answer questions. She currently has a nebulizer on. No use of respiratory accessory muscles. Dry mucous membranes. No JVD. No thyromegaly or cervical lymphadenopathy. LUNGS: Diminished, no rales, no wheezing. Coarse breath sounds. Fine crackles. HEART: S1, S2, sinus rhythm. ABDOMEN: Soft, nontender, nondistended. EXTREMITIES: Swollen dorsum of the feet with 1+ edema. LABORATORY DATA: CBC, metabolic panel, liver function tests. See below IMAGING STUDIES: 1. CT head: No acute abnormality. 2. Chest x-ray: Linear fibrosis and atelectasis, no acute disease, mild cardiomegaly. ASSESSMENT AND PLAN: This is a 75-year-old female with a history of COPD on 2 liters home oxygen dependent with chronic hypoxic respiratory failure, diastolic heart failure, chronic atrial fibrillation, chronic orthostatic hypotension, history of pulmonary embolism, indeterminate on CT chest on 02/02/2021, bronchitis, chronic kidney disease stage III, hypothyroidism, depression, urine incontinence, TIA, right MCA aneurysm, coronary artery disease with stenting, hypercholesterolemia, nicotine dependence, rheumatoid arthritis, degenerative disk disease of the lumbar spine and osteoporosis, hypothyroidism, and fatty liver admitted due to increasing lower extremity edema. Patient was somnolent on admission. Ammonia was 33. Chest x-ray has no abnormality but with lower extremity edema and hypertensive urgency with systolic blood pressure increasing to 205/98. The patient was admitted for possible CHF exacerbation. IMPRESSION: Hypertensive urgency Acute encephalopathy due to Ativan given for agitation A. 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 Her COPD and heart failure are both compensated she is resumed on her home bronchodilators and diuretics respectively ARU screen VS, I&O, 24H, [place] Vital Signs/I&O Vital Signs Date Time Temp Pulse Resp B/P (MAP) Pulse Ox O2 Delivery O2 Flow Rate FiO2 02/17/21 06:00 97.8 80 18 143/99 (114) 98 Nasal Cannula 2.0 I&O- Last 24 Hours up to 6 AM 02/17/21 06:00 Intake Total 360 ml Output Total 700 ml Balance -340 ml Laboratory Data 24H LABS Laboratory Tests 2 02/16/21 15:22: Lab Scanned Report Miscellaneous Lab Microbiology Microbiology 02/15/21 Blood Culture - Preliminary, Resulted No growth after 24 hours . All specim... 02/15/21 Blood Culture - Preliminary, Resulted No growth after 24 hours . All specim... 02/15/21 Respiratory Virus Panel (PCR) (MARVIN) - Final, Complete JOHN SAMPSON MD Feb 17, 2021 11:00
[2021-02-17 14:00] VITALS: BP 124/61
[2021-02-17] MEDS: cefTRIAXone SOD 2 GM in D5W MINI-BAG PLUS 50 ML IV SCH (15:13)
[2021-02-17] MEDS: DOXYCYCLINE HYCLATE 100 MG in D5W MINI-BAG PLUS 100 ML IV SCH (15:14)
[2021-02-17] MEDS: LACTOBACILLUS ACIDOPHILUS CAP (BACID) PO SCH (18:01)
[2021-02-17 21:40] VITALS: BP 118/53
[2021-02-18] MEDS: DOXYCYCLINE HYCLATE 100 MG in D5W MINI-BAG PLUS 100 ML IV SCH ×2 (00:25→13:36)
[2021-02-18] MEDS: RAMELTEON 8 MG TAB (ROZEREM) PO PRN ×2 (00:25→22:16)
[2021-02-18] MEDS: ALBUTEROL SULFATE 2.5 MG/0.5 ML INH NEB SOLN INH PRN (01:47)
[2021-02-18] MEDS ORDERED: ONDANSETRON 4MG/2ML VIAL IV PRN (02:20)
[2021-02-18] MEDS: LEVOTHYROXINE 25MCG TABLET (0.025MG) PO SCH (05:07)
[2021-02-18] MEDS: ACETAMINOPHEN TAB 650MG DOSE (2X325MG) PO PRN ×3 (05:08→22:17)
[2021-02-18] MEDS: SLF 3 ML SYR IV SCH ×3 (05:26→22:17)
[2021-02-18 06:00] VITALS: BP 135/86
[2021-02-18] MEDS: ADVAIR HFA 45/21MCG INHALER INH SCH ×2 (07:18→19:34)
[2021-02-18] MEDS: MIRALAX *UNIT DOSE* 17GM PACKET PO SCH (09:00)
[2021-02-18] MEDS: LACTOBACILLUS ACIDOPHILUS CAP (BACID) PO SCH ×2 (09:28→17:09)
[2021-02-18] MEDS: NICOTINE 14 MG/24 HR TRANSDERMAL TD SCH (09:28)
[2021-02-18] MEDS: FUROSEMIDE 40 MG TAB PO SCH (09:29)
[2021-02-18] MEDS: ATORVASTATIN 20 MG TAB PO SCH (09:29)
[2021-02-18] MEDS: CALCIUM CARBONATE 500 MG CHEW U/D PO SCH ×2 (09:29→22:16)
[2021-02-18] MEDS: DOCUSATE SODIUM 100MG CAPSULE PO SCH ×2 (09:29→22:16)
[2021-02-18] MEDS: MULTIVITAMINS/MINERALS THERAP 1 TAB PO SCH (09:29)
[2021-02-18] MEDS: METOPROLOL SUCC *XL* 12.5MG PER 1/2 TAB (TopROL *XL*) PO SCH (09:29)
[2021-02-18] MEDS: MONTELUKAST 10 MG TAB PO SCH (09:29)
[2021-02-18] MEDS: CLOPIDOGREL 75 MG TAB PO SCH (09:30)
[2021-02-18] MEDS: ASPIRIN 81MG ENTERIC TABLET PO SCH (09:30)
[2021-02-18] MEDS: LORATADINE 10 MG TAB PO SCH (09:30)
--- NOTE | 2021-02-18 09:33 | ECGEPIP ---
[facility] Test Date: 2021-02-18 Pat Name: KEVIN MARIN Department: Room: [place] [address] Gender: Female Carcass Trimmer: MS : 1945 Requested By: JEROMY Terry Order Number: [id number] Reading MD: Nj Barlow Measurements Intervals [place] Rate: 76 P: 78 MD: 176 QRS: -40 QRSD: 76 T: 35 QT: 398 QTc: 447 Interpretive Statements somatic artifact Normal sinus rhythm Left atrial conduction disturbance? Borderline first-degree AV block Left axis deviation. RSR prime V1 through V3 Slightly longer MD interval but otherwise unchanged from 02/15/21 Electronically Signed on 02-18-2021 9:33:19 EDT by Nj Barlow
[2021-02-18] MEDS ORDERED: MIRALAX *UNIT DOSE* 17GM PACKET PO PRN (11:05)
[2021-02-18] MEDS ORDERED: MAGNESIUM CITRATE 300 ML BTL PO ONE (12:00)
[2021-02-18 12:35] LABS: EOS # 0.1 10^3/uL (0.0-0.5); HEMOGLOBIN 9.9 g/dl (12.0-15.5); LYMPH # 0.6 10^3/uL (1.5-5.0); LYMPH % 7.3 % (24.0-44.0); MEAN CORPUSCULAR HEMOGLOBIN 31.5 pg (27.0-33.0); MEAN CORPUSCULAR VOLUME 95.5 fl (80.0-96.0); MONO # 0.7 10^3/uL (0.0-0.8); MONO % 8.5 % (2.0-8.0); NEUTROPHILS # 6.3 10^3/uL (1.5-8.5); NEUTROPHILS % 82.4 % (36.0-66.0); PLATELET COUNT, AUTOMATED 208 10^3/uL (150-450); RED BLOOD COUNT 3.14 10^6/uL (4.00-5.40); WHITE BLOOD COUNT 7.6 10^3/uL (4.0-10.0)
[2021-02-18 13:03] LABS: CALCIUM LEVEL 8.3 MG/DL (8.8-10.2); CREATININE FOR GFR 1.29 MG/DL (0.55-1.30); GLOMERULAR FILTRATION RATE 42.7 (>39); MAGNESIUM LEVEL 2.4 MG/DL (1.8-2.4); POTASSIUM SERUM 3.5 MEQ/L (3.5-5.1)
[2021-02-18] MEDS: cefTRIAXone SOD 2 GM in D5W MINI-BAG PLUS 50 ML IV SCH (13:36)
[2021-02-18 14:00] VITALS: BP 117/63
--- NOTE | 2021-02-18 14:22 | IPN ---
PROGRESS NOTE DATE: 02/18/2021 SUBJECTIVE: She still complains of shortness of breath but at baseline, slight cough productive of white sputum without fever or chills. She complains of significant abdominal discomfort this morning, wants to have a bowel movement but has not had any. PHYSICAL EXAMINATION: VITAL SIGNS: Temperature 98.3, pulse 82, respiratory rate 20, blood pressure 135/86, 99% on 1 liter nasal cannula. GENERAL: Patient is in no distress. HEENT: No JVD. No thyromegaly. LUNGS: Diminished, but clear to auscultation. No wheezing or rales. HEART:S1 S2 irregularly irregular not tachycardic ABDOMEN: Soft, distended. Hyperactive bowel sounds. EXTREMITIES: No cyanosis or clubbing. LABORATORY DATA/IMAGING STUDIES/MICROBIOLOGY: Have been reviewed. ASSESSMENT AND PLAN: This is a 75-year-old female who lives alone, was recently at [facility] when she presented with shortness of breath and found to have atrial fibrillation with RVR along with possible CHF exacerbation, however, patient on her home dose of diuretics, had no changes on chest x-ray, with BNP of 409. Patient was found to have an infiltrate and is currently being treated for pneumonia. IMPRESSION: 1. Community acquired pneumonia present on hospital admission. 2. Hypertensive urgency; resolved. 3. Acute encephalopathy due to Ativan given for agitation. 4. Atrial fibrillation with diastolic heart failure; compensated. 5. Chronic hypoxic respiratory failure on 2 liters home oxygen. 6. History of CVA. 7. Chronic atrial fibrillation. 8. CKD stage 3 at baseline. 9. COPD on oxygen. PLAN: Patient is currently medically stable, but still very weak. She complains of constipation, would like a bowel regimen. She is currently on I.V. antibiotics; Ceftriaxone and Doxycycline. She was resumed on her home diuretics. Once patient is much more comfortable, has a bowel movement, discharge to custodial. CLAIRE
[2021-02-18 22:00] VITALS: BP 143/71
[2021-02-18] MEDS: SENOKOT S TAB PO SCH (22:16)
[2021-02-19] MEDS: DOXYCYCLINE HYCLATE 100 MG in D5W MINI-BAG PLUS 100 ML IV SCH ×2 (01:38→13:36)
[2021-02-19 06:00] VITALS: BP 142/65
[2021-02-19] MEDS: SLF 3 ML SYR IV SCH ×3 (06:00→21:52)
[2021-02-19] MEDS: LEVOTHYROXINE 25MCG TABLET (0.025MG) PO SCH (06:00)
[2021-02-19] MEDS: ACETAMINOPHEN TAB 650MG DOSE (2X325MG) PO PRN ×2 (06:27→21:52)
[2021-02-19] MEDS: ADVAIR HFA 45/21MCG INHALER INH SCH ×2 (07:10→19:24)
--- NOTE | 2021-02-19 07:30 | IPN ---
PROGRESS NOTE DATE: 02/19/2021 SUBJECTIVE: This morning, the patient still complains of diffuse abdominal pain without nausea, vomiting, fever, or chills. No complaints of diarrhea. Had two small bowel movements according to the patient, but still feels uncomfortable. No cough, shortness of breath, or chills. OBJECTIVE: VITAL SIGNS: Temperature 97, pulse 72, respiratory rate 22, blood pressure 142/65, 94% on 2 liters nasal cannula. GENERAL: The patient is able to speak in full sentences. No conversational dyspnea. No cyanosis. No respiratory distress. HEENT: No JVD, thyromegaly, or cervical lymphadenopathy. Moist mucous membranes. No carotid bruit or stridor. LUNGS: Diminished, but clear to auscultation. No wheezing, rales, or rhonchi. Air entry is equal bilaterally. HEART: S1, S2. Irregularly irregular. No murmurs, rubs, or gallops. ABDOMEN: Soft. Hypoactive bowel sounds. Not distended. No rebound or guarding. EXTREMITIES: No cyanosis or clubbing. No pitting edema. DIAGNOSTIC STUDIES: Laboratory data, imaging, and microbiology please see the chart. ASSESSMENT: A 75-year-old who lives alone recently at [facility] presented with shortness of breath initially thought to be due to hypertensive urgency, atrial fibrillation (AFib) with rapid ventricular response (RVR), and possible congestive heart failure (CHF) exacerbation. The patient, however, had no pleural effusion or pulmonary edema on chest x-ray with a BNP of 409. The patient's heart rate was controlled. She was treated for elevated blood pressure. Repeat chest x-ray showed community-acquired pneumonia and now complains of constipation and debility with generalized weakness and fatigue. IMPRESSION AND PLAN: 1. Community-acquired pneumonia present on hospital admission currently on intravenous (IV) ceftriaxone and doxycycline to complete a full seven day course. Sputum culture and blood cultures reviewed. 2. Hypertensive urgency resolved currently on home medications. 3. Congestive heart failure (CHF) with diastolic dysfunction currently at baseline. Strict I and O (intake and output), daily weights, and fluid restriction. 4. Atrial fibrillation with RVR resolved. 5. Chronic hypoxic respiratory failure on 2 liters home oxygen at baseline. 6. Acute encephalopathy due to Ativan given for agitation, resolved. Avoid sedatives and hypnotics. 7. Chronic atrial fibrillation rate controlled. 8. Chronic kidney disease stage III at baseline. 9. Constipation on bowel regimen. 10. Chronic obstructive pulmonary disease (COPD) on home oxygen, compensated. DISPOSITION: Awaiting acute rehabilitation unit (ARU) acceptance. CLAIRE
--- NOTE | 2021-02-19 08:10 | REP ---
INDICATION: abd pain COMPARISON: None. TECHNIQUE: Supine view of the abdomen and pelvis. FINDINGS: Bowel gas pattern is nonspecific and without obstruction or perforation. Mild fecal stasis/constipation cannot be excluded. No organomegaly. Clips in the right upper quadrant suggest prior cholecystectomy. Skeletal structures demonstrate age-related degenerative changes. IMPRESSION: Nonspecific abdominal radiograph. <Electronically signed by Vikas Ruiz > 02/19/21 0843
[2021-02-19] MEDS: MOM 30ML SUSPENSION UDC PO SCH ×2 (09:09→11:00)
[2021-02-19] MEDS: SENOKOT S TAB PO SCH ×2 (09:11→21:51)
[2021-02-19] MEDS: MULTIVITAMINS/MINERALS THERAP 1 TAB PO SCH (09:11)
[2021-02-19] MEDS: LORATADINE 10 MG TAB PO SCH (09:11)
[2021-02-19] MEDS: ATORVASTATIN 20 MG TAB PO SCH (09:11)
[2021-02-19] MEDS: LACTOBACILLUS ACIDOPHILUS CAP (BACID) PO SCH ×2 (09:11→17:49)
[2021-02-19] MEDS: DOCUSATE SODIUM 100MG CAPSULE PO SCH ×2 (09:11→21:51)
[2021-02-19] MEDS: CLOPIDOGREL 75 MG TAB PO SCH (09:11)
[2021-02-19] MEDS: MONTELUKAST 10 MG TAB PO SCH (09:12)
[2021-02-19] MEDS: POLYETHYLENE GLYCOL (MIRALAX) 238GM BOTTLE PO ONE ×2 (09:12→10:00)
[2021-02-19] MEDS: CALCIUM CARBONATE 500 MG CHEW U/D PO SCH ×2 (09:12→21:52)
[2021-02-19] MEDS: ASPIRIN 81MG ENTERIC TABLET PO SCH (09:12)
[2021-02-19] MEDS: NICOTINE 14 MG/24 HR TRANSDERMAL TD SCH (09:12)
[2021-02-19] MEDS: FUROSEMIDE 40 MG TAB PO SCH (09:13)
[2021-02-19] MEDS: cefTRIAXone SOD 2 GM in D5W MINI-BAG PLUS 50 ML IV SCH (11:55)
[2021-02-19 14:00] VITALS: BP 146/72
[2021-02-19] MEDS: RAMELTEON 8 MG TAB (ROZEREM) PO PRN (21:51)
[2021-02-19 22:00] VITALS: BP 133/66
[2021-02-20] MEDS: DOXYCYCLINE HYCLATE 100 MG in D5W MINI-BAG PLUS 100 ML IV SCH ×2 (00:17→13:35)
[2021-02-20] MEDS: SLF 3 ML SYR IV SCH ×3 (05:49→20:47)
[2021-02-20] MEDS: LEVOTHYROXINE 25MCG TABLET (0.025MG) PO SCH (05:49)
[2021-02-20 06:00] VITALS: BP 140/67
[2021-02-20] MEDS: ADVAIR HFA 45/21MCG INHALER INH SCH ×2 (07:09→20:43)
[2021-02-20 07:39] LABS: BASO % 0.1 % (0.0-1.0); EOS # 0.1 10^3/uL (0.0-0.5); EOS % 1.2 % (0.0-3.0); HEMOGLOBIN 10.4 g/dl (12.0-15.5); LYMPH # 0.8 10^3/uL (1.5-5.0); LYMPH % 10.4 % (24.0-44.0); MEAN CORPUSCULAR HEMOGLOBIN 31.1 pg (27.0-33.0); MEAN CORPUSCULAR HGB CONC 32.5 g/dl (32.0-36.5); MEAN CORPUSCULAR VOLUME 95.8 fl (80.0-96.0); MONO # 0.4 10^3/uL (0.0-0.8); MONO % 5.7 % (2.0-8.0); NEUTROPHILS % 81.9 % (36.0-66.0); PLATELET COUNT, AUTOMATED 196 10^3/uL (150-450); RED BLOOD COUNT 3.34 10^6/uL (4.00-5.40); WHITE BLOOD COUNT 7.3 10^3/uL (4.0-10.0)
--- NOTE | 2021-02-20 08:19 | IPN ---
PROGRESS NOTE DATE: 02/20/2021 SUBJECTIVE: The patient says that her constipation has improved. She has had a bowel movement yesterday, feels much more comfortable today, no complaints of cough, fever, chills or shortness of breath, anxious to go home. No weakness. No other issues overnight. PHYSICAL EXAM: Vitals: Temperature 97.4, pulse 74, respiratory rate 20, blood pressure 140/67, 98% on two liters nasal cannula. General: Awake, alert and oriented to person, place and time, answering questions appropriately. No respiratory distress, no JVD, thyromegaly or cervical lymphadenopathy. Lungs: Diminished breath sounds. Crackles at the left base. Heart: S1, S2, irregularly irregular, not tachycardic. Abdomen: Soft, nontender and nondistended, positive bowel sounds. Extremities: No cyanosis or clubbing. LABORATORY DATA: Pending. IMAGING STUDIES: Microbiology has been reviewed. ASSESSMENT AND PLAN: This is a 75-year-old female, FULL CODE, with history of congestive heart failure, recently at [facility], presented due to shortness of breath, found to have hypertensive urgency, A fib and RVR and possible CHF, acute exacerbation and chronic diastolic heart failure. The patient had a BNP of 409, chest x-ray with no effusion or pulmonary edema. The patient was initially treated with Lasix. Repeat x-ray showed community acquired pneumonia at the left lower lobe. She continued to have complaints of generalized weakness, fatigue, unable to be discharged home and also complained of constipation. ACUTE ISSUES: 1. Constipation, resolved. 2. Community acquired pneumonia, left lower lobe, present on hospital admission. 3. Hypertensive urgency, resolved. 4. CHF, diastolic dysfunction, compensated with preserved systolic function. 5. A fib with RVR, resolved, chronic A fib. 6. Chronic hypoxic respiratory failure on two liters home oxygen at baseline. 7. Acute encephalopathy due to Ativan given prior for agitation. 8. Agitation, resolved. 9. Chronic kidney disease, stage 3. 10. COPD on home oxygen, compensated. PLAN: The patient is continued on IV Ceftriaxone, doxycycline. She is to complete a full seven day course of antibiotics but can be transitioned to oral medications at hospital discharge. Her blood pressure, heart rate are all controlled at this time. She appears to be euvolemic, resume back on her home dose of diuretics. She is kept at two liters of oxygen at baseline. Agitation has been resolved. Encephalopathy has also resolved. We are avoiding sedatives if not extend opioids as much as possible. Renally dosing all medications. She is currently medically stable for either acute rehab discharge versus home with home care. Await PT recommendations in the morning and ARU screen. MTDD
[2021-02-20] MEDS: LACTOBACILLUS ACIDOPHILUS CAP (BACID) PO SCH ×2 (08:20→18:01)
[2021-02-20] MEDS: CALCIUM CARBONATE 500 MG CHEW U/D PO SCH ×2 (08:20→20:46)
[2021-02-20] MEDS: METOPROLOL SUCC *XL* 12.5MG PER 1/2 TAB (TopROL *XL*) PO SCH (08:20)
[2021-02-20] MEDS: ASPIRIN 81MG ENTERIC TABLET PO SCH (08:20)
[2021-02-20] MEDS: NICOTINE 14 MG/24 HR TRANSDERMAL TD SCH (08:20)
[2021-02-20] MEDS: MONTELUKAST 10 MG TAB PO SCH (08:20)
[2021-02-20] MEDS: ATORVASTATIN 20 MG TAB PO SCH (08:21)
[2021-02-20] MEDS: LORATADINE 10 MG TAB PO SCH (08:21)
[2021-02-20] MEDS: CLOPIDOGREL 75 MG TAB PO SCH (08:21)
[2021-02-20] MEDS: FUROSEMIDE 40 MG TAB PO SCH (08:21)
[2021-02-20] MEDS: MULTIVITAMINS/MINERALS THERAP 1 TAB PO SCH (08:21)
[2021-02-20] MEDS: SENOKOT S TAB PO SCH ×2 (08:21→20:47)
[2021-02-20] MEDS: DOCUSATE SODIUM 100MG CAPSULE PO SCH ×2 (08:22→20:48)
[2021-02-20 08:24] LABS: CALCIUM LEVEL 8.7 MG/DL (8.8-10.2); CREATININE FOR GFR 1.31 MG/DL (0.55-1.30); GLOMERULAR FILTRATION RATE 41.9 (>39); POTASSIUM SERUM 3.9 MEQ/L (3.5-5.1)
[2021-02-20] MEDS: cefTRIAXone SOD 2 GM in D5W MINI-BAG PLUS 50 ML IV SCH (12:57)
[2021-02-20 14:00] VITALS: BP 133/68
[2021-02-20 15:08] LABS: BODY FLUID CULTURE Not indicated. (.); LEGIONELLA ANTIGEN URINE Negative (Negative); ORGANISM ID Not indicated. (.); SPECIMEN SOURCE Urine (.); URINE STREP PNEUMONIAE ANTIGEN Negative (Negative)
[2021-02-20 20:00] VITALS: BP 131/78
[2021-02-20] MEDS: RAMELTEON 8 MG TAB (ROZEREM) PO PRN (20:47)
[2021-02-20] MEDS: ACETAMINOPHEN TAB 650MG DOSE (2X325MG) PO PRN (20:47)
[2021-02-21] MEDS: DOXYCYCLINE HYCLATE 100 MG in D5W MINI-BAG PLUS 100 ML IV SCH (01:00)
[2021-02-21] MEDS ORDERED: hydrOXYzine 10 MG TAB PO ONE (05:05)
[2021-02-21] MEDS: LEVOTHYROXINE 25MCG TABLET (0.025MG) PO SCH (05:32)
[2021-02-21] MEDS: SLF 3 ML SYR IV SCH ×3 (05:33→22:00)
[2021-02-21 06:23] VITALS: BP 161/79
[2021-02-21] MEDS ORDERED: CEFD300CAP PO (07:36)
[2021-02-21] MEDS ORDERED: DOXY-350 PO (07:36)
[2021-02-21] MEDS ORDERED: BACI1CAP PO (07:36)
[2021-02-21] MEDS: ADVAIR HFA 45/21MCG INHALER INH SCH ×2 (07:57→19:56)
[2021-02-21 08:45] VITALS: BP 125/68
[2021-02-21] MEDS: LORATADINE 10 MG TAB PO SCH (08:46)
[2021-02-21] MEDS: DOCUSATE SODIUM 100MG CAPSULE PO SCH ×2 (08:46→22:00)
[2021-02-21] MEDS: ASPIRIN 81MG ENTERIC TABLET PO SCH (08:46)
[2021-02-21] MEDS: LACTOBACILLUS ACIDOPHILUS CAP (BACID) PO SCH ×2 (08:46→17:28)
[2021-02-21] MEDS: MULTIVITAMINS/MINERALS THERAP 1 TAB PO SCH (08:47)
[2021-02-21] MEDS: CLOPIDOGREL 75 MG TAB PO SCH (08:47)
[2021-02-21] MEDS: ATORVASTATIN 20 MG TAB PO SCH (08:47)
[2021-02-21] MEDS: MONTELUKAST 10 MG TAB PO SCH (08:47)
[2021-02-21] MEDS: FUROSEMIDE 40 MG TAB PO SCH (08:47)
[2021-02-21] MEDS: SENOKOT S TAB PO SCH ×2 (08:47→22:00)
[2021-02-21] MEDS: CALCIUM CARBONATE 500 MG CHEW U/D PO SCH ×2 (08:48→22:01)
[2021-02-21] MEDS: NICOTINE 14 MG/24 HR TRANSDERMAL TD SCH (08:48)
--- NOTE | 2021-02-21 09:52 | REP ---
INDICATION: sob. COMPARISON: Comparison chest x-ray February 17, 2021. TECHNIQUE: Two views.. FINDINGS: The lungs are hyperinflated consistent with some degree of COPD. The heart is not enlarged. The thoracic aorta is somewhat tortuous and calcific. There is minimal linear platelike atelectasis at the left base. No focal infiltrate is appreciated. Pulmonary vasculature is not increased. There are mild degenerative changes in the thoracic spine. IMPRESSION: Hyperinflation consistent with COPD. Linear discoid atelectasis left base. No acute infiltrate.. <Electronically signed by Charles Mejía > 02/21/21 0919
[2021-02-21 10:10] LABS: BASO % 0.1 % (0.0-1.0); EOS # 0.1 10^3/uL (0.0-0.5); HEMATOCRIT 31.1 % (36.0-47.0); HEMOGLOBIN 10.1 g/dl (12.0-15.5); LYMPH # 0.7 10^3/uL (1.5-5.0); LYMPH % 7.3 % (24.0-44.0); MEAN CORPUSCULAR HEMOGLOBIN 31.1 pg (27.0-33.0); MEAN CORPUSCULAR HGB CONC 32.5 g/dl (32.0-36.5); MEAN CORPUSCULAR VOLUME 95.7 fl (80.0-96.0); MONO # 0.5 10^3/uL (0.0-0.8); MONO % 5.3 % (2.0-8.0); NEUTROPHILS # 7.7 10^3/uL (1.5-8.5); NEUTROPHILS % 85.7 % (36.0-66.0); PLATELET COUNT, AUTOMATED 188 10^3/uL (150-450); RED BLOOD COUNT 3.25 10^6/uL (4.00-5.40)
[2021-02-21 10:47] LABS: BLOOD UREA NITROGEN 34 MG/DL (7-18); CALCIUM LEVEL 8.2 MG/DL (8.8-10.2); CARBON DIOXIDE LEVEL 34 MEQ/L (21-32); CHLORIDE LEVEL 94 MEQ/L (98-107); CK-MB VALUE MASS 1.7 NG/ML (<3.6); CPK CREATINE PHOSPHOKINASE 41 U/L (26-192); CREATININE FOR GFR 1.38 MG/DL (0.55-1.30); GLOMERULAR FILTRATION RATE 39.5 (>39); GLUCOSE, FASTING 128 MG/DL (70-100); MB/CK RELATIVE INDEX 4.15 (< OR =4); NT-PRO BNP 183 PG/ML (<450); POTASSIUM SERUM 3.7 MEQ/L (3.5-5.1); SODIUM LEVEL 134 MEQ/L (136-145); TROPONIN I < 0.02 NG/ML (< 0.10)
[2021-02-21] MEDS: LevoFLOXacin 750 MG TABLET PO SCH (10:58)
[2021-02-21] MEDS ORDERED: LEVALBUTEROL 1.25 MG/0.5 ML CONCENTRATE NEB INH PRN (11:50)
--- NOTE | 2021-02-21 12:22 | IPN ---
PROGRESS NOTE DATE: 02/15/2021 SUBJECTIVE: Patient was seen and examined at the bedside. Chart has been reviewed. Patient complains of slight shortness of breath this morning, still at baseline 98% on 1-2 liters of nasal cannula. Repeat chest x-ray shows linear atelectasis at the left base, hyperinflation, no acute infiltrate. No other issues. Abdominal pain as resolved. Patient has had bowel movements. No nausea or vomiting. OBJECTIVE: Vital signs: Temperature 97.6, pulse 96, respiratory rate 22, blood pressure 125/68, 98% on 1 liter nasal cannula. General: Awake, alert, oriented times 3, in no respiratory distress; use of respiratory accessory muscles with prolonged expiration. Lungs: Diminished with fine crackles at the base otherwise no wheezing or rales. Heart: S1 and S2 irregularly irregular, not tachycardic. Abdomen: Soft, nontender, nondistended, positive bowel sounds. Extremities: No cyanosis or clubbing. LABORATORY DATA: Laboratory data and microbiology were reviewed. IMAGING STUDIES: Reviewed. ASSESSMENT: This 75-year-old female with a history of diastolic heart failure presented with shortness of breath initially thought to be due to congestive heart failure with hypertensive urgency and afib with RVR. Chest x-ray; however, was negative for pulmonary edema or pleural effusions and patient was kept on her home dose of diuretic. Repeat chest x-ray showed community acquired pneumonia at the left lower lobe and was treated with I.V. ceftriaxone and doxycycline. Patient had complained of significant constipation, was given multiple doses of bowel regimen and has since been comfortable. IMPRESSIONS/PLAN: 1. Community acquired pneumonia left lower lobe present on hospital admission: Patient had been on I.V. ceftriaxone and doxycycline and transitioned to renally dosed Levaquin today to complete a full 7 day course. Currently he has completed 5 days of antibiotics so far. 2. Hypertensive urgency: Has resolved. She is resumed on her home dose of anti-hypertensives. 3. Congestive heart failure, diastolic dysfunction: At baseline and compensated on her home dose of diuretic. 4. Afib with RVR: Resolved. She has chronic afib which is currently rate controlled. 5. Acute encephalopathy secondary to Ativan given for agitation: Resolved. 6. Chronic hypoxic respiratory failure: On 1-2 liters of home oxygen at baseline. 7. Chronic kidney disease stage 3: At baseline creatinine. 8. COPD: On home oxygen compensated. Nebulizer treatments as needed. Patient is awaiting ARU acceptance. Insurance is still pending otherwise she is medically stable.
[2021-02-21] MEDS ORDERED: VARIBAR NECTAR 40% w/v 240ML SUSP BTL As Ordered ONE (12:27)
[2021-02-21] MEDS ORDERED: E-Z-PAQUE 96% w/w SUSP 176GM BTL As Ordered ONE (12:27)
[2021-02-21] MEDS ORDERED: VARIBAR PUDDING 40% w/v 230ML TUBE As Ordered ONE (12:27)
[2021-02-21] MEDS ORDERED: BARIUM SULFATE 700 MG TABLET (E-Z-DISK) As Ordered ONE (12:30)
[2021-02-21] MEDS: LEVALBUTEROL 1.25 MG/0.5 ML CONCENTRATE NEB INH SCH ×3 (13:09→19:56)
[2021-02-21 14:00] VITALS: BP 145/79
--- NOTE | 2021-02-21 17:17 | REP ---
INDICATION: Rule out aspiration. COMPARISON: NONE TECHNIQUE: The procedure was performed under the direct supervision of . The procedure was performed with Shaila Lainez from speech pathology present. 5 CC aliquots of thin, pudding, mixed fruit, soft and solid consistency barium as well as a barium pill were administered. 1.3 minutes of fluoroscopy time was utilized for this procedure. FINDINGS: With thin consistency barium there is aspiration A detailed report of this examination will be provided by speech pathology. IMPRESSION: With thin consistency barium there is aspiration A detailed report of this examination will be provided by speech pathology. <Electronically signed by Jacob Menjivar > 02/21/21 1657 <Electronically signed by Charles Mejía > 02/21/21 [id number]
[2021-02-21 21:55] VITALS: BP 125/66
[2021-02-21] MEDS: RAMELTEON 8 MG TAB (ROZEREM) PO PRN (22:01)
[2021-02-21] MEDS: ACETAMINOPHEN TAB 650MG DOSE (2X325MG) PO PRN (22:02)
[2021-02-21 22:38] VITALS: BP 129/72
[2021-02-22] MEDS: SLF 3 ML SYR IV SCH (06:00)
[2021-02-22] MEDS: ADVAIR HFA 45/21MCG INHALER INH SCH ×2 (07:06→19:45)
[2021-02-22] MEDS: LEVOTHYROXINE 25MCG TABLET (0.025MG) PO SCH (07:10)
[2021-02-22 07:49] VITALS: BP 110/56
[2021-02-22] MEDS: LEVALBUTEROL 1.25 MG/0.5 ML CONCENTRATE NEB INH SCH ×4 (08:00→19:46)
[2021-02-22] MEDS: DOCUSATE SODIUM 100MG CAPSULE PO SCH ×2 (09:42→21:04)
[2021-02-22] MEDS: METOPROLOL SUCC *XL* 12.5MG PER 1/2 TAB (TopROL *XL*) PO SCH (09:42)
[2021-02-22] MEDS: MULTIVITAMINS/MINERALS THERAP 1 TAB PO SCH (09:42)
[2021-02-22] MEDS: NICOTINE 14 MG/24 HR TRANSDERMAL TD SCH (09:42)
[2021-02-22] MEDS: ATORVASTATIN 20 MG TAB PO SCH (09:43)
[2021-02-22] MEDS: SENOKOT S TAB PO SCH ×2 (09:43→21:04)
[2021-02-22] MEDS: LORATADINE 10 MG TAB PO SCH (09:43)
[2021-02-22] MEDS: CALCIUM CARBONATE 500 MG CHEW U/D PO SCH ×2 (09:43→21:04)
[2021-02-22] MEDS: CLOPIDOGREL 75 MG TAB PO SCH (09:43)
[2021-02-22] MEDS: LACTOBACILLUS ACIDOPHILUS CAP (BACID) PO SCH ×2 (09:43→17:28)
[2021-02-22] MEDS: ASPIRIN 81MG ENTERIC TABLET PO SCH (09:43)
[2021-02-22] MEDS: MONTELUKAST 10 MG TAB PO SCH (09:43)
--- NOTE | 2021-02-22 10:08 | IPNPDOC ---
Subjective Date Seen The patient was seen on 02/22/21. Subjective Chief Complaint/HPI Mrs. Gil is a 75 year old female with CAD, CVA, HLD, atrial fibrillation, COPD chronically on 2L NC and hypothyroidism who is here for dyspnea and chest discomfort suspected left sided CHF and then developed HAKEEM. Yesterday, Lasix was held due to worsening renal function. This morning, she was not feeling well and had trouble describing it. Reports some shortness of breath. Objective Physical Examination General Exam: Positive: Alert, Cooperative Eye Exam: Negative: Sclera icteric Neck Exam: Positive: Supple Chest Exam: Positive: Diminished; Negative: Wheezing Heart Exam: Positive: Rate Normal, Irregular Rhythm Abdomen Exam: Positive: Normal bowel sounds, Soft; Negative: Tenderness Extremity Exam: Positive: Edema Neuro Exam: Positive: Normal Speech Psych Exam: Positive: Anxiety Assessment /Plan Assessment Mrs. Gil is a 75 year old female with CAD, CVA, HLD, atrial fibrillation, COPD chronically on 2L NC and hypothyroidism who is here for dyspnea and chest discomfort suspected left sided CHF and then developed HAKEEM. Patient's leg swelling may be chronic and will need elevation and compression stockings. Otherwise, renal function worsening, holding Lasix. ARU declined patient. Plan/VTE VTE Prophylaxis Ordered?: Yes Plan 1. Acute decompensated diastolic heart failure -Patient was diuresed, started to developed worsening renal function and diuresis was held -Patient euvolemia -Leg elevated and compression stocking for pedal edema 2. HAKEEM -Baseline creatinine around 0.9 -Creatinine gradually increasing -Hold Lasix 3. Community acquired pneumonia of the left lower lobe present on hospital admission -Will be on 7 days of antibiotics -Previously on ceftriaxone and doxycycline, now on levofloxacin -Will complete course tomorrow -On probiotic 4. CAD -Continue aspirin, clopidogrel, atorvastatin, and Toprol XL 5. COPD -Continue Advair -Continue levalbuterol 6. Hypothyroidism -Continue levothyroxine 7. DVT ppx -Heparin subQ Disposition: Pending improvement in renal function. Patient was declined at ARU. Patient will need placement elsewhere. VS, I&O, 24H, Fishbone Vital Signs/I&O Vital Signs Date Time Temp Pulse Resp B/P (MAP) Pulse Ox O2 Delivery O2 Flow Rate FiO2 02/22/21 09:42 95 144/66 02/22/21 07:49 97.5 22 97 Nasal Cannula 2.0 I&O- Last 24 Hours up to 6 AM 02/22/21 06:00 Intake Total 660 ml Output Total 0 ml Balance 660 ml Laboratory Data 24H LABS Laboratory Tests 2 02/21/21 09:52: Immature Granulocyte % (Auto) 0.6, Neutrophils (%) (Auto) 85.7H, Lymphocytes (%) (Auto) 7.3L, Monocytes (%) (Auto) 5.3, Eosinophils (%) (Auto) 1.0, Basophils (%) (Auto) 0.1, Neutrophils # (Auto) 7.7, Lymphocytes # (Auto) 0.7L, Monocytes # (Auto) 0.5, Eosinophils # (Auto) 0.1, Basophils # (Auto) 0.0, Nucleated Red Blood Cells % (auto) 0.2H, Anion Gap 6L, Glomerular Filtration Rate 39.5, Calcium Level 8.2L, Total Creatine Kinase 41, Creatine Kinase MB 1.7, Creatine Kinase MB Relative Index 4.15H, Troponin I < 0.02, QY-Esz-H-Type Natriuretic Peptide 183 CBC/BMP Laboratory Tests 02/21/21 09:52 Microbiology Microbiology 02/17/21 Gram Stain - Final, Complete 02/17/21 Sputum Culture - Final, Complete 02/17/21 Blood Culture - Preliminary, Resulted No Growth after 72 hours. All specime... 02/15/21 Blood Culture - Final, Complete NO GROWTH AFTER 5 DAYS 02/15/21 Blood Culture - Final, Complete NO GROWTH AFTER 5 DAYS 02/15/21 Respiratory Virus Panel (PCR) ([facility]) - Final, Complete JEZ DAVISON DO Feb 22, 2021 10:08
[2021-02-22] MEDS: HEPARIN SOD (PORCINE) 5000UNITS/ML 1ML VIAL/SYRINGE SQ SCH ×2 (11:38→21:12)
[2021-02-22 14:00] VITALS: BP 116/61
--- NOTE | 2021-02-22 16:51 | REP ---
INDICATION: Chest pain, dyspnea. Patient reports history coronary artery disease and CHF. Emphysema. Hypertension. Chronic kidney disease. Coronary stenting. COMPARISON: Comparison CT study of the chest is from February 02, 2021.. TECHNIQUE: Helical scanning is acquired. 3 mm axial images are generated. Coronal and sagittal MPR and coronal MIP images are generated. FINDINGS: Digital preliminary public administration teacher radiograph and CT images demonstrate hyperinflation consistent with COPD. Emphysematous changes are again noted in the lung villagomez particularly the upper lobes bilaterally. There are scattered areas of linear fibrosis in the upper lobes and to a greater extent in the lower lobes bilaterally. These are unchanged. There is some un expectorated mucus in the distal trachea. No tracheobronchial mass is seen. No pleural or pericardial effusion is apparent. There is extensive vascular calcification in the distribution of the coronary arteries and in the proximal great vessels. Bilateral subclavian artery calcifications also noted. No mediastinal mass or hilar adenopathy is appreciated. No adrenal mass lesion is observed. There is retained colonic contrast material. There are clips in the gallbladder fossa. The visualized upper abdominal structures are otherwise unremarkable. No infiltrate, lung mass, or significant pulmonary nodule is appreciated. No bony destructive lesion is seen. IMPRESSION: Hyperinflation and emphysematous changes consistent with COPD. Bibasilar and bilateral upper lobe linear fibrotic changes. Vascular calcification. otherwise no acute disease. <Electronically signed by Charles Mejía > 02/22/21 [id number]
[2021-02-22 22:00] VITALS: BP 124/60
[2021-02-23 06:00] VITALS: BP 135/64
[2021-02-23] MEDS: LevoFLOXacin 750 MG TABLET PO SCH (06:15)
[2021-02-23] MEDS: LEVOTHYROXINE 25MCG TABLET (0.025MG) PO SCH (06:15)
[2021-02-23 06:34] LABS: HEMATOCRIT 29.4 % (36.0-47.0); HEMOGLOBIN 9.3 g/dl (12.0-15.5); MEAN CORPUSCULAR HEMOGLOBIN 31.4 pg (27.0-33.0); MEAN CORPUSCULAR HGB CONC 31.6 g/dl (32.0-36.5); MEAN CORPUSCULAR VOLUME 99.3 fl (80.0-96.0); PLATELET COUNT, AUTOMATED 163 10^3/uL (150-450); RED BLOOD COUNT 2.96 10^6/uL (4.00-5.40); WHITE BLOOD COUNT 5.1 10^3/uL (4.0-10.0)
[2021-02-23 06:59] LABS: BLOOD UREA NITROGEN 47 MG/DL (7-18); CALCIUM LEVEL 8.5 MG/DL (8.8-10.2); CARBON DIOXIDE LEVEL 30 MEQ/L (21-32); CHLORIDE LEVEL 104 MEQ/L (98-107); CREATININE FOR GFR 1.29 MG/DL (0.55-1.30); GLOMERULAR FILTRATION RATE 42.7 (>39); GLUCOSE, FASTING 93 MG/DL (70-100); POTASSIUM SERUM 4.4 MEQ/L (3.5-5.1); SODIUM LEVEL 140 MEQ/L (136-145)
[2021-02-23] MEDS: LEVALBUTEROL 1.25 MG/0.5 ML CONCENTRATE NEB INH SCH ×4 (07:43→19:42)
[2021-02-23 09:28] LABS: TROPONIN I < 0.02 NG/ML (< 0.10)
[2021-02-23] MEDS: NICOTINE 14 MG/24 HR TRANSDERMAL TD SCH (09:33)
[2021-02-23] MEDS: ATORVASTATIN 20 MG TAB PO SCH (09:34)
[2021-02-23] MEDS: MULTIVITAMINS/MINERALS THERAP 1 TAB PO SCH (09:34)
[2021-02-23] MEDS: ASPIRIN 81MG ENTERIC TABLET PO SCH (09:34)
[2021-02-23] MEDS: MONTELUKAST 10 MG TAB PO SCH (09:34)
[2021-02-23] MEDS: LACTOBACILLUS ACIDOPHILUS CAP (BACID) PO SCH ×2 (09:34→18:27)
[2021-02-23] MEDS: HEPARIN SOD (PORCINE) 5000UNITS/ML 1ML VIAL/SYRINGE SQ SCH ×3 (09:34→20:25)
[2021-02-23] MEDS: LORATADINE 10 MG TAB PO SCH (09:34)
[2021-02-23] MEDS: DOCUSATE SODIUM 100MG CAPSULE PO SCH ×2 (09:34→20:23)
[2021-02-23] MEDS: CALCIUM CARBONATE 500 MG CHEW U/D PO SCH ×2 (09:34→20:23)
[2021-02-23] MEDS: SENOKOT S TAB PO SCH ×2 (09:35→20:23)
[2021-02-23] MEDS: CLOPIDOGREL 75 MG TAB PO SCH (09:35)
[2021-02-23] MEDS: ADVAIR HFA 45/21MCG INHALER INH SCH ×2 (11:37→19:42)
--- NOTE | 2021-02-23 12:30 | IPNPDOC ---
Subjective Date Seen The patient was seen on 02/23/21. Subjective Chief Complaint/HPI Mrs. Gil is a 75 year old female with CAD, CVA, HLD, atrial fibrillation, COPD chronically on 2L NC and hypothyroidism who is here for dyspnea and chest discomfort suspected left sided CHF and then developed HAKEEM. This morning, she still is not feeling well and still has chest pain and dyspnea. Chest pain is worse with activity, but she can also feel it at rest. CT chest yesterday was unrevealing. Troponin was negative. Will order echocardiogram. Patient does have history of pericardia effusion. Also, looking for pulmonary arterial hyper tension. Objective Physical Examination General Exam: Positive: Alert, Cooperative Eye Exam: Negative: Sclera icteric Neck Exam: Positive: Supple Chest Exam: Positive: Diminished; Negative: Wheezing Heart Exam: Positive: Rate Normal, Irregular Rhythm Abdomen Exam: Positive: Normal bowel sounds, Soft; Negative: Tenderness Extremity Exam: Positive: Edema Neuro Exam: Positive: Normal Speech Psych Exam: Positive: Anxiety Assessment /Plan Assessment Mrs. Gil is a 75 year old female with CAD, CVA, HLD, atrial fibrillation, COPD chronically on 2L NC and hypothyroidism who is here for dyspnea and chest discomfort suspected left sided CHF and then developed HAKEEM. Patient's leg swelling may be chronic and will need elevation and compression stockings. Otherwise, renal function worsening, holding Lasix. ARU declined patient. Plan/VTE VTE Prophylaxis Ordered?: Yes Plan 1. Acute decompensated diastolic heart failure -Patient was diuresed, started to developed worsening renal function and diuresis was held -Patient euvolemia -Leg elevated and compression stocking for pedal edema -Pro-BNP is low -Will obtain echocardiogram to look for pericardial effusion, EF, and pulmonary hypertension 2. HAKEEM -Baseline creatinine around 1 -Creatinine now declining -Hold Lasix 3. Community acquired pneumonia of the left lower lobe present on hospital admission -Previously on ceftriaxone and doxycycline, now on levofloxacin -Completed 7 days of antibiotic -On probiotic 4. CAD -Continue aspirin, clopidogrel, atorvastatin, and Toprol XL 5. COPD -Continue Advair -Continue levalbuterol 6. Hypothyroidism -Continue levothyroxine 7. DVT ppx -Heparin subQ Disposition: Patient still does not feel well and still has dyspnea and intermittent chest pain. Will order echocardiogram to look at EF, pulmonary arterial pressure, and pericardia effusion. VS, I&O, 24H, Fishbone Vital Signs/I&O Vital Signs Date Time Temp Pulse Resp B/P (MAP) Pulse Ox O2 Delivery O2 Flow Rate FiO2 02/23/21 09:00 2.0 02/23/21 06:00 97.8 71 20 135/64 (87) 100 Nasal Cannula I&O- Last 24 Hours up to 6 AM 02/23/21 06:00 Intake Total 1790 ml Balance 1790 ml Laboratory Data 24H LABS Laboratory Tests 2 02/23/21 06:22: Nucleated Red Blood Cells % (auto) 0.0, Anion Gap 6L, Glomerular Filtration Rate 42.7, Calcium Level 8.5L, Troponin I < 0.02 CBC/BMP Laboratory Tests 02/23/21 06:22 Microbiology Microbiology 02/17/21 Gram Stain - Final, Complete 02/17/21 Sputum Culture - Final, Complete 02/17/21 Blood Culture - Final, Complete NO GROWTH AFTER 5 DAYS 02/15/21 Blood Culture - Final, Complete NO GROWTH AFTER 5 DAYS 02/15/21 Blood Culture - Final, Complete NO GROWTH AFTER 5 DAYS 02/15/21 Respiratory Virus Panel (PCR) ([facility]) - Final, Complete JEZ DAVISON DO Feb 23, 2021 12:30
[2021-02-23 14:00] VITALS: BP 113/58
[2021-02-23] MEDS ORDERED: FUROSEMIDE 20MG/2ML VIAL (J1940) IV ONE (15:00)
[2021-02-23] MEDS ORDERED: FUROSEMIDE 20 MG TAB PO ONE (15:10)
[2021-02-23 22:00] VITALS: BP 113/59
[2021-02-23 22:11] LABS: APPEARANCE, URINE CLEAR (CLEAR); BACTERIA, URINE AUTO NEGATIVE (NEGATIVE); BILIRUBIN, URINE AUTO NEGATIVE (NEGATIVE); BLOOD, URINE BLOOD NEGATIVE (NEGATIVE); COLOR, URINE YELLOW (YELLOW); GLUCOSE, URINE (UA) AUTO NEGATIVE (NEGATIVE); KETONE, URINE AUTO NEGATIVE (NEGATIVE); LEUKOCYTE ESTERASE, URINE AUTO TRACE (NEGATIVE); MUCUS, URINE SMALL (NEGATIVE); NITRITE, URINE AUTO NEGATIVE (NEGATIVE); PROTEIN, URINE AUTO NEGATIVE (NEGATIVE); RBC, URINE AUTO 0 /HPF (0-3); SPECIFIC GRAVITY URINE AUTO 1.015 (1.002-1.035); SQUAMOUS EPITHELIAL CELL UR AU 0 /HPF (0-6); UROBILINOGEN, URINE AUTO 0.2 mg/dL (0.0-2.0); WBC, URINE AUTO 2 /HPF (0-3)
[2021-02-24] MEDS: LEVOTHYROXINE 25MCG TABLET (0.025MG) PO SCH (05:41)
[2021-02-24 05:52] LABS: HEMATOCRIT 28.7 % (36.0-47.0); MEAN CORPUSCULAR HEMOGLOBIN 31.3 pg (27.0-33.0); MEAN CORPUSCULAR HGB CONC 31.4 g/dl (32.0-36.5); MEAN CORPUSCULAR VOLUME 99.7 fl (80.0-96.0); PLATELET COUNT, AUTOMATED 152 10^3/uL (150-450); RED BLOOD COUNT 2.88 10^6/uL (4.00-5.40); WHITE BLOOD COUNT 4.9 10^3/uL (4.0-10.0)
[2021-02-24 06:00] VITALS: BP 110/58
[2021-02-24 06:23] LABS: CALCIUM LEVEL 8.2 MG/DL (8.8-10.2); CREATININE FOR GFR 1.35 MG/DL (0.55-1.30); GLOMERULAR FILTRATION RATE 40.5 (>39); POTASSIUM SERUM 3.4 MEQ/L (3.5-5.1); PREALBUMIN 23.4 MG/DL (20.0-40.0)
[2021-02-24] MEDS: LEVALBUTEROL 1.25 MG/0.5 ML CONCENTRATE NEB INH SCH ×4 (07:27→20:00)
[2021-02-24] MEDS: ADVAIR HFA 45/21MCG INHALER INH SCH ×2 (07:27→20:06)
[2021-02-24] MEDS ORDERED: POTASSIUM CHLORIDE 10 MEQ SR TABLET PO ONE (08:00)
[2021-02-24] MEDS: HEPARIN SOD (PORCINE) 5000UNITS/ML 1ML VIAL/SYRINGE SQ SCH ×2 (09:00→21:03)
[2021-02-24] MEDS: CLOPIDOGREL 75 MG TAB PO SCH (09:56)
[2021-02-24] MEDS: CALCIUM CARBONATE 500 MG CHEW U/D PO SCH ×2 (09:56→21:03)
[2021-02-24] MEDS: LORATADINE 10 MG TAB PO SCH (09:56)
[2021-02-24] MEDS: MULTIVITAMINS/MINERALS THERAP 1 TAB PO SCH (09:56)
[2021-02-24] MEDS: DOCUSATE SODIUM 100MG CAPSULE PO SCH ×2 (09:56→21:00)
[2021-02-24] MEDS: LACTOBACILLUS ACIDOPHILUS CAP (BACID) PO SCH ×2 (09:57→16:44)
[2021-02-24] MEDS: ASPIRIN 81MG ENTERIC TABLET PO SCH (09:57)
[2021-02-24] MEDS: NICOTINE 14 MG/24 HR TRANSDERMAL TD SCH (09:57)
[2021-02-24] MEDS: SENOKOT S TAB PO SCH ×2 (09:57→21:00)
[2021-02-24] MEDS: MONTELUKAST 10 MG TAB PO SCH (09:57)
[2021-02-24] MEDS: ATORVASTATIN 20 MG TAB PO SCH (09:58)
[2021-02-24] MEDS: METOPROLOL SUCC *XL* 12.5MG PER 1/2 TAB (TopROL *XL*) PO SCH (09:58)
[2021-02-24 14:06] VITALS: BP 126/67
--- NOTE | 2021-02-24 15:50 | IPNPDOC ---
Subjective Date Seen The patient was seen on 02/24/21. Subjective Chief Complaint/HPI Mrs. Gil is a 75 year old female with CAD, CVA, HLD, atrial fibrillation, COPD chronically on 2L NC and hypothyroidism who is here for dyspnea and chest discomfort suspected left sided CHF and then developed HAKEEM. Yesterday, gave 20mg of PO lasix and creatinine trended upwards. Will hold Lasix for today. Otherwise, this morning, patient feels the same. Consulted Dr. Justin today. He is to see the patient tomorrow. Objective Physical Examination General Exam: Positive: Alert, Cooperative Eye Exam: Negative: Sclera icteric Neck Exam: Positive: Supple Chest Exam: Positive: Diminished; Negative: Wheezing Heart Exam: Positive: Rate Normal, Irregular Rhythm Abdomen Exam: Positive: Normal bowel sounds, Soft; Negative: Tenderness Extremity Exam: Positive: Edema Neuro Exam: Positive: Normal Speech Psych Exam: Positive: Anxiety Assessment /Plan Assessment Mrs. Gil is a 75 year old female with CAD, CVA, HLD, atrial fibrillation, COPD chronically on 2L NC and hypothyroidism who is here for dyspnea and chest discomfort suspected left sided CHF and then developed HAKEEM. Patient's leg swelling may be chronic and will need elevation and compression stockings. Otherwise, renal function worsening, holding Lasix. ARU declined patient. Plan/VTE VTE Prophylaxis Ordered?: Yes Plan 1. Acute decompensated diastolic heart failure -Patient was diuresed, started to developed worsening renal function and diuresis was held -Patient euvolemia -Leg elevated and compression stocking for pedal edema -Pro-BNP is low -Will obtain echocardiogram to look for pericardial effusion, EF, and pulmonary hypertension -Cardiology consulted, recommendations appreciated 2. HAKEEM -Baseline creatinine around 1 -Creatinine now increasing -Hold Lasix 3. Community acquired pneumonia of the left lower lobe present on hospital admission -Previously on ceftriaxone and doxycycline, now on levofloxacin -Completed 7 days of antibiotic -On probiotic 4. CAD -Continue aspirin, clopidogrel, atorvastatin, and Toprol XL 5. COPD -Continue Advair -Continue levalbuterol 6. Hypothyroidism -Continue levothyroxine 7. DVT ppx -Heparin subQ Disposition: Cardiology consulted, recommendations appreciated. Pending echocardiogram results. Otherwise, reinforced with patient that it is important to elevate legs, but patient refused. Patient sleeping in chair instead of bed. VS, I&O, 24H, Fishbone Vital Signs/I&O Vital Signs Date Time Temp Pulse Resp B/P (MAP) Pulse Ox O2 Delivery O2 Flow Rate FiO2 02/24/21 14:06 97.9 86 16 126/67 (86) 100 Nasal Cannula 2.0 I&O- Last 24 Hours up to 6 AM 02/24/21 05:59 Intake Total 2160 ml Output Total 100 ml Balance 2060 ml Laboratory Data 24H LABS Laboratory Tests 2 02/23/21 21:46: Urine Color YELLOW, Urine Appearance CLEAR, Urine pH 5.0, Urine Specific Murray 1.015, Urine Protein NEGATIVE, Urine Glucose (Auto)(UA) NEGATIVE, Urine Ketones (Auto) NEGATIVE, Urine Blood NEGATIVE, Urine Nitrite NEGATIVE, Urine Bilirubin NEGATIVE, Urine Urobilinogen 0.2, Urine Leukocyte Esterase (Auto) TRACEH, Urine WBC (Auto) 2, Urine RBC (Auto) 0, Urine Hyaline Casts (Auto) 2, Urine Bacteria (Auto) NEGATIVE, Urine Squamous Epithelial Cells 0, Urine Mucus (Auto) SMALL, Urine Sperm (Auto) 02/24/21 05:29: Nucleated Red Blood Cells % (auto) 0.0, Anion Gap 5L, Glomerular Filtration Rate 40.5, Calcium Level 8.2L, Prealbumin 23.4 CBC/BMP Laboratory Tests 02/24/21 05:29 Microbiology Microbiology 02/17/21 Gram Stain - Final, Complete 02/17/21 Sputum Culture - Final, Complete 02/17/21 Blood Culture - Final, Complete NO GROWTH AFTER 5 DAYS 02/15/21 Blood Culture - Final, Complete NO GROWTH AFTER 5 DAYS 02/15/21 Blood Culture - Final, Complete NO GROWTH AFTER 5 DAYS 02/15/21 Respiratory Virus Panel (PCR) ([facility]) - Final, Complete JEZ DAVISON DO Feb 24, 2021 15:50
[2021-02-24 20:55] VITALS: BP 118/68
[2021-02-24] MEDS: ACETAMINOPHEN TAB 650MG DOSE (2X325MG) PO PRN (21:04)
--- NOTE | 2021-02-24 23:42 | ECHO ---
ECHOCARDIOGRAM DATE OF PROCEDURE: 02/24/2021 Age: 75 Gender: Female Height: 63 inches Weight: 132 pounds Body surface area: 1.62 m2 PATIENT LOCATION: Inpatient [address] [place] [address] Room [facility] REFERRING PHYSICIAN: Dr. Lion Bruno INDICATION: Pericardial effusion MEASUREMENTS: 2D Measurements: RV 3.0 cm LV 4.2 cm Septum 1.0 cm Posterior wall 1.0 cm Aortic Root 3.2 cm LA 4.0 cm LVEF 75% Doppler Measurements: AV 1.33 m/s LVOT - 0.95 m/s LVOT diameter 1.8 cm MV-E 96, A 83, EA ratio 1.2 Early mitral deceleration time 153 msec E prime medial 6.9, A prime medial 12, E prime lateral 7.2 Average E/E prime ratio 13.6/PCWP 18.8 mmHg PV 0.83 msec Pulmonary artery acceleration time 106 msec RVSP 34 mmHg IVC 1.8 cm COMMENTS: Normal sinus rhythm without intraventricular conduction disturbance. M-mode and 2-dimensional echocardiography was performed with pulse, continuous wave, color flow, and tissue Doppler studies. Normal left ventricular size, wall thickness and hyperkinetic wall motion. Borderline dilated left atrium with grade 2 LV diastolic dysfunction and slightly elevated mean left atrial pressure. Normal right heart chambers sizes and motion with Doppler evidence of mild pulmonary hypertension. Normal IVC size and collapse against an elevated central venous pressure. Normal aortic diameters. Slight aortic valvular sclerosis without functional abnormality. Mild mitral annular thickening, but normal leaflet thickness and excursion with no posterior systolic . No functional valvular abnormality. Normal appearing tricuspid valve with trace insufficiency. Very small anterior and posterior pericardial effusion without cardiac chamber compression or sign of cardiac tamponade. Normal apparent intracardiac mass.
[2021-02-25 02:00] VITALS: BP 127/58
[2021-02-25 06:21] LABS: HEMATOCRIT 27.1 % (36.0-47.0); HEMOGLOBIN 8.6 g/dl (12.0-15.5); MEAN CORPUSCULAR HEMOGLOBIN 31.7 pg (27.0-33.0); MEAN CORPUSCULAR HGB CONC 31.7 g/dl (32.0-36.5); PLATELET COUNT, AUTOMATED 145 10^3/uL (150-450); RED BLOOD COUNT 2.71 10^6/uL (4.00-5.40); WHITE BLOOD COUNT 4.6 10^3/uL (4.0-10.0)
[2021-02-25 06:42] LABS: CALCIUM LEVEL 8.2 MG/DL (8.8-10.2); CREATININE FOR GFR 1.18 MG/DL (0.55-1.30); GLOMERULAR FILTRATION RATE 47.3 (>39); POTASSIUM SERUM 5.1 MEQ/L (3.5-5.1)
[2021-02-25 06:47] VITALS: BP 132/76
[2021-02-25] MEDS: LEVOTHYROXINE 25MCG TABLET (0.025MG) PO SCH (06:48)
[2021-02-25] MEDS ORDERED: FUROSEMIDE 40 MG TAB PO ONE (07:20)
[2021-02-25] MEDS: LEVALBUTEROL 1.25 MG/0.5 ML CONCENTRATE NEB INH SCH ×4 (07:24→19:47)
[2021-02-25] MEDS: ADVAIR HFA 45/21MCG INHALER INH SCH ×2 (07:24→19:47)
[2021-02-25] MEDS: ACETAMINOPHEN TAB 650MG DOSE (2X325MG) PO PRN (08:48)
[2021-02-25] MEDS: MULTIVITAMINS/MINERALS THERAP 1 TAB PO SCH (08:51)
[2021-02-25] MEDS: CALCIUM CARBONATE 500 MG CHEW U/D PO SCH ×2 (08:51→20:37)
[2021-02-25] MEDS: SENOKOT S TAB PO SCH ×2 (08:51→20:37)
[2021-02-25] MEDS: MONTELUKAST 10 MG TAB PO SCH (08:51)
[2021-02-25] MEDS: CLOPIDOGREL 75 MG TAB PO SCH (08:51)
[2021-02-25] MEDS: LACTOBACILLUS ACIDOPHILUS CAP (BACID) PO SCH ×2 (08:51→18:16)
[2021-02-25] MEDS: ASPIRIN 81MG ENTERIC TABLET PO SCH (08:52)
[2021-02-25] MEDS: DOCUSATE SODIUM 100MG CAPSULE PO SCH ×2 (08:52→20:37)
[2021-02-25] MEDS: ATORVASTATIN 20 MG TAB PO SCH (08:52)
[2021-02-25] MEDS: HEPARIN SOD (PORCINE) 5000UNITS/ML 1ML VIAL/SYRINGE SQ SCH ×2 (08:53→20:37)
[2021-02-25] MEDS: LORATADINE 10 MG TAB PO SCH (08:53)
[2021-02-25] MEDS: NICOTINE 14 MG/24 HR TRANSDERMAL TD SCH (08:53)
--- NOTE | 2021-02-25 11:43 | IPNPDOC ---
Subjective Date Seen The patient was seen on 02/25/21. Subjective Chief Complaint/HPI Mrs. Gil is a 75 year old female with CAD, CVA, HLD, atrial fibrillation, COPD chronically on 2L NC and hypothyroidism who is here for dyspnea and chest discomfort suspected left sided CHF and then developed HAKEEM. Yesterday, she was started on Ensure Enlive to try to bring up her albumin. Spoke with Dr. Justin this morning, and he will see the patient later today. Otherwise, she has some malaise and still has intermittent chest pain and dyspnea. Renal function improved, will give a dose of Lasix. Otherwise, Pro-BNP was within normal limits at 222. Objective Physical Examination General Exam: Positive: Alert, Cooperative Eye Exam: Negative: Sclera icteric Neck Exam: Positive: Supple Chest Exam: Positive: Diminished; Negative: Wheezing Heart Exam: Positive: Rate Normal, Irregular Rhythm Abdomen Exam: Positive: Normal bowel sounds, Soft; Negative: Tenderness Extremity Exam: Positive: Edema Neuro Exam: Positive: Normal Speech Psych Exam: Positive: Anxiety Assessment /Plan Assessment Mrs. Gil is a 75 year old female with CAD, CVA, HLD, atrial fibrillation, COPD chronically on 2L NC and hypothyroidism who is here for dyspnea and chest discomfort suspected left sided CHF and then developed HAKEEM. Patient's leg swelling may be chronic and will need elevation and compression stockings. Renal function is better, giving a dose of Lasix. Otherwise, ARU declined patient. Plan/VTE VTE Prophylaxis Ordered?: Yes Plan 1. Acute decompensated diastolic heart failure -Patient was diuresed, started to developed worsening renal function and diuresis was held -Leg elevated and compression stocking for pedal edema -Pro-BNP is low -Echo read by nuclear equipment operator (02/24/21). EF 75% with grade 2 diastolic dysfunction. Mild pulmonary hypertension. Very small anterior and posteroid pericardial effusion. Normal apparent intracardiac mass. -Cardiology consulted, recommendations appreciated 2. HAKEEM -Baseline creatinine around 1 -Creatinine improved -Will give Lasix today 3. Community acquired pneumonia of the left lower lobe present on hospital admission -Previously on ceftriaxone and doxycycline, now on levofloxacin -Completed 7 days of antibiotic -On probiotic 4. CAD -Continue aspirin, clopidogrel, atorvastatin, and Toprol XL 5. COPD -Continue Advair -Continue levalbuterol 6. Hypothyroidism -Continue levothyroxine 7. DVT ppx -Heparin subQ Disposition: Cardiology consulted, recommendations appreciated. Otherwise, r einforced with patient that it is important to elevate legs, but patient refused. Patient sleeping in chair instead of bed. VS, I&O, 24H, Fishbone Vital Signs/I&O Vital Signs Date Time Temp Pulse Resp B/P (MAP) Pulse Ox O2 Delivery O2 Flow Rate FiO2 02/25/21 06:47 97.9 78 20 132/76 (94) 100 Nasal Cannula 2.0 I&O- Last 24 Hours up to 6 AM 02/25/21 06:00 Intake Total 720 ml Output Total 100 ml Balance 620 ml Laboratory Data 24H LABS Laboratory Tests 2 02/25/21 05:49: Nucleated Red Blood Cells % (auto) 0.0, Anion Gap 3L, Glomerular Filtration Rate 47.3, Calcium Level 8.2L, CM-Woo-P-Type Natriuretic Peptide 222 CBC/BMP Laboratory Tests 02/25/21 05:49 Microbiology Microbiology 02/17/21 Gram Stain - Final, Complete 02/17/21 Sputum Culture - Final, Complete 02/17/21 Blood Culture - Final, Complete NO GROWTH AFTER 5 DAYS 02/15/21 Blood Culture - Final, Complete NO GROWTH AFTER 5 DAYS 02/15/21 Blood Culture - Final, Complete NO GROWTH AFTER 5 DAYS 02/15/21 Respiratory Virus Panel (PCR) ([facility]) - Final, Complete JEZ DAVISON DO Feb 25, 2021 11:43
[2021-02-25 12:12] LABS: HEMATOCRIT 30.9 % (36.0-47.0); HEMOGLOBIN 9.7 g/dl (12.0-15.5); MEAN CORPUSCULAR HEMOGLOBIN 31.7 pg (27.0-33.0); MEAN CORPUSCULAR HGB CONC 31.4 g/dl (32.0-36.5); PLATELET COUNT, AUTOMATED 164 10^3/uL (150-450); RED BLOOD COUNT 3.06 10^6/uL (4.00-5.40); WHITE BLOOD COUNT 5.7 10^3/uL (4.0-10.0)
[2021-02-25 14:20] VITALS: BP 131/79
[2021-02-25] MEDS: RAMELTEON 8 MG TAB (ROZEREM) PO PRN (20:37)
[2021-02-25 20:58] VITALS: BP 132/80
[2021-02-26] MEDS: LEVOTHYROXINE 25MCG TABLET (0.025MG) PO SCH (05:29)
[2021-02-26 06:33] LABS: HEMOGLOBIN 9.3 g/dl (12.0-15.5); MEAN CORPUSCULAR HEMOGLOBIN 31.4 pg (27.0-33.0); MEAN CORPUSCULAR VOLUME 101.4 fl (80.0-96.0); PLATELET COUNT, AUTOMATED 158 10^3/uL (150-450); RED BLOOD COUNT 2.96 10^6/uL (4.00-5.40); WHITE BLOOD COUNT 4.3 10^3/uL (4.0-10.0)
[2021-02-26 06:35] VITALS: BP 138/72
[2021-02-26 06:51] LABS: CALCIUM LEVEL 8.7 MG/DL (8.8-10.2); CREATININE FOR GFR 1.26 MG/DL (0.55-1.30); GLOMERULAR FILTRATION RATE 43.8 (>39); POTASSIUM SERUM 4.5 MEQ/L (3.5-5.1)
[2021-02-26] MEDS: ADVAIR HFA 45/21MCG INHALER INH SCH ×2 (07:58→20:04)
[2021-02-26] MEDS: LEVALBUTEROL 1.25 MG/0.5 ML CONCENTRATE NEB INH SCH ×4 (07:58→20:03)
[2021-02-26] MEDS: LACTOBACILLUS ACIDOPHILUS CAP (BACID) PO SCH ×2 (08:00→17:39)
[2021-02-26 09:00] VITALS: BP 130/73
[2021-02-26] MEDS: SENOKOT S TAB PO SCH ×2 (09:00→21:09)
[2021-02-26] MEDS: DOCUSATE SODIUM 100MG CAPSULE PO SCH ×2 (09:00→21:09)
[2021-02-26] MEDS: HEPARIN SOD (PORCINE) 5000UNITS/ML 1ML VIAL/SYRINGE SQ SCH ×2 (10:34→21:09)
[2021-02-26] MEDS: MULTIVITAMINS/MINERALS THERAP 1 TAB PO SCH (10:35)
[2021-02-26] MEDS: NICOTINE 14 MG/24 HR TRANSDERMAL TD SCH (10:35)
[2021-02-26] MEDS: CALCIUM CARBONATE 500 MG CHEW U/D PO SCH ×2 (10:35→21:09)
[2021-02-26] MEDS: CLOPIDOGREL 75 MG TAB PO SCH (10:36)
[2021-02-26] MEDS: MONTELUKAST 10 MG TAB PO SCH (10:36)
[2021-02-26] MEDS: LORATADINE 10 MG TAB PO SCH (10:36)
[2021-02-26] MEDS: METOPROLOL SUCC *XL* 12.5MG PER 1/2 TAB (TopROL *XL*) PO SCH (10:36)
[2021-02-26] MEDS: ASPIRIN 81MG ENTERIC TABLET PO SCH (10:36)
[2021-02-26] MEDS: FUROSEMIDE 20 MG TAB PO SCH (10:37)
[2021-02-26] MEDS: ATORVASTATIN 20 MG TAB PO SCH (10:38)
--- NOTE | 2021-02-26 13:35 | IPNPDOC ---
Subjective Date Seen The patient was seen on 02/26/21. Subjective Chief Complaint/HPI Mrs. Gil is a 75 year old female with CAD, CVA, HLD, atrial fibrillation, COPD chronically on 2L NC and hypothyroidism who is here for dyspnea and chest discomfort suspected left sided CHF and then developed HAKEEM. Last night, Dr. Justin saw patient. He does not think that this is from the heart. Her EF is good. Recommended trying to improve patient's albumin with supplements and ordering US abd to look at liver. Also recommending Lasix, but also monitoring renal function. Otherwise, patient feels about the same this morning. Reports intermit behzad chest pain and dyspnea. Objective Physical Examination General Exam: Positive: Alert, Cooperative Eye Exam: Negative: Sclera icteric Neck Exam: Positive: Supple Chest Exam: Positive: Diminished; Negative: Wheezing Heart Exam: Positive: Rate Normal, Irregular Rhythm Abdomen Exam: Positive: Normal bowel sounds, Soft; Negative: Tenderness Extremity Exam: Positive: Edema Neuro Exam: Positive: Normal Speech Psych Exam: Positive: Anxiety Assessment /Plan Assessment Mrs. Gil is a 75 year old female with CAD, CVA, HLD, atrial fibrillation, COPD chronically on 2L NC and hypothyroidism who is here for dyspnea and chest discomfort suspected left sided CHF and then developed HAKEEM. Patient's leg swelling may be chronic and will need elevation and compression stockings. Renal function okay, giving a dose of Lasix. Otherwise, ARU declined patient. Otherwise, albumin is low at 2.6. Giving ensure. Ordering US abd to look for liver pathology or ascites. Plan/VTE VTE Prophylaxis Ordered?: Yes Plan 1. Acute decompensated diastolic heart failure -Patient was diuresed, started to developed worsening renal function and diuresis was held -Leg elevated and compression stocking for pedal edema -Pro-BNP is low -Echo read by digital marketing executive (02/24/21). EF 75% with grade 2 diastolic dysfunction. Mild pulmonary hypertension. Very small anterior and posteroid pericardial effusion. Normal apparent intracardiac mass. -Cardiology consulted, recommendations appreciated -Dr. Justin saw the patient, recommended Lasix and trying to improve albumin 2. HAKEEM -Baseline creatinine around 1 -Creatinine okay -Will give Lasix today 3. Community acquired pneumonia of the left lower lobe present on hospital admission -Previously on ceftriaxone and doxycycline, now on levofloxacin -Completed 7 days of antibiotic -On probiotic 4. CAD -Continue aspirin, clopidogrel, atorvastatin, and Toprol XL 5. COPD -Continue Advair -Continue levalbuterol 6. Hypothyroidism -Continue levothyroxine 7. Low albumin -Last albumin 2.6 -UA negative for protein -Prealbumin within normal limits at 23.4 -Ordering for US abd/pelvis to look for liver pathology or cirrhosis -Ensure enlive 8. DVT ppx -Heparin subQ Disposition: Pending clinical improvement. Will need rehab. Will also need to keep encouraging elevation of legs. VS, I&O, 24H, Fishbone Vital Signs/I&O Vital Signs Date Time Temp Pulse Resp B/P (MAP) Pulse Ox O2 Delivery O2 Flow Rate FiO2 02/26/21 09:00 97.2 84 20 130/73 (92) 97 Nasal Cannula 2.0 I&O- Last 24 Hours up to 6 AM 02/26/21 05:59 Intake Total 1620 ml Output Total 0 ml Balance 1620 ml Laboratory Data 24H LABS Laboratory Tests 2 02/26/21 05:46: Nucleated Red Blood Cells % (auto) 0.0, Anion Gap 5L, Glomerular Filtration Rate 43.8, Calcium Level 8.7L CBC/BMP Laboratory Tests 02/26/21 05:46 Microbiology Microbiology 02/17/21 Gram Stain - Final, Complete 02/17/21 Sputum Culture - Final, Complete 02/17/21 Blood Culture - Final, Complete NO GROWTH AFTER 5 DAYS JEZ DAVISON DO Feb 26, 2021 13:35
[2021-02-26 13:40] VITALS: BP 128/96
[2021-02-26] MEDS: RAMELTEON 8 MG TAB (ROZEREM) PO PRN (21:09)
[2021-02-26 22:00] VITALS: BP 105/57
[2021-02-27] MEDS: LEVOTHYROXINE 25MCG TABLET (0.025MG) PO SCH (05:46)
[2021-02-27 06:00] VITALS: BP 115/75
[2021-02-27 07:24] LABS: HEMATOCRIT 28.6 % (36.0-47.0); HEMOGLOBIN 8.8 g/dl (12.0-15.5); MEAN CORPUSCULAR HEMOGLOBIN 30.9 pg (27.0-33.0); MEAN CORPUSCULAR HGB CONC 30.8 g/dl (32.0-36.5); MEAN CORPUSCULAR VOLUME 100.4 fl (80.0-96.0); PLATELET COUNT, AUTOMATED 166 10^3/uL (150-450); RED BLOOD COUNT 2.85 10^6/uL (4.00-5.40); WHITE BLOOD COUNT 4.3 10^3/uL (4.0-10.0)
[2021-02-27] MEDS: ADVAIR HFA 45/21MCG INHALER INH SCH ×2 (07:32→20:59)
[2021-02-27] MEDS: LEVALBUTEROL 1.25 MG/0.5 ML CONCENTRATE NEB INH SCH ×4 (07:32→21:00)
[2021-02-27 07:52] LABS: ALBUMIN 2.9 GM/DL (3.2-5.2); BILIRUBIN,TOTAL 0.5 MG/DL (0.2-1.0); CALCIUM LEVEL 8.4 MG/DL (8.8-10.2); CREATININE FOR GFR 1.17 MG/DL (0.55-1.30); GLOMERULAR FILTRATION RATE 47.7 (>39); POTASSIUM SERUM 4.8 MEQ/L (3.5-5.1); TOTAL PROTEIN 5.5 GM/DL (6.4-8.2)
[2021-02-27] MEDS: LACTOBACILLUS ACIDOPHILUS CAP (BACID) PO SCH ×2 (08:00→17:27)
--- NOTE | 2021-02-27 08:32 | REP ---
INDICATION: anasarca, low albumin (looking at liver and ascities COMPARISON: None TECHNIQUE: Real time B-mode bell scale ultrasound examination using curved array transducer. FINDINGS: Liver demonstrates coarsened echotexture suggesting hepatocellular disease and or hepatosteatosis. No obvious focal hepatic lesion identified. Spleen and visualized pancreas are normal in appearance, echotexture and size. No focal splenic or pancreatic lesions are identified. The patient is status post cholecystectomy. No biliary ductal dilatation is appreciated and the common bile duct measures 7.4 mm diameter. The bilateral kidneys are normal in reniform shape with increased central sinus fat and evidence for renovascular disease. Small nonobstructing intrarenal calculi cannot be excluded. No hydronephrosis noted. Right kidney measures 9.5 x 4.1 x 3.2 cm. Left kidney measures 10.6 x 4.3 x 3.9 cm. Distal abdominal aortic aneurysm measures 3.5 x 4.1 cm diameter and 5.7 cm in craniocaudal length. No ascites in the visualized abdomen. IMPRESSION: 1. 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 2. Chronic medical renal disease and possible small nonobstructing intrarenal calculi without hydronephrosis. 3. Distal abdominal aortic aneurysm. <Electronically signed by Vikas Ruiz > 02/27/21 [id number]
[2021-02-27] MEDS: NICOTINE 14 MG/24 HR TRANSDERMAL TD SCH (10:10)
[2021-02-27] MEDS: ATORVASTATIN 20 MG TAB PO SCH (10:11)
[2021-02-27] MEDS: MULTIVITAMINS/MINERALS THERAP 1 TAB PO SCH (10:11)
[2021-02-27] MEDS: HEPARIN SOD (PORCINE) 5000UNITS/ML 1ML VIAL/SYRINGE SQ SCH ×2 (10:11→20:47)
[2021-02-27] MEDS: CLOPIDOGREL 75 MG TAB PO SCH (10:11)
[2021-02-27] MEDS: SENOKOT S TAB PO SCH ×2 (10:12→20:47)
[2021-02-27] MEDS: MONTELUKAST 10 MG TAB PO SCH (10:12)
[2021-02-27] MEDS: FUROSEMIDE 20 MG TAB PO SCH (10:13)
[2021-02-27] MEDS: LORATADINE 10 MG TAB PO SCH (10:13)
[2021-02-27] MEDS: ASPIRIN 81MG ENTERIC TABLET PO SCH (10:14)
[2021-02-27] MEDS: DOCUSATE SODIUM 100MG CAPSULE PO SCH ×2 (10:14→20:47)
[2021-02-27] MEDS: CALCIUM CARBONATE 500 MG CHEW U/D PO SCH ×2 (10:14→20:47)
--- NOTE | 2021-02-27 10:54 | IPNPDOC ---
Subjective Date Seen The patient was seen on 02/27/21. Subjective Chief Complaint/HPI Mrs. Gil is a 75 year old female with CAD, CVA, HLD, atrial fibrillation, COPD chronically on 2L NC and hypothyroidism who is here for dyspnea and chest discomfort suspected left sided CHF and then developed HAKEEM. She had US abd performed early this morning which demonstrates hepatocellular disease and hepatosteatosis. Otherwise, she did not sleep all night and was sleepy this morning. She need to elevate her legs to help with the swelling of her legs. Will start pain control for leg pain. Otherwise, started to discuss albumin transfusion, but she was too sleepy at the time. Objective Physical Examination General Exam: Positive: Alert, Cooperative Eye Exam: Negative: Sclera icteric Neck Exam: Positive: Supple Chest Exam: Positive: Diminished; Negative: Wheezing Heart Exam: Positive: Rate Normal, Irregular Rhythm Abdomen Exam: Positive: Normal bowel sounds, Soft; Negative: Tenderness Extremity Exam: Positive: Edema Neuro Exam: Positive: Normal Speech Psych Exam: Positive: Anxiety Assessment /Plan Assessment Mrs. Gil is a 75 year old female with CAD, CVA, HLD, atrial fibrillation, COPD chronically on 2L NC and hypothyroidism who is here for dyspnea and chest discomfort suspected left sided CHF and then developed HAKEEM. Patient's leg swelling may be chronic and will need elevation and compression stockings. Renal function okay, giving a dose of Lasix. Otherwise, ARU declined patient. Otherwise, albumin is low at 2.6. Giving ensure. US abdomen suggest heptocel lular disease. Will check INR. Attempted to speak with patient about albumin today, but she was too sleepy from staying up all night. Plan/VTE VTE Prophylaxis Ordered?: Yes Plan 1. Acute decompensated diastolic heart failure -Patient was diuresed, started to developed worsening renal function and diuresis was held -Leg elevated and compression stocking for pedal edema -Pro-BNP is low -Echo read by pants presser automatic (02/24/21). EF 75% with grade 2 diastolic dysfunction. Mild pulmonary hypertension. Very small anterior and posteroid pericardial effusion. Normal apparent intracardiac mass. -Cardiology consulted, recommendations appreciated -Dr. Justin saw the patient, recommended Lasix and trying to improve albumin 2. HAKEEM -Baseline creatinine around 1 -Creatinine okay -Continue Lasix 3. Hepatocellular disease -May be the cause of anasarca and swelling -Tried to discuss albumin with patient, but she was too sleep. Will try at another time. -May benefit from albumin and Lasix combination 4. Community acquired pneumonia of the left lower lobe present on hospital admission -Previously on ceftriaxone and doxycycline, now on levofloxacin -Completed 7 days of antibiotic -On probiotic 5. CAD -Continue aspirin, clopidogrel, atorvastatin, and Toprol XL 6. COPD -Continue Advair -Continue levalbuterol 7. Hypothyroidism -Continue levothyroxine 8. Low albumin -Last albumin 2.6 -UA negative for protein -Prealbumin within normal limits at 23.4 -Ordering for US abd/pelvis to look for liver pathology or cirrhosis -Ensure enlive 9. DVT ppx -Heparin subQ Disposition: Pending clinical improvement. Will need rehab. Will also need to keep encouraging elevation of legs. Will need to discuss with her about albumin when more awake. VS, I&O, 24H, Fishbone Vital Signs/I&O Vital Signs Date Time Temp Pulse Resp B/P (MAP) Pulse Ox O2 Delivery O2 Flow Rate FiO2 02/27/21 06:00 97.4 92 22 115/75 (88) 98 Nasal Cannula 2.0 I&O- Last 24 Hours up to 6 AM 02/27/21 06:00 Intake Total 1680 ml Balance 1680 ml Laboratory Data 24H LABS Laboratory Tests 2 02/27/21 06:31: Nucleated Red Blood Cells % (auto) 0.0, Anion Gap 4L, Glomerular Filtration Rate 47.7, Calcium Level 8.4L, Total Bilirubin 0.5, Aspartate Amino Transf (AST/SGOT) 32, Alanine Aminotransferase (ALT/SGPT) 32, Alkaline Phosphatase 42L, Total Protein 5.5L, Albumin 2.9L, Albumin/Globulin Ratio 1.1L CBC/BMP Laboratory Tests 02/27/21 06:31 Microbiology Microbiology 02/17/21 Gram Stain - Final, Complete 02/17/21 Sputum Culture - Final, Complete 02/17/21 Blood Culture - Final, Complete NO GROWTH AFTER 5 DAYS JEZ DAVISON DO Feb 27, 2021 10:54
[2021-02-27 14:00] VITALS: BP 136/101
[2021-02-27 20:43] VITALS: BP 113/54
[2021-02-28 04:31] VITALS: BP 108/57
[2021-02-28] MEDS: LEVOTHYROXINE 25MCG TABLET (0.025MG) PO SCH (06:04)
[2021-02-28 06:27] LABS: HEMATOCRIT 28.5 % (36.0-47.0); HEMOGLOBIN 9.2 g/dl (12.0-15.5); MEAN CORPUSCULAR HEMOGLOBIN 31.9 pg (27.0-33.0); MEAN CORPUSCULAR HGB CONC 32.3 g/dl (32.0-36.5); PLATELET COUNT, AUTOMATED 190 10^3/uL (150-450); RED BLOOD COUNT 2.88 10^6/uL (4.00-5.40); WHITE BLOOD COUNT 4.4 10^3/uL (4.0-10.0)
[2021-02-28 06:39] LABS: INR 0.89; PROTHROMBIN TIME 12.2 SECONDS (12.5-14.3)
[2021-02-28 06:40] LABS: PARTIAL THROMBOPLASTIN TIME 23.6 SECONDS (24.2-38.5)
[2021-02-28 06:47] LABS: CALCIUM LEVEL 8.5 MG/DL (8.8-10.2); CREATININE FOR GFR 1.18 MG/DL (0.55-1.30); GLOMERULAR FILTRATION RATE 47.3 (>39); POTASSIUM SERUM 4.6 MEQ/L (3.5-5.1)
[2021-02-28] MEDS: ADVAIR HFA 45/21MCG INHALER INH SCH ×2 (07:29→19:20)
[2021-02-28] MEDS: LEVALBUTEROL 1.25 MG/0.5 ML CONCENTRATE NEB INH SCH ×4 (07:29→19:21)
[2021-02-28] MEDS: MULTIVITAMINS/MINERALS THERAP 1 TAB PO SCH (08:30)
[2021-02-28] MEDS: MONTELUKAST 10 MG TAB PO SCH (08:30)
[2021-02-28] MEDS: LACTOBACILLUS ACIDOPHILUS CAP (BACID) PO SCH ×2 (08:31→17:28)
[2021-02-28] MEDS: FUROSEMIDE 20 MG TAB PO SCH (08:31)
[2021-02-28] MEDS: SENOKOT S TAB PO SCH ×2 (08:31→20:25)
[2021-02-28] MEDS: ASPIRIN 81MG ENTERIC TABLET PO SCH (08:31)
[2021-02-28] MEDS: LORATADINE 10 MG TAB PO SCH (08:31)
[2021-02-28] MEDS: DOCUSATE SODIUM 100MG CAPSULE PO SCH ×2 (08:31→20:25)
[2021-02-28] MEDS: CALCIUM CARBONATE 500 MG CHEW U/D PO SCH ×2 (08:31→20:25)
[2021-02-28] MEDS: ATORVASTATIN 20 MG TAB PO SCH (08:31)
[2021-02-28] MEDS: CLOPIDOGREL 75 MG TAB PO SCH (08:32)
[2021-02-28] MEDS: HEPARIN SOD (PORCINE) 5000UNITS/ML 1ML VIAL/SYRINGE SQ SCH ×2 (08:38→20:24)
[2021-02-28] MEDS: NICOTINE 14 MG/24 HR TRANSDERMAL TD SCH (08:39)
[2021-02-28] MEDS: METOPROLOL SUCC *XL* 12.5MG PER 1/2 TAB (TopROL *XL*) PO SCH (08:40)
[2021-02-28] MEDS ORDERED: LORazepam 0.5 MG TAB PO PRN (10:00)
--- NOTE | 2021-02-28 12:01 | REP ---
INDICATION: bilateral pedal edema COMPARISON: None. TECHNIQUE: Carrero scale and color Doppler evaluation using linear high frequency transducer. FINDINGS: Ultrasound examination of the right and left lower extremity deep venous structures from the common femoral vein through the popliteal veins demonstrates normal compressibility flow and wave patterns in response to respiration and augmentation. Evaluation below the knees is incomplete due to extensive edema. IMPRESSION: No evidence for deep venous thrombosis. <Electronically signed by Vikas Ruiz > 02/28/21 0441
[2021-02-28] MEDS: ALPRAZolam 0.25 MG TAB PO PRN (12:39)
[2021-02-28 14:00] VITALS: BP 128/72
[2021-02-28] MEDS: FUROSEMIDE 40MG/4ML VIAL (J1940) IV SCH (16:00)
--- NOTE | 2021-02-28 16:29 | IPNPDOC ---
Subjective Date Seen The patient was seen on 02/28/21. Subjective Chief Complaint/HPI Mrs. Gil is a 75 year old female with CAD, CVA, HLD, atrial fibrillation, COPD chronically on 2L NC and hypothyroidism who is here for dyspnea and chest discomfort suspected left sided CHF and then developed HAKEEM. This morning, she still did not feel well. She continues to refuse to elevate legs. She requested to see Dr. Justin. I spoke with Dr. Justin, and he may be able to come see patient tomorrow. Otherwise, patient still has pedal edema and pain. Repeated US LE bilaterally which was negative for DVT. Will try albumin and Lasix to try to remove some fluid. Objective Physical Examination General Exam: Positive: Alert, Cooperative Eye Exam: Negative: Sclera icteric Neck Exam: Positive: Supple Chest Exam: Positive: Diminished; Negative: Wheezing Heart Exam: Positive: Rate Normal, Irregular Rhythm Abdomen Exam: Positive: Normal bowel sounds, Soft; Negative: Tenderness Extremity Exam: Positive: Edema Neuro Exam: Positive: Normal Speech Psych Exam: Positive: Anxiety Assessment /Plan Assessment Mrs. 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 Patient's leg swelling may be chronic and will need elevation and compression stockings. Renal function okay, giving a dose of Lasix. Otherwise, ARU declined patient. Otherwise, albumin is low at 2.6. Giving ensure. US abdomen suggest heptocellular disease. INR not elevated. Discussed albumin transfusion with patient and patient was agreeable. Plan/VTE VTE Prophylaxis Ordered?: Yes Plan 1. Acute decompensated diastolic heart failure -Patient was diuresed, started to developed worsening renal function and diuresis was held -Leg elevated and compression stocking for pedal edema -Pro-BNP is low -Echo read by water control station engineer (02/24/21). EF 75% with grade 2 diastolic dysfunction. Mild pulmonary hypertension. Very small anterior and posteroid pericardial effusion. Normal apparent intracardiac mass. -Cardiology consulted, recommendations appreciated -Dr. Justin saw the patient, recommended Lasix and trying to improve albumin 2. HAKEEM -Baseline creatinine around 1 -Creatinine okay -Continue Lasix 3. Hepatocellular disease -May be the cause of anasarca and swelling -Will try albumin and Lasix combination x3 dosages 4. Community acquired pneumonia of the left lower lobe present on hospital admission -Previously on ceftriaxone and doxycycline, now on levofloxacin -Completed 7 days of antibiotic -On probiotic 5. CAD -Continue aspirin, clopidogrel, atorvastatin, and Toprol XL 6. COPD -Continue Advair -Continue levalbuterol 7. Hypothyroidism -Continue levothyroxine 8. Low albumin -Last albumin 2.6 -UA negative for protein -Prealbumin within normal limits at 23.4 -Ordering for US abd/pelvis to look for liver pathology or cirrhosis -Ensure enlive 9. DVT ppx -Heparin subQ Disposition: Pending clinical improvement. Patient has place at [facility]. Will also need to keep encouraging elevation of legs. VS, I&O, 24H, Fishbone Vital Signs/I&O Vital Signs Date Time Temp Pulse Resp B/P (MAP) Pulse Ox O2 Delivery O2 Flow Rate FiO2 02/28/21 14:00 97.8 87 18 128/72 (90) 98 Nasal Cannula 2.0 I&O- Last 24 Hours up to 6 AM 02/28/21 06:00 Intake Total 300 ml Output Total 0 ml Balance 300 ml Laboratory Data 24H LABS Laboratory Tests 2 02/28/21 06:12: Nucleated Red Blood Cells % (auto) 0.0, Prothrombin Time 12.2, Prothromb Time International Ratio 0.89, Activated Partial Thromboplast Time 23.6L, Anion Gap 6L, Glomerular Filtration Rate 47.3, Calcium Level 8.5L CBC/BMP Laboratory Tests 02/28/21 06:12 JEZ DAVISON DO Feb 28, 2021 16:26
[2021-02-28] MEDS: RAMELTEON 8 MG TAB (ROZEREM) PO PRN (20:25)
[2021-02-28 22:00] VITALS: BP 128/75
[2021-02-28] MEDS ORDERED: FUROSEMIDE 80 MG TAB PO ONE (23:30)
[2021-03-01] MEDS: LEVOTHYROXINE 25MCG TABLET (0.025MG) PO SCH (05:40)
[2021-03-01 06:30] VITALS: BP 122/74
[2021-03-01 06:36] LABS: HEMATOCRIT 30.7 % (36.0-47.0); HEMOGLOBIN 9.6 g/dl (12.0-15.5); MEAN CORPUSCULAR HEMOGLOBIN 31.2 pg (27.0-33.0); MEAN CORPUSCULAR HGB CONC 31.3 g/dl (32.0-36.5); MEAN CORPUSCULAR VOLUME 99.7 fl (80.0-96.0); PLATELET COUNT, AUTOMATED 204 10^3/uL (150-450); RED BLOOD COUNT 3.08 10^6/uL (4.00-5.40); WHITE BLOOD COUNT 4.4 10^3/uL (4.0-10.0)
[2021-03-01 06:46] LABS: CALCIUM LEVEL 8.8 MG/DL (8.8-10.2); CREATININE FOR GFR 1.08 MG/DL (0.55-1.30); GLOMERULAR FILTRATION RATE 52.4 (>39)
[2021-03-01] MEDS: FUROSEMIDE 40MG/4ML VIAL (J1940) IV SCH ×2 (08:00→15:25)
[2021-03-01] MEDS: LEVALBUTEROL 1.25 MG/0.5 ML CONCENTRATE NEB INH SCH ×4 (08:00→20:00)
[2021-03-01] MEDS: ADVAIR HFA 45/21MCG INHALER INH SCH ×2 (08:07→20:05)
[2021-03-01] MEDS: LORATADINE 10 MG TAB PO SCH (08:42)
[2021-03-01] MEDS: ASPIRIN 81MG ENTERIC TABLET PO SCH (08:42)
[2021-03-01] MEDS: MULTIVITAMINS/MINERALS THERAP 1 TAB PO SCH (08:42)
[2021-03-01] MEDS: CLOPIDOGREL 75 MG TAB PO SCH (08:42)
[2021-03-01] MEDS: DOCUSATE SODIUM 100MG CAPSULE PO SCH ×2 (08:43→21:06)
[2021-03-01] MEDS: LACTOBACILLUS ACIDOPHILUS CAP (BACID) PO SCH ×2 (08:43→18:37)
[2021-03-01] MEDS: ATORVASTATIN 20 MG TAB PO SCH (08:43)
[2021-03-01] MEDS: MONTELUKAST 10 MG TAB PO SCH (08:43)
[2021-03-01] MEDS: CALCIUM CARBONATE 500 MG CHEW U/D PO SCH ×2 (08:43→21:06)
[2021-03-01] MEDS: SENOKOT S TAB PO SCH ×2 (08:43→21:06)
[2021-03-01] MEDS: NICOTINE 14 MG/24 HR TRANSDERMAL TD SCH (08:43)
[2021-03-01] MEDS: HEPARIN SOD (PORCINE) 5000UNITS/ML 1ML VIAL/SYRINGE SQ SCH ×2 (08:44→21:00)
[2021-03-01] MEDS ORDERED: LIDOCAINE 1% MDV 20ML VIAL As Ordered ONE (11:11)
--- NOTE | 2021-03-01 11:57 | IPNPDOC ---
Subjective Date Seen The patient was seen on 03/01/21. Subjective Chief Complaint/HPI Mrs. Gil is a 75 year old female with CAD, CVA, HLD, atrial fibrillation, COPD chronically on 2L NC and hypothyroidism who is here for dyspnea and chest discomfort suspected left sided CHF and then developed HAKEEM. Yesterday, unable to place line for albumin. Otherwise, the nurse was able to have patient elevate legs for 6 hours and swelling improved. This morning, patient was seen again sitting up in chair and legs have swelled again. Will send patient down to IR for PICC line placement. Will try albumin and Lasix. Will need to keep en couraging leg elevation. Objective Physical Examination General Exam: Positive: Alert, Cooperative Eye Exam: Negative: Sclera icteric Neck Exam: Positive: Supple Chest Exam: Positive: Diminished; Negative: Wheezing Heart Exam: Positive: Rate Normal, Irregular Rhythm Abdomen Exam: Positive: Normal bowel sounds, Soft; Negative: Tenderness Extremity Exam: Positive: Edema Neuro Exam: Positive: Normal Speech Psych Exam: Positive: Anxiety Assessment /Plan Assessment Mrs. Gil is a 75 year old female with CAD, CVA, HLD, atrial fibrillation, COPD chronically on 2L NC and hypothyroidism who is here for dyspnea and chest discomfort suspected left sided CHF and then developed HAKEEM. Patient's leg swelling may be chronic and will need elevation and compression stockings. Renal function okay, giving a dose of Lasix. Otherwise, ARU declined patient. Otherwise, albumin is low at 2.6. Giving ensure. US abdomen suggest heptocellular disease. INR not elevated. Discussed albumin transfusion with patient and patient was agreeable. Plan/VTE VTE Prophylaxis Ordered?: Yes Plan 1. Acute decompensated diastolic heart failure -Patient was diuresed, started to developed worsening renal function and diuresis was held -Leg elevated and compression stocking for pedal edema -Pro-BNP is low -Echo read by political geographer (02/24/21). EF 75% with grade 2 diastolic dysfunction. Mild pulmonary hypertension. Very small anterior and posteroid pericardial effusion. Normal apparent intracardiac mass. -Cardiology consulted, recommendations appreciated -Dr. Justin saw the patient, recommended Lasix and trying to improve albumin 2. HAKEEM -Baseline creatinine around 1 -Creatinine okay -Continue Lasix 3. Hepatocellular disease -May be the cause of anasarca and swelling -Will try albumin and Lasix combination x3 dosages 4. Community acquired pneumonia of the left lower lobe present on hospital admission -Previously on ceftriaxone and doxycycline, now on levofloxacin -Completed 7 days of antibiotic -On probiotic 5. CAD -Continue aspirin, clopidogrel, atorvastatin, and Toprol XL 6. COPD -Continue Advair -Continue levalbuterol 7. Hypothyroidism -Continue levothyroxine 8. Low albumin -Last albumin 2.6 -UA negative for protein -Prealbumin within normal limits at 23.4 -Ordering for US abd/pelvis to look for liver pathology or cirrhosis -Ensure enlive 9. DVT ppx -Heparin subQ Disposition: Pending clinical improvement. Patient has place at [facility], but patient will need to be willing to ambulate to go to [facility]. Feet pain from pedal edema. Will also need to keep encouraging elevation of legs. Trying albumin and Lasix today. VS, I&O, 24H, Fishbone Vital Signs/I&O Vital Signs Date Time Temp Pulse Resp B/P (MAP) Pulse Ox O2 Delivery O2 Flow Rate FiO2 03/01/21 06:30 98.0 82 19 122/74 (90) 99 Nasal Cannula 2.0 I&O- Last 24 Hours up to 6 AM 03/01/21 06:00 Intake Total 1320 ml Balance 1320 ml Laboratory Data 24H LABS Laboratory Tests 2 03/01/21 05:51: Nucleated Red Blood Cells % (auto) 0.0, Anion Gap 4L, Glomerular Filtration Rate 52.4, Calcium Level 8.8 CBC/BMP Laboratory Tests 03/01/21 05:51 JEZ DAVISON DO Mar 01, 2021 11:57
[2021-03-01] MEDS: ALPRAZolam 0.25 MG TAB PO PRN ×2 (12:41→22:13)
[2021-03-01 14:00] VITALS: BP 120/70
[2021-03-01] MEDS ORDERED: SODIUM CHLORIDE 0.9% INJ 10 ML SYR IV PRN (15:30)
[2021-03-01 15:40] VITALS: BP 119/66
--- NOTE | 2021-03-01 17:01 | REP ---
INDICATION: poor access. COMPARISON: None. TECHNIQUE: The procedure was performed under the direct supervision of Dr. Carrero. The risks and benefits of the procedure were explained to the patient and informed consent was obtained. The right basilic vein was localized using ultrasound guidance. The skin was prepped and draped in a sterile fashion. 2% lidocaine was used as a local anesthetic. Using ultrasound guidance the basilic vein was cannulated and a 0.018 guidewire was inserted and advanced to the SVC using fluoroscopic guidance, and last image hold technology. The needle was removed and a 5.5 [place] dilator and peel-away sheath was inserted over the guide wire. A 5.5 [place] dual lumen catheter was cut to length of 41 cm. The dilator was removed and the catheter was inserted over the guide wire with the tip ending in the SVC. The peel-away sheath was removed and the catheter was flushed with heparinized saline as per Hospital protocol. The catheter was affixed to the skin and a sterile dressing was applied. Estimated blood loss: Less than 1 cc. The patient tolerated the procedure well and there were no immediate complications. 0.2 minutes of fluoro time was utilized for this procedure. FINDINGS: None IMPRESSION: PICC line insertion right basilic vein with the tip ending in the SVC. <Electronically signed by Jacob Menjivar > 03/01/21 [id number] <Electronically signed by Valente Carrero > 03/01/21 1410
[2021-03-01] MEDS: SODIUM CHLORIDE 0.9% INJ 10 ML SYR IV SCH (18:37)
[2021-03-01] MEDS: RAMELTEON 8 MG TAB (ROZEREM) PO PRN (21:06)
[2021-03-01 22:00] VITALS: BP 110/56
[2021-03-01] MEDS: ACETAMINOPHEN TAB 650MG DOSE (2X325MG) PO PRN (22:14)
[2021-03-02 01:06] VITALS: BP 101/62
[2021-03-02 02:48] VITALS: BP 100/57
[2021-03-02 06:30] LABS: HEMATOCRIT 28.5 % (36.0-47.0); HEMOGLOBIN 8.8 g/dl (12.0-15.5); MEAN CORPUSCULAR HEMOGLOBIN 31.7 pg (27.0-33.0); MEAN CORPUSCULAR HGB CONC 30.9 g/dl (32.0-36.5); MEAN CORPUSCULAR VOLUME 102.5 fl (80.0-96.0); PLATELET COUNT, AUTOMATED 209 10^3/uL (150-450); RED BLOOD COUNT 2.78 10^6/uL (4.00-5.40); WHITE BLOOD COUNT 4.7 10^3/uL (4.0-10.0)
[2021-03-02 06:43] LABS: CALCIUM LEVEL 8.3 MG/DL (8.8-10.2); CREATININE FOR GFR 1.42 MG/DL (0.55-1.30); GLOMERULAR FILTRATION RATE 38.2 (>39); POTASSIUM SERUM 4.1 MEQ/L (3.5-5.1)
[2021-03-02] MEDS: LEVOTHYROXINE 25MCG TABLET (0.025MG) PO SCH (06:54)
[2021-03-02] MEDS: SODIUM CHLORIDE 0.9% INJ 10 ML SYR IV SCH ×2 (06:55→18:55)
[2021-03-02] MEDS: LEVALBUTEROL 1.25 MG/0.5 ML CONCENTRATE NEB INH SCH ×4 (07:31→19:48)
[2021-03-02] MEDS: ADVAIR HFA 45/21MCG INHALER INH SCH ×2 (07:31→19:48)
[2021-03-02] MEDS: CALCIUM CARBONATE 500 MG CHEW U/D PO SCH ×2 (08:40→21:00)
[2021-03-02] MEDS: SENOKOT S TAB PO SCH ×2 (08:40→21:00)
[2021-03-02] MEDS: NICOTINE 14 MG/24 HR TRANSDERMAL TD SCH (08:40)
[2021-03-02] MEDS: MULTIVITAMINS/MINERALS THERAP 1 TAB PO SCH (08:41)
[2021-03-02] MEDS: LORATADINE 10 MG TAB PO SCH (08:41)
[2021-03-02] MEDS: ALPRAZolam 0.25 MG TAB PO PRN (08:41)
[2021-03-02] MEDS: ASPIRIN 81MG ENTERIC TABLET PO SCH (08:41)
[2021-03-02] MEDS: LACTOBACILLUS ACIDOPHILUS CAP (BACID) PO SCH ×2 (08:41→18:55)
[2021-03-02] MEDS: ATORVASTATIN 20 MG TAB PO SCH (08:41)
[2021-03-02] MEDS: METOPROLOL SUCC *XL* 12.5MG PER 1/2 TAB (TopROL *XL*) PO SCH (08:41)
[2021-03-02] MEDS: MONTELUKAST 10 MG TAB PO SCH (08:41)
[2021-03-02] MEDS: CLOPIDOGREL 75 MG TAB PO SCH (08:41)
[2021-03-02] MEDS: DOCUSATE SODIUM 100MG CAPSULE PO SCH ×2 (08:42→21:00)
[2021-03-02] MEDS: HEPARIN SOD (PORCINE) 5000UNITS/ML 1ML VIAL/SYRINGE SQ SCH ×2 (08:43→21:00)
[2021-03-02 08:52] VITALS: BP 112/88
[2021-03-02 10:45] VITALS: BP 112/86
--- NOTE | 2021-03-02 12:52 | IPNPDOC ---
Text Note Date of Service The patient was seen on 03/02/21. NOTE Subjective: Patient is a 75-year-old female who presented to the emergency dep artment on 02/15/2021 with chief complaint of lower extremity edema with shortness of breath and chest discomfort. Patient is feeling better at this time however, her edema is still present. 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 Patient was going to be discharged to [facility] however, the patient was unable to go due to the patient's refusal to work with physical therapy. Patient's kidney function did worsen after she received a dose of Lasix. The plan was to receive albumin then a dose of Lasix however, the albumin was not given and Lasix was given. Patient was receiving her albumin earlier today. Patient states that it is difficult to breathe however, she is on 2 L of nasal cannula at home. Patient is otherwise doing well. Review of systems: General: Patient denies fevers HEENT: Patient denies headaches Cardiovascular: Patient denies chest pain Respiratory: Patient reports baseline shortness of breath, patient denies cough GI: Patient denies abdominal pain, nausea, vomiting, diarrhea : Patient denies increased frequency or pain with urination Extremities: Patient reports swelling and pain in her extremities as above Neurological: Patient denies numbness or tingling in legs Physical exam: Vitals: See below General: Alert and oriented female who is sitting in the chair when I walked into the room. Patient did not appear to be in any acute distress. Patient had nasal cannula oxygen on at 2.5 L. HEENT: Normocephalic, atraumatic, moist mucous membranes. Neck: No lymphadenopathy or thyromegaly Cardiac: Regular rate and rhythm, no murmurs, normal S1, normal S2 Pulm: Clear to auscultation bilaterally. No wheezes, rhonchi, rales Abd: Nondistended, nontender to palpation, normal bowel sounds Ext: 2+ pitting edema up to the level of [place], 1+ pitting edema up to the knees bilaterally. No evidence of skin breakdown Labs: See below Imaging: Patient had a PICC line placed yesterday which was reported to show the PICC insertion of the right basilic vein with the tip in the SVC Assessment/plan: Patient is a 75-year-old female who presented to the hospital with shortness of breath and increased swelling in her legs was diagnosed with acute decompensated heart failure with preserved ejection fraction. Patient's breathing has improved however, the patient's peripheral edema has not. 1. Acute kidney injury. Patient's creatinine today is 1.42 which is increased from the last few days. I believe this may be secondary to the patient receiving a dose of IV Lasix prior to getting her albumin. Patient is still swollen in her legs. Patient has received albumin and we will give another dose of IV Lasix and monitor her kidney function. If her kidney function improves, we will continue to monitor. If the kidney function continues to worsen, nephrology consult may be considered. I advised the patient to try and take small sips in order to help make sure she is still hydrated. 2. Acute decompensated heart failure with preserved ejection fraction. Patient had echocardiogram performed on 02/24/2021 which showed an ejection fraction of 75% with grade 2 diastolic dysfunction and very mild pulmonary hypertension. Patient's breathing does appear better and back to her baseline however, patient does have significant peripheral edema. Patient refuses to keep her legs elevated because they are too painful. I strongly advised the patient to try to keep her legs elevated higher than her heart as much as she can and rest when she is not. Advised patient that when she is sitting watching television to keep her legs elevated she can put them down when she needs to eat I advised her that this is going to be the best thing to have help her get better. 3. Hepatocellular disease. This may be the cause of the patient swelling. Patient has received albumin we will try to give another dose of Lasix today. 4. Community-acquired pneumonia of the left lower lobe present hospital admission. Previously on ceftriaxone and doxycycline. Patient completed a full course with levofloxacin. 5. Coronary artery disease. Continue aspirin, clopidogrel, atorvastatin, and metoprolol. 6. COPD. Patient is on Advair and levalbuterol. Patient is on her home oxygen. 7. Hypothyroidism. Continue levothyroxine. 8. Atrial fibrillation, not on anticoagulation. In reviewing the patient's outpatient notes, and speaking with the patient's primary care physician, Dr. Gilmore, patient's hand marker Dr. Justin did not recommend full anticoagulation at their last visit because the patient was on Plavix and aspirin and has an MCA aneurysm that is getting slightly larger. 9. DVT prophylaxis, heparin subcutaneous Disposition: Pending improvement of the patient's acute kidney injury as well as improvement in the patient's leg swelling. 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 I strongly advised the patient try to keep her legs elevated as much as possible and work with physical therapy. VS,Floresitae, I+O VS, Floresitae, I+O Laboratory Tests 03/02/21 06:17 Vital Signs Date Time Temp Pulse Resp B/P (MAP) Pulse Ox O2 Delivery O2 Flow Rate FiO2 03/02/21 10:45 98.7 98 18 112/86 96 Nasal Cannula 2.0 I&O- Last 24 Hours up to 6 AM 03/02/21 06:00 Intake Total 1160.0 ml Balance 1160.0 ml ZOIE ASKEW DO Mar 02, 2021 12:52
[2021-03-02 14:00] VITALS: BP 115/83
[2021-03-02] MEDS: FUROSEMIDE 40MG/4ML VIAL (J1940) IV SCH ×2 (16:00)
[2021-03-03] MEDS: FUROSEMIDE 40MG/4ML VIAL (J1940) IV SCH ×2 (00:25→08:54)
[2021-03-03 05:18] VITALS: BP 118/72
[2021-03-03] MEDS: LEVOTHYROXINE 25MCG TABLET (0.025MG) PO SCH (05:21)
[2021-03-03] MEDS: SODIUM CHLORIDE 0.9% INJ 10 ML SYR IV SCH ×2 (05:22→18:22)
[2021-03-03 07:21] LABS: HEMATOCRIT 27.3 % (36.0-47.0); HEMOGLOBIN 8.8 g/dl (12.0-15.5); MEAN CORPUSCULAR HEMOGLOBIN 31.8 pg (27.0-33.0); MEAN CORPUSCULAR HGB CONC 32.2 g/dl (32.0-36.5); MEAN CORPUSCULAR VOLUME 98.6 fl (80.0-96.0); PLATELET COUNT, AUTOMATED 243 10^3/uL (150-450); RED BLOOD COUNT 2.77 10^6/uL (4.00-5.40); WHITE BLOOD COUNT 4.1 10^3/uL (4.0-10.0)
[2021-03-03] MEDS: LEVALBUTEROL 1.25 MG/0.5 ML CONCENTRATE NEB INH SCH ×4 (07:34→19:29)
[2021-03-03] MEDS: ADVAIR HFA 45/21MCG INHALER INH SCH ×2 (07:39→19:29)
[2021-03-03 07:40] LABS: CALCIUM LEVEL 8.7 MG/DL (8.8-10.2); CREATININE FOR GFR 1.29 MG/DL (0.55-1.30); GLOMERULAR FILTRATION RATE 42.7 (>39); POTASSIUM SERUM 4.5 MEQ/L (3.5-5.1)
[2021-03-03] MEDS: ATORVASTATIN 20 MG TAB PO SCH (08:50)
[2021-03-03] MEDS: ASPIRIN 81MG ENTERIC TABLET PO SCH (08:51)
[2021-03-03] MEDS: LORATADINE 10 MG TAB PO SCH (08:51)
[2021-03-03] MEDS: oxyCODONE 5MG TAB PO PRN (08:51)
[2021-03-03] MEDS: ALPRAZolam 0.25 MG TAB PO PRN ×2 (08:52→18:21)
[2021-03-03] MEDS: MULTIVITAMINS/MINERALS THERAP 1 TAB PO SCH (08:52)
[2021-03-03] MEDS: CALCIUM CARBONATE 500 MG CHEW U/D PO SCH ×2 (08:52→20:13)
[2021-03-03] MEDS: DOCUSATE SODIUM 100MG CAPSULE PO SCH ×2 (08:53→20:13)
[2021-03-03] MEDS: SENOKOT S TAB PO SCH ×2 (08:53→20:13)
[2021-03-03] MEDS: CLOPIDOGREL 75 MG TAB PO SCH (08:53)
[2021-03-03] MEDS: MONTELUKAST 10 MG TAB PO SCH (08:53)
[2021-03-03] MEDS: NICOTINE 14 MG/24 HR TRANSDERMAL TD SCH (08:53)
[2021-03-03] MEDS: LACTOBACILLUS ACIDOPHILUS CAP (BACID) PO SCH ×2 (08:53→18:21)
[2021-03-03] MEDS: HEPARIN SOD (PORCINE) 5000UNITS/ML 1ML VIAL/SYRINGE SQ SCH ×2 (08:54→20:15)
--- NOTE | 2021-03-03 12:07 | IPNPDOC ---
Text Note Date of Service The patient was seen on 03/03/21. NOTE Subjective: Patient is a 75-year-old female presented to the emergency departm ent on 02/15/2021 with a chief complaint of lower extremity edema and shortness of breath with chest discomfort. Patient is feeling better at this time however her edema is still present. Her edema did improve from yesterday. Patient did have elevation of her creatinine yesterday which I believe was secondary to getting Lasix prior to her albumin infusion. Patient received her albumin did receive Lasix throughout the day yesterday and her kidney function did improve. Patient is feeling better but still is refusing to keep her legs elevated for any amount of time. Patient was supposed to have a bed at [facility] however, the patient did not work physical therapy so she was unable to get the bed. Patient is otherwise doing well today. Review of systems: General: Patient denies fevers HEENT: Patient denies headaches Cardiovascular: Patient denies chest pain Respiratory: Patient reports improvement in her shortness of breath and her cough GI: Patient denies abdominal pain, nausea, vomiting, diarrhea : Patient denies increased frequency or pain with urination Extremities: Patient reports improvement in the swelling but the swelling is still present. Neurological: Patient denies numbness or tingling in legs Physical exam: Vitals: See below General: Alert and oriented female who was sitting in the bedside chair when I walked in. Patient had nasal cannula oxygen on at her home 2-1/2 L. Patient did not appear to be in any acute distress. HEENT: Normocephalic, atraumatic, moist mucous membranes. Neck: No lymphadenopathy or thyromegaly Cardiac: Regular rate and rhythm, no murmurs, normal S1, normal S2 Pulm: Clear to auscultation bilaterally. No wheezes, rhonchi, rales Abd: Nondistended, nontender to palpation, normal bowel sounds Ext: 2+ pitting edema of the level of the [place] bilaterally. 1+ pitting edema up to the level of the knee bilaterally. No evidence of skin breakdown Labs: See below Imaging: No new imaging has been performed. Assessment/plan: Patient is a 75-year-old female who presented to the hospital with shortness of breath and increased swelling in her legs was diagnosed with acute decompensated heart failure preserved ejection fraction. Patient's breathing is improved however the patient's peripheral edema had not. Patient's edema did improve slightly overnight. 1. Acute kidney injury. Patient's creatinine yesterday is 1.42. This has resolved at this time. I believe this was secondary to receiving a dose of Lasix prior to her albumin infusion. Patient received albumin infusions yesterday and received 2 doses of IV Lasix yesterday. 2. Acute decompensated heart failure with her ejection fraction. Patient's breathing is better. I strongly advised the patient to keep her legs elevated above her heart in order to help with the edema however, patient says it is painful for her. Patient sleeps in a chair with her legs down which is contributing to the worsening of her edema. Patient will be switched to her home dose of Lasix at this time. 3. Hepatocellular disease. This may be a contributing factor to the patient's swelling. Patient has received albumin and Lasix yesterday. We will switch her to her home Lasix dose. 4. Community-acquired pneumonia of the left lower lobe present on hospital admission. Patient was previously on ceftriaxone and doxycycline and completed a full course of antibiotics with levofloxacin. 5. Coronary artery disease. Continue with her aspirin, clopidogrel, atorvastatin, and metoprolol. 6. COPD. Patient is on Advair and levalbuterol. Patient is on her home oxygen and is stable at this time. 7. Hypothyroidism. Continue levothyroxine. 8. Atrial fibrillation not on anticoagulation. In reviewing the patient's chart and speaking with patient's primary care provider Dr. Gilmore, patient's research food technologist, Dr. Justin, did not recommend full anticoagulation at their last visit because the patient was on Plavix and aspirin and has an MCA aneurysm that is gotten slightly larger. DVT Prophylaxis: Subcutaneous heparin Disposition: Patient is medically stable for discharge as the mainstay of her treatment is trying to keep her legs elevated which the patient is refusing to do so. Patient will be made ALC status pending placement in a subacute rehab. VS,Pedro, I+O VS, Floresitae, I+O Laboratory Tests 03/03/21 07:05 Vital Signs Date Time Temp Pulse Resp B/P (MAP) Pulse Ox O2 Delivery O2 Flow Rate FiO2 03/03/21 09:21 18 Nasal Cannula 03/03/21 09:00 2.0 03/03/21 05:18 97.9 94 118/72 (55) 17 I&O- Last 24 Hours up to 6 AM 03/03/21 06:00 Intake Total 1840.0 ml Output Total 300 ml Balance 1540.0 ml ZOIE ASKEW DO Mar 03, 2021 12:07
[2021-03-03 14:00] VITALS: BP 115/61
[2021-03-04 05:19] VITALS: BP 115/68
[2021-03-04] MEDS: LEVOTHYROXINE 25MCG TABLET (0.025MG) PO SCH (05:20)
[2021-03-04] MEDS: SODIUM CHLORIDE 0.9% INJ 10 ML SYR IV SCH ×2 (05:21→16:25)
[2021-03-04] MEDS: LEVALBUTEROL 1.25 MG/0.5 ML CONCENTRATE NEB INH SCH ×3 (07:13→16:13)
[2021-03-04] MEDS: ADVAIR HFA 45/21MCG INHALER INH SCH (07:13)
[2021-03-04] MEDS: NICOTINE 14 MG/24 HR TRANSDERMAL TD SCH (08:12)
[2021-03-04 08:13] VITALS: BP 115/68
[2021-03-04] MEDS: METOPROLOL SUCC *XL* 12.5MG PER 1/2 TAB (TopROL *XL*) PO SCH (08:13)
[2021-03-04] MEDS: ATORVASTATIN 20 MG TAB PO SCH (08:13)
[2021-03-04] MEDS: ASPIRIN 81MG ENTERIC TABLET PO SCH (08:13)
[2021-03-04] MEDS: MONTELUKAST 10 MG TAB PO SCH (08:13)
[2021-03-04] MEDS: LORATADINE 10 MG TAB PO SCH (08:13)
[2021-03-04] MEDS: MULTIVITAMINS/MINERALS THERAP 1 TAB PO SCH (08:13)
[2021-03-04] MEDS: ALPRAZolam 0.25 MG TAB PO PRN (08:14)
[2021-03-04] MEDS: CALCIUM CARBONATE 500 MG CHEW U/D PO SCH (08:14)
[2021-03-04] MEDS: CLOPIDOGREL 75 MG TAB PO SCH (08:14)
[2021-03-04] MEDS: LACTOBACILLUS ACIDOPHILUS CAP (BACID) PO SCH ×2 (08:14→16:21)
[2021-03-04] MEDS: HEPARIN SOD (PORCINE) 5000UNITS/ML 1ML VIAL/SYRINGE SQ SCH (08:15)
[2021-03-04] MEDS: DOCUSATE SODIUM 100MG CAPSULE PO SCH (08:16)
[2021-03-04] MEDS: SENOKOT S TAB PO SCH (08:16)
[2021-03-04] MEDS ORDERED: FUROSEMIDE 40 MG TAB PO SCH (09:00)
--- NOTE | 2021-03-04 11:38 | DS.PDOC ---
Discharge Summary General Date of Admission Feb 15, 2021 at 21:53 Date of Discharge 03/04/2021 Primary Care Physician: Jr Hagan Collins Attending Physician: ZOIE ASKEW DO Discharge Summary PROCEDURES PERFORMED DURING STAY: PICC line insertion. ADMITTING DIAGNOSES: 1. Shortness of breath and chest pain likely secondary to CHF exacerbation. 2. Acute kidney injury 3. Hypertensive urgency likely secondary to fluid overload 4. Chronic hypoxic O2 dependent respiratory failure 5. Atrial fibrillation 6. History of CVA 7. Hypothyroidism 8. Coronary artery disease status post stenting DISCHARGE DIAGNOSES: 1. Acute kidney injury, resolved 2. Acute decompensated heart failure with preserved ejection fraction, improved 3. Hepatocellular disease in the setting of low albumin 4. Community-acquired pneumonia of the left lower no present hospital admission 5. Coronary artery disease 6. COPD 7. Hypothyroidism 8. Atrial fibrillation 9. History of CVA COMPLICATIONS/CHIEF COMPLAINT: Ams,Diastolic Chf,Weakness. HISTORY OF PRESENT ILLNESS: Patient is a 75-year-old female who presented to the emergency department on 02/15/2021 with worsening lower extremity edema, shortness of breath, and chest discomfort. Patient was recently admitted prior to this for a COPD exacerbation and acute renal failure with subsequent placement to [facility] for subacute rehab on February 11. Patient appeared somnolent on exam and was unable to provide a clear history. Patient was found to have significant bilateral lower extremity edema hypertensive urgency. There was a high suspicion for diastolic CHF exacerbation and the patient was admitted into the hospital. HOSPITAL COURSE: Throughout the patient's hospitalization, patient was treated with diuresis which did improve the patient's breathing. Patient had a slow recovery of her breathing. Patient was found to have an infiltrate on chest x- ray initially. Patient was treated with ceftriaxone doxycycline initially and finished a complete course of antibiotics with levofloxacin. Future imaging studies showed resolution of the infiltrate. Patient struggled to keep her legs elevated throughout her hospitalization as she says this bothered her greatly. Patient did have a increase of her creatinine throughout her hospitalization and ended up needing a course of albumin with Lasix however, patient received a dose of Lasix prior to getting the albumin which caused an increase in her creatinine a few days prior to her discharge. She did receive her albumin then got a few d oses of Lasix which increased her diuresis and improved her kidney function. Patient's legs did improve throughout her hospitalization and patient began participating in physical therapy. I strongly encourage the patient to continue keeping her legs elevated as much as possible especially when she is resting watching television or sleeping. Patient states that this bothers her greatly and says that she can only do it for short amount of time. Patient will be discharged to [facility] rehab facilitation due to subacute rehabilitation. I advised the patient that I believe subacute rehabilitation with the best thing for her in order for her to get stronger with the ultimate goal of her getting home to her family. DISCHARGE MEDICATIONS: Please see below. ALLERGIES: Please see below. PHYSICAL EXAMINATION ON DISCHARGE: VITAL SIGNS: Please see below. General: Alert and oriented female patient who was sitting in her chair when I walked in. Patient had nasal cannula oxygen on at her home level of 2.5 L/min. Patient did not appear to be in any acute distress. HEENT: Normocephalic, atraumatic, moist mucous membranes. Neck: No lymphadenopathy or thyromegaly Cardiac: Regular rate and rhythm, no murmurs, normal S1, normal S2 Pulm: Clear to auscultation bilaterally. No wheezes, rhonchi, rales Abd: Nondistended, nontender to palpation, normal bowel sounds Ext: 1+ bilateral pitting edema up to the level of the knee LABORATORY DATA: Please see below. IMAGING: CT of the head performed without contrast on 02/15/2021 was reported to show there is moderate age-related parenchymal volume loss. White matter changes are demonstrated in the subcortical, centrum semiovale and periventricular white matter consistent with chronic age-related small vessel ischemic changes. The degree of ventricular dilatation is normal for age and/or degree of atrophy present. Mild diffuse cerebellar atrophy. No acute findings. Duplex bilateral lower extremity ultrasound performed on 02/16/2021 was reported to show no evidence of DVT in the bilateral lower extremity femoral-popliteal venous system. Renal Doppler flow ultrasound performed on 02/16/2021 was reported to show negative renal ultrasound. The renal arteries could not be visualized due to overlying bowel gas and the intrarenal arteries could not be interrogated due to bowel gas and patient motion. Chest x-ray performed on 02/16/2021 is reported to show platelike atelectasis versus linear fibrosis left base. Mild cardiomegaly. Otherwise no acute disease. A ventilation and perfusion lung scan performed on 02/16/2021 was reported to show essentially no change compared to the prior study on 02/02/2021. The study is indeterminate for pulmonary embolism. CT angiogram of the chest is recommended. Extremity bilateral arterial ultrasound performed on 02/16/2021 was reported to show mild plaque was seen throughout bilaterally with no evidence of significant stenosis. Chest x-ray performed on 02/17/2021 was reported to show increased density in the left base consistent with developing infiltrate. More prominent than on prior study. Abdominal x-ray performed on 02/19/2021 was reported to show nonspecific abdomin al radiograph. Chest x-ray performed on 02/21/2021 was reported to show hyperinflation consistent with COPD. Linear discoid atelectasis left base. No acute infiltrate. A cookie swallow with modified barium swallow study performed on 02/13/2021 was reported to show thin consistency barium there is aspiration a detailed report of this examination will be provided by speech pathology. CT of the chest without contrast performed on 02/22/2021 was reported to show hyperinflation and emphysematous changes consistent with COPD. Bibasilar and bilateral upper lobe linear fibrotic changes. Vascular claudication otherwise no acute disease. Abdominal ultrasound performed on 02/27/2021 was reported to show findings suggesting hepatocellular disease and/or hepatosteatosis. Chronic medical renal disease and possible small nonobstructing intrarenal calculi without hydronephrosis. Distal abdominal aortic aneurysm. Duplex bilateral lower extremity ultrasound performed on 02/28/2021 was reported to show no evidence for DVT. PROGNOSIS: Fair ACTIVITY: As tolerated. DIET: Mechanical soft and 2 g sodium DISCHARGE PLAN: Discharged to [facility] rehabilitation for subacute rehab DISPOSITION: Discharge to [facility] for subacute rehab DISCHARGE INSTRUCTIONS: 1. Follow-up with the providers at [facility] and continue to keep your legs elevated.. DISCHARGE CONDITION: Stable. TIME SPENT ON DISCHARGE: Greater than 30 minutes. Vital Signs/I&Os Vital Signs Date Time Temp Pulse Resp B/P (MAP) Pulse Ox O2 Delivery O2 Flow Rate FiO2 03/04/21 09:00 2.0 03/04/21 08:13 102 115/68 03/04/21 05:19 97.8 18 95 Room Air I&O- Last 24 Hours up to 6 AM 03/04/21 06:00 Intake Total 1580 ml Output Total 775 ml Balance 805 ml Discharge Medications Scheduled Aspirin (Aspirin EC) 81 Mg Tab, 81 MG PO DAILY, (Reported) Atorvastatin Calcium (Atorvastatin Calcium) 40 Mg Tablet, 40 MG PO DAILY, (Reported) Bacillus Coagulans (Bacid with Lactospore) 1 Each Capsule, 1 CAP PO [facility] Calcium Carbonate (Tums) 200 Mg Tab.chew, 500 MG PO BID, (Reported) Cholecalciferol (Vitamin D3) (Vitamin D3) 50 Mcg Tablet, 50 MCG PO DAILY, (Repor behzad) TO BE GIVEN AT NOON Clopidogrel Bisulfate (Clopidogrel) 75 Mg Tablet, 75 MG PO DAILY, (Reported) Furosemide (Furosemide) 40 Mg Tablet, 40 MG PO DAILY, (Reported) Levothyroxine Sodium (Synthroid) 25 Mcg Tablet, 25 MCG PO DAILY, (Reported) Loratadine (Loratadine) 10 Mg Tablet, 10 MG PO DAILY, (Reported) Metoprolol Succinate (Metoprolol Succinate) 25 Mg Tab.er.24h, 12.5 MG PO Q2D, (Reported) Montelukast Sodium (Montelukast Sodium) 10 Mg Tablet, 10 MG PO DAILY, (Reported) Multivit,Calc,Mins/Iron/Folic (Thera-M Tablet) 1 Each Tablet, 1 TAB PO DAILY, (Reported) Nicotine (Nicotine Patch) 14 Mg Patch.td24, 14 MG TD DAILY, (Reported) DECREASE TO 7MG PATCH ON 02/19/21 Polyethylene Glycol 3350 (Miralax) 17 Gm Powd.pack, 17 GM PO DAILY, (Reported) Prednisone (Prednisone) 10 Mg Tablet, 20 MG PO ASDIRECTED, (Reported) RECEIVED 30MG ON 02/15/21, DUE FOR 20MG X 1 DOSE ON 02/16/21 AND 10MG X 1 DOSE ON 02/17/21 THEN STOP Salmeterol/Fluticasone (Advair 100-50 Diskus) 1 Each Blst.w.dev, 1 PUFF INH BID, (Reported) Sennosides/Docusate Sodium (Senna-S Tablet) 1 Each Tablet, 1 TAB PO BID, (Reported) Scheduled PRN Acetaminophen (Acetaminophen) 325 Mg Tablet, 650 MG PO Q4H PRN for PAIN LEVEL 1- 4, (Reported) Albuterol Sulf (Albuterol Sulfate) 2.5 Mg/3 Ml Vial.neb, 2.5 MG INH Q4H PRN for SHORTNESS OF BREATH, (Reported) Albuterol Sulfate (Proair Hfa) 8.5 Gm Hfa.aer.ad, 2 PUFF INH Q4H PRN for SHORTNESS OF BREATH, (Reported) Benzonatate (Tessalon Perle) 100 Mg Capsule, 100 MG PO Q8H PRN for COUGH, (Reported) FOR 14 DAYS STARTING 02/11/21 Bisacodyl (Bisacodyl) 10 Mg Supp.rect, 10 MG TN DAILY PRN for CONSTIPATION, (Reported) Milk Of Magnesia (Milk of Magnesia) 2,400 Mg/10 Ml Oral.susp, 10 ML PO DAILY PRN for CONSTIPATION, (Reported) Nitroglycerin (Nitroglycerin) 0.4 Mg Tab.subl, 0.4 MG SL NITRO PRN for CHEST PAIN, (Reported) Sodium Phosphate,[place]-Dibasic (Enema) 133 Ml Enema, 1 BJ TN DAILY PRN for CONS TIPATION, (Reported) Allergies Coded Allergies: Cat Dander (Verified Allergy, Severe, shortness of breath, 12/15/20) Birds (Verified Allergy, Unknown, 03/06/20) lansoprazole (Verified Allergy, Unknown, 03/06/20) cortisone (Verified Adverse Reaction, Mild, steroids - SORE TONGUE, GENERAL ILL FEELING, 12/15/20) ZOIE ASKEW DO Mar 04, 2021 11:38
[2021-03-04 13:49] LABS: HEMOGLOBIN 8.8 g/dl (12.0-15.5); MEAN CORPUSCULAR HEMOGLOBIN 31.3 pg (27.0-33.0); MEAN CORPUSCULAR HGB CONC 31.4 g/dl (32.0-36.5); MEAN CORPUSCULAR VOLUME 99.6 fl (80.0-96.0); PLATELET COUNT, AUTOMATED 275 10^3/uL (150-450); RED BLOOD COUNT 2.81 10^6/uL (4.00-5.40); WHITE BLOOD COUNT 5.3 10^3/uL (4.0-10.0)
[2021-03-04 14:11] LABS: CALCIUM LEVEL 9.1 MG/DL (8.8-10.2); CREATININE FOR GFR 1.38 MG/DL (0.55-1.30); GLOMERULAR FILTRATION RATE 39.5 (>39); POTASSIUM SERUM 4.4 MEQ/L (3.5-5.1)
[2021-03-04] MEDS: oxyCODONE 5MG TAB PO PRN (16:22)
== END 2021-03-04 17:25 | DRG 291 ==
LOC: EDBD 17:02 → M ED 17:02 → M ED INP 21:53 → ENRESERV 23:38 → M PCU 02-16 01:00 → M MS5PR 02-16 15:05
PROVIDERS: ADMIT Family Medicine; ATTEND Family Medicine
PROC: 02HV33Z Insertion of Infusion Device into Superior Vena Cava, Percutaneous Approach (ICD-10-PCS; principal; 2021-03-01 14:00)
DX: I13.0 Hypertensive heart and chronic kidney disease with heart failure and stage 1 through stage 4 chronic kidney disease, or unspecified chronic kidney disease (principal); J18.9 Pneumonia, unspecified organism; I50.33 Acute on chronic diastolic (congestive) heart failure; I67.4 Hypertensive encephalopathy; J96.11 Chronic respiratory failure with hypoxia; N17.9 Acute kidney failure, unspecified; I48.20 Chronic atrial fibrillation, unspecified; I16.0 Hypertensive urgency; Z86.73 Personal history of transient ischemic attack (TIA), and cerebral infarction without residual deficits; I25.10 Atherosclerotic heart disease of native coronary artery without angina pectoris; J44.9 Chronic obstructive pulmonary disease, unspecified; E03.9 Hypothyroidism, unspecified; Z79.82 Long term (current) use of aspirin; Z79.899 Other long term (current) drug therapy; Z88.8 Allergy status to other drugs, medicaments and biological substances; M81.0 Age-related osteoporosis without current pathological fracture; K57.30 Diverticulosis of large intestine without perforation or abscess without bleeding; K64.8 Other hemorrhoids; F32.9 Major depressive disorder, single episode, unspecified; K76.0 Fatty (change of) liver, not elsewhere classified; Z99.81 Dependence on supplemental oxygen; Z95.2 Presence of prosthetic heart valve; M06.9 Rheumatoid arthritis, unspecified; F17.200 Nicotine dependence, unspecified, uncomplicated; K59.00 Constipation, unspecified

== ENCOUNTER → 2021-10-20 | Outpatient (CLI) | payer MEDICARE ==
[~2021-10-20] MED LIST changes: +ANAS1TAB2 PO; +APAP325T4 PO; +ARIP1TAB PO; +ATOR1TAB21 PO; +BACI1CAP PO; +BISA10SU4 PR; +COMMENT; +D31000TA2 PO; +DOXY-350 PO; +ELIQ5TAB PO; +ENEMENE PR; +FARX1TAB3 PO; +FLUT1BLS8 IH; +FURO40TA2 PO; -KLOR10TA76 PO; +LEVO25TA5 PO; +LORA-622 PO; +MED NOTE; +METO50TA7 PO; +MIDO5TA PO; +MOM30SS PO; -MONT10TA10 PO; +MONT10TA97 PO; +MYRB50TA PO; +NICO14DI6 TD; +POTA-136 PO; +PROT1TAB2 PO; +SERT50TA29 PO; +THERTAB21 PO; +TORS20TA2 PO; +TUMS500C PO; +VITA200010 PO; +ZOLO100T PO
== END ==
LOC: M ADAMS 10:26
PROVIDERS: ATTEND Family Medicine
DX: J43.1 Panlobular emphysema (principal); R35.0 Frequency of micturition; I12.9 Hypertensive chronic kidney disease with stage 1 through stage 4 chronic kidney disease, or unspecified chronic kidney disease; K75.81 Nonalcoholic steatohepatitis (NASH); E03.9 Hypothyroidism, unspecified

== ENCOUNTER → 2021-10-20 | Outpatient (REF) | payer MEDICARE ==
[2021-10-20 13:25] LABS: HEMATOCRIT 38.5 % (36.0-47.0); HEMOGLOBIN 12.2 g/dl (12.0-15.5); MEAN CORPUSCULAR HEMOGLOBIN 29.2 pg (27.0-33.0); MEAN CORPUSCULAR HGB CONC 31.7 g/dl (32.0-36.5); MEAN CORPUSCULAR VOLUME 92.1 fl (80.0-96.0); PLATELET COUNT, AUTOMATED 263 10^3/uL (150-450); RED BLOOD COUNT 4.18 10^6/uL (4.00-5.40); WHITE BLOOD COUNT 7.1 10^3/uL (4.0-10.0)
[2021-10-20 14:06] LABS: ALBUMIN 3.5 GM/DL (3.2-5.2); BILIRUBIN,TOTAL 0.5 MG/DL (0.2-1.0); CALCIUM LEVEL 9.4 MG/DL (8.8-10.2); CHOLESTEROL RISK RATIO 2.313 (<5); CREATININE FOR GFR 1.4 MG/DL (0.55-1.30); FREE T4 1.18 NG/DL (0.76-1.46); GLOMERULAR FILTRATION RATE 38.7 (>39); POTASSIUM SERUM 4.2 MEQ/L (3.5-5.1); THYROID STIMULATING HORMONE 3.17 uIU/ML (0.358-3.740); TOTAL PROTEIN 7.4 GM/DL (6.4-8.2)
== END ==
LOC: M SFHCADAM 09:44
PROVIDERS: ATTEND Family Medicine
DX: R35.0 Frequency of micturition (principal); I12.9 Hypertensive chronic kidney disease with stage 1 through stage 4 chronic kidney disease, or unspecified chronic kidney disease; K75.81 Nonalcoholic steatohepatitis (NASH); E03.9 Hypothyroidism, unspecified

== ENCOUNTER 2021-10-22 19:31 | Inpatient (IN) | payer MEDICARE ==
[~2021-10-22] VITALS: Ht 162.6 cm; Wt 56.0 kg
[~2021-10-22 19:31] MED LIST changes: -ANAS1TAB2 PO; -ARIP1TAB PO; -ATOR1TAB21 PO; -COMMENT; -D31000TA2 PO; -ELIQ5TAB PO; -FARX1TAB3 PO; -FLUT1BLS8 IH; -LEVO25TA5 PO; -MED NOTE; -METO50TA7 PO; -MIDO5TA PO; -MYRB50TA PO; -PROT1TAB2 PO; -SERT50TA29 PO; -TORS20TA2 PO; -ZOLO100T PO
[2021-10-22 21:10] LABS: BASO % 0.3 % (0.0-1.0); EOS % 0.1 % (0.0-3.0); HEMOGLOBIN 11.1 g/dl (12.0-15.5); LYMPH # 0.4 10^3/uL (1.5-5.0); LYMPH % 2.7 % (24.0-44.0); MEAN CORPUSCULAR HEMOGLOBIN 29.4 pg (27.0-33.0); MEAN CORPUSCULAR HGB CONC 31.7 g/dl (32.0-36.5); MEAN CORPUSCULAR VOLUME 92.8 fl (80.0-96.0); MONO # 1.1 10^3/uL (0.0-0.8); NEUTROPHILS # 13.6 10^3/uL (1.5-8.5); NEUTROPHILS % 89.4 % (36.0-66.0); PLATELET COUNT, AUTOMATED 210 10^3/uL (150-450); RED BLOOD COUNT 3.77 10^6/uL (4.00-5.40); WHITE BLOOD COUNT 15.2 10^3/uL (4.0-10.0)
[2021-10-22] MEDS ORDERED: IPRATROPIUM 0.5MG/ALBUTEROL 2.5MG INH SOL UD 3ML (DUONEB) NEB ONE ×2 (21:20)
[2021-10-22 21:27] LABS: CK-MB VALUE MASS 1.3 NG/ML (<3.6); MB/CK RELATIVE INDEX 1.81 (< OR =4)
[2021-10-22 21:44] LABS: ALBUMIN 3.2 GM/DL (3.2-5.2); BILIRUBIN,TOTAL 0.4 MG/DL (0.2-1.0); CALCIUM LEVEL 8.8 MG/DL (8.8-10.2); CREATININE FOR GFR 1.44 MG/DL (0.55-1.30); GLOMERULAR FILTRATION RATE 37.5 (>39); POTASSIUM SERUM 5.2 MEQ/L (3.5-5.1); THYROID STIMULATING HORMONE 2.35 uIU/ML (0.358-3.740); TOTAL PROTEIN 6.9 GM/DL (6.4-8.2)
[2021-10-22 23:05] LABS: GLUCOSE, URINE (UA) MANUAL NEGATIVE (NEGATIVE); KETONE, URINE MANUAL NEGATIVE (NEGATIVE)
[2021-10-22 23:06] LABS: BILIRUBIN, URINE MANUAL NEGATIVE (NEGATIVE); UROBILINOGEN, URINE MANUAL NORMAL (NORMAL)
[2021-10-22 23:17] LABS: BACTERIA, URINE LARGE AMOUNT; HYALINE CAST, URINE NONE SEEN /lpf (0-1); SQUAMOUS EPITHELIAL CELL URINE SMALL AMOUNT /hpf (SMALL AMT)
[2021-10-22] MEDS ORDERED: cefTRIAXone SOD 1 GM in D5W MINI-BAG PLUS 50 ML IV ONE (23:20)
[2021-10-23] VITALS (7 sets, daily range): BP systolic 105–146; BP diastolic 52–88; O2SAT 92
[2021-10-23] MEDS ORDERED: HumuLIN R (REGULAR) INSULIN (NovoLIN R) **100U/ML** PER UNIT IV STA (01:01)
[2021-10-23] MEDS ORDERED: NS 1,000 ML IV SCH (01:30)
[2021-10-23] MEDS ORDERED: ACETAMINOPHEN TAB 650MG DOSE (2X325MG) PO PRN (01:30)
[2021-10-23] MEDS: IPRATROPIUM 0.5MG/ALBUTEROL 2.5MG INH SOL UD 3ML (DUONEB) NEB SCH ×4 (02:00→20:15)
[2021-10-23] MEDS ORDERED: NS 1,000 ML IV ONE (02:20)
[2021-10-23] MEDS ORDERED: ALBUTEROL SULFATE 2.5 MG/0.5 ML INH NEB SOLN NEB PRN (02:25)
[2021-10-23] MEDS ORDERED: diphenhydrAMINE 25MG CAP PO PRN (03:05)
[2021-10-23] MEDS ORDERED: ANAS1TAB2 PO (03:12)
[2021-10-23] MEDS ORDERED: ELIQ5TAB PO (03:12)
[2021-10-23] MEDS ORDERED: FARX1TAB3 PO (03:19)
[2021-10-23] MEDS ORDERED: ARIP1TAB PO (03:19)
[2021-10-23] MEDS ORDERED: ZOLO100T PO (03:19)
[2021-10-23] MEDS ORDERED: PRED10TA2 PO (03:19)
[2021-10-23] MEDS ORDERED: MIDO5TA PO (03:19)
[2021-10-23] MEDS ORDERED: TORS20TA2 PO (03:19)
[2021-10-23] MEDS ORDERED: PROT1TAB2 PO (03:19)
[2021-10-23] MEDS ORDERED: MYRB50TA PO (03:19)
[2021-10-23] MEDS ORDERED: METO50TA7 PO (03:19)
[2021-10-23] MEDS ORDERED: FLUT1BLS8 IH (03:20)
[2021-10-23] MEDS ORDERED: CLOP75TA2 PO (03:43)
[2021-10-23] MEDS ORDERED: FURO40TA2 PO (03:43)
[2021-10-23] MEDS ORDERED: MED NOTE (03:43)
[2021-10-23] MEDS ORDERED: LEVO25TA5 PO (03:43)
[2021-10-23] MEDS ORDERED: HOME MED LIST COMPLETE! XX SCH (03:45)
[2021-10-23] MEDS: AZITHROMYCIN INJ 500 MG, VIAL MATE ADAPTER 1 EACH in NS 250 ML IV SCH (05:47)
[2021-10-23 07:47] LABS: BASO # 0.1 10^3/uL (0.0-0.2); BASO % 0.4 % (0.0-1.0); EOS % 0.2 % (0.0-3.0); HEMATOCRIT 34.4 % (36.0-47.0); LYMPH # 0.9 10^3/uL (1.5-5.0); LYMPH % 7.5 % (24.0-44.0); MEAN CORPUSCULAR HEMOGLOBIN 29.3 pg (27.0-33.0); MEAN CORPUSCULAR VOLUME 91.7 fl (80.0-96.0); MONO # 0.4 10^3/uL (0.0-0.8); MONO % 3.1 % (2.0-8.0); NEUTROPHILS # 10.9 10^3/uL (1.5-8.5); NEUTROPHILS % 88.3 % (36.0-66.0); PLATELET COUNT, AUTOMATED 203 10^3/uL (150-450); RED BLOOD COUNT 3.75 10^6/uL (4.00-5.40); WHITE BLOOD COUNT 12.3 10^3/uL (4.0-10.0)
[2021-10-23] MEDS: guaiFENesin ER 600 MG TAB PO SCH ×2 (08:15→20:14)
[2021-10-23] MEDS: CLOPIDOGREL 75 MG TAB PO SCH (08:16)
[2021-10-23] MEDS: methylPREDNISolone 125MG 2ML VIAL IV SCH ×2 (08:16→16:26)
[2021-10-23] MEDS: LEVOTHYROXINE 25MCG TABLET (0.025MG) PO SCH (08:17)
[2021-10-23 08:23] LABS: CK-MB VALUE MASS 1.3 NG/ML (<3.6); MB/CK RELATIVE INDEX 1.51 (< OR =4)
[2021-10-23 08:27] LABS: BILIRUBIN,TOTAL 0.5 MG/DL (0.2-1.0); CALCIUM LEVEL 8.2 MG/DL (8.8-10.2); CREATININE FOR GFR 1.37 MG/DL (0.55-1.30); GLOMERULAR FILTRATION RATE 39.7 (>39); MAGNESIUM LEVEL 2.1 MG/DL (1.8-2.4); POTASSIUM SERUM 4.6 MEQ/L (3.5-5.1); TOTAL PROTEIN 6.8 GM/DL (6.4-8.2)
[2021-10-23] MEDS ORDERED: NICOTINE 14 MG/24 HR TRANSDERMAL TD PRN (10:15)
[2021-10-23] MEDS: HEPARIN SOD (PORCINE) 5000UNITS/ML 1ML VIAL/SYRINGE SC SCH ×2 (10:29→20:14)
[2021-10-23] MEDS: NS 1,000 ML IV SCH ×2 (10:29→18:36)
[2021-10-23] MEDS ORDERED: ATOR1TAB21 PO (11:27)
[2021-10-23] MEDS ORDERED: MONT10TA97 PO (11:27)
[2021-10-23] MEDS ORDERED: ASPI81TA26 PO (11:27)
[2021-10-23] MEDS ORDERED: SERT50TA29 PO (11:27)
[2021-10-23] MEDS ORDERED: ADV100INH INH (11:27)
[2021-10-23] MEDS ORDERED: VITA100093 PO (11:27)
[2021-10-23] MEDS ORDERED: COMMENT (11:29)
[2021-10-23] MEDS: ASPIRIN 81 MG CHEW TABLET PO SCH (12:55)
[2021-10-23] MEDS: ATORVASTATIN 20 MG TAB PO SCH (12:55)
[2021-10-23] MEDS: METOPROLOL SUCC *XL* 25MG TAB (TopROL *XL*) PO SCH (12:55)
[2021-10-23] MEDS: ADVAIR HFA 45/21MCG INHALER INH SCH (20:15)
[2021-10-24] MEDS: methylPREDNISolone 125MG 2ML VIAL IV SCH ×2 (00:59→10:18)
[2021-10-24] MEDS: cefTRIAXone SOD 1 GM in D5W MINI-BAG PLUS 50 ML IV SCH (01:02)
[2021-10-24] MEDS: IPRATROPIUM 0.5MG/ALBUTEROL 2.5MG INH SOL UD 3ML (DUONEB) NEB SCH ×4 (02:00→19:36)
[2021-10-24] MEDS: AZITHROMYCIN INJ 500 MG, VIAL MATE ADAPTER 1 EACH in NS 250 ML IV SCH (02:48)
[2021-10-24 05:54] LABS: BASO % 0.1 % (0.0-1.0); HEMATOCRIT 30.9 % (36.0-47.0); HEMOGLOBIN 9.7 g/dl (12.0-15.5); LYMPH # 0.5 10^3/uL (1.5-5.0); LYMPH % 4.1 % (24.0-44.0); MEAN CORPUSCULAR HEMOGLOBIN 29.9 pg (27.0-33.0); MEAN CORPUSCULAR HGB CONC 31.4 g/dl (32.0-36.5); MEAN CORPUSCULAR VOLUME 95.4 fl (80.0-96.0); MONO # 0.3 10^3/uL (0.0-0.8); MONO % 2.3 % (2.0-8.0); NEUTROPHILS # 11.6 10^3/uL (1.5-8.5); NEUTROPHILS % 92.8 % (36.0-66.0); PLATELET COUNT, AUTOMATED 193 10^3/uL (150-450); RED BLOOD COUNT 3.24 10^6/uL (4.00-5.40); WHITE BLOOD COUNT 12.5 10^3/uL (4.0-10.0)
[2021-10-24 06:00] VITALS: BP 126/67
[2021-10-24] MEDS: LEVOTHYROXINE 25MCG TABLET (0.025MG) PO SCH (06:04)
[2021-10-24 06:17] LABS: CREATININE FOR GFR 1.21 MG/DL (0.55-1.30); GLOMERULAR FILTRATION RATE 45.8 (>39); MAGNESIUM LEVEL 2.2 MG/DL (1.8-2.4); POTASSIUM SERUM 4.4 MEQ/L (3.5-5.1)
[2021-10-24] MEDS: ADVAIR HFA 45/21MCG INHALER INH SCH ×2 (07:33→19:39)
[2021-10-24 09:00] VITALS: BP 114/58
[2021-10-24] MEDS ORDERED: PNEUMOCOCCAL VACCINE 0.5ML SYRINGE (PNEUMOVAX 23) IM ONE (09:00)
[2021-10-24] MEDS ORDERED: FLUBLOK(EGG FREE)(QUAD)INFLUENZA VACC 0.5ML SYRINGE 18YRS & OLDER IM ONE (09:00)
[2021-10-24] MEDS: NS 1,000 ML IV SCH (09:12)
[2021-10-24] MEDS: HEPARIN SOD (PORCINE) 5000UNITS/ML 1ML VIAL/SYRINGE SC SCH ×2 (10:16→21:10)
[2021-10-24] MEDS: ASPIRIN 81 MG CHEW TABLET PO SCH (10:18)
[2021-10-24] MEDS: guaiFENesin ER 600 MG TAB PO SCH ×2 (10:18→21:11)
[2021-10-24] MEDS: VITAMIN D 1,000 INTERNATIONAL UNITS TABLET PO SCH (10:19)
[2021-10-24] MEDS: METOPROLOL SUCC *XL* 25MG TAB (TopROL *XL*) PO SCH (10:19)
[2021-10-24] MEDS: ATORVASTATIN 20 MG TAB PO SCH (10:20)
[2021-10-24] MEDS: CLOPIDOGREL 75 MG TAB PO SCH (10:20)
[2021-10-24] MEDS: MONTELUKAST 10 MG TAB PO SCH (10:20)
[2021-10-24] MEDS: SERTRALINE HCL 50 MG TAB PO SCH (10:20)
[2021-10-24 13:57] VITALS: BP 129/75
[2021-10-24] MEDS: methylPREDNISolone 40MG 1ML VIAL IV SCH (21:10)
[2021-10-24 22:00] VITALS: BP 128/77
[2021-10-25] MEDS: SODIUM CHLORIDE NASAL 0.65% SPRAY BTL (OCEAN) PRN (00:50)
[2021-10-25] MEDS: cefTRIAXone SOD 1 GM in D5W MINI-BAG PLUS 50 ML IV SCH (01:36)
[2021-10-25] MEDS: AZITHROMYCIN INJ 500 MG, VIAL MATE ADAPTER 1 EACH in NS 250 ML IV SCH (02:21)
[2021-10-25] MEDS: IPRATROPIUM 0.5MG/ALBUTEROL 2.5MG INH SOL UD 3ML (DUONEB) NEB SCH ×4 (03:49→19:57)
[2021-10-25] MEDS: LEVOTHYROXINE 25MCG TABLET (0.025MG) PO SCH (05:35)
[2021-10-25 06:00] VITALS: BP 137/78
[2021-10-25 06:35] LABS: BASO % 0.1 % (0.0-1.0); HEMATOCRIT 31.3 % (36.0-47.0); HEMOGLOBIN 9.6 g/dl (12.0-15.5); LYMPH # 0.6 10^3/uL (1.5-5.0); LYMPH % 3.2 % (24.0-44.0); MEAN CORPUSCULAR HEMOGLOBIN 29.2 pg (27.0-33.0); MEAN CORPUSCULAR HGB CONC 30.7 g/dl (32.0-36.5); MEAN CORPUSCULAR VOLUME 95.1 fl (80.0-96.0); MONO # 0.5 10^3/uL (0.0-0.8); MONO % 2.5 % (2.0-8.0); NEUTROPHILS # 18.1 10^3/uL (1.5-8.5); NEUTROPHILS % 93.1 % (36.0-66.0); PLATELET COUNT, AUTOMATED 241 10^3/uL (150-450); RED BLOOD COUNT 3.29 10^6/uL (4.00-5.40); WHITE BLOOD COUNT 19.5 10^3/uL (4.0-10.0)
[2021-10-25 06:59] LABS: CALCIUM LEVEL 8.3 MG/DL (8.8-10.2); CREATININE FOR GFR 1.15 MG/DL (0.55-1.30); GLOMERULAR FILTRATION RATE 48.6 (>39); MAGNESIUM LEVEL 2.2 MG/DL (1.8-2.4); POTASSIUM SERUM 4.2 MEQ/L (3.5-5.1)
[2021-10-25] MEDS: ADVAIR HFA 45/21MCG INHALER INH SCH ×2 (07:40→20:18)
[2021-10-25 07:43] VITALS: BP 140/80
[2021-10-25] MEDS: methylPREDNISolone 40MG 1ML VIAL IV SCH ×2 (09:15→20:33)
[2021-10-25] MEDS: HEPARIN SOD (PORCINE) 5000UNITS/ML 1ML VIAL/SYRINGE SC SCH ×2 (09:16→20:34)
[2021-10-25] MEDS: ATORVASTATIN 20 MG TAB PO SCH (09:16)
[2021-10-25] MEDS: METOPROLOL SUCC *XL* 25MG TAB (TopROL *XL*) PO SCH (09:17)
[2021-10-25] MEDS: ASPIRIN 81 MG CHEW TABLET PO SCH (09:17)
[2021-10-25] MEDS: MONTELUKAST 10 MG TAB PO SCH (09:17)
[2021-10-25] MEDS: CLOPIDOGREL 75 MG TAB PO SCH (09:18)
[2021-10-25] MEDS: SERTRALINE HCL 50 MG TAB PO SCH (09:18)
[2021-10-25] MEDS: VITAMIN D 1,000 INTERNATIONAL UNITS TABLET PO SCH (09:18)
[2021-10-25] MEDS: guaiFENesin ER 600 MG TAB PO SCH ×2 (09:18→20:33)
[2021-10-25 14:00] VITALS: BP 142/79
[2021-10-25] MEDS ORDERED: FUROSEMIDE 20MG/2ML VIAL (J1940) IV ONE (16:10)
[2021-10-25] MEDS ORDERED: hydrOXYzine 25 MG TAB PO ONE (21:10)
[2021-10-25] MEDS ORDERED: **hydrALAZINE HCL** 25 MG TAB PO ONE (21:30)
[2021-10-25 22:00] VITALS: BP 174/86
[2021-10-26] MEDS: cefTRIAXone SOD 1 GM in D5W MINI-BAG PLUS 50 ML IV SCH (01:13)
[2021-10-26 01:22] VITALS: BP 145/86
[2021-10-26] MEDS: IPRATROPIUM 0.5MG/ALBUTEROL 2.5MG INH SOL UD 3ML (DUONEB) NEB SCH ×4 (01:49→19:17)
[2021-10-26] MEDS: AZITHROMYCIN INJ 500 MG, VIAL MATE ADAPTER 1 EACH in NS 250 ML IV SCH (03:05)
[2021-10-26] MEDS: LEVOTHYROXINE 25MCG TABLET (0.025MG) PO SCH (05:18)
[2021-10-26 06:00] VITALS: BP 146/84
[2021-10-26 06:00] LABS: BASO % 0.2 % (0.0-1.0); HEMOGLOBIN 10.3 g/dl (12.0-15.5); LYMPH # 0.6 10^3/uL (1.5-5.0); LYMPH % 5.1 % (24.0-44.0); MEAN CORPUSCULAR HEMOGLOBIN 29.6 pg (27.0-33.0); MEAN CORPUSCULAR HGB CONC 32.2 g/dl (32.0-36.5); MONO # 0.6 10^3/uL (0.0-0.8); MONO % 4.8 % (2.0-8.0); NEUTROPHILS # 10.8 10^3/uL (1.5-8.5); NEUTROPHILS % 88.5 % (36.0-66.0); PLATELET COUNT, AUTOMATED 252 10^3/uL (150-450); RED BLOOD COUNT 3.48 10^6/uL (4.00-5.40); WHITE BLOOD COUNT 12.2 10^3/uL (4.0-10.0)
[2021-10-26] MEDS: VITAMIN D 1,000 INTERNATIONAL UNITS TABLET PO SCH (08:57)
[2021-10-26] MEDS: HEPARIN SOD (PORCINE) 5000UNITS/ML 1ML VIAL/SYRINGE SC SCH ×3 (08:57→20:19)
[2021-10-26] MEDS: CLOPIDOGREL 75 MG TAB PO SCH (08:57)
[2021-10-26] MEDS: SERTRALINE HCL 50 MG TAB PO SCH (08:57)
[2021-10-26] MEDS: ASPIRIN 81 MG CHEW TABLET PO SCH (08:57)
[2021-10-26] MEDS: predniSONE 20 MG TAB PO SCH (08:57)
[2021-10-26] MEDS: METOPROLOL SUCC *XL* 25MG TAB (TopROL *XL*) PO SCH (08:58)
[2021-10-26] MEDS: MONTELUKAST 10 MG TAB PO SCH (08:58)
[2021-10-26] MEDS: guaiFENesin ER 600 MG TAB PO SCH ×2 (08:58→20:11)
[2021-10-26] MEDS: ATORVASTATIN 20 MG TAB PO SCH (08:58)
[2021-10-26] MEDS: FUROSEMIDE 40 MG TAB PO SCH (08:58)
[2021-10-26] MEDS: ADVAIR HFA 45/21MCG INHALER INH SCH ×2 (09:10→19:17)
[2021-10-26 09:13] VITALS: O2SAT 94
[2021-10-26] MEDS: DOXYCYCLINE HYCLATE 100MG TABLET PO SCH (20:11)
[2021-10-26] MEDS: CEFDINIR 300 MG CAP (OMNICEF) PO SCH (20:11)
[2021-10-26] MEDS: SODIUM CHLORIDE NASAL 0.65% SPRAY BTL (OCEAN) PRN (20:14)
[2021-10-27] MEDS: IPRATROPIUM 0.5MG/ALBUTEROL 2.5MG INH SOL UD 3ML (DUONEB) NEB SCH ×2 (02:29→07:42)
[2021-10-27] MEDS: LEVOTHYROXINE 25MCG TABLET (0.025MG) PO SCH (05:37)
[2021-10-27 06:00] VITALS: BP 120/70
[2021-10-27] MEDS: ADVAIR HFA 45/21MCG INHALER INH SCH (07:42)
[2021-10-27] MEDS ORDERED: PRED10TA2 PO (08:26)
[2021-10-27] MEDS ORDERED: METO1TAB32 PO (08:26)
[2021-10-27] MEDS ORDERED: CEFD300CAP PO (08:26)
[2021-10-27] MEDS ORDERED: ATOR1TAB21 PO (08:26)
[2021-10-27] MEDS ORDERED: DOXY100T PO (08:26)
[2021-10-27] MEDS: predniSONE 20 MG TAB PO SCH (09:03)
[2021-10-27] MEDS: HEPARIN SOD (PORCINE) 5000UNITS/ML 1ML VIAL/SYRINGE SC SCH (09:03)
[2021-10-27] MEDS: ASPIRIN 81 MG CHEW TABLET PO SCH (09:03)
[2021-10-27] MEDS: CEFDINIR 300 MG CAP (OMNICEF) PO SCH (09:03)
[2021-10-27] MEDS: VITAMIN D 1,000 INTERNATIONAL UNITS TABLET PO SCH (09:04)
[2021-10-27] MEDS: MONTELUKAST 10 MG TAB PO SCH (09:04)
[2021-10-27] MEDS: FUROSEMIDE 40 MG TAB PO SCH (09:04)
[2021-10-27] MEDS: SERTRALINE HCL 50 MG TAB PO SCH (09:04)
[2021-10-27 09:07] VITALS: BP 114/66
[2021-10-27] MEDS: METOPROLOL SUCC *XL* 25MG TAB (TopROL *XL*) PO SCH (09:07)
[2021-10-27] MEDS: DOXYCYCLINE HYCLATE 100MG TABLET PO SCH (09:08)
[2021-10-27] MEDS: guaiFENesin ER 600 MG TAB PO SCH (09:08)
[2021-10-27] MEDS: ATORVASTATIN 20 MG TAB PO SCH (09:08)
[2021-10-27] MEDS: CLOPIDOGREL 75 MG TAB PO SCH (09:08)
== END 2021-10-27 14:29 | disposition home health service (06) | DRG 194 ==
LOC: M ED 19:31 → M ED INP 10-23 01:26 → ENRESERV 10-23 01:49 → M MSPAV 10-23 02:47
PROVIDERS: ADMIT Internal Medicine; ATTEND Internal Medicine
DX: J18.9 Pneumonia, unspecified organism (principal); J96.11 Chronic respiratory failure with hypoxia; N39.0 Urinary tract infection, site not specified; J44.0 Chronic obstructive pulmonary disease with (acute) lower respiratory infection; I50.32 Chronic diastolic (congestive) heart failure; I13.0 Hypertensive heart and chronic kidney disease with heart failure and stage 1 through stage 4 chronic kidney disease, or unspecified chronic kidney disease; N17.9 Acute kidney failure, unspecified; J44.1 Chronic obstructive pulmonary disease with (acute) exacerbation; E78.5 Hyperlipidemia, unspecified; E03.9 Hypothyroidism, unspecified; Z90.49 Acquired absence of other specified parts of digestive tract; Z90.79 Acquired absence of other genital organ(s); Z79.82 Long term (current) use of aspirin; Z79.52 Long term (current) use of systemic steroids; Z79.899 Other long term (current) drug therapy; Z20.822 Contact with and (suspected) exposure to COVID-19; Z88.8 Allergy status to other drugs, medicaments and biological substances; F17.200 Nicotine dependence, unspecified, uncomplicated; I25.10 Atherosclerotic heart disease of native coronary artery without angina pectoris; Z99.81 Dependence on supplemental oxygen; B37.3 Candidiasis of vulva and vagina; Z95.5 Presence of coronary angioplasty implant and graft; N18.30 Chronic kidney disease, stage 3 unspecified; D72.829 Elevated white blood cell count, unspecified; T38.7X5A Adverse effect of androgens and anabolic congeners, initial encounter; B96.20 Unspecified Escherichia coli [E. coli] as the cause of diseases classified elsewhere; B34.8 Other viral infections of unspecified site

== ENCOUNTER → 2021-11-01 | Outpatient (REF) | payer MEDICARE, MEDICAID ==
[~2021-11-01] MED LIST changes: +ANAS1TAB2 PO; +ARIP1TAB PO; +ASPI-161 PO; +ATOR1TAB21 PO; +COMMENT; +DOXY100T PO; +ELIQ5TAB PO; +FARX1TAB3 PO; +FLUT1BLS8 IH; +LEVO25TA5 PO; +MED NOTE; +METO50TA7 PO; +MIDO5TA PO; +MYRB50TA PO; +PATIENT COMMENT; +PROT1TAB2 PO; +SERT50TA29 PO; +TORS20TA2 PO; +VITA100093 PO; +ZOLO100T PO
[2021-11-01 13:12] LABS: HEMATOCRIT 37.8 % (36.0-47.0); HEMOGLOBIN 12.3 g/dl (12.0-15.5); MEAN CORPUSCULAR HEMOGLOBIN 29.5 pg (27.0-33.0); MEAN CORPUSCULAR HGB CONC 32.5 g/dl (32.0-36.5); MEAN CORPUSCULAR VOLUME 90.6 fl (80.0-96.0); PLATELET COUNT, AUTOMATED 316 10^3/uL (150-450); RED BLOOD COUNT 4.17 10^6/uL (4.00-5.40); WHITE BLOOD COUNT 14.5 10^3/uL (4.0-10.0)
[2021-11-01 13:44] LABS: CALCIUM LEVEL 9.3 MG/DL (8.8-10.2); CREATININE FOR GFR 2.02 MG/DL (0.55-1.30); GLOMERULAR FILTRATION RATE 25.4 (>39); POTASSIUM SERUM 3.9 MEQ/L (3.5-5.1)
== END ==
LOC: M SFHCADAM 09:50
PROVIDERS: ATTEND Family Medicine
DX: N39.0 Urinary tract infection, site not specified (principal)

== ENCOUNTER 2021-11-09 15:07 | Inpatient (IN) | payer MEDICARE, MEDICAID ==
[~2021-11-09] VITALS: Ht 162.6 cm; Wt 51.7 kg
[~2021-11-09 15:07] MED LIST changes: -ASPI-161 PO; -PATIENT COMMENT
[2021-11-09] MEDS ORDERED: IPRATROPIUM 0.5MG/ALBUTEROL 2.5MG INH SOL UD 3ML (DUONEB) NEB ONE (16:45)
[2021-11-09] MEDS ORDERED: ALBUTEROL SULFATE 2.5 MG/0.5 ML INH NEB SOLN INH ONE (16:45)
[2021-11-09 16:46] LABS: BASO % 0.2 % (0.0-1.0); EOS # 0.1 10^3/uL (0.0-0.5); EOS % 0.7 % (0.0-3.0); HEMATOCRIT 36.1 % (36.0-47.0); HEMOGLOBIN 11.8 g/dl (12.0-15.5); LYMPH # 0.8 10^3/uL (1.5-5.0); LYMPH % 9.4 % (24.0-44.0); MEAN CORPUSCULAR HEMOGLOBIN 29.5 pg (27.0-33.0); MEAN CORPUSCULAR HGB CONC 32.7 g/dl (32.0-36.5); MEAN CORPUSCULAR VOLUME 90.3 fl (80.0-96.0); MONO # 0.5 10^3/uL (0.0-0.8); MONO % 5.7 % (2.0-8.0); NEUTROPHILS # 7.5 10^3/uL (1.5-8.5); NEUTROPHILS % 83.3 % (36.0-66.0); PLATELET COUNT, AUTOMATED 197 10^3/uL (150-450)
[2021-11-09 17:16] LABS: ALBUMIN 2.9 GM/DL (3.2-5.2); BILIRUBIN,DIRECT 0.2 MG/DL (0.0-0.2); BILIRUBIN,TOTAL 0.6 MG/DL (0.2-1.0); CALCIUM LEVEL 8.7 MG/DL (8.8-10.2); CREATININE FOR GFR 1.72 MG/DL (0.55-1.30); GLOMERULAR FILTRATION RATE 30.5 (>39); TOTAL PROTEIN 6.6 GM/DL (6.4-8.2)
[2021-11-09 18:23] LABS: ABG BASE EXCESS 0.4 (-2.0-2.0); ABG HCO3 23.1 MEQ/L (22.0-26.0); ABG O2 SATURATION 98.8 % (95.0-99.0); ABG PARTIAL PRESSURE CO2 31.5 mmHg (35.0-45.0); ABG PARTIAL PRESSURE O2 134.9 mmHg (75.0-100.0); ABG STANDARD HCO3 24.9 MEQ/L (22.0-26.0); ABG TOTAL CO2 24.1 MEQ/L (23.0-31.0); ABG pH (ARTERIAL) 7.484 UNITS (7.350-7.450)
[2021-11-09] MEDS ORDERED: methylPREDNISolone 125MG 2ML VIAL IV ONE (19:00)
[2021-11-10] MEDS ORDERED: ACETAMINOPHEN TAB 650MG DOSE (2X325MG) PO PRN (04:05)
[2021-11-10] MEDS ORDERED: POTASSIUM CHLORIDE 10% LIQ 20 MEQ/15 ML UDC PO ONE (04:05)
[2021-11-10] MEDS ORDERED: MOM 30ML SUSPENSION UDC PO PRN (04:05)
[2021-11-10] MEDS ORDERED: MAALOX 30 ML SUSP *UDC PO PRN (04:05)
[2021-11-10] MEDS ORDERED: NS 450 ML IV ONE (04:15)
[2021-11-10 06:22] LABS: HEMATOCRIT 34.3 % (36.0-47.0); HEMOGLOBIN 11.1 g/dl (12.0-15.5); LYMPH # 0.5 10^3/uL (1.5-5.0); LYMPH % 8.1 % (24.0-44.0); MEAN CORPUSCULAR HEMOGLOBIN 29.4 pg (27.0-33.0); MEAN CORPUSCULAR HGB CONC 32.4 g/dl (32.0-36.5); MONO # 0.1 10^3/uL (0.0-0.8); MONO % 1.1 % (2.0-8.0); NEUTROPHILS % 90.1 % (36.0-66.0); PLATELET COUNT, AUTOMATED 182 10^3/uL (150-450); RED BLOOD COUNT 3.77 10^6/uL (4.00-5.40); WHITE BLOOD COUNT 5.6 10^3/uL (4.0-10.0)
[2021-11-10 06:44] LABS: CALCIUM LEVEL 8.2 MG/DL (8.8-10.2); CREATININE FOR GFR 1.6 MG/DL (0.55-1.30); GLOMERULAR FILTRATION RATE 33.2 (>39); MAGNESIUM LEVEL 2.4 MG/DL (1.8-2.4); POTASSIUM SERUM 4.4 MEQ/L (3.5-5.1)
[2021-11-10 08:00] VITALS: BP 134/71
[2021-11-10] MEDS ORDERED: HEPARIN SOD (PORCINE) 5000UNITS/ML 1ML VIAL/SYRINGE SC SCH (09:00)
[2021-11-10] MEDS: METOPROLOL SUCC *XL* 12.5MG PER 1/2 TAB (TopROL *XL*) PO SCH (09:00)
[2021-11-10] MEDS: GASTROGRAFIN SOLUTION 30ML PO SCH ×2 (09:19→09:53)
[2021-11-10] MEDS ORDERED: METO1TAB32 PO (09:34)
[2021-11-10] MEDS ORDERED: ATOR40TA75 PO (09:34)
[2021-11-10] MEDS ORDERED: HOME MED LIST COMPLETE! XX SCH (09:35)
[2021-11-10 14:00] VITALS: BP 120/58
[2021-11-10] MEDS ORDERED: NS 1,000 ML IV SCH (15:00)
[2021-11-10] MEDS: SERTRALINE HCL 50 MG TAB PO SCH (15:43)
[2021-11-10] MEDS: HEPARIN SOD (PORCINE) 5000UNITS/ML 1ML VIAL/SYRINGE SC SCH (15:44)
[2021-11-10 16:00] VITALS: BP 135/56
[2021-11-10] MEDS: ADVAIR HFA 45/21MCG INHALER INH SCH (18:11)
[2021-11-10 20:34] VITALS: BP 109/58
[2021-11-11] MEDS: HEPARIN SOD (PORCINE) 5000UNITS/ML 1ML VIAL/SYRINGE SC SCH ×2 (00:41→09:20)
[2021-11-11 05:07] VITALS: BP 110/50
[2021-11-11] MEDS ORDERED: LEVOTHYROXINE 25MCG TABLET (0.025MG) PO SCH (06:00)
[2021-11-11 06:53] LABS: HEMOGLOBIN 9.3 g/dl (12.0-15.5); MEAN CORPUSCULAR HEMOGLOBIN 30.1 pg (27.0-33.0); MEAN CORPUSCULAR HGB CONC 32.1 g/dl (32.0-36.5); MEAN CORPUSCULAR VOLUME 93.9 fl (80.0-96.0); PLATELET COUNT, AUTOMATED 188 10^3/uL (150-450); RED BLOOD COUNT 3.09 10^6/uL (4.00-5.40); WHITE BLOOD COUNT 8.7 10^3/uL (4.0-10.0)
[2021-11-11 07:20] LABS: CREATININE FOR GFR 1.44 MG/DL (0.55-1.30); GLOMERULAR FILTRATION RATE 37.5 (>39); MAGNESIUM LEVEL 2.4 MG/DL (1.8-2.4); PHOSPHORUS LEVEL 2.5 MG/DL (2.5-4.9); POTASSIUM SERUM 3.7 MEQ/L (3.5-5.1)
[2021-11-11] MEDS: ADVAIR HFA 45/21MCG INHALER INH SCH (07:54)
[2021-11-11 09:00] VITALS: BP 103/83
[2021-11-11] MEDS ORDERED: CLOPIDOGREL 75 MG TAB PO SCH (09:00)
[2021-11-11] MEDS ORDERED: MONTELUKAST 10 MG TAB PO SCH (09:00)
[2021-11-11] MEDS ORDERED: ASPIRIN 81MG ENTERIC TABLET PO SCH (09:00)
[2021-11-11] MEDS ORDERED: VITAMIN D 1,000 INTERNATIONAL UNITS TABLET PO SCH (09:00)
[2021-11-11] MEDS: METOPROLOL SUCC *XL* 12.5MG PER 1/2 TAB (TopROL *XL*) PO SCH (09:00)
[2021-11-11] MEDS ORDERED: ATORVASTATIN 20 MG TAB PO SCH (09:00)
[2021-11-11] MEDS: SERTRALINE HCL 50 MG TAB PO SCH (09:21)
== END 2021-11-11 14:08 | DRG 682 ==
LOC: EDBD 15:07 → M ED 15:07 → EDBEDREQTM 11-10 00:26 → M ED INP 11-10 02:07 → ENRESERV 11-10 14:14 → M MSPAV 11-10 16:29
PROVIDERS: ADMIT Internal Medicine; ATTEND Internal Medicine
DX: N17.9 Acute kidney failure, unspecified (principal); G93.41 Metabolic encephalopathy; J96.11 Chronic respiratory failure with hypoxia; I77.4 Celiac artery compression syndrome; M48.54XA Collapsed vertebra, not elsewhere classified, thoracic region, initial encounter for fracture; I50.32 Chronic diastolic (congestive) heart failure; N18.30 Chronic kidney disease, stage 3 unspecified; E86.0 Dehydration; E87.6 Hypokalemia; D63.1 Anemia in chronic kidney disease; I25.10 Atherosclerotic heart disease of native coronary artery without angina pectoris; Z99.81 Dependence on supplemental oxygen; J44.9 Chronic obstructive pulmonary disease, unspecified; F32.A Depression, unspecified; E55.9 Vitamin D deficiency, unspecified; I25.2 Old myocardial infarction; F17.210 Nicotine dependence, cigarettes, uncomplicated; M51.36 Other intervertebral disc degeneration, lumbar region; Z79.82 Long term (current) use of aspirin; I71.4 Abdominal aortic aneurysm, without rupture; Z91.14 Patient's other noncompliance with medication regimen; I95.1 Orthostatic hypotension; K76.0 Fatty (change of) liver, not elsewhere classified; K44.9 Diaphragmatic hernia without obstruction or gangrene; Z86.711 Personal history of pulmonary embolism; Z90.49 Acquired absence of other specified parts of digestive tract; M48.00 Spinal stenosis, site unspecified; I48.0 Paroxysmal atrial fibrillation

== ENCOUNTER 2021-11-11 10:13 | Inpatient (IN) | payer MEDICARE, MEDICAID ==
[~2021-11-11] VITALS: Ht 162.6 cm; Wt 54.0 kg
[2021-11-11] MEDS ORDERED: MIRALAX *UNIT DOSE* 17GM PACKET PO PRN (10:50)
[2021-11-11] MEDS ORDERED: BISACODYL 10 MG SUPP PR PRN (10:50)
[2021-11-11] MEDS ORDERED: ALBUTEROL 90 MCG/ACT 8GM HFA INHALER INH PRN (10:50)
[2021-11-11] MEDS ORDERED: ACETAMINOPHEN TAB 650MG DOSE (2X325MG) PO PRN (10:50)
[2021-11-11 15:40] VITALS: BP 122/74
[2021-11-11] MEDS: HEPARIN SOD (PORCINE) 5000UNITS/ML 1ML VIAL/SYRINGE SC SCH (16:00)
[2021-11-11] MEDS: REMEDY PHYTOPLEX Z-GUARD PASTE 113GM TUBE (FROM STOREROOM PRODUCT) TOP SCH ×2 (16:00→20:45)
[2021-11-11] MEDS: ALBUTEROL 90 MCG/ACT 8GM HFA INHALER INH SCH (20:00)
[2021-11-11] MEDS: ADVAIR HFA 45/21MCG INHALER INH SCH (20:02)
[2021-11-11] MEDS: SENNA 8.6 MG TAB (SENOKOT) PO SCH (20:44)
[2021-11-11] MEDS: DOCUSATE SODIUM 100MG CAPSULE PO SCH (20:45)
[2021-11-11 21:23] VITALS: BP 113/56
[2021-11-12] MEDS: HEPARIN SOD (PORCINE) 5000UNITS/ML 1ML VIAL/SYRINGE SC SCH ×4 (00:18→23:10)
[2021-11-12] MEDS: ALBUTEROL 90 MCG/ACT 8GM HFA INHALER INH SCH ×4 (02:00→19:47)
[2021-11-12 05:08] VITALS: BP 128/58
[2021-11-12] MEDS: LEVOTHYROXINE 25MCG TABLET (0.025MG) PO SCH (05:57)
[2021-11-12 06:31] LABS: BASO % 0.3 % (0.0-1.0); EOS # 0.1 10^3/uL (0.0-0.5); EOS % 1.8 % (0.0-3.0); HEMATOCRIT 29.6 % (36.0-47.0); HEMOGLOBIN 9.3 g/dl (12.0-15.5); LYMPH # 1.3 10^3/uL (1.5-5.0); LYMPH % 19.2 % (24.0-44.0); MEAN CORPUSCULAR HEMOGLOBIN 30.6 pg (27.0-33.0); MEAN CORPUSCULAR HGB CONC 31.4 g/dl (32.0-36.5); MEAN CORPUSCULAR VOLUME 97.4 fl (80.0-96.0); MONO # 0.4 10^3/uL (0.0-0.8); NEUTROPHILS # 4.8 10^3/uL (1.5-8.5); NEUTROPHILS % 72.2 % (36.0-66.0); PLATELET COUNT, AUTOMATED 185 10^3/uL (150-450); RED BLOOD COUNT 3.04 10^6/uL (4.00-5.40); WHITE BLOOD COUNT 6.6 10^3/uL (4.0-10.0)
[2021-11-12 07:11] LABS: ALBUMIN 2.2 GM/DL (3.2-5.2); BILIRUBIN,TOTAL 0.2 MG/DL (0.2-1.0); CALCIUM LEVEL 7.7 MG/DL (8.8-10.2); CREATININE FOR GFR 1.15 MG/DL (0.55-1.30); GLOMERULAR FILTRATION RATE 48.6 (>39); POTASSIUM SERUM 3.4 MEQ/L (3.5-5.1); TOTAL PROTEIN 4.8 GM/DL (6.4-8.2)
[2021-11-12] MEDS: ADVAIR HFA 45/21MCG INHALER INH SCH ×2 (07:26→19:46)
[2021-11-12 09:00] VITALS: BP 95/55
[2021-11-12] MEDS ORDERED: POTASSIUM CHLORIDE 10MEQ SR TABLET PO ONE (09:00)
[2021-11-12] MEDS ORDERED: METOPROLOL SUCC *XL* 12.5MG PER 1/2 TAB (TopROL *XL*) PO SCH (09:00)
[2021-11-12] MEDS: DOCUSATE SODIUM 100MG CAPSULE PO SCH ×2 (09:00→20:11)
[2021-11-12] MEDS: MONTELUKAST 10 MG TAB PO SCH (09:37)
[2021-11-12] MEDS: FAMOTIDINE 20 MG TAB PO SCH (09:37)
[2021-11-12] MEDS: VITAMIN D 1,000 INTERNATIONAL UNITS TABLET PO SCH (09:37)
[2021-11-12] MEDS: ASPIRIN 81MG ENTERIC TABLET PO SCH (09:37)
[2021-11-12] MEDS: SERTRALINE HCL 50 MG TAB PO SCH (09:37)
[2021-11-12] MEDS: CLOPIDOGREL 75 MG TAB PO SCH (09:37)
[2021-11-12] MEDS: ATORVASTATIN 20 MG TAB PO SCH (09:39)
[2021-11-12] MEDS: REMEDY PHYTOPLEX Z-GUARD PASTE 113GM TUBE (FROM STOREROOM PRODUCT) TOP SCH ×3 (09:41→20:11)
[2021-11-12 09:42] VITALS: BP 98/52
[2021-11-12 10:20] VITALS: BP_SYST 115; BP_SYST 125; BP_DIAS 58; BP_DIAS 61
[2021-11-12] MEDS: D5W 1,000 ML IV SCH (12:49)
[2021-11-12 14:00] VITALS: BP 116/57
[2021-11-12] MEDS: CEPHALEXIN 500 MG CAP PO SCH ×2 (18:30→23:09)
[2021-11-12] MEDS: LACTOBACILLUS ACIDOPHILUS CAP (BACID) PO SCH (18:30)
[2021-11-12] MEDS: SENNA 8.6 MG TAB (SENOKOT) PO SCH (20:11)
[2021-11-12 20:13] VITALS: BP 105/55
[2021-11-13] MEDS: D5W 1,000 ML IV SCH (00:24)
[2021-11-13] MEDS: ALBUTEROL 90 MCG/ACT 8GM HFA INHALER INH SCH ×4 (01:26→19:51)
[2021-11-13 05:12] VITALS: BP 114/56
[2021-11-13] MEDS: LEVOTHYROXINE 25MCG TABLET (0.025MG) PO SCH (05:33)
[2021-11-13] MEDS: CEPHALEXIN 500 MG CAP PO SCH ×4 (05:34→23:24)
[2021-11-13 07:08] LABS: HEMATOCRIT 32.3 % (36.0-47.0); HEMOGLOBIN 10.1 g/dl (12.0-15.5); MEAN CORPUSCULAR HEMOGLOBIN 29.8 pg (27.0-33.0); MEAN CORPUSCULAR HGB CONC 31.3 g/dl (32.0-36.5); MEAN CORPUSCULAR VOLUME 95.3 fl (80.0-96.0); PLATELET COUNT, AUTOMATED 202 10^3/uL (150-450); RED BLOOD COUNT 3.39 10^6/uL (4.00-5.40); WHITE BLOOD COUNT 6.8 10^3/uL (4.0-10.0)
[2021-11-13] MEDS: ADVAIR HFA 45/21MCG INHALER INH SCH ×2 (07:24→19:51)
[2021-11-13 07:44] LABS: CALCIUM LEVEL 7.6 MG/DL (8.8-10.2); CREATININE FOR GFR 1.05 MG/DL (0.55-1.30); MAGNESIUM LEVEL 2.1 MG/DL (1.8-2.4); PHOSPHORUS LEVEL 2.5 MG/DL (2.5-4.9); POTASSIUM SERUM 4.2 MEQ/L (3.5-5.1)
[2021-11-13] MEDS: MONTELUKAST 10 MG TAB PO SCH (08:49)
[2021-11-13] MEDS: LACTOBACILLUS ACIDOPHILUS CAP (BACID) PO SCH (08:49)
[2021-11-13] MEDS: MIDODRINE 5 MG TAB PO SCH ×2 (08:49→12:35)
[2021-11-13] MEDS: CLOPIDOGREL 75 MG TAB PO SCH (08:49)
[2021-11-13] MEDS: VITAMIN D 1,000 INTERNATIONAL UNITS TABLET PO SCH (08:49)
[2021-11-13] MEDS: DOCUSATE SODIUM 100MG CAPSULE PO SCH ×2 (08:50→20:24)
[2021-11-13] MEDS: FAMOTIDINE 20 MG TAB PO SCH (08:50)
[2021-11-13] MEDS: ASPIRIN 81MG ENTERIC TABLET PO SCH (08:50)
[2021-11-13] MEDS: ATORVASTATIN 20 MG TAB PO SCH (08:50)
[2021-11-13] MEDS: SERTRALINE HCL 50 MG TAB PO SCH (08:50)
[2021-11-13] MEDS: HEPARIN SOD (PORCINE) 5000UNITS/ML 1ML VIAL/SYRINGE SC SCH ×3 (08:51→23:24)
[2021-11-13] MEDS: REMEDY PHYTOPLEX Z-GUARD PASTE 113GM TUBE (FROM STOREROOM PRODUCT) TOP SCH ×3 (08:52→20:24)
[2021-11-13 14:00] VITALS: BP 131/60
[2021-11-13 20:00] VITALS: BP 145/63
[2021-11-13] MEDS: SENNA 8.6 MG TAB (SENOKOT) PO SCH (20:24)
[2021-11-14] MEDS: LEVOTHYROXINE 25MCG TABLET (0.025MG) PO SCH (05:02)
[2021-11-14] MEDS: CEPHALEXIN 500 MG CAP PO SCH ×4 (05:02→23:08)
[2021-11-14 06:00] VITALS: BP 131/58
[2021-11-14] MEDS: ADVAIR HFA 45/21MCG INHALER INH SCH ×2 (08:05→20:26)
[2021-11-14] MEDS: ALBUTEROL 90 MCG/ACT 8GM HFA INHALER INH SCH ×3 (08:05→20:27)
[2021-11-14 08:36] VITALS: BP 131/58
[2021-11-14] MEDS: DOCUSATE SODIUM 100MG CAPSULE PO SCH ×2 (09:00→20:25)
[2021-11-14] MEDS: ATORVASTATIN 20 MG TAB PO SCH (09:03)
[2021-11-14] MEDS: MIDODRINE 5 MG TAB PO SCH ×2 (09:04→14:30)
[2021-11-14] MEDS: SERTRALINE HCL 50 MG TAB PO SCH (09:04)
[2021-11-14] MEDS: VITAMIN D 1,000 INTERNATIONAL UNITS TABLET PO SCH (09:04)
[2021-11-14] MEDS: CLOPIDOGREL 75 MG TAB PO SCH (09:04)
[2021-11-14] MEDS: ASPIRIN 81MG ENTERIC TABLET PO SCH (09:04)
[2021-11-14] MEDS: FAMOTIDINE 20 MG TAB PO SCH (09:04)
[2021-11-14] MEDS: MONTELUKAST 10 MG TAB PO SCH (09:04)
[2021-11-14] MEDS: LACTOBACILLUS ACIDOPHILUS CAP (BACID) PO SCH (09:04)
[2021-11-14] MEDS: HEPARIN SOD (PORCINE) 5000UNITS/ML 1ML VIAL/SYRINGE SC SCH ×3 (09:05→23:10)
[2021-11-14] MEDS: REMEDY PHYTOPLEX Z-GUARD PASTE 113GM TUBE (FROM STOREROOM PRODUCT) TOP SCH ×3 (09:06→20:25)
[2021-11-14 14:00] VITALS: BP 135/65
[2021-11-14 20:14] VITALS: BP 149/67
[2021-11-14] MEDS: SENNA 8.6 MG TAB (SENOKOT) PO SCH (20:25)
[2021-11-15] MEDS: LEVOTHYROXINE 25MCG TABLET (0.025MG) PO SCH (05:24)
[2021-11-15] MEDS: CEPHALEXIN 500 MG CAP PO SCH ×4 (05:24→23:23)
[2021-11-15 05:54] VITALS: BP 135/59
[2021-11-15] MEDS: DOCUSATE SODIUM 100MG CAPSULE PO SCH ×2 (07:19→20:26)
[2021-11-15] MEDS: HEPARIN SOD (PORCINE) 5000UNITS/ML 1ML VIAL/SYRINGE SC SCH ×3 (07:26→23:23)
[2021-11-15] MEDS: SERTRALINE HCL 50 MG TAB PO SCH (07:26)
[2021-11-15] MEDS: MIDODRINE 5 MG TAB PO SCH ×2 (07:26→12:03)
[2021-11-15] MEDS: LACTOBACILLUS ACIDOPHILUS CAP (BACID) PO SCH (07:26)
[2021-11-15] MEDS: VITAMIN D 1,000 INTERNATIONAL UNITS TABLET PO SCH (07:26)
[2021-11-15] MEDS: ASPIRIN 81MG ENTERIC TABLET PO SCH (07:26)
[2021-11-15] MEDS: MONTELUKAST 10 MG TAB PO SCH (07:26)
[2021-11-15] MEDS: CLOPIDOGREL 75 MG TAB PO SCH (07:26)
[2021-11-15] MEDS: FAMOTIDINE 20 MG TAB PO SCH (07:26)
[2021-11-15] MEDS: ATORVASTATIN 20 MG TAB PO SCH (07:26)
[2021-11-15] MEDS: REMEDY PHYTOPLEX Z-GUARD PASTE 113GM TUBE (FROM STOREROOM PRODUCT) TOP SCH ×3 (07:27→20:40)
[2021-11-15] MEDS: ADVAIR HFA 45/21MCG INHALER INH SCH ×2 (07:51→20:28)
[2021-11-15] MEDS: ALBUTEROL 90 MCG/ACT 8GM HFA INHALER INH SCH ×3 (07:52→20:29)
[2021-11-15 15:00] VITALS: BP 128/65
[2021-11-15 19:23] VITALS: BP 141/64
[2021-11-15] MEDS: SENNA 8.6 MG TAB (SENOKOT) PO SCH (20:26)
[2021-11-16] MEDS: ALBUTEROL 90 MCG/ACT 8GM HFA INHALER INH SCH ×4 (01:14→18:03)
[2021-11-16] MEDS: CEPHALEXIN 500 MG CAP PO SCH ×4 (05:58→23:19)
[2021-11-16] MEDS: LEVOTHYROXINE 25MCG TABLET (0.025MG) PO SCH (05:58)
[2021-11-16] MEDS: ADVAIR HFA 45/21MCG INHALER INH SCH ×2 (08:00→18:03)
[2021-11-16 09:00] VITALS: BP 110/59
[2021-11-16] MEDS: REMEDY PHYTOPLEX Z-GUARD PASTE 113GM TUBE (FROM STOREROOM PRODUCT) TOP SCH ×3 (09:00→21:43)
[2021-11-16] MEDS: ATORVASTATIN 20 MG TAB PO SCH (09:12)
[2021-11-16] MEDS: SERTRALINE HCL 50 MG TAB PO SCH (09:12)
[2021-11-16] MEDS: CLOPIDOGREL 75 MG TAB PO SCH (09:12)
[2021-11-16] MEDS: FAMOTIDINE 20 MG TAB PO SCH (09:12)
[2021-11-16] MEDS: ASPIRIN 81MG ENTERIC TABLET PO SCH (09:12)
[2021-11-16] MEDS: MIDODRINE 5 MG TAB PO SCH ×2 (09:12→11:40)
[2021-11-16] MEDS: MONTELUKAST 10 MG TAB PO SCH (09:12)
[2021-11-16] MEDS: VITAMIN D 1,000 INTERNATIONAL UNITS TABLET PO SCH (09:12)
[2021-11-16] MEDS: LACTOBACILLUS ACIDOPHILUS CAP (BACID) PO SCH (09:12)
[2021-11-16] MEDS: DOCUSATE SODIUM 100MG CAPSULE PO SCH ×2 (09:12→21:00)
[2021-11-16] MEDS: HEPARIN SOD (PORCINE) 5000UNITS/ML 1ML VIAL/SYRINGE SC SCH ×3 (09:15→23:19)
[2021-11-16 10:19] LABS: BASO % 0.5 % (0.0-1.0); EOS # 0.2 10^3/uL (0.0-0.5); EOS % 4.1 % (0.0-3.0); HEMATOCRIT 30.7 % (36.0-47.0); HEMOGLOBIN 9.4 g/dl (12.0-15.5); LYMPH # 0.9 10^3/uL (1.5-5.0); LYMPH % 20.9 % (24.0-44.0); MEAN CORPUSCULAR HEMOGLOBIN 29.5 pg (27.0-33.0); MEAN CORPUSCULAR HGB CONC 30.6 g/dl (32.0-36.5); MEAN CORPUSCULAR VOLUME 96.2 fl (80.0-96.0); MONO # 0.3 10^3/uL (0.0-0.8); MONO % 7.7 % (2.0-8.0); NEUTROPHILS # 2.9 10^3/uL (1.5-8.5); NEUTROPHILS % 65.9 % (36.0-66.0); PLATELET COUNT, AUTOMATED 216 10^3/uL (150-450); RED BLOOD COUNT 3.19 10^6/uL (4.00-5.40); WHITE BLOOD COUNT 4.4 10^3/uL (4.0-10.0)
[2021-11-16 10:39] LABS: CALCIUM LEVEL 8.9 MG/DL (8.8-10.2); CREATININE FOR GFR 1.04 MG/DL (0.55-1.30); GLOMERULAR FILTRATION RATE 54.6 (>39); POTASSIUM SERUM 4.6 MEQ/L (3.5-5.1)
[2021-11-16 11:39] VITALS: BP 110/61
[2021-11-16 14:00] VITALS: BP 145/67
[2021-11-16 20:26] VITALS: BP 140/66
[2021-11-16] MEDS: SENNA 8.6 MG TAB (SENOKOT) PO SCH (21:00)
[2021-11-17] MEDS: ALBUTEROL 90 MCG/ACT 8GM HFA INHALER INH SCH ×4 (02:00→19:09)
[2021-11-17] MEDS: CEPHALEXIN 500 MG CAP PO SCH ×2 (05:07→12:08)
[2021-11-17] MEDS: LEVOTHYROXINE 25MCG TABLET (0.025MG) PO SCH (05:07)
[2021-11-17 06:00] VITALS: BP 150/70
[2021-11-17] MEDS: ADVAIR HFA 45/21MCG INHALER INH SCH ×2 (07:45→19:09)
[2021-11-17 07:46] VITALS: O2SAT 96
[2021-11-17] MEDS: MIDODRINE 5 MG TAB PO SCH ×2 (08:00→12:08)
[2021-11-17] MEDS: HEPARIN SOD (PORCINE) 5000UNITS/ML 1ML VIAL/SYRINGE SC SCH ×3 (08:48→23:25)
[2021-11-17] MEDS: LACTOBACILLUS ACIDOPHILUS CAP (BACID) PO SCH (08:49)
[2021-11-17] MEDS: MONTELUKAST 10 MG TAB PO SCH (08:49)
[2021-11-17] MEDS: CLOPIDOGREL 75 MG TAB PO SCH (08:49)
[2021-11-17] MEDS: ATORVASTATIN 20 MG TAB PO SCH (08:49)
[2021-11-17] MEDS: ASPIRIN 81MG ENTERIC TABLET PO SCH (08:49)
[2021-11-17] MEDS: DOCUSATE SODIUM 100MG CAPSULE PO SCH ×2 (08:50→20:18)
[2021-11-17] MEDS: VITAMIN D 1,000 INTERNATIONAL UNITS TABLET PO SCH (08:50)
[2021-11-17] MEDS: FAMOTIDINE 20 MG TAB PO SCH (08:50)
[2021-11-17] MEDS: SERTRALINE HCL 50 MG TAB PO SCH (08:50)
[2021-11-17] MEDS: REMEDY PHYTOPLEX Z-GUARD PASTE 113GM TUBE (FROM STOREROOM PRODUCT) TOP SCH ×3 (08:50→20:18)
[2021-11-17 14:00] VITALS: BP 117/57
[2021-11-17 20:00] VITALS: BP 134/61
[2021-11-17] MEDS: SENNA 8.6 MG TAB (SENOKOT) PO SCH (20:18)
[2021-11-18] MEDS: ALBUTEROL 90 MCG/ACT 8GM HFA INHALER INH SCH ×4 (02:00→19:46)
[2021-11-18] MEDS: LEVOTHYROXINE 25MCG TABLET (0.025MG) PO SCH (05:43)
[2021-11-18 06:19] VITALS: BP 130/62
[2021-11-18] MEDS: ADVAIR HFA 45/21MCG INHALER INH SCH ×2 (07:38→19:45)
[2021-11-18] MEDS: DOCUSATE SODIUM 100MG CAPSULE PO SCH ×2 (09:00→20:06)
[2021-11-18] MEDS: CLOPIDOGREL 75 MG TAB PO SCH (09:44)
[2021-11-18] MEDS: MIDODRINE 5 MG TAB PO SCH ×2 (09:44→12:07)
[2021-11-18] MEDS: LACTOBACILLUS ACIDOPHILUS CAP (BACID) PO SCH (09:44)
[2021-11-18] MEDS: SERTRALINE HCL 50 MG TAB PO SCH (09:44)
[2021-11-18] MEDS: ATORVASTATIN 20 MG TAB PO SCH (09:44)
[2021-11-18] MEDS: VITAMIN D 1,000 INTERNATIONAL UNITS TABLET PO SCH (09:45)
[2021-11-18] MEDS: ASPIRIN 81MG ENTERIC TABLET PO SCH (09:45)
[2021-11-18] MEDS: MONTELUKAST 10 MG TAB PO SCH (09:45)
[2021-11-18] MEDS: HEPARIN SOD (PORCINE) 5000UNITS/ML 1ML VIAL/SYRINGE SC SCH ×3 (09:45→21:47)
[2021-11-18] MEDS: FAMOTIDINE 20 MG TAB PO SCH (09:45)
[2021-11-18] MEDS: REMEDY PHYTOPLEX Z-GUARD PASTE 113GM TUBE (FROM STOREROOM PRODUCT) TOP SCH ×3 (09:46→20:06)
[2021-11-18 10:56] LABS: BASO % 0.8 % (0.0-1.0); EOS # 0.2 10^3/uL (0.0-0.5); EOS % 3.7 % (0.0-3.0); HEMOGLOBIN 9.7 g/dl (12.0-15.5); LYMPH % 21.4 % (24.0-44.0); MEAN CORPUSCULAR HGB CONC 31.3 g/dl (32.0-36.5); MONO # 0.5 10^3/uL (0.0-0.8); MONO % 9.8 % (2.0-8.0); NEUTROPHILS % 62.2 % (36.0-66.0); PLATELET COUNT, AUTOMATED 232 10^3/uL (150-450); RED BLOOD COUNT 3.23 10^6/uL (4.00-5.40); WHITE BLOOD COUNT 4.8 10^3/uL (4.0-10.0)
[2021-11-18 11:32] LABS: CALCIUM LEVEL 9.2 MG/DL (8.8-10.2); CREATININE FOR GFR 1.29 MG/DL (0.55-1.30); GLOMERULAR FILTRATION RATE 42.6 (>39); POTASSIUM SERUM 4.9 MEQ/L (3.5-5.1)
[2021-11-18 14:00] VITALS: BP 139/65
[2021-11-18 20:05] VITALS: BP 136/63
[2021-11-18] MEDS: SENNA 8.6 MG TAB (SENOKOT) PO SCH (20:06)
[2021-11-19] MEDS: LEVOTHYROXINE 25MCG TABLET (0.025MG) PO SCH (05:30)
[2021-11-19] MEDS: HEPARIN SOD (PORCINE) 5000UNITS/ML 1ML VIAL/SYRINGE SC SCH (05:30)
[2021-11-19] MEDS: ALBUTEROL 90 MCG/ACT 8GM HFA INHALER INH SCH ×4 (05:31→22:32)
[2021-11-19 05:58] VITALS: BP 129/60
[2021-11-19] MEDS: ADVAIR HFA 45/21MCG INHALER INH SCH ×2 (07:32→22:32)
[2021-11-19] MEDS: ASPIRIN 81MG ENTERIC TABLET PO SCH (07:33)
[2021-11-19] MEDS: VITAMIN D 1,000 INTERNATIONAL UNITS TABLET PO SCH (07:33)
[2021-11-19] MEDS: DOCUSATE SODIUM 100MG CAPSULE PO SCH ×2 (07:33→20:27)
[2021-11-19] MEDS: LACTOBACILLUS ACIDOPHILUS CAP (BACID) PO SCH (07:33)
[2021-11-19] MEDS: CLOPIDOGREL 75 MG TAB PO SCH (07:33)
[2021-11-19] MEDS: ATORVASTATIN 20 MG TAB PO SCH (07:33)
[2021-11-19] MEDS: MONTELUKAST 10 MG TAB PO SCH (07:33)
[2021-11-19] MEDS: MIDODRINE 5 MG TAB PO SCH ×2 (07:33→11:10)
[2021-11-19] MEDS: SERTRALINE HCL 50 MG TAB PO SCH (07:33)
[2021-11-19] MEDS: FAMOTIDINE 20 MG TAB PO SCH (07:33)
[2021-11-19] MEDS: REMEDY PHYTOPLEX Z-GUARD PASTE 113GM TUBE (FROM STOREROOM PRODUCT) TOP SCH ×3 (07:34→20:27)
[2021-11-19 11:09] VITALS: BP 106/51
[2021-11-19 14:00] VITALS: BP 120/60
[2021-11-19 20:00] VITALS: BP 135/66
[2021-11-19] MEDS: SENNA 8.6 MG TAB (SENOKOT) PO SCH (20:27)
[2021-11-20] MEDS: LEVOTHYROXINE 25MCG TABLET (0.025MG) PO SCH (05:59)
[2021-11-20 06:00] VITALS: BP 140/65
[2021-11-20] MEDS: ALBUTEROL 90 MCG/ACT 8GM HFA INHALER INH SCH ×3 (08:00→17:56)
[2021-11-20] MEDS: ADVAIR HFA 45/21MCG INHALER INH SCH ×2 (08:00→17:56)
[2021-11-20] MEDS: REMEDY PHYTOPLEX Z-GUARD PASTE 113GM TUBE (FROM STOREROOM PRODUCT) TOP SCH ×3 (09:00→20:00)
[2021-11-20] MEDS: VITAMIN D 1,000 INTERNATIONAL UNITS TABLET PO SCH (09:29)
[2021-11-20] MEDS: MIDODRINE 5 MG TAB PO SCH ×2 (09:29→12:19)
[2021-11-20] MEDS: ATORVASTATIN 20 MG TAB PO SCH (09:29)
[2021-11-20] MEDS: LACTOBACILLUS ACIDOPHILUS CAP (BACID) PO SCH (09:29)
[2021-11-20] MEDS: SERTRALINE HCL 50 MG TAB PO SCH (09:29)
[2021-11-20] MEDS: MONTELUKAST 10 MG TAB PO SCH (09:30)
[2021-11-20] MEDS: FAMOTIDINE 20 MG TAB PO SCH (09:30)
[2021-11-20] MEDS: CLOPIDOGREL 75 MG TAB PO SCH (09:30)
[2021-11-20] MEDS: DOCUSATE SODIUM 100MG CAPSULE PO SCH ×2 (09:30→19:59)
[2021-11-20] MEDS: ASPIRIN 81MG ENTERIC TABLET PO SCH (09:30)
[2021-11-20 14:00] VITALS: BP 130/60
[2021-11-20 19:55] VITALS: BP 138/89
[2021-11-20] MEDS: SENNA 8.6 MG TAB (SENOKOT) PO SCH (19:59)
[2021-11-21 06:00] VITALS: BP 147/66
[2021-11-21 06:34] LABS: BASO % 0.6 % (0.0-1.0); EOS # 0.3 10^3/uL (0.0-0.5); EOS % 4.7 % (0.0-3.0); HEMATOCRIT 29.7 % (36.0-47.0); HEMOGLOBIN 9.3 g/dl (12.0-15.5); LYMPH # 1.2 10^3/uL (1.5-5.0); LYMPH % 22.4 % (24.0-44.0); MEAN CORPUSCULAR HEMOGLOBIN 29.8 pg (27.0-33.0); MEAN CORPUSCULAR HGB CONC 31.3 g/dl (32.0-36.5); MEAN CORPUSCULAR VOLUME 95.2 fl (80.0-96.0); MONO # 0.6 10^3/uL (0.0-0.8); MONO % 10.7 % (2.0-8.0); NEUTROPHILS # 3.2 10^3/uL (1.5-8.5); NEUTROPHILS % 59.9 % (36.0-66.0); PLATELET COUNT, AUTOMATED 248 10^3/uL (150-450); RED BLOOD COUNT 3.12 10^6/uL (4.00-5.40); WHITE BLOOD COUNT 5.3 10^3/uL (4.0-10.0)
[2021-11-21 06:58] LABS: CALCIUM LEVEL 9.1 MG/DL (8.8-10.2); CREATININE FOR GFR 1.58 MG/DL (0.55-1.30); GLOMERULAR FILTRATION RATE 33.7 (>39); POTASSIUM SERUM 4.9 MEQ/L (3.5-5.1)
[2021-11-21] MEDS: LEVOTHYROXINE 25MCG TABLET (0.025MG) PO SCH (07:10)
[2021-11-21] MEDS: ALBUTEROL 90 MCG/ACT 8GM HFA INHALER INH SCH ×3 (07:32→18:33)
[2021-11-21] MEDS: ADVAIR HFA 45/21MCG INHALER INH SCH ×2 (07:32→18:33)
[2021-11-21] MEDS: CLOPIDOGREL 75 MG TAB PO SCH (08:57)
[2021-11-21] MEDS: VITAMIN D 1,000 INTERNATIONAL UNITS TABLET PO SCH (08:57)
[2021-11-21] MEDS: FAMOTIDINE 20 MG TAB PO SCH (08:57)
[2021-11-21] MEDS: ATORVASTATIN 20 MG TAB PO SCH (08:57)
[2021-11-21] MEDS: MIDODRINE 5 MG TAB PO SCH ×2 (08:57→13:15)
[2021-11-21] MEDS: MONTELUKAST 10 MG TAB PO SCH (08:57)
[2021-11-21] MEDS: ASPIRIN 81MG ENTERIC TABLET PO SCH (08:57)
[2021-11-21] MEDS: SERTRALINE HCL 50 MG TAB PO SCH (08:57)
[2021-11-21] MEDS: LACTOBACILLUS ACIDOPHILUS CAP (BACID) PO SCH (08:57)
[2021-11-21] MEDS: DOCUSATE SODIUM 100MG CAPSULE PO SCH ×2 (08:58→21:32)
[2021-11-21] MEDS: REMEDY PHYTOPLEX Z-GUARD PASTE 113GM TUBE (FROM STOREROOM PRODUCT) TOP SCH ×3 (08:59→21:33)
[2021-11-21] MEDS ORDERED: NS 1,000 ML IV SCH (10:30)
[2021-11-21 14:00] VITALS: BP 120/57
[2021-11-21 20:06] VITALS: BP 147/67
[2021-11-21] MEDS: SENNA 8.6 MG TAB (SENOKOT) PO SCH (21:00)
[2021-11-22] MEDS: ALBUTEROL 90 MCG/ACT 8GM HFA INHALER INH SCH ×3 (02:00→13:36)
[2021-11-22] MEDS: ADVAIR HFA 45/21MCG INHALER INH SCH (05:16)
[2021-11-22] MEDS: LEVOTHYROXINE 25MCG TABLET (0.025MG) PO SCH (05:16)
[2021-11-22 05:41] VITALS: BP 144/65
[2021-11-22 07:01] LABS: CALCIUM LEVEL 8.6 MG/DL (8.8-10.2); CREATININE FOR GFR 1.16 MG/DL (0.55-1.30); GLOMERULAR FILTRATION RATE 48.1 (>39); POTASSIUM SERUM 4.5 MEQ/L (3.5-5.1)
[2021-11-22] MEDS: DOCUSATE SODIUM 100MG CAPSULE PO SCH ×2 (09:00→09:48)
[2021-11-22] MEDS ORDERED: SERT50TA29 PO (09:21)
[2021-11-22] MEDS ORDERED: ATOR40TA75 PO (09:21)
[2021-11-22] MEDS ORDERED: LEVO25TA5 PO (09:21)
[2021-11-22] MEDS ORDERED: MIDO5TA PO (09:21)
[2021-11-22] MEDS ORDERED: VITA100093 PO (09:21)
[2021-11-22] MEDS ORDERED: CLOP75TA2 PO (09:21)
[2021-11-22] MEDS ORDERED: MONT10TA97 PO (09:21)
[2021-11-22] MEDS ORDERED: ASPI81TA26 PO (09:21)
[2021-11-22] MEDS ORDERED: ADV100INH INH (09:21)
[2021-11-22] MEDS: MONTELUKAST 10 MG TAB PO SCH (09:47)
[2021-11-22] MEDS: FAMOTIDINE 20 MG TAB PO SCH (09:47)
[2021-11-22] MEDS: ATORVASTATIN 20 MG TAB PO SCH (09:48)
[2021-11-22] MEDS: CLOPIDOGREL 75 MG TAB PO SCH (09:48)
[2021-11-22] MEDS: ASPIRIN 81MG ENTERIC TABLET PO SCH (09:48)
[2021-11-22] MEDS: SERTRALINE HCL 50 MG TAB PO SCH (09:48)
[2021-11-22] MEDS: VITAMIN D 1,000 INTERNATIONAL UNITS TABLET PO SCH (09:48)
[2021-11-22] MEDS: REMEDY PHYTOPLEX Z-GUARD PASTE 113GM TUBE (FROM STOREROOM PRODUCT) TOP SCH (09:48)
[2021-11-22] MEDS: LACTOBACILLUS ACIDOPHILUS CAP (BACID) PO SCH (09:48)
[2021-11-22] MEDS: MIDODRINE 5 MG TAB PO SCH ×2 (09:49→12:21)
== END 2021-11-22 13:10 | disposition home health service (06) | DRG 948 ==
LOC: M PM&R 14:20
PROVIDERS: ADMIT Physical Medicine & Rehabilitation; ATTEND Physical Medicine & Rehabilitation
DX: R53.1 Weakness (principal); I25.10 Atherosclerotic heart disease of native coronary artery without angina pectoris; I25.2 Old myocardial infarction; Z95.5 Presence of coronary angioplasty implant and graft; J44.9 Chronic obstructive pulmonary disease, unspecified; Z99.81 Dependence on supplemental oxygen; F17.200 Nicotine dependence, unspecified, uncomplicated; I71.4 Abdominal aortic aneurysm, without rupture; I95.1 Orthostatic hypotension; N18.30 Chronic kidney disease, stage 3 unspecified; M48.061 Spinal stenosis, lumbar region without neurogenic claudication; Z86.711 Personal history of pulmonary embolism; Z74.09 Other reduced mobility; Z74.1 Need for assistance with personal care; Z79.82 Long term (current) use of aspirin; Z79.899 Other long term (current) drug therapy; Z79.01 Long term (current) use of anticoagulants; Z88.8 Allergy status to other drugs, medicaments and biological substances

== ENCOUNTER → 2021-12-06 | Outpatient (REF) | payer MEDICARE, MEDICAID ==
[~2021-12-06] MED LIST changes: +ASPI-161 PO; +PATIENT COMMENT
[2021-12-06 12:44] LABS: THYROID STIMULATING HORMONE 6.56 uIU/ML (0.358-3.740); TOTAL 25(OH) VITAMIN D 40.4 NG/ML (30.0-100.0)
== END ==
LOC: SKLAB7 10:00
PROVIDERS: ATTEND Neuromusculoskeletal Medicine & OMM
DX: E03.9 Hypothyroidism, unspecified (principal); Z51.81 Encounter for therapeutic drug level monitoring; Z79.899 Other long term (current) drug therapy

== ENCOUNTER → 2021-12-26 | Outpatient (REF) | payer MEDICARE, MEDICAID ==
[2021-12-26 15:25] LABS: HEMATOCRIT 32.1 % (36.0-47.0); MEAN CORPUSCULAR HEMOGLOBIN 30.3 pg (27.0-33.0); MEAN CORPUSCULAR HGB CONC 31.2 g/dl (32.0-36.5); MEAN CORPUSCULAR VOLUME 97.3 fl (80.0-96.0); PLATELET COUNT, AUTOMATED 248 10^3/uL (150-450); WHITE BLOOD COUNT 6.2 10^3/uL (4.0-10.0)
[2021-12-26 16:01] LABS: ALBUMIN 3.4 GM/DL (3.2-5.2); BILIRUBIN,TOTAL 0.3 MG/DL (0.2-1.0); CALCIUM LEVEL 9.6 MG/DL (8.8-10.2); CREATININE FOR GFR 1.29 MG/DL (0.55-1.30); GLOMERULAR FILTRATION RATE 42.6 (>39); POTASSIUM SERUM 4.7 MEQ/L (3.5-5.1); THYROID STIMULATING HORMONE 0.387 uIU/ML (0.358-3.740); TOTAL PROTEIN 6.6 GM/DL (6.4-8.2)
== END ==
LOC: SKLAB7 07:00
PROVIDERS: ATTEND Neuromusculoskeletal Medicine & OMM
DX: R07.9 Chest pain, unspecified (principal); R06.02 Shortness of breath; R10.13 Epigastric pain; I44.4 Left anterior fascicular block; Z79.899 Other long term (current) drug therapy

== ENCOUNTER → 2022-01-12 | Outpatient (REF) | payer MEDICARE, MEDICAID | LOC: SKLAB7 11:36 | PROVIDERS: ATTEND Nurse Practitioner Family | DX: E03.9 Hypothyroidism, unspecified (principal) ==

== ENCOUNTER 2022-01-15 17:41 | Emergency (ER) | payer MEDICARE, MEDICAID ==
[2022-01-15 18:17] LABS: BASO # 0.1 10^3/uL (0.0-0.2); BASO % 0.7 % (0.0-1.0); EOS # 0.1 10^3/uL (0.0-0.5); EOS % 1.8 % (0.0-3.0); HEMATOCRIT 31.7 % (36.0-47.0); HEMOGLOBIN 9.8 g/dl (12.0-15.5); LYMPH % 27.7 % (24.0-44.0); MEAN CORPUSCULAR HEMOGLOBIN 29.3 pg (27.0-33.0); MEAN CORPUSCULAR HGB CONC 30.9 g/dl (32.0-36.5); MEAN CORPUSCULAR VOLUME 94.9 fl (80.0-96.0); MONO # 0.7 10^3/uL (0.0-0.8); MONO % 9.4 % (2.0-8.0); NEUTROPHILS # 4.2 10^3/uL (1.5-8.5); NEUTROPHILS % 60.1 % (36.0-66.0); PLATELET COUNT, AUTOMATED 232 10^3/uL (150-450); RED BLOOD COUNT 3.34 10^6/uL (4.00-5.40)
[2022-01-15 18:42] LABS: CK-MB VALUE MASS 1.2 NG/ML (<3.6); MB/CK RELATIVE INDEX 2.61 (< OR =4)
[2022-01-15 18:43] LABS: ALBUMIN 3.3 GM/DL (3.2-5.2); BILIRUBIN,DIRECT 0.2 MG/DL (0.0-0.2); BILIRUBIN,TOTAL 0.2 MG/DL (0.2-1.0); CALCIUM LEVEL 8.8 MG/DL (8.8-10.2); CREATININE FOR GFR 1.56 MG/DL (0.55-1.30); GLOMERULAR FILTRATION RATE 34.2 (>39); POTASSIUM SERUM 4.8 MEQ/L (3.5-5.1); TOTAL PROTEIN 6.8 GM/DL (6.4-8.2)
[2022-01-15] MEDS ORDERED: ERGO500029 PO (18:59)
[2022-01-15] MEDS ORDERED: FAMO10TA50 PO (18:59)
[2022-01-15] MEDS ORDERED: BISA10SU4 PR (18:59)
[2022-01-15] MEDS ORDERED: ENSU1LIQ36 PO (18:59)
[2022-01-15] MEDS ORDERED: SYNT50TA PO (18:59)
[2022-01-15] MEDS ORDERED: IPRA0.00 NEB (18:59)
[2022-01-15] MEDS ORDERED: ACET500T15 PO (18:59)
[2022-01-15] MEDS ORDERED: SENN-80 PO (18:59)
[2022-01-15] MEDS ORDERED: HOME MED LIST COMPLETE! XX SCH (19:00)
[2022-01-15 19:45] LABS: CK-MB VALUE MASS 1.1 NG/ML (<3.6); MB/CK RELATIVE INDEX 2.89 (< OR =4)
[2022-01-15 22:35] VITALS: BP 163/71
== END 2022-01-15 22:57 | disposition home or self-care (01) ==
LOC: M ED 17:41
DX: R07.89 Other chest pain (principal); J43.9 Emphysema, unspecified; I48.91 Unspecified atrial fibrillation; I50.9 Heart failure, unspecified; E78.5 Hyperlipidemia, unspecified; Z86.73 Personal history of transient ischemic attack (TIA), and cerebral infarction without residual deficits; N18.30 Chronic kidney disease, stage 3 unspecified; E03.9 Hypothyroidism, unspecified; J30.81 Allergic rhinitis due to animal (cat) (dog) hair and dander; J30.89 Other allergic rhinitis; J44.9 Chronic obstructive pulmonary disease, unspecified; Z95.5 Presence of coronary angioplasty implant and graft; Z79.02 Long term (current) use of antithrombotics/antiplatelets; Z79.82 Long term (current) use of aspirin; Z79.899 Other long term (current) drug therapy; Z88.8 Allergy status to other drugs, medicaments and biological substances

== ENCOUNTER → 2022-03-13 | Outpatient (REF) | payer MEDICARE, MEDICAID ==
[~2022-03-13] MED LIST changes: +ACET500T15 PO; +ALBU2.5V10 INH; +ALBU2.5V10 NEB; -ALBU83IN INH; -ALBU83IN NEB; +ENSU1LIQ36 PO; +ERGO500029 PO; +FAMO10TA50 PO; +IPRA0.00 NEB; +SENN-80 PO; +SYNT50TA PO
== END ==
LOC: SKLAB7 11:37
PROVIDERS: ATTEND Nurse Practitioner Family
DX: J43.9 Emphysema, unspecified (principal); J98.11 Atelectasis; I51.7 Cardiomegaly

== ENCOUNTER → 2022-03-19 | Outpatient (REF) | payer MEDICARE, MEDICAID | LOC: SKLAB2 03-18 08:00 | PROVIDERS: ATTEND Internal Medicine | DX: U07.1 COVID-19 (principal) ==

== ENCOUNTER → 2022-03-23 | Outpatient (REF) | payer MEDICARE, MEDICAID ==
[2022-03-23 09:47] LABS: HEMATOCRIT 32.9 % (36.0-47.0); HEMOGLOBIN 10.6 g/dl (12.0-15.5); MEAN CORPUSCULAR HEMOGLOBIN 29.2 pg (27.0-33.0); MEAN CORPUSCULAR HGB CONC 32.2 g/dl (32.0-36.5); MEAN CORPUSCULAR VOLUME 90.6 fl (80.0-96.0); PLATELET COUNT, AUTOMATED 277 10^3/uL (150-450); RED BLOOD COUNT 3.63 10^6/uL (4.00-5.40); WHITE BLOOD COUNT 6.4 10^3/uL (4.0-10.0)
[2022-03-23 10:23] LABS: ALBUMIN 3.5 GM/DL (3.2-5.2); BILIRUBIN,TOTAL 0.4 MG/DL (0.2-1.0); CALCIUM LEVEL 9.2 MG/DL (8.8-10.2); CREATININE FOR GFR 1.29 MG/DL (0.55-1.30); GLOMERULAR FILTRATION RATE 42.6 (>39); POTASSIUM SERUM 5.2 MEQ/L (3.5-5.1); TOTAL PROTEIN 6.9 GM/DL (6.4-8.2)
== END ==
LOC: SKLAB2 10:18
PROVIDERS: ATTEND Nurse Practitioner Family
DX: U07.1 COVID-19 (principal); Z79.899 Other long term (current) drug therapy

== ENCOUNTER → 2022-03-27 | Outpatient (REF) | payer MEDICARE, MEDICAID ==
[2022-03-27 09:37] LABS: HEMATOCRIT 32.5 % (36.0-47.0); HEMOGLOBIN 10.2 g/dl (12.0-15.5); MEAN CORPUSCULAR HEMOGLOBIN 29.4 pg (27.0-33.0); MEAN CORPUSCULAR HGB CONC 31.4 g/dl (32.0-36.5); MEAN CORPUSCULAR VOLUME 93.7 fl (80.0-96.0); PLATELET COUNT, AUTOMATED 254 10^3/uL (150-450); RED BLOOD COUNT 3.47 10^6/uL (4.00-5.40); WHITE BLOOD COUNT 7.7 10^3/uL (4.0-10.0)
[2022-03-27 10:05] LABS: ALBUMIN 3.4 GM/DL (3.2-5.2); BILIRUBIN,TOTAL 0.5 MG/DL (0.2-1.0); CALCIUM LEVEL 9.3 MG/DL (8.8-10.2); CREATININE FOR GFR 1.09 MG/DL (0.55-1.30); GLOMERULAR FILTRATION RATE 51.7 (>39); POTASSIUM SERUM 5.4 MEQ/L (3.5-5.1)
== END ==
LOC: SKLAB2 09:35
PROVIDERS: ATTEND Nurse Practitioner Family
DX: U07.1 COVID-19 (principal); Z79.899 Other long term (current) drug therapy

== ENCOUNTER → 2022-04-13 | Outpatient (REF) | payer MEDICARE, MEDICAID ==
[2022-04-13 09:24] LABS: FREE T4 1.02 NG/DL (0.76-1.46); THYROID STIMULATING HORMONE 1.29 uIU/ML (0.358-3.740)
== END ==
LOC: SKLAB7 07:00
PROVIDERS: ATTEND Nurse Practitioner Family
DX: E03.9 Hypothyroidism, unspecified (principal)

== ENCOUNTER → 2022-04-13 | Outpatient (REF) | payer MEDICARE, MEDICAID | LOC: SKLAB2 07:00 | PROVIDERS: ATTEND Nurse Practitioner Family | DX: U07.1 COVID-19 (principal); Z53.9 Procedure and treatment not carried out, unspecified reason ==

== ENCOUNTER → 2022-05-02 | Outpatient (REF) | payer MEDICARE, MEDICAID | LOC: SKLAB7 13:45 | PROVIDERS: ATTEND Nurse Practitioner Family | DX: J98.4 Other disorders of lung (principal) ==

== ENCOUNTER → 2022-05-03 | Outpatient (REF) | payer MEDICARE, MEDICAID ==
[2022-05-03 15:28] LABS: BASO # 0.1 10^3/uL (0.0-0.2); BASO % 0.6 % (0.0-1.0); EOS # 0.1 10^3/uL (0.0-0.5); EOS % 1.7 % (0.0-3.0); HEMATOCRIT 28.9 % (36.0-47.0); HEMOGLOBIN 8.9 g/dl (12.0-15.5); LYMPH % 12.2 % (24.0-44.0); MEAN CORPUSCULAR HEMOGLOBIN 28.7 pg (27.0-33.0); MEAN CORPUSCULAR HGB CONC 30.8 g/dl (32.0-36.5); MEAN CORPUSCULAR VOLUME 93.2 fl (80.0-96.0); MONO # 0.6 10^3/uL (0.0-0.8); MONO % 7.1 % (2.0-8.0); NEUTROPHILS # 6.2 10^3/uL (1.5-8.5); NEUTROPHILS % 77.5 % (36.0-66.0); PLATELET COUNT, AUTOMATED 366 10^3/uL (150-450)
[2022-05-03 16:08] LABS: ALBUMIN 2.8 GM/DL (3.2-5.2); BILIRUBIN,TOTAL 0.3 MG/DL (0.2-1.0); CALCIUM LEVEL 8.6 MG/DL (8.8-10.2); CREATININE FOR GFR 1.58 MG/DL (0.55-1.30); GLOMERULAR FILTRATION RATE 33.7 (>39); MAGNESIUM LEVEL 2.3 MG/DL (1.8-2.4); POTASSIUM SERUM 4.7 MEQ/L (3.5-5.1); TOTAL PROTEIN 6.8 GM/DL (6.4-8.2)
== END ==
LOC: SKLAB7 14:03
PROVIDERS: ATTEND Nurse Practitioner Family
DX: R53.83 Other fatigue (principal); J44.9 Chronic obstructive pulmonary disease, unspecified; R09.02 Hypoxemia

== ENCOUNTER → 2022-05-12 | Outpatient (REF) | payer MEDICARE, MEDICAID | LOC: SKLAB5 13:37 | PROVIDERS: ATTEND Nurse Practitioner Family | DX: Z86.718 Personal history of other venous thrombosis and embolism (principal) ==

== ENCOUNTER 2022-05-15 14:13 | Emergency (ER) | payer MEDICARE, MEDICAID ==
[~2022-05-15] VITALS: Ht 165.1 cm; Wt 61.4 kg
[2022-05-15 16:31] LABS: BASO # 0.1 10^3/uL (0.0-0.2); BASO % 1.1 % (0.0-1.0); EOS # 0.3 10^3/uL (0.0-0.5); EOS % 4.3 % (0.0-3.0); HEMATOCRIT 31.2 % (36.0-47.0); HEMOGLOBIN 9.8 g/dl (12.0-15.5); LYMPH # 1.3 10^3/uL (1.5-5.0); LYMPH % 20.5 % (24.0-44.0); MEAN CORPUSCULAR HEMOGLOBIN 28.9 pg (27.0-33.0); MEAN CORPUSCULAR HGB CONC 31.4 g/dl (32.0-36.5); MONO # 0.7 10^3/uL (0.0-0.8); MONO % 11.5 % (2.0-8.0); NEUTROPHILS # 3.8 10^3/uL (1.5-8.5); NEUTROPHILS % 61.6 % (36.0-66.0); PLATELET COUNT, AUTOMATED 422 10^3/uL (150-450); RED BLOOD COUNT 3.39 10^6/uL (4.00-5.40); WHITE BLOOD COUNT 6.2 10^3/uL (4.0-10.0)
[2022-05-15 17:05] LABS: CALCIUM LEVEL 9.3 MG/DL (8.8-10.2); CREATININE FOR GFR 1.4 MG/DL (0.55-1.30); GLOMERULAR FILTRATION RATE 38.7 (>39); POTASSIUM SERUM 5.7 MEQ/L (3.5-5.1)
[2022-05-15] MEDS ORDERED: ISOVUE-370 76% 100ML VIAL As Ordered ONE (17:18)
[2022-05-15 18:00] VITALS: BP 181/95
== END 2022-05-15 19:08 | disposition home or self-care (01) ==
LOC: M ED 16:26
DX: J44.9 Chronic obstructive pulmonary disease, unspecified (principal); I48.91 Unspecified atrial fibrillation; I25.10 Atherosclerotic heart disease of native coronary artery without angina pectoris; I50.9 Heart failure, unspecified; I10 Essential (primary) hypertension; E78.5 Hyperlipidemia, unspecified; Z86.73 Personal history of transient ischemic attack (TIA), and cerebral infarction without residual deficits; J30.81 Allergic rhinitis due to animal (cat) (dog) hair and dander; J30.89 Other allergic rhinitis; Z86.16 Personal history of COVID-19; Z95.5 Presence of coronary angioplasty implant and graft; Z79.82 Long term (current) use of aspirin; Z79.890 Hormone replacement therapy; Z79.899 Other long term (current) drug therapy; Z88.8 Allergy status to other drugs, medicaments and biological substances
CPT/HCPCS: 71250; 71275; 80048; 83880; 85025; 85379; 99284; Q9967

== ENCOUNTER → 2022-05-15 | Outpatient (CLI) | payer MEDICARE, MEDICAID ==
[~2022-05-15] MED LIST changes: +ISOVUE-370 76% 100ML VIAL As Ordered ONE
== END ==
LOC: M RAD 11:51
DX: R09.02 Hypoxemia (principal); Z86.718 Personal history of other venous thrombosis and embolism; J43.9 Emphysema, unspecified; I25.10 Atherosclerotic heart disease of native coronary artery without angina pectoris; R91.8 Other nonspecific abnormal finding of lung field

== ENCOUNTER → 2022-05-15 | Outpatient (REF) | payer MEDICARE, MEDICAID ==
[~2022-05-15] MED LIST changes: -ISOVUE-370 76% 100ML VIAL As Ordered ONE
== END ==
LOC: SKLAB5 11:08
PROVIDERS: ATTEND Nurse Practitioner Family
DX: R09.02 Hypoxemia (principal)

== ENCOUNTER → 2022-05-24 | Outpatient (REF) | payer MEDICARE, MEDICAID | LOC: SKLAB5 12:18 | PROVIDERS: ATTEND Nurse Practitioner Family | DX: I74.9 Embolism and thrombosis of unspecified artery (principal); Z53.8 Procedure and treatment not carried out for other reasons ==

== ENCOUNTER → 2022-07-10 | Outpatient (REF) | payer MEDICARE, MEDICAID ==
[~2022-07-10] MED LIST changes: +CLOP75TA99 PO; -DOXY-350 PO; +DOXY-444 PO; -PLAV1TAB2 PO
[2022-07-10 16:39] LABS: HEMATOCRIT 33.4 % (36.0-47.0); HEMOGLOBIN 10.4 g/dl (12.0-15.5); MEAN CORPUSCULAR HEMOGLOBIN 29.2 pg (27.0-33.0); MEAN CORPUSCULAR HGB CONC 31.1 g/dl (32.0-36.5); MEAN CORPUSCULAR VOLUME 93.8 fl (80.0-96.0); PLATELET COUNT, AUTOMATED 219 10^3/uL (150-450); RED BLOOD COUNT 3.56 10^6/uL (4.00-5.40); WHITE BLOOD COUNT 4.9 10^3/uL (4.0-10.0)
[2022-07-10 17:48] LABS: ALBUMIN 3.5 GM/DL (3.2-5.2); BILIRUBIN,TOTAL 0.4 MG/DL (0.2-1.0); CREATININE FOR GFR 1.48 MG/DL (0.55-1.30); GLOMERULAR FILTRATION RATE 36.3 (>39); POTASSIUM SERUM 4.9 MEQ/L (3.5-5.1); TOTAL PROTEIN 7.4 GM/DL (6.4-8.2)
== END ==
LOC: SKLAB5 16:01
PROVIDERS: ATTEND Nurse Practitioner Family
DX: R07.9 Chest pain, unspecified (principal)

== ENCOUNTER → 2022-09-25 | Outpatient (REF) | payer MEDICARE, MEDICAID ==
[~2022-09-25] MED LIST changes: -POTA10CA32 PO; +POTA10CA33 PO
[2022-09-25 16:10] LABS: HEMATOCRIT 34.3 % (36.0-47.0); HEMOGLOBIN 10.6 g/dl (12.0-15.5); MEAN CORPUSCULAR HEMOGLOBIN 29.5 pg (27.0-33.0); MEAN CORPUSCULAR HGB CONC 30.9 g/dl (32.0-36.5); MEAN CORPUSCULAR VOLUME 95.5 fl (80.0-96.0); PLATELET COUNT, AUTOMATED 252 10^3/uL (150-450); RED BLOOD COUNT 3.59 10^6/uL (4.00-5.40); WHITE BLOOD COUNT 5.8 10^3/uL (4.0-10.0)
[2022-09-25 16:23] LABS: ALBUMIN 3.4 G/DL (3.2-5.2); BILIRUBIN,TOTAL 0.4 MG/DL (0.3-1.2); CALCIUM LEVEL 9.1 MG/DL (8.3-10.6); CREATININE FOR GFR 1.23 MG/DL (0.55-1.30); GLOMERULAR FILTRATION RATE 44.8 (>39); POTASSIUM SERUM 5.3 MMOL/L (3.5-5.1); TOTAL PROTEIN 6.8 G/DL (5.7-8.2)
== END ==
LOC: SKLAB5 14:36
PROVIDERS: ATTEND Internal Medicine
DX: U07.1 COVID-19 (principal); Z79.899 Other long term (current) drug therapy

== ENCOUNTER → 2022-09-28 | Outpatient (REF) | payer MEDICARE, MEDICAID ==
[2022-03-20 11:18] LABS: HEMATOCRIT 31.3 % (36.0-47.0); HEMOGLOBIN 10.1 g/dl (12.0-15.5); MEAN CORPUSCULAR HEMOGLOBIN 29.9 pg (27.0-33.0); MEAN CORPUSCULAR HGB CONC 32.3 g/dl (32.0-36.5); MEAN CORPUSCULAR VOLUME 92.6 fl (80.0-96.0); PLATELET COUNT, AUTOMATED 268 10^3/uL (150-450); RED BLOOD COUNT 3.38 10^6/uL (4.00-5.40); WHITE BLOOD COUNT 7.8 10^3/uL (4.0-10.0)
[2022-03-20 12:51] LABS: ALBUMIN 3.4 GM/DL (3.2-5.2); BILIRUBIN,TOTAL 0.3 MG/DL (0.2-1.0); CALCIUM LEVEL 8.8 MG/DL (8.8-10.2); CREATININE FOR GFR 1.42 MG/DL (0.55-1.30); GLOMERULAR FILTRATION RATE 38.1 (>39); POTASSIUM SERUM 4.5 MEQ/L (3.5-5.1); TOTAL PROTEIN 6.8 GM/DL (6.4-8.2)
[~2022-09-28] MED LIST changes: +SENN-186 PO; -SENN-80 PO
== END ==
LOC: SKLAB2 09:08
PROVIDERS: ATTEND Nurse Practitioner Family
DX: U07.1 COVID-19 (principal); Z79.899 Other long term (current) drug therapy

== ENCOUNTER → 2022-09-28 | Outpatient (REF) | payer MEDICARE, MEDICAID ==
[2022-09-28 14:35] LABS: HEMATOCRIT 35.4 % (36.0-47.0); HEMOGLOBIN 11.2 g/dl (12.0-15.5); MEAN CORPUSCULAR HEMOGLOBIN 29.9 pg (27.0-33.0); MEAN CORPUSCULAR HGB CONC 31.6 g/dl (32.0-36.5); MEAN CORPUSCULAR VOLUME 94.7 fl (80.0-96.0); PLATELET COUNT, AUTOMATED 226 10^3/uL (150-450); RED BLOOD COUNT 3.74 10^6/uL (4.00-5.40); WHITE BLOOD COUNT 4.7 10^3/uL (4.0-10.0)
[2022-09-28 15:38] LABS: ALBUMIN 3.4 G/DL (3.2-5.2); BILIRUBIN,TOTAL 0.5 MG/DL (0.3-1.2); CALCIUM LEVEL 8.8 MG/DL (8.3-10.6); CREATININE FOR GFR 1.08 MG/DL (0.55-1.30); GLOMERULAR FILTRATION RATE 52.1 (>39); TOTAL PROTEIN 6.7 G/DL (5.7-8.2)
== END ==
LOC: SKLAB5 09:07
PROVIDERS: ATTEND Internal Medicine
DX: U07.1 COVID-19 (principal); Z79.899 Other long term (current) drug therapy

== ENCOUNTER → 2022-10-02 | Outpatient (REF) | payer MEDICARE, MEDICAID ==
[~2022-10-02] MED LIST changes: -SENN-186 PO; +SENN-80 PO
[2022-10-02 07:32] LABS: HEMATOCRIT 33.5 % (36.0-47.0); HEMOGLOBIN 10.5 g/dl (12.0-15.5); MEAN CORPUSCULAR HEMOGLOBIN 29.4 pg (27.0-33.0); MEAN CORPUSCULAR HGB CONC 31.3 g/dl (32.0-36.5); MEAN CORPUSCULAR VOLUME 93.8 fl (80.0-96.0); PLATELET COUNT, AUTOMATED 223 10^3/uL (150-450); RED BLOOD COUNT 3.57 10^6/uL (4.00-5.40); WHITE BLOOD COUNT 4.5 10^3/uL (4.0-10.0)
[2022-10-02 08:11] LABS: ALBUMIN 3.4 G/DL (3.2-5.2); BILIRUBIN,TOTAL 0.5 MG/DL (0.3-1.2); CREATININE FOR GFR 1.15 MG/DL (0.55-1.30); GLOMERULAR FILTRATION RATE 48.5 (>39); POTASSIUM SERUM 4.2 MMOL/L (3.5-5.1); TOTAL PROTEIN 6.7 G/DL (5.7-8.2)
== END ==
LOC: SKLAB5 11:25
PROVIDERS: ATTEND Internal Medicine
DX: U07.1 COVID-19 (principal); Z79.899 Other long term (current) drug therapy

== ENCOUNTER → 2022-10-05 | Outpatient (REF) | payer MEDICARE, MEDICAID ==
[2022-10-05 07:53] LABS: HEMATOCRIT 33.7 % (36.0-47.0); HEMOGLOBIN 10.6 g/dl (12.0-15.5); MEAN CORPUSCULAR HEMOGLOBIN 29.9 pg (27.0-33.0); MEAN CORPUSCULAR HGB CONC 31.5 g/dl (32.0-36.5); MEAN CORPUSCULAR VOLUME 95.2 fl (80.0-96.0); PLATELET COUNT, AUTOMATED 215 10^3/uL (150-450); RED BLOOD COUNT 3.54 10^6/uL (4.00-5.40); WHITE BLOOD COUNT 4.1 10^3/uL (4.0-10.0)
[2022-10-05 08:22] LABS: ALBUMIN 3.6 G/DL (3.2-5.2); BILIRUBIN,TOTAL 0.4 MG/DL (0.3-1.2); CALCIUM LEVEL 9.6 MG/DL (8.3-10.6); CREATININE FOR GFR 1.15 MG/DL (0.55-1.30); GLOMERULAR FILTRATION RATE 48.5 (>39); POTASSIUM SERUM 4.6 MMOL/L (3.5-5.1); TOTAL PROTEIN 6.7 G/DL (5.7-8.2)
== END ==
LOC: SKLAB5 09:15
PROVIDERS: ATTEND Internal Medicine
DX: U07.1 COVID-19 (principal); Z79.899 Other long term (current) drug therapy

== ENCOUNTER → 2022-12-15 | Outpatient (REF) | payer MEDICARE, MEDICAID ==
[~2022-12-15] MED LIST changes: +SENN-186 PO; -SENN-80 PO
[2022-12-15 09:36] LABS: HEMATOCRIT 34.5 % (36.0-47.0); HEMOGLOBIN 10.8 g/dl (12.0-15.5); MEAN CORPUSCULAR HEMOGLOBIN 30.8 pg (27.0-33.0); MEAN CORPUSCULAR HGB CONC 31.3 g/dl (32.0-36.5); MEAN CORPUSCULAR VOLUME 98.3 fl (80.0-96.0); PLATELET COUNT, AUTOMATED 220 10^3/uL (150-450); RED BLOOD COUNT 3.51 10^6/uL (4.00-5.40); WHITE BLOOD COUNT 4.5 10^3/uL (4.0-10.0)
[2022-12-15 10:00] LABS: ALBUMIN 3.3 G/DL (3.2-5.2); BILIRUBIN,TOTAL 0.4 MG/DL (0.3-1.2); CALCIUM LEVEL 8.9 MG/DL (8.3-10.6); CREATININE FOR GFR 1.08 MG/DL (0.55-1.30); GLOMERULAR FILTRATION RATE 52.1 (>39); POTASSIUM SERUM 4.5 MMOL/L (3.5-5.1); TOTAL PROTEIN 6.7 G/DL (5.7-8.2)
[2022-12-15 10:01] LABS: TOTAL 25(OH) VITAMIN D 48.2 NG/ML (20.0-100.0)
[2022-12-15 10:02] LABS: THYROID STIMULATING HORMONE 0.642 uIU/ML (0.55-4.78)
== END ==
LOC: SKLAB5 07:00
PROVIDERS: ATTEND Internal Medicine
DX: I25.10 Atherosclerotic heart disease of native coronary artery without angina pectoris (principal); J44.9 Chronic obstructive pulmonary disease, unspecified; Z79.899 Other long term (current) drug therapy

== ENCOUNTER → 2023-03-27 | Outpatient (REF) | payer MEDICARE, MEDICAID ==
[~2023-03-27] MED LIST changes: -POTA10CA33 PO; +POTA10CA60 PO
== END ==
LOC: SKLAB5 09:30
PROVIDERS: ATTEND Internal Medicine
DX: E03.9 Hypothyroidism, unspecified (principal)

== ENCOUNTER → 2023-06-15 | Outpatient (REF) | payer MEDICARE, MEDICAID ==
[2023-06-15 07:43] LABS: HEMATOCRIT 33.2 % (36.0-47.0); HEMOGLOBIN 10.3 g/dl (12.0-15.5); MEAN CORPUSCULAR HEMOGLOBIN 29.9 pg (27.0-33.0); MEAN CORPUSCULAR VOLUME 96.5 fl (80.0-96.0); PLATELET COUNT, AUTOMATED 253 10^3/uL (150-450); RED BLOOD COUNT 3.44 10^6/uL (4.00-5.40); WHITE BLOOD COUNT 5.6 10^3/uL (4.0-10.0)
== END ==
LOC: SKLAB5 07:00
PROVIDERS: ATTEND Internal Medicine
DX: I25.10 Atherosclerotic heart disease of native coronary artery without angina pectoris (principal); J44.9 Chronic obstructive pulmonary disease, unspecified; Z79.899 Other long term (current) drug therapy

== ENCOUNTER → 2023-06-22 | Outpatient (REF) | payer MEDICARE, MEDICAID ==
[2023-06-22 15:38] LABS: ALBUMIN 3.3 G/DL (3.2-5.2); BILIRUBIN,TOTAL 0.3 MG/DL (0.3-1.2); CALCIUM LEVEL 8.4 MG/DL (8.3-10.6); CREATININE FOR GFR 1.02 MG/DL (0.55-1.30); GLOMERULAR FILTRATION RATE 55.7 (>39); TOTAL PROTEIN 6.5 G/DL (5.7-8.2)
== END ==
LOC: SKLAB5 13:24
PROVIDERS: ATTEND Internal Medicine
DX: I50.9 Heart failure, unspecified (principal)

== ENCOUNTER → 2023-06-27 | Outpatient (CLI) | payer MEDICARE, MEDICAID ==
[2023-06-27 09:07] LABS: HEMATOCRIT 31.7 % (36.0-47.0); HEMOGLOBIN 9.8 g/dl (12.0-15.5); MEAN CORPUSCULAR HEMOGLOBIN 30.2 pg (27.0-33.0); MEAN CORPUSCULAR HGB CONC 30.9 g/dl (32.0-36.5); MEAN CORPUSCULAR VOLUME 97.8 fl (80.0-96.0); PLATELET COUNT, AUTOMATED 234 10^3/uL (150-450); RED BLOOD COUNT 3.24 10^6/uL (4.00-5.40); WHITE BLOOD COUNT 5.8 10^3/uL (4.0-10.0)
== END ==
LOC: M RAD 08:12
PROVIDERS: ATTEND Nurse Practitioner Adult Health
DX: D64.9 Anemia, unspecified (principal); R60.0 Localized edema

== ENCOUNTER → 2023-09-12 | Outpatient (REF) | payer MEDICARE, MEDICAID | LOC: SKLAB5 10:51 | PROVIDERS: ATTEND Nurse Practitioner Family | DX: R05.9 Cough, unspecified (principal) ==

== ENCOUNTER → 2023-12-11 | Outpatient (REF) | payer MEDICARE, MEDICAID ==
[~2023-12-11] MED LIST changes: -ASPI-161 PO; +ASPI-615 PO; -MIRA1POW3 PO; +MIRA33506 PO; -SENN1TAB41 PO; +SENN1TAB85 PO
[2023-12-11 08:35] LABS: HEMATOCRIT 33.6 % (36.0-47.0); HEMOGLOBIN 10.4 g/dl (12.0-15.5); MEAN CORPUSCULAR HEMOGLOBIN 30.6 pg (27.0-33.0); MEAN CORPUSCULAR VOLUME 98.8 fl (80.0-96.0); PLATELET COUNT, AUTOMATED 225 10^3/uL (150-450)
[2023-12-11 09:04] LABS: ALBUMIN 3.2 G/DL (3.2-5.2); BILIRUBIN,TOTAL 0.2 MG/DL (0.3-1.2); CALCIUM LEVEL 8.9 MG/DL (8.3-10.6); CREATININE FOR GFR 1.1 MG/DL (0.55-1.30); GLOMERULAR FILTRATION RATE 50.9 (>32); POTASSIUM SERUM 4.4 MMOL/L (3.5-5.1); TOTAL PROTEIN 6.5 G/DL (5.7-8.2)
[2023-12-11 09:06] LABS: THYROID STIMULATING HORMONE 3.646 uIU/ML (0.55-4.78); TOTAL 25(OH) VITAMIN D 36.6 NG/ML (20.0-100.0)
== END ==
LOC: SKLAB5 07:00
PROVIDERS: ATTEND Nurse Practitioner Family
DX: N18.9 Chronic kidney disease, unspecified (principal); E55.9 Vitamin D deficiency, unspecified; J44.9 Chronic obstructive pulmonary disease, unspecified; Z79.899 Other long term (current) drug therapy

== ENCOUNTER → 2023-12-13 | Outpatient (REF) | payer MEDICARE, MEDICAID | LOC: SKLAB5 11:06 | PROVIDERS: ATTEND Internal Medicine | DX: M79.89 Other specified soft tissue disorders (principal) ==

== ENCOUNTER → 2023-12-19 | Outpatient (CLI) | payer MEDICARE, MEDICAID | LOC: M RAD 08:46 | PROVIDERS: ATTEND Nurse Practitioner Family | DX: J44.9 Chronic obstructive pulmonary disease, unspecified (principal); I70.0 Atherosclerosis of aorta; I25.10 Atherosclerotic heart disease of native coronary artery without angina pectoris; J98.11 Atelectasis; Z90.49 Acquired absence of other specified parts of digestive tract; I70.1 Atherosclerosis of renal artery; K55.1 Chronic vascular disorders of intestine ==

== ENCOUNTER → 2024-02-27 | Outpatient (REF) | payer MEDICARE, MEDICAID ==
[~2024-02-27] MED LIST changes: +DOXY-440 PO; -DOXY-444 PO; -POTA10CA60 PO; +POTA10CA70 PO
[2024-02-27 14:07] LABS: BASO % 0.8 % (0.0-1.0); EOS # 0.2 10^3/uL (0.0-0.5); HEMATOCRIT 31.9 % (36.0-47.0); HEMOGLOBIN 9.9 g/dl (12.0-15.5); LYMPH # 1.1 10^3/uL (1.5-5.0); LYMPH % 20.5 % (24.0-44.0); MEAN CORPUSCULAR HEMOGLOBIN 30.9 pg (27.0-33.0); MEAN CORPUSCULAR VOLUME 99.7 fl (80.0-96.0); MONO # 0.5 10^3/uL (0.0-0.8); MONO % 9.8 % (2.0-8.0); NEUTROPHILS # 3.4 10^3/uL (1.5-8.5); NEUTROPHILS % 64.7 % (36.0-66.0); PLATELET COUNT, AUTOMATED 194 10^3/uL (150-450); WHITE BLOOD COUNT 5.3 10^3/uL (4.0-10.0)
[2024-02-27 14:39] LABS: THYROID STIMULATING HORMONE 3.361 uIU/ML (0.55-4.78)
[2024-02-27 14:43] LABS: ALBUMIN 3.4 G/DL (3.2-5.2); BILIRUBIN,TOTAL 0.2 MG/DL (0.3-1.2); CALCIUM LEVEL 8.6 MG/DL (8.3-10.6); CREATININE FOR GFR 1.18 MG/DL (0.55-1.30); GLOMERULAR FILTRATION RATE 46.9 (>32); POTASSIUM SERUM 5.5 MMOL/L (3.5-5.1); TOTAL PROTEIN 6.6 G/DL (5.7-8.2)
== END ==
LOC: SKLAB5 13:26
PROVIDERS: ATTEND Internal Medicine
DX: F03.918 Unspecified dementia, unspecified severity, with other behavioral disturbance (principal); R44.2 Other hallucinations; Z79.899 Other long term (current) drug therapy

== ENCOUNTER → 2024-02-29 | Outpatient (REF) | payer MEDICARE, MEDICAID | LOC: SKLAB5 09:28 | PROVIDERS: ATTEND Internal Medicine | DX: I25.10 Atherosclerotic heart disease of native coronary artery without angina pectoris (principal); Z79.899 Other long term (current) drug therapy; I44.4 Left anterior fascicular block ==

== ENCOUNTER → 2024-03-06 | Outpatient (REF) | payer MEDICARE, MEDICAID | LOC: SKLAB5 13:00 | PROVIDERS: ATTEND Internal Medicine | DX: Z53.8 Procedure and treatment not carried out for other reasons (principal) ==

== ENCOUNTER → 2024-03-07 | Outpatient (REF) | payer MEDICARE, MEDICAID | LOC: SKLAB5 11:35 | PROVIDERS: ATTEND Internal Medicine | DX: Z53.8 Procedure and treatment not carried out for other reasons (principal) ==

== ENCOUNTER → 2024-03-11 | Outpatient (REF) | payer MEDICARE, MEDICAID ==
[2024-03-11 10:48] LABS: CALCIUM LEVEL 9.1 MG/DL (8.3-10.6); CREATININE FOR GFR 1.56 MG/DL (0.55-1.30); POTASSIUM SERUM 4.4 MMOL/L (3.5-5.1)
== END ==
LOC: SKLAB5 08:51
PROVIDERS: ATTEND Internal Medicine
DX: E87.5 Hyperkalemia (principal)

== ENCOUNTER → 2024-03-26 | Outpatient (REF) | payer MEDICARE, MEDICAID ==
[~2024-03-26] MED LIST changes: +ACET1TAB55 PO; +BREO1INH3 PO; +CEFD1CAP9 PO; +MILK24002 PO; +NORV5TAB PO; +PRED50TA PO; +QUET1TAB17 PO
[2024-03-26 19:22] LABS: AMORPHOUS SEDIMENT SMALL (NEGATIVE); BACTERIA, URINE AUTO 1+ (NEGATIVE); MUCUS, URINE SMALL (NEGATIVE); RBC, URINE AUTO 0 /HPF (0-3); SQUAMOUS EPITHELIAL CELL UR AU 2 /HPF (0-6); WBC, URINE AUTO 26 /HPF (0-3)
[2024-03-26 19:59] LABS: APPEARANCE, URINE CLOUDY (CLEAR); BILIRUBIN, URINE AUTO NEGATIVE (NEGATIVE); BLOOD, URINE BLOOD NEGATIVE (NEGATIVE); COLOR, URINE AMBER (YELLOW); GLUCOSE, URINE (UA) AUTO NEGATIVE (NEGATIVE); KETONE, URINE AUTO TRACE mg/dL (NEGATIVE); LEUKOCYTE ESTERASE, URINE AUTO 1+ (NEGATIVE); NITRITE, URINE AUTO POSITIVE (NEGATIVE); PROTEIN, URINE AUTO 1+ mg/dL (NEGATIVE); SPECIFIC GRAVITY URINE AUTO 1.021 (1.002-1.035); UROBILINOGEN, URINE AUTO 0.2 mg/dL (0.0-2.0)
[2024-03-26 20:04] LABS: BASO # 0.1 10^3/uL (0.0-0.2); BASO % 0.9 % (0.0-1.0); EOS # 0.1 10^3/uL (0.0-0.5); EOS % 2.6 % (0.0-3.0); HEMATOCRIT 34.8 % (36.0-47.0); HEMOGLOBIN 10.2 g/dl (12.0-15.5); LYMPH % 17.8 % (24.0-44.0); MEAN CORPUSCULAR HEMOGLOBIN 30.2 pg (27.0-33.0); MEAN CORPUSCULAR HGB CONC 29.3 g/dl (32.0-36.5); MONO # 0.6 10^3/uL (0.0-0.8); MONO % 10.3 % (2.0-8.0); NEUTROPHILS # 3.7 10^3/uL (1.5-8.5); NEUTROPHILS % 67.8 % (36.0-66.0); PLATELET COUNT, AUTOMATED 261 10^3/uL (150-450); RED BLOOD COUNT 3.38 10^6/uL (4.00-5.40); WHITE BLOOD COUNT 5.5 10^3/uL (4.0-10.0)
[2024-03-26 20:28] LABS: ALBUMIN 3.1 G/DL (3.2-5.2); BILIRUBIN,TOTAL 0.2 MG/DL (0.3-1.2); CALCIUM LEVEL 8.9 MG/DL (8.3-10.6); CREATININE FOR GFR 1.49 MG/DL (0.55-1.30); GLOMERULAR FILTRATION RATE 35.8 (>32); POTASSIUM SERUM 4.8 MMOL/L (3.5-5.1); TOTAL PROTEIN 6.8 G/DL (5.7-8.2)
[2024-03-26 20:38] LABS: THYROID STIMULATING HORMONE 3.223 uIU/ML (0.55-4.78)
== END ==
LOC: SKLAB5 18:34
PROVIDERS: ATTEND Internal Medicine
DX: R41.82 Altered mental status, unspecified (principal); R91.8 Other nonspecific abnormal finding of lung field

== ENCOUNTER → 2024-05-07 | Outpatient (REF) | payer MEDICARE, MEDICAID ==
[2024-05-07 16:03] LABS: HEMATOCRIT 30.2 % (36.0-47.0); HEMOGLOBIN 9.2 g/dl (12.0-15.5); MEAN CORPUSCULAR HEMOGLOBIN 28.4 pg (27.0-33.0); MEAN CORPUSCULAR HGB CONC 30.5 g/dl (32.0-36.5); MEAN CORPUSCULAR VOLUME 93.2 fl (80.0-96.0); PLATELET COUNT, AUTOMATED 315 10^3/uL (150-450); RED BLOOD COUNT 3.24 10^6/uL (4.00-5.40); WHITE BLOOD COUNT 6.9 10^3/uL (4.0-10.0)
[2024-05-07 16:26] LABS: ALBUMIN 2.9 G/DL (3.2-5.2); BILIRUBIN,TOTAL 0.2 MG/DL (0.3-1.2); CALCIUM LEVEL 8.5 MG/DL (8.3-10.6); CREATININE FOR GFR 1.54 MG/DL (0.55-1.30); GLOMERULAR FILTRATION RATE 34.5 (>32); POTASSIUM SERUM 4.2 MMOL/L (3.5-5.1); TOTAL PROTEIN 6.3 G/DL (5.7-8.2)
== END ==
LOC: SKLAB5 14:57
PROVIDERS: ATTEND Internal Medicine
DX: I50.9 Heart failure, unspecified (principal)

== ENCOUNTER → 2024-05-13 | Outpatient (REF) | payer MEDICARE, MEDICAID ==
[2024-05-13 16:32] LABS: CALCIUM LEVEL 8.8 MG/DL (8.3-10.6); CREATININE FOR GFR 1.43 MG/DL (0.55-1.30); GLOMERULAR FILTRATION RATE 37.6 (>32); POTASSIUM SERUM 4.2 MMOL/L (3.5-5.1)
== END ==
LOC: SKLAB5 07:00
PROVIDERS: ATTEND Internal Medicine
DX: I50.9 Heart failure, unspecified (principal)

== ENCOUNTER → 2024-06-02 | Outpatient (REF) | payer MEDICARE, MEDICAID ==
[2024-06-02 10:26] LABS: BASO # 0.1 10^3/uL (0.0-0.2); BASO % 1.2 % (0.0-1.0); EOS # 0.3 10^3/uL (0.0-0.5); EOS % 5.6 % (0.0-3.0); HEMOGLOBIN 9.8 g/dl (12.0-15.5); LYMPH # 1.2 10^3/uL (1.5-5.0); LYMPH % 23.7 % (24.0-44.0); MEAN CORPUSCULAR HEMOGLOBIN 28.2 pg (27.0-33.0); MEAN CORPUSCULAR HGB CONC 30.6 g/dl (32.0-36.5); MONO # 0.4 10^3/uL (0.0-0.8); MONO % 8.3 % (2.0-8.0); NEUTROPHILS # 3.1 10^3/uL (1.5-8.5); NEUTROPHILS % 60.6 % (36.0-66.0); PLATELET COUNT, AUTOMATED 267 10^3/uL (150-450); RED BLOOD COUNT 3.48 10^6/uL (4.00-5.40); WHITE BLOOD COUNT 5.2 10^3/uL (4.0-10.0)
[2024-06-02 10:59] LABS: THYROID STIMULATING HORMONE 3.906 uIU/ML (0.55-4.78)
[2024-06-02 11:02] LABS: BILIRUBIN,TOTAL 0.2 MG/DL (0.3-1.2); CALCIUM LEVEL 8.8 MG/DL (8.3-10.6); CREATININE FOR GFR 1.64 MG/DL (0.55-1.30); GLOMERULAR FILTRATION RATE 32.1 (>32); POTASSIUM SERUM 4.4 MMOL/L (3.5-5.1); TOTAL PROTEIN 6.3 G/DL (5.7-8.2)
== END ==
LOC: SKLAB5 08:27
PROVIDERS: ATTEND Internal Medicine
DX: I26.99 Other pulmonary embolism without acute cor pulmonale (principal); E03.9 Hypothyroidism, unspecified; R41.81 Age-related cognitive decline

== ENCOUNTER → 2024-09-10 | Outpatient (REF) | payer MEDICARE, MEDICAID ==
[~2024-09-10] MED LIST changes: -ADV100INH INH; +ADVA1AER8 INH; +MAGN400O73 PO; -MIDO2.5T PO; +MIDO2.5T3 PO; -MILK24002 PO
[2024-09-10 16:10] LABS: BASO % 0.6 % (0.0-1.0); EOS # 0.2 10^3/uL (0.0-0.5); EOS % 2.8 % (0.0-3.0); HEMATOCRIT 33.3 % (36.0-47.0); HEMOGLOBIN 10.5 g/dl (12.0-15.5); LYMPH % 19.5 % (24.0-44.0); MEAN CORPUSCULAR HEMOGLOBIN 28.2 pg (27.0-33.0); MEAN CORPUSCULAR HGB CONC 31.5 g/dl (32.0-36.5); MEAN CORPUSCULAR VOLUME 89.3 fl (80.0-96.0); MONO # 0.4 10^3/uL (0.0-0.8); MONO % 8.3 % (2.0-8.0); NEUTROPHILS # 3.6 10^3/uL (1.5-8.5); NEUTROPHILS % 68.4 % (36.0-66.0); PLATELET COUNT, AUTOMATED 229 10^3/uL (150-450); RED BLOOD COUNT 3.73 10^6/uL (4.00-5.40); WHITE BLOOD COUNT 5.3 10^3/uL (4.0-10.0)
[2024-09-10 16:38] LABS: ALBUMIN 3.1 G/DL (3.2-5.2); BILIRUBIN,TOTAL 0.3 MG/DL (0.3-1.2); CREATININE FOR GFR 1.28 MG/DL (0.55-1.30); GLOMERULAR FILTRATION RATE 42.6 (>32); POTASSIUM SERUM 4.7 MMOL/L (3.5-5.1); TOTAL PROTEIN 6.8 G/DL (5.7-8.2)
[2024-09-10 16:42] LABS: THYROID STIMULATING HORMONE 4.797 uIU/ML (0.55-4.78)
== END ==
LOC: SKLAB5 13:50
PROVIDERS: ATTEND Internal Medicine
DX: R53.83 Other fatigue (principal)

== ENCOUNTER → 2024-10-23 | Outpatient (REF) | payer MEDICARE, MEDICAID | LOC: SKLAB5 12:06 | PROVIDERS: ATTEND Internal Medicine | DX: R05.9 Cough, unspecified (principal); R09.89 Other specified symptoms and signs involving the circulatory and respiratory systems ==

== ENCOUNTER 2024-12-04 06:13 | Emergency (ER) | payer MEDICARE, MEDICAID ==
[~2024-12-04] VITALS: Ht 165.1 cm; Wt 58.5 kg
[2024-12-04 06:36] VITALS: TEMP 97.1
[2024-12-04] MEDS: LIDOCAINE 2% W/EPINEPHRINE 20ML VIAL **PRES FREE INJ ONE (09:45)
[2024-12-04 09:52] LABS: BASO # 0.1 10^3/uL (0.0-0.2); EOS # 0.2 10^3/uL (0.0-0.5); EOS % 2.8 % (0.0-3.0); HEMATOCRIT 36.9 % (36.0-47.0); HEMOGLOBIN 11.6 g/dl (12.0-15.5); LYMPH # 0.9 10^3/uL (1.5-5.0); LYMPH % 14.5 % (24.0-44.0); MEAN CORPUSCULAR HEMOGLOBIN 28.8 pg (27.0-33.0); MEAN CORPUSCULAR HGB CONC 31.4 g/dl (32.0-36.5); MEAN CORPUSCULAR VOLUME 91.6 fl (80.0-96.0); MONO # 0.5 10^3/uL (0.0-0.8); MONO % 8.7 % (2.0-8.0); NEUTROPHILS # 4.4 10^3/uL (1.5-8.5); NEUTROPHILS % 72.7 % (36.0-66.0); PLATELET COUNT, AUTOMATED 245 10^3/uL (150-450); RED BLOOD COUNT 4.03 10^6/uL (4.00-5.40); WHITE BLOOD COUNT 6.1 10^3/uL (4.0-10.0)
[2024-12-04 10:00] LABS: ALBUMIN 3.2 G/DL (3.2-5.2); BILIRUBIN,TOTAL 0.5 MG/DL (0.3-1.2); CALCIUM LEVEL 9.2 MG/DL (8.3-10.6); CREATININE FOR GFR 1.13 MG/DL (0.55-1.30); GLOMERULAR FILTRATION RATE 48.9 (>32); TOTAL PROTEIN 6.5 G/DL (5.7-8.2)
[2024-12-04 10:12] LABS: INR 1.01; PROTHROMBIN TIME 13.6 SECONDS (12.5-14.5)
[2024-12-04] MEDS: BOOSTRIX VACCINE (TETANUS/DIPHTH/ACEL. PERTUSSIS) 0.5ML SYR IM.IMMUN ONE (11:29)
[2024-12-04 12:06] VITALS: BP 139/85; O2SAT 100
[2024-12-04 12:15] LABS: ABG BASE EXCESS -2.4 (-2.0-2.0); ABG HCO3 22.6 MMOL/L (22.0-26.0); ABG O2 SATURATION 96.7 % (95.0-99.0); ABG PARTIAL PRESSURE CO2 39.8 mmHg (35.0-45.0); ABG PARTIAL PRESSURE O2 90.3 mmHg (75.0-100.0); ABG STANDARD HCO3 22.4 MMOL/L. (22.0-26.0); ABG TOTAL CO2 23.8 MMOL/L (23.0-31.0); ABG pH (ARTERIAL) 7.372 UNITS (7.350-7.450)
[2024-12-04] MEDS ORDERED: BACI500O8 TOP (12:19)
== END 2024-12-04 13:57 | disposition home or self-care (01) ==
LOC: M ED 06:13
DX: S01.01XA Laceration without foreign body of scalp, initial encounter (principal); Y92.9 Unspecified place or not applicable; Y93.9 Activity, unspecified; Y99.9 Unspecified external cause status; W19.XXXA Unspecified fall, initial encounter; I44.4 Left anterior fascicular block; I25.119 Atherosclerotic heart disease of native coronary artery with unspecified angina pectoris; I50.22 Chronic systolic (congestive) heart failure; I25.2 Old myocardial infarction; E03.9 Hypothyroidism, unspecified; J44.9 Chronic obstructive pulmonary disease, unspecified; Z23 Encounter for immunization; Z88.8 Allergy status to other drugs, medicaments and biological substances; Z91.09 Other allergy status, other than to drugs and biological substances; Z79.1 Long term (current) use of non-steroidal anti-inflammatories (NSAID); Z79.01 Long term (current) use of anticoagulants; Z79.52 Long term (current) use of systemic steroids; Z79.899 Other long term (current) drug therapy

== ENCOUNTER → 2024-12-25 | Outpatient (REF) | payer MEDICARE, MEDICAID ==
[~2024-12-25] MED LIST changes: +BACI500O8 TOP; -PRED50TA PO; +PRED50TA57 PO
[2024-12-25 07:36] LABS: HEMATOCRIT 29.4 % (36.0-47.0); HEMOGLOBIN 9.2 g/dl (12.0-15.5); MEAN CORPUSCULAR HEMOGLOBIN 29.3 pg (27.0-33.0); MEAN CORPUSCULAR HGB CONC 31.3 g/dl (32.0-36.5); MEAN CORPUSCULAR VOLUME 93.6 fl (80.0-96.0); PLATELET COUNT, AUTOMATED 253 10^3/uL (150-450); RED BLOOD COUNT 3.14 10^6/uL (4.00-5.40); WHITE BLOOD COUNT 6.8 10^3/uL (4.0-10.0)
[2024-12-25 08:07] LABS: ALBUMIN 2.9 G/DL (3.2-5.2); BILIRUBIN,TOTAL 0.3 MG/DL (0.3-1.2); CALCIUM LEVEL 8.3 MG/DL (8.3-10.6); CREATININE FOR GFR 1.1 MG/DL (0.55-1.30); GLOMERULAR FILTRATION RATE 50.5 (>32); POTASSIUM SERUM 4.6 MMOL/L (3.5-5.1); THYROID STIMULATING HORMONE 2.09 uIU/ML (0.55-4.78); TOTAL PROTEIN 6.3 G/DL (5.7-8.2)
== END ==
LOC: SKLAB5 07:00
PROVIDERS: ATTEND Internal Medicine
DX: D64.9 Anemia, unspecified (principal); I25.10 Atherosclerotic heart disease of native coronary artery without angina pectoris; J44.9 Chronic obstructive pulmonary disease, unspecified; F32.A Depression, unspecified

== ENCOUNTER 2025-03-18 11:15 | Inpatient (IN) | payer MEDICARE, MEDICAID ==
[~2025-03-18] VITALS: Ht 160 cm; Wt 50.9 kg
[~2025-03-18 11:15] MED LIST changes: -ATIV1TAB10 PO; -BUSP5TA PO; -CICL1SHA2 TOP; -DOXY100C3 PO; -HYOS125TA PO; -MORP1SOL5 PO; +[UNRECOGNIZED DRUG - OTHER] XX SCH
[2025-03-18 12:02] LABS: ABG BASE EXCESS -6.0 (-2.0-2.0); ABG HCO3 22.1 MMOL/L (22.0-26.0); ABG O2 SATURATION 94.0 % (95.0-99.0); ABG PARTIAL PRESSURE CO2 56.1 mmHg (35.0-45.0); ABG PARTIAL PRESSURE O2 79.6 mmHg (75.0-100.0); ABG STANDARD HCO3 19.5 MMOL/L. (22.0-26.0); ABG TOTAL CO2 23.9 MMOL/L (23.0-31.0)
[2025-03-18 12:05] LABS: ABG pH (ARTERIAL) 7.214 UNITS (7.350-7.450)
[2025-03-18 12:08] LABS: BASO # 0.0 10^3/uL (0.0-0.2); BASO % 0.1 % (0.0-1.0); EOS # 0.0 10^3/uL (0.0-0.5); EOS % 0.0 % (0.0-3.0); LYMPH # 0.3 10^3/uL (1.5-5.0); LYMPH % 2.4 % (24.0-44.0); MONO # 0.7 10^3/uL (0.0-0.8); MONO % 4.7 % (2.0-8.0); NEUTROPHILS # 13.0 10^3/uL (1.5-8.5); NEUTROPHILS % 92.5 % (36.0-66.0); PLATELET COUNT, AUTOMATED 229 10^3/uL (150-450)
[2025-03-18 12:30] LABS: ALT/SGPT 14.0 U/L (7.0-40); AST/SGOT 27.0 U/L (<34); CALCIUM LEVEL 8.8 MG/DL (8.3-10.6); CARBON DIOXIDE LEVEL 23.0 MMOL/L (20-31); CHLORIDE LEVEL 100.0 MMOL/L (98-107); CK-MB VALUE MASS 2.2 NG/ML (<3.6); CPK CREATINE PHOSPHOKINASE 53.0 U/L (34-145); CREATININE FOR GFR 1.01 MG/DL (0.55-1.30); FREE T4 1.11 NG/DL (0.89-1.76); GLOMERULAR FILTRATION RATE 55.9 (>32); MB/CK RELATIVE INDEX 4.15 (< OR =4); POTASSIUM SERUM 4.9 MMOL/L (3.5-5.1); SODIUM LEVEL 136.0 MMOL/L (136-145)
[2025-03-18 12:59] LABS: INR 0.95
[2025-03-18 13:01] VITALS: BP 159/78
[2025-03-18] MEDS: FUROSEMIDE 40 MG/4 ML VIAL IV ONE ×2 (13:01→17:55)
[2025-03-18] MEDS: IPRATROPIUM 0.5 MG/ALBUTEROL 2.5 MG INH SOL UD 3 ML NEB ONE (13:13)
[2025-03-18] MEDS ORDERED: BUSP5TA PO (13:38)
[2025-03-18] MEDS ORDERED: DOXY100C3 PO (13:38)
[2025-03-18] MEDS ORDERED: IPRA0.00 NEB (13:38)
[2025-03-18] MEDS ORDERED: PRED20TA PO (13:38)
[2025-03-18] MEDS ORDERED: CICL1SHA2 TOP (13:38)
[2025-03-18] MEDS ORDERED: HOME MED LIST COMPLETE! XX SCH (13:40)
[2025-03-18] MEDS ORDERED: MAALOX 30 ML SUSP *UDC PO PRN (14:50)
[2025-03-18] MEDS ORDERED: IPRATROPIUM 0.5 MG/ALBUTEROL 2.5 MG INH SOL UD 3 ML NEB PRN (14:50)
[2025-03-18] MEDS ORDERED: MOM 30 ML SUSPENSION UDC PO PRN (14:50)
[2025-03-18] MEDS ORDERED: ISOVUE-370 76% 100 ML VIAL As Ordered ONE (15:25)
[2025-03-18] MEDS ORDERED: LevoFLOXacin IV 750 MG in IV 1 EA IV SCH (16:00)
[2025-03-18 16:34] VITALS: TEMP 97; O2SAT 97
[2025-03-18] MEDS: busPIRone 5 MG TAB PO SCH (17:54)
[2025-03-18] MEDS: LevoFLOXacin IV 750 MG in IV 1 EA IV SCH (17:55)
[2025-03-18 18:40] LABS: KETONE, URINE AUTO RFX NEGATIVE (NEGATIVE); LEUKOCYTE ESTERASE UR AUTO RFX NEGATIVE (NEGATIVE); NITRITE, URINE AUTO RFX NEGATIVE (NEGATIVE); RBC, URINE AUTO RFX 0 /HPF (0-3); SQUAM EPITHELIAL CELL UR AURFX 1 /HPF (0-6); WBC, URINE AUTO RFX 0 /HPF (0-3)
[2025-03-18] MEDS: IPRATROPIUM 0.5 MG/ALBUTEROL 2.5 MG INH SOL UD 3 ML NEB SCH (19:54)
[2025-03-18] MEDS: ADVAIR HFA 230/21 MCG INHALER INH SCH (19:55)
[2025-03-18 20:32] VITALS: BP 132/66; TEMP 97.6; O2SAT 95
[2025-03-18] MEDS: ENOXAPARIN 40 MG/0.4 ML SYRINGE (J1650 PER 10MG) SC SCH (20:37)
[2025-03-18] MEDS: DOCUSATE SODIUM 100 MG CAPSULE PO SCH (20:38)
[2025-03-18] MEDS: guaiFENesin ER TABLET 600 MG TAB PO SCH (20:38)
[2025-03-19] VITALS (7 sets, daily range): BP systolic 115–131; BP diastolic 58–69; TEMP 97.3–98.9; O2SAT 93–99
[2025-03-19 05:18] LABS: PLATELET COUNT, AUTOMATED 212 10^3/uL (150-450)
[2025-03-19 05:35] LABS: CALCIUM LEVEL 8.9 MG/DL (8.3-10.6); CARBON DIOXIDE LEVEL 28.0 MMOL/L (20-31); CHLORIDE LEVEL 98.0 MMOL/L (98-107); CREATININE FOR GFR 1.38 MG/DL (0.55-1.30); GLOMERULAR FILTRATION RATE 38.5 (>32); MAGNESIUM LEVEL 1.8 MG/DL (1.8-2.4); POTASSIUM SERUM 4.7 MMOL/L (3.5-5.1); SODIUM LEVEL 137.0 MMOL/L (136-145)
[2025-03-19 05:39] LABS: LYMPHOCYTES 4 % (16-44); METAMYELOCYTES 2 % (0-0); MONOCYTES 3 % (0-5); NEUTROPHILS 81 % (28-66)
[2025-03-19 05:40] LABS: PLATELET ESTIMATE NORMAL (NORMAL)
[2025-03-19] MEDS: LEVOTHYROXINE 25 MCG TABLET (0.025MG) PO SCH (06:15)
[2025-03-19] MEDS: NS (Normal Saline) 0.9% 1,000 ML IV SCH (08:30)
[2025-03-19] MEDS: SENNA 8.6 MG TAB PO SCH (09:00)
[2025-03-19] MEDS: SERTRALINE HCL 50 MG TAB PO SCH (09:00)
[2025-03-19 10:50] LABS: ABG BASE EXCESS 2.1 (-2.0-2.0); ABG HCO3 26.4 MMOL/L (22.0-26.0); ABG O2 SATURATION 91.1 % (95.0-99.0); ABG PARTIAL PRESSURE CO2 40.0 mmHg (35.0-45.0); ABG PARTIAL PRESSURE O2 59.0 mmHg (75.0-100.0); ABG STANDARD HCO3 26.2 MMOL/L. (22.0-26.0); ABG TOTAL CO2 27.6 MMOL/L (23.0-31.0); ABG pH (ARTERIAL) 7.437 UNITS (7.350-7.450)
[2025-03-19] MEDS: ACETAMINOPHEN 325 MG TAB PO PRN (18:50)
[2025-03-20 00:21] VITALS: BP 124/63; TEMP 97; O2SAT 93
[2025-03-20 04:00] VITALS: BP 133/89; TEMP 97; O2SAT 95
[2025-03-20 04:56] LABS: BASO # 0.0 10^3/uL (0.0-0.2); BASO % 0.1 % (0.0-1.0); EOS # 0.0 10^3/uL (0.0-0.5); EOS % 0.0 % (0.0-3.0); LYMPH # 0.3 10^3/uL (1.5-5.0); LYMPH % 2.1 % (24.0-44.0); MONO # 0.4 10^3/uL (0.0-0.8); MONO % 3.0 % (2.0-8.0); NEUTROPHILS # 12.8 10^3/uL (1.5-8.5); NEUTROPHILS % 94.3 % (36.0-66.0); PLATELET COUNT, AUTOMATED 220 10^3/uL (150-450)
[2025-03-20 05:21] LABS: CALCIUM LEVEL 8.1 MG/DL (8.3-10.6); CARBON DIOXIDE LEVEL 25.0 MMOL/L (20-31); CHLORIDE LEVEL 104.0 MMOL/L (98-107); CREATININE FOR GFR 1.57 MG/DL (0.55-1.30); GLOMERULAR FILTRATION RATE 32.9 (>32); MAGNESIUM LEVEL 2.1 MG/DL (1.8-2.4); POTASSIUM SERUM 4.2 MMOL/L (3.5-5.1); SODIUM LEVEL 143.0 MMOL/L (136-145)
[2025-03-20 08:26] VITALS: BP 156/82; TEMP 97; O2SAT 94
[2025-03-20] MEDS ORDERED: NS 500 ML IV ONE (10:25)
[2025-03-20] MEDS ORDERED: MORPHINE 10 MG/0.5 ML ORAL CONCENTRATE SOLUTION U/D SL PRN (10:40)
[2025-03-20] MEDS ORDERED: LORazepam 1 MG TAB PO PRN (10:40)
[2025-03-20] MEDS ORDERED: SCOPOLAMINE 1MG TRANSDERMAL PATCH TOP PRN (10:40)
[2025-03-20] MEDS ORDERED: ATIV1TAB10 PO (10:46)
[2025-03-20] MEDS ORDERED: MORP1SOL5 PO (10:46)
[2025-03-20] MEDS ORDERED: HYOS125TA PO (10:46)
[2025-03-21] MEDS ORDERED: predniSONE 20 MG TAB PO SCH (09:00)
[2025-03-24] MEDS ORDERED: predniSONE 10 MG TAB PO SCH (09:00)
[2025-03-27] MEDS ORDERED: predniSONE 20 MG TAB PO SCH (09:00)
[2025-03-30] MEDS ORDERED: predniSONE 10 MG TAB PO SCH (09:00)
== END 2025-03-20 14:12 | DRG 193 ==
LOC: M ED 11:15 → EDBD 11:15 → M ED INP 14:48 → EEVIPCON 14:48 → M PCU 16:24
PROVIDERS: ADMIT Internal Medicine; ATTEND Internal Medicine
PROC: B246ZZZ Ultrasonography of Right and Left Heart (ICD-10-PCS; principal; 2025-03-18)
DX: J18.9 Pneumonia, unspecified organism (principal); J96.21 Acute and chronic respiratory failure with hypoxia; G93.41 Metabolic encephalopathy; J44.1 Chronic obstructive pulmonary disease with (acute) exacerbation; N17.9 Acute kidney failure, unspecified; I50.32 Chronic diastolic (congestive) heart failure; J98.11 Atelectasis; J44.0 Chronic obstructive pulmonary disease with (acute) lower respiratory infection; Z66 Do not resuscitate; F03.90 Unspecified dementia, unspecified severity, without behavioral disturbance, psychotic disturbance, mood disturbance, and anxiety; I95.1 Orthostatic hypotension; I48.0 Paroxysmal atrial fibrillation; I25.10 Atherosclerotic heart disease of native coronary artery without angina pectoris; E78.5 Hyperlipidemia, unspecified; E03.9 Hypothyroidism, unspecified; N18.30 Chronic kidney disease, stage 3 unspecified; F39 Unspecified mood [affective] disorder; K59.09 Other constipation; Z90.49 Acquired absence of other specified parts of digestive tract; Z90.79 Acquired absence of other genital organ(s); Z79.2 Long term (current) use of antibiotics; Z79.890 Hormone replacement therapy; Z79.52 Long term (current) use of systemic steroids; Z79.899 Other long term (current) drug therapy; Z88.8 Allergy status to other drugs, medicaments and biological substances; Z95.5 Presence of coronary angioplasty implant and graft; Z86.73 Personal history of transient ischemic attack (TIA), and cerebral infarction without residual deficits; Z99.81 Dependence on supplemental oxygen; Z86.711 Personal history of pulmonary embolism; R13.10 Dysphagia, unspecified; R32 Unspecified urinary incontinence; R15.9 Full incontinence of feces; Z99.3 Dependence on wheelchair

== ENCOUNTER → 2025-03-18 | Outpatient (REF) | payer MEDICARE, MEDICAID ==
[~2025-03-18] MED LIST changes: +ATIV1TAB10 PO; +BUSP5TA PO; +CICL1SHA2 TOP; +DOXY100C3 PO; +HYOS125TA PO; +LORA-1164 PO; -LORA-622 PO; +MORP1SOL5 PO; -PRAV40TA2 PO; +PRAV40TA85 PO
[2025-03-18 09:20] LABS: PLATELET COUNT, AUTOMATED 242 10^3/uL (150-450)
[2025-03-18 09:43] LABS: ALT/SGPT 12.0 U/L (7.0-40); AST/SGOT 21.0 U/L (<34); CALCIUM LEVEL 8.8 MG/DL (8.3-10.6); CARBON DIOXIDE LEVEL 22.0 MMOL/L (20-31); CHLORIDE LEVEL 103.0 MMOL/L (98-107); CREATININE FOR GFR 1.05 MG/DL (0.55-1.30); GLOMERULAR FILTRATION RATE 53.4 (>32); POTASSIUM SERUM 4.6 MMOL/L (3.5-5.1); SODIUM LEVEL 137.0 MMOL/L (136-145)
== END ==
LOC: SKLAB5 08:25
PROVIDERS: ATTEND Internal Medicine
DX: R09.89 Other specified symptoms and signs involving the circulatory and respiratory systems (principal)